=== PATIENT | female | born 1945 | race Asian ===

== ENCOUNTER 2018-07-28 06:07 | Inpatient (IN) | payer MEDICARE, MEDICAID ==
[~2018-07-28] VITALS: Ht 154.9 cm; Wt 45.8 kg
[2018-07-28 06:34] VITALS: BP 185/70
[2018-07-28 07:20] LABS: BASOPHILS % (AUTO) 0.5 % (0.0-2.0); EOSINOPHILS % (AUTO) 0.1 % (0.0-3.0); HEMATOCRIT 37.5 % (37.0-47.0); HEMOGLOBIN 11.8 G/DL (12.0-16.0); LYMPHOCYTES % (AUTO) 33.9 % (20.0-45.0); MEAN CORPUSCULAR VOLUME 84 FL (80-99); MONOCYTES % (AUTO) 5.7 % (1.0-10.0); NEUTROPHILS % (AUTO) 59.8 % (45.0-75.0); PLATELET COUNT 377 K/UL (150-450); RED BLOOD COUNT 4.44 M/UL (4.20-5.40); RED CELL DISTRIBUTION WIDTH 14.6 % (11.6-14.8); WHITE BLOOD COUNT 6.7 K/UL (4.8-10.8)
[2018-07-28] MEDS ORDERED: NKM (07:22)
--- NOTE | 2018-07-28 07:34 | Emergency Room Report ---
History of Present Illness General Chief Complaint: Chest Pain Source: Patient Present Illness HPI Patient present with complaints of chest pain and headache Patient was brought in by paramedics Initial history was provided by paramedics Upon attempt of speaking with English translation patient is a poor historian has a difficult time reporting why she was brought to the hospital Denies any chest pain at this time She did however complain of a left parietal headache Which also correlates with initial triage report Also compares of nausea denies any vomiting or diarrhea Past medical history remains significantly limited medications remains significantly limited attempts are being made to contact family Allergies: Coded Allergies: No Known Allergies (Unverified , 07/28/18) Patient History Limited by: medical condition Past Medical History: see triage record Pertinent Family History: unable to obtain Last Menstrual Period: UNK Now: No Reviewed Nursing Documentation: PMH: Agreed; PSxH: Agreed Nursing Documentation-PMH Past Medical History: No Stated History Review of Systems All Other Systems: limited - Other than the ones mentioned in the history of present illness all others are reviewed however they do stay limited due to the patient's mental status Physical Exam Vital Signs Date Time Temp Pulse Resp B/P (MAP) Pulse Ox O2 Delivery O2 Flow Rate FiO2 07/28/18 06:07 100 14 185/70 98 Room Air 07/28/18 06:34 98.0 Sp02 EP Interpretation: reviewed, normal General Appearance: no apparent distress Head: normocephalic, atraumatic Eyes: bilateral eye PERRL, bilateral eye EOMI ENT: hearing grossly normal, normal pharynx, TMs + canals normal, uvula midline Neck: full range of motion, supple, no meningismus, no bony tend, other - Some fullness in the thyroid region however I cannot an enlarged thyroid Respiratory: lungs clear, normal breath sounds, no rhonchi, no respiratory distress, no retraction, no accessory muscle use Cardiovascular #1: normal peripheral pulses, regular rate, rhythm, no edema, no gallop, no JVD, no murmur Gastrointestinal: normal bowel sounds, non tender, soft, no mass, no organomegaly, non-distended, no guarding, no hernia, no pulsatile mass, no rebound Genitourinary: no CVA tenderness Musculoskeletal: normal inspection 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, 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, motor strength/tone normal, sensory intact Psychiatric: mood/affect normal Skin: normal color, no rash, warm/dry, palpation normal Lymphatic: normal inspection, no adenopathy Medical Decision Making Diagnostic Impression: Primary Impression: ACS (acute coronary syndrome) ER Course Patient is a fairly complex patient with multiple differential to consideration including but not limited to cardiac cardiopulmonary and vascular emergencies Patient also has CT head obtained given her repeat complain of headache CT head was negative blood work is at baseline levels Given the patient's comorbidities and presentation admitted for further inpatient care Labs Test 07/28/18 07:00 07/28/18 07:15 07/28/18 07:30 07/28/18 07:41 White Blood Count 6.7 K/UL (4.8-10.8) Red Blood Count 4.44 M/UL (4.20-5.40) Hemoglobin 11.8 G/DL (12.0-16.0) Hematocrit 37.5 % (37.0-47.0) Mean Corpuscular Volume 84 FL (80-99) Mean Corpuscular Hemoglobin 26.7 PG (27.0-31.0) Mean Corpuscular Hemoglobin Concent 31.6 G/DL (32.0-36.0) Red Cell Distribution Width 14.6 % (11.6-14.8) Platelet Count 377 K/UL (150-450) Mean Platelet Volume 6.2 FL (6.5-10.1) Neutrophils (%) (Auto) 59.8 % (45.0-75.0) Lymphocytes (%) (Auto) 33.9 % (20.0-45.0) Monocytes (%) (Auto) 5.7 % (1.0-10.0) Eosinophils (%) (Auto) 0.1 % (0.0-3.0) Basophils (%) (Auto) 0.5 % (0.0-2.0) Sodium Level 136 MMOL/L (136-145) Potassium Level 3.4 MMOL/L (3.5-5.1) Chloride Level 100 MMOL/L (98-107) Carbon Dioxide Level 22 MMOL/L (21-32) Anion Gap 14 mmol/L (5-15) Blood Urea Nitrogen 14 mg/dL (7-18) Creatinine 0.8 MG/DL (0.55-1.30) Estimat Glomerular Filtration Rate mL/min (>60) Glucose Level 115 MG/DL (74-106) Calcium Level 9.0 MG/DL (8.5-10.1) Total Bilirubin 0.6 MG/DL (0.2-1.0) Aspartate Amino Transf (AST/SGOT) 17 U/L (15-37) Alanine Aminotransferase (ALT/SGPT) 15 U/L (12-78) Alkaline Phosphatase 159 U/L (46-116) Total Creatine Kinase 56 U/L (26-308) Creatine Kinase MB 1.9 NG/ML (0.0-3.6) Creatine Kinase MB Relative Index 3.3 Troponin I 0.002 ng/mL (0.000-0.056) Pro-B-Type Natriuretic Peptide 330 pg/mL (0-125) Total Protein 8.3 G/DL (6.4-8.2) Albumin 3.7 G/DL (3.4-5.0) Globulin 4.6 g/dL Albumin/Globulin Ratio 0.8 (1.0-2.7) Lipase 225 U/L (73-393) Urine Color Pale yellow Urine Appearance Cloudy Urine pH 5 (4.5-8.0) Urine Specific [place] 1.025 (1.005-1.035) Urine Protein 3+ (NEGATIVE) Urine Glucose (UA) Negative (NEGATIVE) Urine Ketones 4+ (NEGATIVE) Urine Blood 5+ (NEGATIVE) Urine Nitrite Negative (NEGATIVE) Urine Bilirubin Negative (NEGATIVE) Urine Urobilinogen Normal MG/DL (0.0-1.0) Urine Leukocyte Esterase 3+ (NEGATIVE) Urine RBC 30-40 /HPF (0 - 2) Urine WBC 10-15 /HPF (0 - 2) Urine Squamous Epithelial Cells Many /LPF (NONE/OCC) Urine Bacteria Many /HPF (NONE) Urine Yeast Moderate /HPF (NONE) Test 07/29/18 05:40 07/29/18 11:40 White Blood Count 7.2 K/UL (4.8-10.8) Red Blood Count 4.16 M/UL (4.20-5.40) Hemoglobin 11.1 G/DL (12.0-16.0) Hematocrit 35.2 % (37.0-47.0) Mean Corpuscular Volume 85 FL (80-99) Mean Corpuscular Hemoglobin 26.8 PG (27.0-31.0) Mean Corpuscular Hemoglobin Concent 31.6 G/DL (32.0-36.0) Red Cell Distribution Width 15.1 % (11.6-14.8) Platelet Count 354 K/UL (150-450) Mean Platelet Volume 6.0 FL (6.5-10.1) Neutrophils (%) (Auto) 62.2 % (45.0-75.0) Lymphocytes (%) (Auto) 30.3 % (20.0-45.0) Monocytes (%) (Auto) 6.7 % (1.0-10.0) Eosinophils (%) (Auto) 0.1 % (0.0-3.0) Basophils (%) (Auto) 0.7 % (0.0-2.0) Prothrombin Time 10.4 SEC (9.30-11.50) Prothromb Time International Ratio 1.0 (0.9-1.1) Activated Partial Thromboplast Time 27 SEC (23-33) Sodium Level 137 MMOL/L (136-145) Potassium Level 3.8 MMOL/L (3.5-5.1) Chloride Level 102 MMOL/L (98-107) Carbon Dioxide Level 22 MMOL/L (21-32) Anion Gap 13 mmol/L (5-15) Blood Urea Nitrogen 8 mg/dL (7-18) Creatinine 0.9 MG/DL (0.55-1.30) Estimat Glomerular Filtration Rate mL/min (>60) Glucose Level 120 MG/DL (74-106) Calcium Level 9.1 MG/DL (8.5-10.1) Phosphorus Level 2.3 MG/DL (2.5-4.9) Magnesium Level 1.8 MG/DL (1.8-2.4) Total Bilirubin 0.4 MG/DL (0.2-1.0) Aspartate Amino Transf (AST/SGOT) 17 U/L (15-37) Alanine Aminotransferase (ALT/SGPT) 15 U/L (12-78) Alkaline Phosphatase 157 U/L (46-116) Troponin I 0.000 ng/mL (0.000-0.056) 0.014 ng/mL (0.000-0.056) C-Reactive Protein, Quantitative < 0.4 mg/dL (0.00-0.90) Total Protein 8.4 G/DL (6.4-8.2) Albumin 3.8 G/DL (3.4-5.0) Globulin 4.6 g/dL Albumin/Globulin Ratio 0.8 (1.0-2.7) Triglycerides Level 135 MG/DL (30-150) Cholesterol Level 325 MG/DL (< 200) LDL Cholesterol 229 mg/dL (<100) HDL Cholesterol 77 MG/DL (40-60) Cholesterol/HDL Ratio 4.2 (3.3-4.4) Amylase Level 72 U/L (25-115) Thyroid Stimulating Hormone (TSH) 1.651 uiU/mL (0.358-3.740) EKG Diagnostic Results Rate: normal Rhythm: NSR ST Segments: other - Bifascicular block nonspecific ST changes Rhythm Strip Diag. Results EP Interpretation: yes Rate: 80 Rhythm: NSR, no PVC's, no ectopy Chest X-Ray Diagnostic Results Chest X-Ray Diagnostic Results : Chest X-Ray Ordered: Yes # of Views/Limited/Complete: 1 View Indication: Shortness of Breath EP Interpretation: No Interpretation: no consolidation, other Impression: Other PA Scribe Text Findings: There is a 13 mm nodule at the right lung base. This is slightly dense so possibly but not definitively calcified. Granulomatous calcifications are seen in the right pulmonary hilum and mediastinum. The lungs and pleural spaces are otherwise clear. The heart size is normal. Aorta is tortuous and calcified. Surgical hardware seen reducing healed proximal right humeral fracture Impression: 13 mm right basilar nodule, possibly not definitely calcified; most likely postinflammatory but neoplasm also possible and further evaluation with CT should be considered. This was discussed by phone with Dr. Morgan in the emergency room at the time of interpretation Evidence of old granulomatous notable disease in the right pulmonary hilum and mediastinum No acute process CT/MRI/US Diagnostic Results CT/MRI/US Diagnostic Results : Impression CT head no acute disease Last Vital Signs Date Time Temp Pulse Resp B/P (MAP) Pulse Ox O2 Delivery O2 Flow Rate FiO2 07/28/18 06:37 90 20 Room Air 07/28/18 06:34 98.0 185/70 100 Status: improved Disposition: ADMITTED INPATIENT Condition: Serious Referrals: NOT CHOSEN IPA/MD,REFERRING (PCP) Daylin Morgan DO Jul 28, 2018 07:34
[2018-07-28 07:45] LABS: ANION GAP 14 mmol/L (5-15); BLOOD UREA NITROGEN 14 mg/dL (7-18); CARBON DIOXIDE 22 MMOL/L (21-32); CHLORIDE 100 MMOL/L (98-107); CREATININE 0.8 MG/DL (0.55-1.30); POTASSIUM 3.4 MMOL/L (3.5-5.1); SODIUM 136 MMOL/L (136-145)
[2018-07-28 07:53] LABS: BILIRUBIN, URINE NEGATIVE (NEGATIVE); COLOR,URINE PALE YELLOW; GLUCOSE, URINE (UA) NEGATIVE (NEGATIVE); KETONES,URINE 4+ (NEGATIVE); LEUKOCYTE ESTERASE ,URINE 3+ (NEGATIVE); NITRITE,URINE NEGATIVE (NEGATIVE); PH,URINE 5 (4.5-8.0); PROTEIN,URINE 3+ (NEGATIVE); UROBILINOGEN,URINE NORMAL MG/DL (0.0-1.0)
[2018-07-28 07:55] LABS: APPEARANCE,URINE CLOUDY
[2018-07-28 08:09] VITALS: BP 148/66
[2018-07-28 08:11] LABS: ALANINE AMINOTRANSFERASE 15 U/L (12-78); ALBUMIN 3.7 G/DL (3.4-5.0); ALBUMIN/GLOBULIN RATIO 0.8 (1.0-2.7); ALKALINE PHOSPHATASE 159 U/L (46-116); ASPARTATE AMINO TRANSFERASE 17 U/L (15-37); BILIRUBIN,TOTAL 0.6 MG/DL (0.2-1.0); CKMB 1.9 NG/ML (0.0-3.6); CREATINE KINASE 56 U/L (26-308)
--- NOTE | 2018-07-28 08:35 | Diagnostic Imaging Report ---
Indications: Headache in the left parietal region Technique: Spiral acquisitions obtained through the brain. Angled axial and coronal 5 x 5 mm slices were reconstructed. Total dose length product 1351.28 mGycm. CTDI vol(s) 70.38 mGy. Dose reduction achieved using automated exposure control Comparison: None. Findings: There is mild age-related enlargement of the ventricles and extra axial CSF spaces, minimal periventricular deep white matter low-attenuation. No acute intracranial hemorrhage nor edema. No mass effect nor midline shift. Normal jorgensen-white differentiation. Intact calvarium. There is lack of opacification of the mastoid air cells on the right, may be developmental or acquired. The right mastoids, visualized sinuses are clear. The visualized orbits are unremarkable. There is questionably an empty sella incidentally noted. Impression: Mild age-related changes Negative for acute intracranial bleed or mass effect Incidental findings as noted The CT scanner at [facility] is accredited by the [employer] and the scans are performed using protocols designed to limit radiation exposure to as low as reasonably achievable to attain images of sufficient resolution adequate for diagnostic evaluation.
--- NOTE | 2018-07-28 08:44 | Diagnostic Imaging Report ---
Indication: Shortness of breath Technique: One view of the chest Comparison: None Findings: There is a 13 mm nodule at the right lung base. This is slightly dense so possibly but not definitively calcified. Granulomatous calcifications are seen in the right pulmonary hilum and mediastinum. The lungs and pleural spaces are otherwise clear. The heart size is normal. Aorta is tortuous and calcified. Surgical hardware seen reducing healed proximal right humeral fracture Impression: 13 mm right basilar nodule, possibly not definitely calcified; most likely postinflammatory but neoplasm also possible and further evaluation with CT should be considered. This was discussed by phone with Dr. Morgan in the emergency room at the time of interpretation Evidence of old granulomatous notable disease in the right pulmonary hilum and mediastinum No acute process
[2018-07-28 08:51] VITALS: BP 143/58
[2018-07-28] MEDS ORDERED: cefTRIAXone 1 GM in D5W 55 ML IVPB ONE (09:00)
[2018-07-28] MEDS ORDERED: Nitroglycerin Subl 0.4mg tab SL PRN (10:45)
[2018-07-28] MEDS ORDERED: Enalaprilat 2.5mg/2ml Inj IV PRN (10:45)
[2018-07-28] MEDS ORDERED: Morphine Sulfate 2mg/ml Inj IVP PRN (10:45)
[2018-07-28] MEDS ORDERED: Isovue-300 100ml vial INJ PRN (10:45)
[2018-07-28] MEDS ORDERED: dilTIAZem HCl 25mg/5ml Inj IV PRN (10:45)
[2018-07-28] MEDS ORDERED: Albuterol/Ipratropium 3ml neb HHN PRN (10:45)
[2018-07-28] MEDS ORDERED: Miralax 17gm pkt ORAL PRN (10:45)
--- NOTE | 2018-07-28 10:48 | Consultation ---
History of Present Illness General Chief Complaint: Chest Pain Present Illness HPI 72 year old female with unknown PMHx, without any prior admission to [facility] was taken by paramedics to [place] ER with CC of chest pain for one day and episodes of nausea and vomiting. She was found to have pyuria and received one dose of Abx. Her CXR showed RLL 13 mm lesion. She is admitted to telemetry for further evaluation. Allergies: Coded Allergies: No Known Allergies (Unverified , 07/28/18) Medication History Scheduled No Known Medications* (NKM - No Known Medications*), 0 ., (Reported) Patient History Healthcare decision maker Resuscitation status Advanced Directive on File Past Medical/Surgical History Past Medical/Surgical History: (1) No pertinent past medical history Physical Exam General Appearance: WD/WN Lines, tubes and drains: peripheral HEENT: normocephalic, atraumatic Neck: non-tender, normal alignment Respiratory/Chest: chest wall non-tender, lungs clear Breasts: no masses Cardiovascular/Chest: normal peripheral pulses, regular rhythm Abdomen: normal bowel sounds, non tender Genitourinary/Rectal: normal genital exam Extremities: normal range of motion Last 24 Hour Vital Signs Date Time Temp Pulse Resp B/P (MAP) Pulse Ox O2 Delivery O2 Flow Rate FiO2 07/28/18 09:55 98.8 78 18 143/58 100 Room Air 07/28/18 08:51 98.8 78 18 143/58 100 Room Air 07/28/18 08:09 98.8 88 23 148/66 100 Room Air 88 07/28/18 06:37 90 20 Room Air 07/28/18 06:34 98.0 90 20 185/70 100 Room Air 07/28/18 06:07 100 14 185/70 98 Room Air Laboratory Tests Test 07/28/18 07:00 07/28/18 07:15 07/28/18 07:41 White Blood Count 6.7 K/UL (4.8-10.8) Red Blood Count 4.44 M/UL (4.20-5.40) Hemoglobin 11.8 G/DL (12.0-16.0) L Hematocrit 37.5 % (37.0-47.0) Mean Corpuscular Volume 84 FL (80-99) Mean Corpuscular Hemoglobin 26.7 PG (27.0-31.0) L Mean Corpuscular Hemoglobin Concent 31.6 G/DL (32.0-36.0) L Red Cell Distribution Width 14.6 % (11.6-14.8) Platelet Count 377 K/UL (150-450) Mean Platelet Volume 6.2 FL (6.5-10.1) L Neutrophils (%) (Auto) 59.8 % (45.0-75.0) Lymphocytes (%) (Auto) 33.9 % (20.0-45.0) Monocytes (%) (Auto) 5.7 % (1.0-10.0) Eosinophils (%) (Auto) 0.1 % (0.0-3.0) Basophils (%) (Auto) 0.5 % (0.0-2.0) Sodium Level 136 MMOL/L (136-145) Potassium Level 3.4 MMOL/L (3.5-5.1) L Chloride Level 100 MMOL/L (98-107) Carbon Dioxide Level 22 MMOL/L (21-32) Anion Gap 14 mmol/L (5-15) Blood Urea Nitrogen 14 mg/dL (7-18) Creatinine 0.8 MG/DL (0.55-1.30) Estimat Glomerular Filtration Rate mL/min (>60) Glucose Level 115 MG/DL (74-106) H Calcium Level 9.0 MG/DL (8.5-10.1) Total Bilirubin 0.6 MG/DL (0.2-1.0) Aspartate Amino Transf (AST/SGOT) 17 U/L (15-37) Alanine Aminotransferase (ALT/SGPT) 15 U/L (12-78) Alkaline Phosphatase 159 U/L (46-116) H Total Creatine Kinase 56 U/L (26-308) Creatine Kinase MB 1.9 NG/ML (0.0-3.6) Creatine Kinase MB Relative Index 3.3 Troponin I 0.002 ng/mL (0.000-0.056) Pro-B-Type Natriuretic Peptide 330 pg/mL (0-125) H Total Protein 8.3 G/DL (6.4-8.2) H Albumin 3.7 G/DL (3.4-5.0) Globulin 4.6 g/dL Albumin/Globulin Ratio 0.8 (1.0-2.7) L Urine Color Pale yellow Urine Appearance Cloudy Urine pH 5 (4.5-8.0) Urine Specific [place] 1.025 (1.005-1.035) Urine Protein 3+ (NEGATIVE) H Urine Glucose (UA) Negative (NEGATIVE) Urine Ketones 4+ (NEGATIVE) H Urine Blood 5+ (NEGATIVE) H Urine Nitrite Negative (NEGATIVE) Urine Bilirubin Negative (NEGATIVE) Urine Urobilinogen Normal MG/DL (0.0-1.0) Urine Leukocyte Esterase 3+ (NEGATIVE) H Urine RBC 30-40 /HPF (0 - 2) H Urine WBC 10-15 /HPF (0 - 2) H Urine Squamous Epithelial Cells Many /LPF (NONE/OCC) H Urine Bacteria Many /HPF (NONE) H Urine Yeast Moderate /HPF (NONE) H Height (Feet): 5 Height (Inches): 2.00 Weight (Pounds): 130 Medications Current Medications Medications (Trade) Dose Ordered Sig/Naomi Route PRN Reason Start Time Stop Time Status Last Admin Dose Admin Acetaminophen (Tylenol) 650 mg Q4H PRN ORAL FEVER 07/28/18 10:45 08/27/18 10:44 UNV Albuterol/ Ipratropium (Albuterol/ Ipratropium) 3 ml EVERY 4 HOURS PRN HHN Shortness of Breath 07/28/18 10:45 08/02/18 10:44 UNV Aspirin (ASA) 162 mg DAILY ORAL 07/29/18 09:00 08/28/18 08:59 UNV Diltiazem HCl (Cardizem) 10 mg EVERY HOUR PRN IV heart rate more than 120, 07/28/18 10:45 08/27/18 10:44 UNV Enalaprilat (Vasotec) 2.5 mg EVERY 6 HOURS PRN IV sbp more than 160 07/28/18 10:45 08/27/18 10:44 UNV Heparin Sodium (Porcine) (Heparin 5000 units/ml) 5,000 units EVERY 12 HOURS SUBQ 07/28/18 21:00 08/27/18 20:59 UNV Ketorolac Tromethamine (Toradol 30mg) 30 mg Q6HR PRN IV moderate pain ( 4-6) 07/28/18 10:45 08/02/18 10:44 UNV Morphine Sulfate (Morphine Sulfate) 2 mg EVERY 4 HOURS PRN IVP severe Pain (Pain Scale 7-10) 07/28/18 10:45 08/04/18 10:44 UNV Nitroglycerin (Ntg) 0.4 mg Every 5 Minutes PRN SL Prn Chest Pain 07/28/18 10:45 08/27/18 10:44 UNV Ondansetron HCl (Zofran) 4 mg Q6H PRN IVP Nausea & Vomiting 07/28/18 10:45 08/27/18 10:44 UNV Polyethylene Glycol (Miralax) 17 gm DAILYPRN PRN ORAL Constipation 07/28/18 10:45 08/27/18 10:44 UNV Temazepam (Restoril) 15 mg HSPRN PRN ORAL Insomnia 07/28/18 10:45 08/04/18 10:44 UNV Assessment/Plan Problem List: (1) ACS (acute coronary syndrome) ICD Codes: I24.9 - Acute ischemic heart disease, unspecified SNOMED: 603000700 (2) Pulmonary nodule ICD Codes: R91.1 - Solitary pulmonary nodule SNOMED: 446165970 Assessment/Plan serial ekg, troponin, echo cardiology evaluation CT chest with contrast to evaluate RLL nodule dvt prophylaxis Annie Cutler MD Jul 28, 2018 10:48
[2018-07-28 12:00] VITALS: BP 138/73
--- NOTE | 2018-07-28 12:26 | Consultation ---
History of Present Illness General Chief Complaint: Chest Pain Present Illness HPI 72-year-old Nepali-speaking female, denies any past medical history and past surgical history, who presented to the hospital, complaining about chest pain, headache, weakness, nausea, and vomiting. the pt has anxiety and memory problems. the pt has hx of insomnia. c/o nausea. Allergies: Coded Allergies: No Known Allergies (Unverified , 07/28/18) Medication History Scheduled No Known Medications* (NKM - No Known Medications*), 0 ., (Reported) Patient History Limited by: medical condition History Provided By: Patient, Medical Record, PMD Healthcare decision maker Resuscitation status Full Code Advanced Directive on File Past Medical/Surgical History Past Medical/Surgical History: (1) Chest pain (2) Pulmonary nodule (3) ACS (acute coronary syndrome) (4) No pertinent past medical history Review of Systems Psychiatric: Reports: prior hx, anxiety, depressed feelings, emotional problems Physical Exam General Appearance: no apparent distress, alert Neurologic: oriented x 3, responsive, depressed affect Last 24 Hour Vital Signs Date Time Temp Pulse Resp B/P (MAP) Pulse Ox O2 Delivery O2 Flow Rate FiO2 07/28/18 12:00 98.3 90 20 138/73 (94) 98 07/28/18 12:00 86 07/28/18 11:42 Room Air 07/28/18 09:55 98.8 78 18 143/58 100 Room Air 07/28/18 08:51 98.8 78 18 143/58 100 Room Air 07/28/18 08:09 98.8 88 23 148/66 100 Room Air 88 07/28/18 06:37 90 20 Room Air 07/28/18 06:34 98.0 90 20 185/70 100 Room Air 07/28/18 06:07 100 14 185/70 98 Room Air Laboratory Tests Test 07/28/18 07:00 07/28/18 07:15 07/28/18 07:41 White Blood Count 6.7 K/UL (4.8-10.8) Red Blood Count 4.44 M/UL (4.20-5.40) Hemoglobin 11.8 G/DL (12.0-16.0) L Hematocrit 37.5 % (37.0-47.0) Mean Corpuscular Volume 84 FL (80-99) Mean Corpuscular Hemoglobin 26.7 PG (27.0-31.0) L Mean Corpuscular Hemoglobin Concent 31.6 G/DL (32.0-36.0) L Red Cell Distribution Width 14.6 % (11.6-14.8) Platelet Count 377 K/UL (150-450) Mean Platelet Volume 6.2 FL (6.5-10.1) L Neutrophils (%) (Auto) 59.8 % (45.0-75.0) Lymphocytes (%) (Auto) 33.9 % (20.0-45.0) Monocytes (%) (Auto) 5.7 % (1.0-10.0) Eosinophils (%) (Auto) 0.1 % (0.0-3.0) Basophils (%) (Auto) 0.5 % (0.0-2.0) Sodium Level 136 MMOL/L (136-145) Potassium Level 3.4 MMOL/L (3.5-5.1) L Chloride Level 100 MMOL/L (98-107) Carbon Dioxide Level 22 MMOL/L (21-32) Anion Gap 14 mmol/L (5-15) Blood Urea Nitrogen 14 mg/dL (7-18) Creatinine 0.8 MG/DL (0.55-1.30) Estimat Glomerular Filtration Rate mL/min (>60) Glucose Level 115 MG/DL (74-106) H Calcium Level 9.0 MG/DL (8.5-10.1) Total Bilirubin 0.6 MG/DL (0.2-1.0) Aspartate Amino Transf (AST/SGOT) 17 U/L (15-37) Alanine Aminotransferase (ALT/SGPT) 15 U/L (12-78) Alkaline Phosphatase 159 U/L (46-116) H Total Creatine Kinase 56 U/L (26-308) Creatine Kinase MB 1.9 NG/ML (0.0-3.6) Creatine Kinase MB Relative Index 3.3 Troponin I 0.002 ng/mL (0.000-0.056) Pro-B-Type Natriuretic Peptide 330 pg/mL (0-125) H Total Protein 8.3 G/DL (6.4-8.2) H Albumin 3.7 G/DL (3.4-5.0) Globulin 4.6 g/dL Albumin/Globulin Ratio 0.8 (1.0-2.7) L Urine Color Pale yellow Urine Appearance Cloudy Urine pH 5 (4.5-8.0) Urine Specific [place] 1.025 (1.005-1.035) Urine Protein 3+ (NEGATIVE) H Urine Glucose (UA) Negative (NEGATIVE) Urine Ketones 4+ (NEGATIVE) H Urine Blood 5+ (NEGATIVE) H Urine Nitrite Negative (NEGATIVE) Urine Bilirubin Negative (NEGATIVE) Urine Urobilinogen Normal MG/DL (0.0-1.0) Urine Leukocyte Esterase 3+ (NEGATIVE) H Urine RBC 30-40 /HPF (0 - 2) H Urine WBC 10-15 /HPF (0 - 2) H Urine Squamous Epithelial Cells Many /LPF (NONE/OCC) H Urine Bacteria Many /HPF (NONE) H Urine Yeast Moderate /HPF (NONE) H Height (Feet): 5 Height (Inches): 1.00 Weight (Pounds): 101 Medications Current Medications Medications (Trade) Dose Ordered Sig/Naomi Route PRN Reason Start Time Stop Time Status Last Admin Dose Admin Acetaminophen (Tylenol) 650 mg Q4H PRN ORAL FEVER 07/28/18 10:39 08/27/18 10:38 Albuterol/ Ipratropium (Albuterol/ Ipratropium) 3 ml Q4H PRN HHN Shortness of Breath 07/28/18 10:45 08/02/18 10:44 Aspirin (ASA) 162 mg DAILY ORAL 07/29/18 09:00 08/28/18 08:59 Diltiazem HCl (Cardizem) 10 mg Q1H PRN IV heart rate more than 120, 07/28/18 10:45 08/27/18 10:44 Enalaprilat (Vasotec) 2.5 mg Q6H PRN IV sbp more than 160 07/28/18 10:45 08/27/18 10:44 Heparin Sodium (Porcine) (Heparin 5000 units/ml) 5,000 units EVERY 12 HOURS SUBQ 07/28/18 21:00 08/27/18 20:59 Iopamidol (Isovue-300 100ml) 100 ml NOW PRN INJ Radiology Procedure 07/28/18 10:45 07/30/18 10:34 Ketorolac Tromethamine (Toradol 30mg) 30 mg Q6H PRN IV moderate pain ( 4-6) 07/28/18 10:45 08/02/18 10:44 Morphine Sulfate (Morphine Sulfate) 2 mg Q4H PRN IVP severe Pain (Pain Scale 7-10) 07/28/18 10:45 08/04/18 10:44 Nitroglycerin (Ntg) 0.4 mg Q5M PRN SL Prn Chest Pain 07/28/18 10:45 08/27/18 10:44 Ondansetron HCl (Zofran) 4 mg Q6H PRN IVP Nausea & Vomiting 07/28/18 10:45 08/27/18 10:44 Polyethylene Glycol (Miralax) 17 gm DAILYPRN PRN ORAL Constipation 07/28/18 10:45 08/27/18 10:44 Temazepam (Restoril) 15 mg HSPRN PRN ORAL Insomnia 07/28/18 10:45 08/04/18 10:44 Assessment/Plan Problem List: (1) Anxiety disorder ICD Codes: F41.9 - Anxiety disorder, unspecified SNOMED: 443020383 Status: stable Assessment/Plan ativan priya/st yelena powers/Massimo Cruz MD Jul 28, 2018 12:26
--- NOTE | 2018-07-28 15:25 | History & Physical ---
History and Physical History & Physicial Brien Renee MD Jul 28, 2018 15:25
[2018-07-28 16:00] VITALS: BP 148/74
[2018-07-28] MEDS: D5 1/2NS w/KCl 40meq 1000ml 1,000 ML IV SCH (16:17)
[2018-07-28 20:00] VITALS: BP 155/69
--- NOTE | 2018-07-28 21:00 | Cardiology Progress Note ---
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 ekg neg trop neg echo and repat enzyme mpi in am osiel lipase in am in light on nasue and vomitting [id number] Objective Last 24 Hour Vital Signs Date Time Temp Pulse Resp B/P (MAP) Pulse Ox O2 Delivery O2 Flow Rate FiO2 07/28/18 20:09 89 18 Room Air 21 07/28/18 19:37 86 07/28/18 16:00 94 07/28/18 16:00 98.6 94 20 148/74 (98) 96 07/28/18 12:00 98.3 90 20 138/73 (94) 98 07/28/18 12:00 86 07/28/18 11:42 Room Air 07/28/18 09:55 98.8 78 18 143/58 100 Room Air 07/28/18 08:51 98.8 78 18 143/58 100 Room Air 07/28/18 08:09 98.8 88 23 148/66 100 Room Air 88 07/28/18 06:37 90 20 Room Air 07/28/18 06:34 98.0 90 20 185/70 100 Room Air 07/28/18 06:07 100 14 185/70 98 Room Air Laboratory Tests Test 07/28/18 07:00 07/28/18 07:15 07/28/18 07:41 White Blood Count 6.7 K/UL (4.8-10.8) Red Blood Count 4.44 M/UL (4.20-5.40) Hemoglobin 11.8 G/DL (12.0-16.0) L Hematocrit 37.5 % (37.0-47.0) Mean Corpuscular Volume 84 FL (80-99) Mean Corpuscular Hemoglobin 26.7 PG (27.0-31.0) L Mean Corpuscular Hemoglobin Concent 31.6 G/DL (32.0-36.0) L Red Cell Distribution Width 14.6 % (11.6-14.8) Platelet Count 377 K/UL (150-450) Mean Platelet Volume 6.2 FL (6.5-10.1) L Neutrophils (%) (Auto) 59.8 % (45.0-75.0) Lymphocytes (%) (Auto) 33.9 % (20.0-45.0) Monocytes (%) (Auto) 5.7 % (1.0-10.0) Eosinophils (%) (Auto) 0.1 % (0.0-3.0) Basophils (%) (Auto) 0.5 % (0.0-2.0) Sodium Level 136 MMOL/L (136-145) Potassium Level 3.4 MMOL/L (3.5-5.1) L Chloride Level 100 MMOL/L (98-107) Carbon Dioxide Level 22 MMOL/L (21-32) Anion Gap 14 mmol/L (5-15) Blood Urea Nitrogen 14 mg/dL (7-18) Creatinine 0.8 MG/DL (0.55-1.30) Estimat Glomerular Filtration Rate mL/min (>60) Glucose Level 115 MG/DL (74-106) H Calcium Level 9.0 MG/DL (8.5-10.1) Total Bilirubin 0.6 MG/DL (0.2-1.0) Aspartate Amino Transf (AST/SGOT) 17 U/L (15-37) Alanine Aminotransferase (ALT/SGPT) 15 U/L (12-78) Alkaline Phosphatase 159 U/L (46-116) H Total Creatine Kinase 56 U/L (26-308) Creatine Kinase MB 1.9 NG/ML (0.0-3.6) Creatine Kinase MB Relative Index 3.3 Troponin I 0.002 ng/mL (0.000-0.056) Pro-B-Type Natriuretic Peptide 330 pg/mL (0-125) H Total Protein 8.3 G/DL (6.4-8.2) H Albumin 3.7 G/DL (3.4-5.0) Globulin 4.6 g/dL Albumin/Globulin Ratio 0.8 (1.0-2.7) L Urine Color Pale yellow Urine Appearance Cloudy Urine pH 5 (4.5-8.0) Urine Specific [place] 1.025 (1.005-1.035) Urine Protein 3+ (NEGATIVE) H Urine Glucose (UA) Negative (NEGATIVE) Urine Ketones 4+ (NEGATIVE) H Urine Blood 5+ (NEGATIVE) H Urine Nitrite Negative (NEGATIVE) Urine Bilirubin Negative (NEGATIVE) Urine Urobilinogen Normal MG/DL (0.0-1.0) Urine Leukocyte Esterase 3+ (NEGATIVE) H Urine RBC 30-40 /HPF (0 - 2) H Urine WBC 10-15 /HPF (0 - 2) H Urine Squamous Epithelial Cells Many /LPF (NONE/OCC) H Urine Bacteria Many /HPF (NONE) H Urine Yeast Moderate /HPF (NONE) H Frantz Wall MD Jul 28, 2018 21:00
[2018-07-28] MEDS: Heparin 5000 units/ml inj SUBQ SCH (22:20)
[2018-07-29] VITALS (7 sets, daily range): BP systolic 134–166; BP diastolic 69–92
--- NOTE | 2018-07-29 00:30 | History and Physical Report ---
DATE OF ADMISSION: 07/28/2018 CHIEF COMPLAINT: Chest pain, weakness, nausea, and vomiting. HISTORY OF PRESENT ILLNESS: This is a 72-year-old Danish-speaking female, denies any past medical history and past surgical history, who presented to the hospital, complaining about chest pain, headache, weakness, nausea, and vomiting. She denies any fever or chills. Denies any dysuria or frequency. She has been having a complaint about the left parietal headache. Denies any loss of consciousness. Denies any fall or head trauma. Shortly after initial evaluation in the emergency, the patient was admitted to the hospital with chest pain and possible acute coronary syndrome as well as headache and acute UTI. PAST MEDICAL HISTORY/PAST SURGICAL HISTORY: As above. Denies any past medical history or past surgical history. MEDICATIONS: At home, none. ALLERGIES: No known drug allergies. SOCIAL HISTORY: Denies any smoking, alcohol, or drugs. FAMILY HISTORY: Noncontributory. REVIEW OF SYSTEMS: Mostly as above. Denies any dysuria, frequency, or hematuria. Denies any fever. Complained about headache. Complained about nausea and vomiting. Denies any loss of consciousness. Denies any fall or head trauma. PHYSICAL EXAMINATION: VITAL SIGNS: On admission, temperature 98.0, pulse of 100, respirations 14, and blood pressure 185/70 and repeat blood pressure is 138/73. GENERAL: The patient is awake and responsive, not acute, but ill appearing. HEAD AND NECK: Pupils are reactive to light. Extraocular movements are intact. NECK: Supple. No JVD. LUNGS: Clear. No wheezing or rales. HEART: S1 and S2. Regular rhythm. No gallops. ABDOMEN: Soft, nondistended, and nontender. Positive bowel sounds. EXTREMITIES: No cyanosis, clubbing, or edema. NEUROLOGIC: Cranial nerves II through XII grossly intact. The patient is moving all extremities. Gait is not assessed due to the patient's status. RECTAL: Refused and deferred. GENITOURINARY: Refused and deferred. PSYCHIATRIC: Mood and affect are intact. LABORATORY DATA: Laboratory from the admission, WBC of 6.7, hemoglobin 11, hematocrit 37, and platelets 377,000. Sodium 136, potassium 3.4, chloride 100, bicarbonate 22, BUN 14, creatinine 0.8, glucose is 115, calcium is 9.0, and total bilirubin of 0.6. AST of 17, ALT of 15, and alkaline phosphatase is 159. Troponin 0.02. BNP of 330. Total albumin is 8.3. Urinalysis, +3 protein, +4 ketones, +5 blood, negative nitrite, +3 leukocytes, moderate yeast, and many bacteria. The patient's CT of the head was noted to be mild, age-related changes, and negative for the acute intracranial bleeding or mass. A significant finding noted, lack of opacity of the mastoid air cell on the right side. Chest x-ray shows that the patient has 13 mm right basal nodule, possibly not definitely calcified, most likely postinflammatory, but neoplasm is also possible; evidence of the old granulomatous notable disease; and right pulmonary hilum and mediastinum. ASSESSMENT: 1. Possible atypical chest pain; however, cannot rule out acute coronary syndrome. 2. Pulmonary nodule. 3. Hypokalemia. 4. Severe dehydration. 5. Urinary tract infection. PLAN: Admit the patient to telemetry. We will follow up serial cardiac enzymes, laboratory in the morning. Code status is Full Code. DVT prophylaxis. Heparin subcutaneous. Start the patient on Rocephin antibiotic. Dr. Cutler from [facility]. We will follow up with the laboratory culture in the morning. Brien Renee M.D. DR: FRANCHESKA JOB#: [id number] CC:
--- NOTE | 2018-07-29 04:15 | Consultation ---
DATE OF CONSULTATION: 07/28/2018 CARDIOLOGY CONSULTATION CONSULTING PHYSICIAN: Frantz Wall M.D. REFERRING PHYSICIANS: 1. Brien Renee M.D. 2. Annie Cutler M.D. REASON FOR REFERRAL: Chest pain. HISTORY OF PRESENT ILLNESS: This is an unfortunate 72-year-old female who is really not able to provide much in terms of meaningful history, although information that I obtained is from one of the staff that speaks Yoruba. Paramedics brought her to the emergency room at [facility]. The patient herself does not remember the reason why she came into the hospital per her and the is transferred from . The vp of marketing run sheet indicated the patient was found sitting on a chair complaining of some chest pain for 1 day. The patient indicated that the pain came on gradually non-provoked. Unable to describe the pain, substernal, nonradiating, 5/10. No pain on palpation. No pain on inspiration. No shortness of breath. She had some nausea and some vomiting. No obvious neuro deficits were noted by them. Apparently, paramedics obtained the information through a contour sander on the scene. Apparently, she complained of headache as well. No blurred vision was noted. No facial droops and she denied any other complaints, but she was brought to the emergency room because of those complaints. She was given some aspirin by the paramedics and nitroglycerin also by paramedics. Subsequently, she was brought to the emergency room. In the emergency room, she was seen by the ER physician who felt that using a Yoruba contour sander, the patient was a poor historian and difficult time reporting what she actually was brought to the hospital for, seeing the information I received now. PAST MEDICAL HISTORY: Very difficult to obtain. She denies having had any heart problems. No diabetes or high blood pressure, but she is really not sure. The patient thinks she has had history of breast cancer. She is status post mastectomy. She may have had either bladder or uterine cancer that was resected as well according to herself. ALLERGIES: She is not allergic to any medication except Tylenol she says. SOCIAL HISTORY: She denies any smoking or drinking alcoholic beverages. REVIEW OF SYSTEMS: She has had some vomiting and some nausea apparently, but does not remember if she has had a bowel movement. She does not remember if she has any discomfort on urination.PULMONARY: Does not remember if she has been coughing or wheezing. CONSTITUTIONAL: She does not remember if she has had fever, chills, or night sweats. NEUROLOGIC: She basically is wheelchair bound according to herself. PHYSICAL EXAMINATION: GENERAL: Shows to be elderly female, in no respiratory distress. NECK: Supple. No jugular venous distention. LUNGS: Clear to auscultation and percussion. CARDIAC: S1 is normal. S2 is normal. Regular rate and rhythm. No heaves, thrills, or gallops noted. ABDOMEN: Soft and nontender. Positive bowel sounds. EXTREMITIES: There is no clubbing, cyanosis, nor edema. NEUROLOGICAL: She is awake, alert, responsive, and in no apparent respiratory distress, although she is confused and not oriented. She had a chest x-ray performed in the emergency room that shows 13 mm nodule in the right lung base. The lungs and pleural spaces are otherwise clear. Heart is normal. Aorta is tortuous. Surgical hardware seen, proximal right humerus. LABORATORY DATA: White count 6, hemoglobin 11.8, and platelet count of 377,000. Sodium 132, potassium 3.4, chloride 100, bicarbonate 22, BUN of 14, creatinine 0.8, and glucose of 115. Alkaline phosphatase was 159. CK of 56. Troponin 0.02. ProBNP is only 330. Total protein 8.3. Her urinalysis shows many squamous epithelial cells, 10 to 15 wbc's, and 30 to 40 rbc's, and 3+ leukocyte esterase. She did have a CT scan of her head that showed mild age-related changes, negative for acute intracranial bleeding or mass effect. Her electrocardiogram was performed in the emergency room shows normal sinus rhythm, normal QRS axis, and incomplete right bundle-branch conduction defect. No ST-T wave abnormalities. Telemetry sinus noted. ASSESSMENT AND PLAN: 1. Questionable chest pain. 2. History of breast cancer and possible either uterine or bladder cancer, status post resection. 3. Recent nausea and possibly vomiting. 4. Dementia likely. 5. Pulmonary nodule. PLAN: Dr. Cutler, this patient is seen in cardiac consultation. She is really a poor historian. The information from her is a sort of lack in accuracy. Two sets of cardiac enzymes are negative and in light of the fact that she has complained of chest pain to the paramedics, I think it is reasonable to perform a myocardial perfusion imaging in hopes of seeing if she needs further evaluation or she can be discharged home and she should have an echocardiogram performed tomorrow morning and repeat cardiac enzymes will be ordered. Amylase and lipase should also be checked in the fact that she has some gastrointestinal symptoms. Frantz Wall M.D. DR: DIANE JOB#: [id number] CC:
[2018-07-29] MEDS: Ketorolac 30mg Inj IV PRN (04:21)
[2018-07-29] MEDS: D5 1/2NS w/KCl 40meq 1000ml 1,000 ML IV SCH ×2 (05:03→18:47)
[2018-07-29 07:12] LABS: PHOSPHORUS 2.3 MG/DL (2.5-4.9)
[2018-07-29 07:20] LABS: BASOPHILS % (AUTO) 0.7 % (0.0-2.0); EOSINOPHILS % (AUTO) 0.1 % (0.0-3.0); HEMATOCRIT 35.2 % (37.0-47.0); HEMOGLOBIN 11.1 G/DL (12.0-16.0); LYMPHOCYTES % (AUTO) 30.3 % (20.0-45.0); MEAN CORPUSCULAR VOLUME 85 FL (80-99); MONOCYTES % (AUTO) 6.7 % (1.0-10.0); NEUTROPHILS % (AUTO) 62.2 % (45.0-75.0); PLATELET COUNT 354 K/UL (150-450); RED BLOOD COUNT 4.16 M/UL (4.20-5.40); RED CELL DISTRIBUTION WIDTH 15.1 % (11.6-14.8); WHITE BLOOD COUNT 7.2 K/UL (4.8-10.8)
[2018-07-29 07:29] LABS: ALANINE AMINOTRANSFERASE 15 U/L (12-78); ALBUMIN 3.8 G/DL (3.4-5.0); ALBUMIN/GLOBULIN RATIO 0.8 (1.0-2.7); ALKALINE PHOSPHATASE 157 U/L (46-116); ANION GAP 13 mmol/L (5-15); ASPARTATE AMINO TRANSFERASE 17 U/L (15-37); BILIRUBIN,TOTAL 0.4 MG/DL (0.2-1.0); BLOOD UREA NITROGEN 8 mg/dL (7-18); CALCIUM 9.1 MG/DL (8.5-10.1); CARBON DIOXIDE 22 MMOL/L (21-32); CHLORIDE 102 MMOL/L (98-107); CHOLESTEROL 325 MG/DL (< 200); CREATININE 0.9 MG/DL (0.55-1.30); HDL CHOLESTEROL 77 MG/DL (40-60); POTASSIUM 3.8 MMOL/L (3.5-5.1); SODIUM 137 MMOL/L (136-145); TRIGLYCERIDES 135 MG/DL (30-150)
[2018-07-29] MEDS ORDERED: Lexiscan 0.4mg/5ml syringe IV PRN (09:00)
[2018-07-29] MEDS: Aspirin Baby 81mg ORAL SCH (09:00)
[2018-07-29] MEDS: Heparin 5000 units/ml inj SUBQ SCH ×2 (09:37→20:32)
[2018-07-29] MEDS: cefTRIAXone 1 GM in D5W 55 ML IVPB SCH (10:18)
--- NOTE | 2018-07-29 12:39 | Pulmonology Progress Note ---
Assessment/Plan Problems: (1) ACS (acute coronary syndrome) (2) Pulmonary nodule Assessment/Plan serial ekg, troponin, echo cardiology evaluation appreciated CT chest with contrast to evaluate RLL nodule, still pending dvt prophylaxis Subjective ROS Limited/Unobtainable: Yes Constitutional: Reports: no symptoms HEENT: Repors: no symptoms Allergies: Coded Allergies: No Known Allergies (Unverified , 07/28/18) Objective Last 24 Hour Vital Signs Date Time Temp Pulse Resp B/P (MAP) Pulse Ox O2 Delivery O2 Flow Rate FiO2 07/29/18 09:00 Room Air 07/29/18 08:00 80 07/29/18 08:00 98.2 88 18 154/87 (109) 100 07/29/18 07:30 100 Nasal Cannula 2.0 28 07/29/18 07:30 Nasal Cannula 2.0 28 07/29/18 07:30 83 16 Nasal Cannula 2.0 28 07/29/18 04:00 98.5 87 18 140/76 (97) 97 07/29/18 03:23 83 07/29/18 00:00 97.6 54 20 134/69 (90) 94 07/28/18 23:36 85 07/28/18 21:00 Room Air 07/28/18 20:09 89 18 Room Air 21 07/28/18 20:00 97.9 87 20 155/69 (97) 97 07/28/18 19:37 86 07/28/18 16:00 94 07/28/18 16:00 98.6 94 20 148/74 (98) 96 Intake and Output 07/28/18 07/29/18 19:00 07:00 Intake Total 225 ml 670 ml Balance 225 ml 670 ml Intake IV Total 225 ml 670 ml # Voids 1 3 General Appearance: WD/WN HEENT: normocephalic, atraumatic Respiratory/Chest: chest wall non-tender, lungs clear Breasts: no masses Cardiovascular: normal peripheral pulses Abdomen: normal bowel sounds, soft, non tender Genitourinary: normal external genitalia Extremities: no clubbing 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 Microbiology Date/Time Source Procedure Growth Status 07/28/18 07:41 Urine,Clean Catch Urine Culture - Preliminary Gram Negative Bacillus 1 Resulted Laboratory Tests 07/29/18 05:40: White Blood Count 7.2, Red Blood Count 4.16L, Hemoglobin 11.1L, Hematocrit 35.2L , Mean Corpuscular Volume 85, Mean Corpuscular Hemoglobin 26.8L, Mean Corpuscular Hemoglobin Concent 31.6L, Red Cell Distribution Width 15.1H, Platelet Count 354, Mean Platelet Volume 6.0L, Neutrophils (%) (Auto) 62.2, Lymphocytes (%) (Auto) 30.3, Monocytes (%) (Auto) 6.7, Eosinophils (%) (Auto) 0.1, Basophils (%) (Auto) 0.7, Prothrombin Time 10.4, Prothromb Time International Ratio 1.0, Activated Partial Thromboplast Time 27, Sodium Level 137, Potassium Level 3.8, Chloride Level 102, Carbon Dioxide Level 22, Anion Gap 13, Blood Urea Nitrogen 8, Creatinine 0.9, Estimat Glomerular Filtration Rate , Glucose Level 120H, Calcium Level 9.1, Phosphorus Level 2.3L, Magnesium Level 1.8, Total Bilirubin 0.4, Aspartate Amino Transf (AST/SGOT) 17, Alanine Aminotransferase (ALT/SGPT) 15, Alkaline Phosphatase 157H, Troponin I 0.000, C- Reactive Protein, Quantitative < 0.4, Total Protein 8.4H, Albumin 3.8, Globulin 4.6, Albumin/Globulin Ratio 0.8L, Triglycerides Level 135, Cholesterol Level 325H, LDL Cholesterol 229H, HDL Cholesterol 77H, Cholesterol/HDL Ratio 4.2, Amylase Level 72, Thyroid Stimulating Hormone (TSH) 1.651 07/29/18 11:40: Troponin I 0.014 Current Medications Medications (Trade) Dose Ordered Sig/Naomi Route PRN Reason Start Time Stop Time Status Last Admin Dose Admin Acetaminophen (Tylenol) 650 mg Q4H PRN ORAL FEVER 07/28/18 10:39 08/27/18 10:38 Albuterol/ Ipratropium (Albuterol/ Ipratropium) 3 ml Q4H PRN HHN Shortness of Breath 07/28/18 10:45 08/02/18 10:44 Aspirin (ASA) 162 mg DAILY ORAL 07/29/18 09:00 08/28/18 08:59 Ceftriaxone Sodium 1 gm/ Dextrose 55 ml @ 110 mls/hr Q24H IVPB 07/29/18 09:00 08/05/18 08:59 07/29/18 10:18 Dextrose/ Electrolytes 1,000 ml @ 75 mls/hr [id number] IV 07/28/18 16:00 08/27/18 15:59 07/29/18 05:03 Diltiazem HCl (Cardizem) 10 mg Q1H PRN IV heart rate more than 120, 07/28/18 10:45 08/27/18 10:44 Enalaprilat (Vasotec) 2.5 mg Q6H PRN IV sbp more than 160 07/28/18 10:45 08/27/18 10:44 Heparin Sodium (Porcine) (Heparin 5000 units/ml) 5,000 units EVERY 12 HOURS SUBQ 07/28/18 21:00 08/27/18 20:59 07/29/18 09:37 Iopamidol (Isovue-300 100ml) 100 ml NOW PRN INJ Radiology Procedure 07/28/18 10:45 07/30/18 10:34 Ketorolac Tromethamine (Toradol 30mg) 30 mg Q6H PRN IV moderate pain ( 4-6) 07/28/18 10:45 08/02/18 10:44 07/29/18 04:21 Morphine Sulfate (Morphine Sulfate) 2 mg Q4H PRN IVP severe Pain (Pain Scale 7-10) 07/28/18 10:45 08/04/18 10:44 Nitroglycerin (Ntg) 0.4 mg Q5M PRN SL Prn Chest Pain 07/28/18 10:45 08/27/18 10:44 Ondansetron HCl (Zofran) 4 mg Q6H PRN IVP Nausea & Vomiting 07/28/18 10:45 08/27/18 10:44 07/28/18 22:21 Polyethylene Glycol (Miralax) 17 gm DAILYPRN PRN ORAL Constipation 07/28/18 10:45 08/27/18 10:44 Regadenoson (Lexiscan) 0.4 mg ONCE PRN IV STRESS TEST 07/29/18 09:00 07/29/18 23:59 Temazepam (Restoril) 15 mg HSPRN PRN ORAL Insomnia 07/28/18 10:45 08/04/18 10:44 Annie Cutler MD Jul 29, 2018 12:39
[2018-07-29] MEDS ORDERED: LORazepam 1mg tab ORAL PRN (14:00)
--- NOTE | 2018-07-29 14:03 | General Progress Note ---
Assessment/Plan Problem List: (1) Anxiety disorder ICD Codes: F41.9 - Anxiety disorder, unspecified SNOMED: 530978906 Status: stable, progressing Assessment/Plan ativan ro/st provide ro/st Subjective Date patient seen: Jul 29, 2018 Allergies: Coded Allergies: No Known Allergies (Unverified , 07/28/18) Objective Last 24 Hour Vital Signs Date Time Temp Pulse Resp B/P (MAP) Pulse Ox O2 Delivery O2 Flow Rate FiO2 07/29/18 13:12 184/89 07/29/18 12:00 98.3 92 18 158/92 (114) 99 07/29/18 09:00 Room Air 07/29/18 08:00 80 07/29/18 08:00 98.2 88 18 154/87 (109) 100 07/29/18 07:30 100 Nasal Cannula 2.0 28 07/29/18 07:30 Nasal Cannula 2.0 28 07/29/18 07:30 83 16 Nasal Cannula 2.0 28 07/29/18 04:00 98.5 87 18 140/76 (97) 97 07/29/18 03:23 83 07/29/18 00:00 97.6 54 20 134/69 (90) 94 07/28/18 23:36 85 07/28/18 21:00 Room Air 07/28/18 20:09 89 18 Room Air 21 07/28/18 20:00 97.9 87 20 155/69 (97) 97 07/28/18 19:37 86 07/28/18 16:00 94 07/28/18 16:00 98.6 94 20 148/74 (98) 96 Intake and Output 07/28/18 07/29/18 19:00 07:00 Intake Total 225 ml 670 ml Balance 225 ml 670 ml Intake IV Total 225 ml 670 ml # Voids 1 3 Laboratory Tests 07/29/18 05:40: White Blood Count 7.2, Red Blood Count 4.16L, Hemoglobin 11.1L, Hematocrit 35.2L , Mean Corpuscular Volume 85, Mean Corpuscular Hemoglobin 26.8L, Mean Corpuscular Hemoglobin Concent 31.6L, Red Cell Distribution Width 15.1H, Platelet Count 354, Mean Platelet Volume 6.0L, Neutrophils (%) (Auto) 62.2, Lymphocytes (%) (Auto) 30.3, Monocytes (%) (Auto) 6.7, Eosinophils (%) (Auto) 0.1, Basophils (%) (Auto) 0.7, Prothrombin Time 10.4, Prothromb Time International Ratio 1.0, Activated Partial Thromboplast Time 27, Sodium Level 137, Potassium Level 3.8, Chloride Level 102, Carbon Dioxide Level 22, Anion Gap 13, Blood Urea Nitrogen 8, Creatinine 0.9, Estimat Glomerular Filtration Rate , Glucose Level 120H, Calcium Level 9.1, Phosphorus Level 2.3L, Magnesium Level 1.8, Total Bilirubin 0.4, Aspartate Amino Transf (AST/SGOT) 17, Alanine Aminotransferase (ALT/SGPT) 15, Alkaline Phosphatase 157H, Troponin I 0.000, C- Reactive Protein, Quantitative < 0.4, Total Protein 8.4H, Albumin 3.8, Globulin 4.6, Albumin/Globulin Ratio 0.8L, Triglycerides Level 135, Cholesterol Level 325H, LDL Cholesterol 229H, HDL Cholesterol 77H, Cholesterol/HDL Ratio 4.2, Amylase Level 72, Thyroid Stimulating Hormone (TSH) 1.651 07/29/18 11:40: Troponin I 0.014 Height (Feet): 5 Height (Inches): 1.00 Weight (Pounds): 101 General Appearance: no apparent distress, alert Neurologic: oriented x 3, responsive, depressed affect Massimo Piña MD Jul 29, 2018 14:03
--- NOTE | 2018-07-29 15:58 | Cardiology Report ---
APPROVED REPORT EKG Measurement Heart [id number] Normal sinus rhythm Incomplete right bundle branch block Borderline ECG
--- NOTE | 2018-07-29 16:22 | Diagnostic Imaging Report ---
Indication: chest pain Technique: The study was conducted under the supervision of a food and beverage lead. lexiscan (regadenoson) infusion over 10 seconds followed by intravenous administration of 32.2 mCi of technetium 99m Myoview was performed. Three plane SPECT imaging of the heart was then performed. A resting study was performed as part of the one-day protocol with 10 mCi of technetium 99m myoview injected intravenously at that time. Three plane SPECT imaging of the heart was obtained. Comparison: None Clinical data: 1. Clinical response: Non ischemic 2. Electrocardiographic response: Non ischemic Findings: The myocardial perfusion scan demonstrates no fixed or reversible perfusion defects. LVEF estimated at 85% which is likely an overestimation. IMPRESSION: Negative myocardial perfusion scan.
--- NOTE | 2018-07-29 16:30 | Internal Med Progress Note ---
Subjective Physician Name Brien Renee Attending Physician Brien Renee MD Current Medications Medications (Trade) Dose Ordered Sig/Naomi Route PRN Reason Start Time Stop Time Status Last Admin Dose Admin Acetaminophen (Tylenol) 650 mg Q4H PRN ORAL FEVER 07/28/18 10:39 08/27/18 10:38 Albuterol/ Ipratropium (Albuterol/ Ipratropium) 3 ml Q4H PRN HHN Shortness of Breath 07/28/18 10:45 08/02/18 10:44 Aspirin (ASA) 162 mg DAILY ORAL 07/29/18 09:00 08/28/18 08:59 Ceftriaxone Sodium 1 gm/ Dextrose 55 ml @ 110 mls/hr Q24H IVPB 07/29/18 09:00 08/05/18 08:59 07/29/18 10:18 Dextrose/ Electrolytes 1,000 ml @ 75 mls/hr [id number] IV 07/28/18 16:00 08/27/18 15:59 07/29/18 05:03 Diltiazem HCl (Cardizem) 10 mg Q1H PRN IV heart rate more than 120, 07/28/18 10:45 08/27/18 10:44 Enalaprilat (Vasotec) 2.5 mg Q6H PRN IV sbp more than 160 07/28/18 10:45 08/27/18 10:44 07/29/18 13:12 Heparin Sodium (Porcine) (Heparin 5000 units/ml) 5,000 units EVERY 12 HOURS SUBQ 07/28/18 21:00 08/27/18 20:59 07/29/18 09:37 Iopamidol (Isovue-300 100ml) 100 ml NOW PRN INJ Radiology Procedure 07/28/18 10:45 07/30/18 10:34 Ketorolac Tromethamine (Toradol 30mg) 30 mg Q6H PRN IV moderate pain ( 4-6) 07/28/18 10:45 08/02/18 10:44 07/29/18 04:21 Lorazepam (Ativan) 1 mg Q6H PRN ORAL For Anxiety 07/29/18 14:00 08/05/18 13:59 Morphine Sulfate (Morphine Sulfate) 2 mg Q4H PRN IVP severe Pain (Pain Scale 7-10) 07/28/18 10:45 08/04/18 10:44 Nitroglycerin (Ntg) 0.4 mg Q5M PRN SL Prn Chest Pain 07/28/18 10:45 08/27/18 10:44 Ondansetron HCl (Zofran) 4 mg Q6H PRN IVP Nausea & Vomiting 07/28/18 10:45 08/27/18 10:44 07/28/18 22:21 Polyethylene Glycol (Miralax) 17 gm DAILYPRN PRN ORAL Constipation 07/28/18 10:45 08/27/18 10:44 Regadenoson (Lexiscan) 0.4 mg ONCE PRN IV STRESS TEST 07/29/18 09:00 07/29/18 23:59 Temazepam (Restoril) 15 mg HSPRN PRN ORAL Insomnia 07/28/18 10:45 08/04/18 10:44 Allergies: Coded Allergies: No Known Allergies (Unverified , 07/28/18) Subjective awake, alert, responsive, NAD, No CP or SOB Objective Last Vital Signs Date Time Temp Pulse Resp B/P (MAP) Pulse Ox O2 Delivery O2 Flow Rate FiO2 07/29/18 13:58 92 157/76 (103) 07/29/18 12:00 98.3 18 99 07/29/18 09:00 Room Air 07/29/18 07:30 2.0 28 Laboratory Tests Test 07/29/18 05:40 07/29/18 11:40 White Blood Count 7.2 K/UL (4.8-10.8) Red Blood Count 4.16 M/UL (4.20-5.40) L Hemoglobin 11.1 G/DL (12.0-16.0) L Hematocrit 35.2 % (37.0-47.0) L Mean Corpuscular Volume 85 FL (80-99) Mean Corpuscular Hemoglobin 26.8 PG (27.0-31.0) L Mean Corpuscular Hemoglobin Concent 31.6 G/DL (32.0-36.0) L Red Cell Distribution Width 15.1 % (11.6-14.8) H Platelet Count 354 K/UL (150-450) Mean Platelet Volume 6.0 FL (6.5-10.1) L Neutrophils (%) (Auto) 62.2 % (45.0-75.0) Lymphocytes (%) (Auto) 30.3 % (20.0-45.0) Monocytes (%) (Auto) 6.7 % (1.0-10.0) Eosinophils (%) (Auto) 0.1 % (0.0-3.0) Basophils (%) (Auto) 0.7 % (0.0-2.0) Prothrombin Time 10.4 SEC (9.30-11.50) Prothromb Time International Ratio 1.0 (0.9-1.1) Activated Partial Thromboplast Time 27 SEC (23-33) Sodium Level 137 MMOL/L (136-145) Potassium Level 3.8 MMOL/L (3.5-5.1) Chloride Level 102 MMOL/L (98-107) Carbon Dioxide Level 22 MMOL/L (21-32) Anion Gap 13 mmol/L (5-15) Blood Urea Nitrogen 8 mg/dL (7-18) Creatinine 0.9 MG/DL (0.55-1.30) Estimat Glomerular Filtration Rate mL/min (>60) Glucose Level 120 MG/DL (74-106) H Calcium Level 9.1 MG/DL (8.5-10.1) Phosphorus Level 2.3 MG/DL (2.5-4.9) L Magnesium Level 1.8 MG/DL (1.8-2.4) Total Bilirubin 0.4 MG/DL (0.2-1.0) Aspartate Amino Transf (AST/SGOT) 17 U/L (15-37) Alanine Aminotransferase (ALT/SGPT) 15 U/L (12-78) Alkaline Phosphatase 157 U/L (46-116) H Troponin I 0.000 ng/mL (0.000-0.056) 0.014 ng/mL (0.000-0.056) C-Reactive Protein, Quantitative < 0.4 mg/dL (0.00-0.90) Total Protein 8.4 G/DL (6.4-8.2) H Albumin 3.8 G/DL (3.4-5.0) Globulin 4.6 g/dL Albumin/Globulin Ratio 0.8 (1.0-2.7) L Triglycerides Level 135 MG/DL (30-150) Cholesterol Level 325 MG/DL (< 200) H LDL Cholesterol 229 mg/dL (<100) H HDL Cholesterol 77 MG/DL (40-60) H Cholesterol/HDL Ratio 4.2 (3.3-4.4) Amylase Level 72 U/L (25-115) Thyroid Stimulating Hormone (TSH) 1.651 uiU/mL (0.358-3.740) Microbiology Date/Time Source Procedure Growth Status 07/28/18 07:41 Urine,Clean Catch Urine Culture - Preliminary Gram Negative Bacillus 1 Resulted Intake and Output 07/28/18 07/29/18 19:00 07:00 Intake Total 225 ml 670 ml Balance 225 ml 670 ml Intake IV Total 225 ml 670 ml # Voids 1 3 Objective General: No acute distress, awake and alert HEENT: NCAT, sclera anicteric, PERRL, EOMI. Neck: Supple, no significant jugular venous distention, Lungs: Good inspiratory effort, no Wheeze or Rales. Heart: Regular rate and rhythm, normal S1/S2, no murmurs, Abdomen: soft, nontender, nondistended. Normoactive bowel sounds. + Pulsate mass in abdomen. / Rectal: Refused and deferred. Extremities: No Cyanosis , clubbing or edema. Neuro: A&O x 3, Able to move all extremities Skin: warm, no rashes or lesions Psych: Normal mood and affect Assessment/Plan Assessment/Plan 1. Atypical chest pain rule out acute coronary syndrome. 2. Pulmonary nodule. 3. Hypokalemia. 4. Severe dehydration. 5. GNB Urinary tract infection. 6. Pulsate mass in abdomen PLAN: In telemetry. Monitor Labs and Urine cultures Code status is Full Code. DVT prophylaxis: Heparin subcutaneous. Abx: Radha Cutler from Pulmonary Critical Care. Dr. Wall from Cardiology Duplex of abdominal aorta CT chest Stress test: 1. Clinical response: Non ischemic 2. Electrocardiographic response: Non ischemic Findings: The myocardial perfusion scan demonstrates no fixed or reversible perfusion defects. LVEF estimated at 85% which is likely an overestimation. IMPRESSION: Negative myocardial perfusion scan. Brien Renee MD Jul 29, 2018 16:30
--- NOTE | 2018-07-29 19:07 | Cardiology Progress Note ---
Subjective ROS Limited/Unobtainable: Yes Objective Last 24 Hour Vital Signs Date Time Temp Pulse Resp B/P (MAP) Pulse Ox O2 Delivery O2 Flow Rate FiO2 07/29/18 16:00 101 07/29/18 16:00 98.2 97 18 166/70 (102) 100 07/29/18 13:58 92 157/76 (103) 07/29/18 13:12 184/89 07/29/18 12:00 93 07/29/18 12:00 98.3 92 18 158/92 (114) 99 07/29/18 09:00 Room Air 07/29/18 08:00 80 07/29/18 08:00 98.2 88 18 154/87 (109) 100 07/29/18 07:30 100 Nasal Cannula 2.0 28 07/29/18 07:30 Nasal Cannula 2.0 28 07/29/18 07:30 83 16 Nasal Cannula 2.0 28 07/29/18 04:00 98.5 87 18 140/76 (97) 97 07/29/18 03:23 83 07/29/18 00:00 97.6 54 20 134/69 (90) 94 07/28/18 23:36 85 07/28/18 21:00 Room Air 07/28/18 20:09 89 18 Room Air 21 07/28/18 20:00 97.9 87 20 155/69 (97) 97 07/28/18 19:37 86 General Appearance: no apparent distress, alert Neck: supple Cardiovascular: normal peripheral pulses, normal rate, regular rhythm Respiratory/Chest: chest wall non-tender, lungs clear Abdomen: normal bowel sounds, non tender, soft Extremities: no swelling Intake and Output 07/28/18 07/29/18 19:00 07:00 Intake Total 225 ml 670 ml Balance 225 ml 670 ml Intake IV Total 225 ml 670 ml # Voids 1 3 Laboratory Tests Test 07/29/18 05:40 07/29/18 11:40 White Blood Count 7.2 K/UL (4.8-10.8) Red Blood Count 4.16 M/UL (4.20-5.40) L Hemoglobin 11.1 G/DL (12.0-16.0) L Hematocrit 35.2 % (37.0-47.0) L Mean Corpuscular Volume 85 FL (80-99) Mean Corpuscular Hemoglobin 26.8 PG (27.0-31.0) L Mean Corpuscular Hemoglobin Concent 31.6 G/DL (32.0-36.0) L Red Cell Distribution Width 15.1 % (11.6-14.8) H Platelet Count 354 K/UL (150-450) Mean Platelet Volume 6.0 FL (6.5-10.1) L Neutrophils (%) (Auto) 62.2 % (45.0-75.0) Lymphocytes (%) (Auto) 30.3 % (20.0-45.0) Monocytes (%) (Auto) 6.7 % (1.0-10.0) Eosinophils (%) (Auto) 0.1 % (0.0-3.0) Basophils (%) (Auto) 0.7 % (0.0-2.0) Prothrombin Time 10.4 SEC (9.30-11.50) Prothromb Time International Ratio 1.0 (0.9-1.1) Activated Partial Thromboplast Time 27 SEC (23-33) Sodium Level 137 MMOL/L (136-145) Potassium Level 3.8 MMOL/L (3.5-5.1) Chloride Level 102 MMOL/L (98-107) Carbon Dioxide Level 22 MMOL/L (21-32) Anion Gap 13 mmol/L (5-15) Blood Urea Nitrogen 8 mg/dL (7-18) Creatinine 0.9 MG/DL (0.55-1.30) Estimat Glomerular Filtration Rate mL/min (>60) Glucose Level 120 MG/DL (74-106) H Calcium Level 9.1 MG/DL (8.5-10.1) Phosphorus Level 2.3 MG/DL (2.5-4.9) L Magnesium Level 1.8 MG/DL (1.8-2.4) Total Bilirubin 0.4 MG/DL (0.2-1.0) Aspartate Amino Transf (AST/SGOT) 17 U/L (15-37) Alanine Aminotransferase (ALT/SGPT) 15 U/L (12-78) Alkaline Phosphatase 157 U/L (46-116) H Troponin I 0.000 ng/mL (0.000-0.056) 0.014 ng/mL (0.000-0.056) C-Reactive Protein, Quantitative < 0.4 mg/dL (0.00-0.90) Total Protein 8.4 G/DL (6.4-8.2) H Albumin 3.8 G/DL (3.4-5.0) Globulin 4.6 g/dL Albumin/Globulin Ratio 0.8 (1.0-2.7) L Triglycerides Level 135 MG/DL (30-150) Cholesterol Level 325 MG/DL (< 200) H LDL Cholesterol 229 mg/dL (<100) H HDL Cholesterol 77 MG/DL (40-60) H Cholesterol/HDL Ratio 4.2 (3.3-4.4) Amylase Level 72 U/L (25-115) Thyroid Stimulating Hormone (TSH) 1.651 uiU/mL (0.358-3.740) Microbiology Date/Time Source Procedure Growth Status 07/28/18 07:41 Urine,Clean Catch Urine Culture - Preliminary Gram Negative Bacillus 1 Resulted Frantz Wall MD Jul 29, 2018 19:07
--- NOTE | 2018-07-29 19:10 | Cardiology Progress Note ---
Subjective Subjective 1. Questionable chest pain. 2. History of breast cancer and possible either uterine or bladder cancer, status post resection. 3. Recent nausea and possibly vomiting. 4. Dementia likely. 5. Pulmonary nodule. all trop neg mpi was neg for fixed or reversible defect ct planned by dr merline lopez to dc [facility] edenilson montiel finished tele neg ekg neg Objective Last 24 Hour Vital Signs Date Time Temp Pulse Resp B/P (MAP) Pulse Ox O2 Delivery O2 Flow Rate FiO2 07/29/18 16:00 101 07/29/18 16:00 98.2 97 18 166/70 (102) 100 07/29/18 13:58 92 157/76 (103) 07/29/18 13:12 184/89 07/29/18 12:00 93 07/29/18 12:00 98.3 92 18 158/92 (114) 99 07/29/18 09:00 Room Air 07/29/18 08:00 80 07/29/18 08:00 98.2 88 18 154/87 (109) 100 07/29/18 07:30 100 Nasal Cannula 2.0 28 07/29/18 07:30 Nasal Cannula 2.0 28 07/29/18 07:30 83 16 Nasal Cannula 2.0 28 07/29/18 04:00 98.5 87 18 140/76 (97) 97 07/29/18 03:23 83 07/29/18 00:00 97.6 54 20 134/69 (90) 94 07/28/18 23:36 85 07/28/18 21:00 Room Air 07/28/18 20:09 89 18 Room Air 21 07/28/18 20:00 97.9 87 20 155/69 (97) 97 07/28/18 19:37 86 Intake and Output 07/28/18 07/29/18 19:00 07:00 Intake Total 225 ml 670 ml Balance 225 ml 670 ml Intake IV Total 225 ml 670 ml # Voids 1 3 Laboratory Tests Test 07/29/18 05:40 07/29/18 11:40 White Blood Count 7.2 K/UL (4.8-10.8) Red Blood Count 4.16 M/UL (4.20-5.40) L Hemoglobin 11.1 G/DL (12.0-16.0) L Hematocrit 35.2 % (37.0-47.0) L Mean Corpuscular Volume 85 FL (80-99) Mean Corpuscular Hemoglobin 26.8 PG (27.0-31.0) L Mean Corpuscular Hemoglobin Concent 31.6 G/DL (32.0-36.0) L Red Cell Distribution Width 15.1 % (11.6-14.8) H Platelet Count 354 K/UL (150-450) Mean Platelet Volume 6.0 FL (6.5-10.1) L Neutrophils (%) (Auto) 62.2 % (45.0-75.0) Lymphocytes (%) (Auto) 30.3 % (20.0-45.0) Monocytes (%) (Auto) 6.7 % (1.0-10.0) Eosinophils (%) (Auto) 0.1 % (0.0-3.0) Basophils (%) (Auto) 0.7 % (0.0-2.0) Prothrombin Time 10.4 SEC (9.30-11.50) Prothromb Time International Ratio 1.0 (0.9-1.1) Activated Partial Thromboplast Time 27 SEC (23-33) Sodium Level 137 MMOL/L (136-145) Potassium Level 3.8 MMOL/L (3.5-5.1) Chloride Level 102 MMOL/L (98-107) Carbon Dioxide Level 22 MMOL/L (21-32) Anion Gap 13 mmol/L (5-15) Blood Urea Nitrogen 8 mg/dL (7-18) Creatinine 0.9 MG/DL (0.55-1.30) Estimat Glomerular Filtration Rate mL/min (>60) Glucose Level 120 MG/DL (74-106) H Calcium Level 9.1 MG/DL (8.5-10.1) Phosphorus Level 2.3 MG/DL (2.5-4.9) L Magnesium Level 1.8 MG/DL (1.8-2.4) Total Bilirubin 0.4 MG/DL (0.2-1.0) Aspartate Amino Transf (AST/SGOT) 17 U/L (15-37) Alanine Aminotransferase (ALT/SGPT) 15 U/L (12-78) Alkaline Phosphatase 157 U/L (46-116) H Troponin I 0.000 ng/mL (0.000-0.056) 0.014 ng/mL (0.000-0.056) C-Reactive Protein, Quantitative < 0.4 mg/dL (0.00-0.90) Total Protein 8.4 G/DL (6.4-8.2) H Albumin 3.8 G/DL (3.4-5.0) Globulin 4.6 g/dL Albumin/Globulin Ratio 0.8 (1.0-2.7) L Triglycerides Level 135 MG/DL (30-150) Cholesterol Level 325 MG/DL (< 200) H LDL Cholesterol 229 mg/dL (<100) H HDL Cholesterol 77 MG/DL (40-60) H Cholesterol/HDL Ratio 4.2 (3.3-4.4) Amylase Level 72 U/L (25-115) Thyroid Stimulating Hormone (TSH) 1.651 uiU/mL (0.358-3.740) Microbiology Date/Time Source Procedure Growth Status 07/28/18 07:41 Urine,Clean Catch Urine Culture - Preliminary Gram Negative Bacillus 1 Resulted Frantz Wall MD Jul 29, 2018 19:10
--- NOTE | 2018-07-29 23:12 | Diagnostic Imaging Report ---
EXAM: US Abdomen Complete CLINICAL HISTORY: ABD PAIN TECHNIQUE: Real-time ultrasound of the abdomen (complete) with image documentation. COMPARISON: No relevant prior studies available. FINDINGS: Liver: Unremarkable. No mass. No intrahepatic bile duct dilation. Gallbladder: The gallbladder is not visualized consistent with prior surgical removal. Common bile duct: The common bile duct measures 10 mm in diameter. No stones. No dilation. Pancreas: The pancreas is obscured by bowel gas. Kidneys: Right kidney demonstrates a punctate 1 mm non-shadowing echogenic focus which could represent a nonobstructing 1 mm calculus versus a focus of fat. Left kidney is unremarkable. No hydronephrosis. Spleen: Unremarkable. No splenomegaly. Aorta: The abdominal aorta measures 1.8 cm in diameter. No aneurysm. Inferior vena cava: Unremarkable. Other findings: The study is technically difficult due to the patient's body habitus and inability to cooperate with the study. IMPRESSION: 1. Questionable 1 mm nonobstructing calculus in the right kidney versus focus of fat. 2. Otherwise technically difficult study without other acute abnormality identified.
[2018-07-30] VITALS: BP 150/85
[2018-07-30 04:00] VITALS: BP 154/78
[2018-07-30] MEDS: Ketorolac 30mg Inj IV PRN (04:06)
--- NOTE | 2018-07-30 07:10 | Pulmonology Progress Note ---
Assessment/Plan Assessment/Plan ASSESSMENT CP, atypical, likely due to anxiety pulmonary nodule UTI severe dehydration hyperlipidemia e/lyte imbalance ( K, P) PLAN OF CARE tele serial troponin -, ECG no acute ischemic changes, thus r/out for acute PA ECHO with pEF, no WMA cardio follow a/PLT with ASA Nitro prn stress test nonischemic CP atypical, likely due to anxiety CXR with 13 mm pulm nodule: inflammatory vs neoplasm, CT chest r pending lipid panel with elevated TC 325 and LDL 229, start statin pain management PT Rx case discussed and evaluated by supervising physician Subjective Allergies: Coded Allergies: NO KNOWN ALLERGIES (Verified Allergy, Unknown, 07/31/18) Subjective deneis chest pain, SOB pulse ox stable on RA Objective Last 24 Hour Vital Signs Date Time Temp Pulse Resp B/P (MAP) Pulse Ox O2 Delivery O2 Flow Rate FiO2 07/30/18 06:00 85 07/30/18 04:00 98.0 87 18 154/78 (103) 100 07/30/18 00:00 89 07/30/18 00:00 97.9 87 20 150/85 (106) 99 07/29/18 21:00 Room Air 07/29/18 20:15 88 18 Nasal Cannula 2.0 28 07/29/18 20:15 Nasal Cannula 2.0 28 07/29/18 20:15 99 Nasal Cannula 2.0 28 07/29/18 20:00 98.2 66 20 138/72 (94) 98 07/29/18 20:00 85 07/29/18 16:00 101 07/29/18 16:00 98.2 97 18 166/70 (102) 100 07/29/18 13:58 92 157/76 (103) 07/29/18 13:12 184/89 07/29/18 12:00 93 07/29/18 12:00 98.3 92 18 158/92 (114) 99 07/29/18 09:00 Room Air 07/29/18 08:00 80 07/29/18 08:00 98.2 88 18 154/87 (109) 100 07/29/18 07:30 100 Nasal Cannula 2.0 28 07/29/18 07:30 Nasal Cannula 2.0 28 07/29/18 07:30 83 16 Nasal Cannula 2.0 28 Intake and Output 07/29/18 07/30/18 19:00 07:00 Output Total 200 ml 400 ml Balance -200 ml -400 ml Output Urine Total 200 ml 400 ml # Bowel Movements 1 General Appearance: no acute distress, other - A/A/O x 3 Green[place]ic speaking mainly female HEENT: normocephalic, atraumatic, anicteric, mucous membranes moist Respiratory/Chest: lungs clear, no respiratory distress, no accessory muscle use Cardiovascular: normal peripheral pulses, normal rate, regular rhythm - SR on tele Abdomen: soft, non tender, non distended Extremities: no edema, pedal pulses normal Neurologic/Psychiatric: alert, oriented x 3, responsive - Green[place]ic speaking Musculoskeletal: normal muscle bulk Microbiology Date/Time Source Procedure Growth Status 07/28/18 07:41 Urine,Clean Catch Urine Culture - Final Escherichia Coli Complete Laboratory Tests 07/29/18 11:40: Troponin I 0.014 Current Medications Medications (Trade) Dose Ordered Sig/Naomi Route PRN Reason Start Time Stop Time Status Last Admin Dose Admin Acetaminophen (Tylenol) 650 mg Q4H PRN ORAL FEVER 07/28/18 10:39 08/27/18 10:38 Albuterol/ Ipratropium (Albuterol/ Ipratropium) 3 ml Q4H PRN HHN Shortness of Breath 07/28/18 10:45 08/02/18 10:44 Aspirin (ASA) 162 mg DAILY ORAL 07/29/18 09:00 08/28/18 08:59 Ceftriaxone Sodium 1 gm/ Dextrose 55 ml @ 110 mls/hr Q24H IVPB 07/29/18 09:00 08/05/18 08:59 07/29/18 10:18 Dextrose/ Electrolytes 1,000 ml @ 75 mls/hr [id number] IV 07/28/18 16:00 08/27/18 15:59 07/29/18 18:47 Diltiazem HCl (Cardizem) 10 mg Q1H PRN IV heart rate more than 120, 07/28/18 10:45 08/27/18 10:44 Enalaprilat (Vasotec) 2.5 mg Q6H PRN IV sbp more than 160 07/28/18 10:45 08/27/18 10:44 07/29/18 13:12 Heparin Sodium (Porcine) (Heparin 5000 units/ml) 5,000 units EVERY 12 HOURS SUBQ 07/28/18 21:00 08/27/18 20:59 07/29/18 20:32 Iopamidol (Isovue-300 100ml) 100 ml NOW PRN INJ Radiology Procedure 07/28/18 10:45 07/30/18 10:34 Ketorolac Tromethamine (Toradol 30mg) 30 mg Q6H PRN IV moderate pain ( 4-6) 07/28/18 10:45 08/02/18 10:44 07/30/18 04:06 Lorazepam (Ativan) 1 mg Q6H PRN ORAL For Anxiety 07/29/18 14:00 08/05/18 13:59 Morphine Sulfate (Morphine Sulfate) 2 mg Q4H PRN IVP severe Pain (Pain Scale 7-10) 07/28/18 10:45 08/04/18 10:44 Nitroglycerin (Ntg) 0.4 mg Q5M PRN SL Prn Chest Pain 07/28/18 10:45 08/27/18 10:44 Ondansetron HCl (Zofran) 4 mg Q6H PRN IVP Nausea & Vomiting 07/28/18 10:45 08/27/18 10:44 07/28/18 22:21 Polyethylene Glycol (Miralax) 17 gm DAILYPRN PRN ORAL Constipation 07/28/18 10:45 08/27/18 10:44 Temazepam (Restoril) 15 mg HSPRN PRN ORAL Insomnia 07/28/18 10:45 08/04/18 10:44 Nadine Merrill NP Jul 30, 2018 07:10
--- NOTE | 2018-07-30 07:54 | Physician Query ---
--------- THIS DOCUMENT IS A PERMANENT PART OF THE MEDICAL RECORD --------- PLEASE COMPLETE THE DOCUMENT BEFORE SIGNING Dear Dr. Wall Date 07/30/2018 [employer] Developer/CDS' Name Aida Rios Adobe Developer/CDS Phone#: [phone] Exercise your independent professional judgment when responding to query. Questions asked do not imply particular answer is desired or expected. We greatly appreciate your clarification on this issue. Clinical Documentation States: Patient is admitted with chest pain. "Questionable chest pain" is documented in consult and progress notes. Clinical Findings Show: Myocardial perfusion scan: Non ischemic Troponin = Negative Please document the suspected etiology of Chest Pain: a.Type: [ ] Cardiac [ ] Non-cardiac [ ] Unspecified b.Etiology - cardiac [] Aortic dissection []Mitral valve prolapsed [] Acute myocardial infarction []Spasm of coronary arteries [] Coronary Artery Disease []Pericarditis c.Etiology - non-cardiac [] Anxiety []Pleurisy [] Cancer []Pneumonia, type [] Costochondritis []Pneumothorax [] GERD/Esophagitis []Pulmonary embolism [] Unable to determine []Other: Condition Present on Admission: [ ] Yes [ ] No [ ] Clinically Undeterminable Please also document in your Progress Notes and/or Discharge Summary and indicate if the condition was present on admission. Meera VILLEGAS
[2018-07-30 08:00] VITALS: BP 158/79
[2018-07-30] MEDS: D5 1/2NS w/KCl 40meq 1000ml 1,000 ML IV SCH (08:06)
[2018-07-30] MEDS: cefTRIAXone 1 GM in D5W 55 ML IVPB SCH (08:14)
[2018-07-30] MEDS: Aspirin Baby 81mg ORAL SCH (08:14)
[2018-07-30] MEDS: Heparin 5000 units/ml inj SUBQ SCH ×2 (08:15→21:00)
[2018-07-30 12:00] VITALS: BP 155/80
--- NOTE | 2018-07-30 13:27 | Cardiology Progress Note ---
Assessment/Plan Assessment/Plan 1. Questionable chest pain. 2. History of breast cancer and possible either uterine or bladder cancer, status post resection. 3. Recent nausea and possibly vomiting. 4. Dementia likely. 5. Pulmonary nodule. all trop neg mpi was neg for fixed or reversible defect ct planned by dr merline lopez to [place] [facility] edenilson montiel finished tele neg ekg neg Subjective ROS Limited/Unobtainable: Yes Objective Last 24 Hour Vital Signs Date Time Temp Pulse Resp B/P (MAP) Pulse Ox O2 Delivery O2 Flow Rate FiO2 07/30/18 12:00 96.8 85 18 155/80 (105) 99 07/30/18 10:11 99 Nasal Cannula 2.0 28 07/30/18 10:11 86 18 Nasal Cannula 2.0 28 07/30/18 10:11 Nasal Cannula 2.0 28 07/30/18 09:00 Room Air 07/30/18 08:00 88 07/30/18 08:00 97.5 83 19 158/79 (105) 100 07/30/18 06:00 85 07/30/18 04:00 98.0 87 18 154/78 (103) 100 07/30/18 00:00 89 07/30/18 00:00 97.9 87 20 150/85 (106) 99 07/29/18 21:00 Room Air 07/29/18 20:15 88 18 Nasal Cannula 2.0 28 07/29/18 20:15 Nasal Cannula 2.0 28 07/29/18 20:15 99 Nasal Cannula 2.0 28 07/29/18 20:00 98.2 66 20 138/72 (94) 98 07/29/18 20:00 85 07/29/18 16:00 101 07/29/18 16:00 98.2 97 18 166/70 (102) 100 07/29/18 13:58 92 157/76 (103) General Appearance: alert Neck: supple Cardiovascular: normal rate Respiratory/Chest: normal breath sounds Abdomen: normal bowel sounds, non tender, soft Extremities: no swelling Intake and Output 07/29/18 07/30/18 18:59 06:59 Intake Total 0 ml Output Total 200 ml 400 ml Balance -200 ml -400 ml Intake IV Total 0 ml Output Urine Total 200 ml 400 ml # Bowel Movements 1 Laboratory Tests Test 07/30/18 10:30 Troponin I 0.008 ng/mL (0.000-0.056) Microbiology Date/Time Source Procedure Growth Status 07/28/18 07:41 Urine,Clean Catch Urine Culture - Final Escherichia Coli Complete Frantz Wall MD Jul 30, 2018 13:27
--- NOTE | 2018-07-30 15:20 | Internal Med Progress Note ---
Subjective Physician Name Brien Renee Attending Physician Brien Renee MD Current Medications Medications (Trade) Dose Ordered Sig/Naomi Route PRN Reason Start Time Stop Time Status Last Admin Dose Admin Acetaminophen (Tylenol) 650 mg Q4H PRN ORAL FEVER 07/28/18 10:39 08/27/18 10:38 Albuterol/ Ipratropium (Albuterol/ Ipratropium) 3 ml Q4H PRN HHN Shortness of Breath 07/28/18 10:45 08/02/18 10:44 Aspirin (ASA) 162 mg DAILY ORAL 07/29/18 09:00 08/28/18 08:59 07/30/18 08:14 Atorvastatin Calcium (Lipitor) 20 mg BEDTIME ORAL 07/30/18 21:00 08/29/18 20:59 Ceftriaxone Sodium 1 gm/ Dextrose 55 ml @ 110 mls/hr Q24H IVPB 07/29/18 09:00 08/05/18 08:59 07/30/18 08:14 Dextrose/ Electrolytes 1,000 ml @ 75 mls/hr [id number] IV 07/28/18 16:00 08/27/18 15:59 07/30/18 08:06 Diltiazem HCl (Cardizem) 10 mg Q1H PRN IV heart rate more than 120, 07/28/18 10:45 08/27/18 10:44 Enalaprilat (Vasotec) 2.5 mg Q6H PRN IV sbp more than 160 07/28/18 10:45 08/27/18 10:44 07/29/18 13:12 Heparin Sodium (Porcine) (Heparin 5000 units/ml) 5,000 units EVERY 12 HOURS SUBQ 07/28/18 21:00 08/27/18 20:59 07/30/18 08:15 Ketorolac Tromethamine (Toradol 30mg) 30 mg Q6H PRN IV moderate pain ( 4-6) 07/28/18 10:45 08/02/18 10:44 07/30/18 04:06 Lorazepam (Ativan) 1 mg Q6H PRN ORAL For Anxiety 07/29/18 14:00 08/05/18 13:59 Morphine Sulfate (Morphine Sulfate) 2 mg Q4H PRN IVP severe Pain (Pain Scale 7-10) 07/28/18 10:45 08/04/18 10:44 Nitroglycerin (Ntg) 0.4 mg Q5M PRN SL Prn Chest Pain 07/28/18 10:45 08/27/18 10:44 Ondansetron HCl (Zofran) 4 mg Q6H PRN IVP Nausea & Vomiting 07/28/18 10:45 08/27/18 10:44 07/28/18 22:21 Polyethylene Glycol (Miralax) 17 gm DAILYPRN PRN ORAL Constipation 07/28/18 10:45 08/27/18 10:44 Temazepam (Restoril) 15 mg HSPRN PRN ORAL Insomnia 07/28/18 10:45 08/04/18 10:44 Allergies: Coded Allergies: No Known Allergies (Unverified , 07/28/18) Subjective awake, alert, responsive, NAD, No CP or SOB, feeling weak, + dry cough Objective Last Vital Signs Date Time Temp Pulse Resp B/P (MAP) Pulse Ox O2 Delivery O2 Flow Rate FiO2 07/30/18 12:00 96.8 85 18 155/80 (105) 99 07/30/18 10:11 Nasal Cannula 2.0 28 Laboratory Tests Test 07/30/18 10:30 Troponin I 0.008 ng/mL (0.000-0.056) Microbiology Date/Time Source Procedure Growth Status 07/28/18 07:41 Urine,Clean Catch Urine Culture - Final Escherichia Coli Complete Intake and Output 07/29/18 07/30/18 19:00 07:00 Output Total 200 ml 400 ml Balance -200 ml -400 ml Output Urine Total 200 ml 400 ml # Bowel Movements 1 Objective General: No acute distress, awake and alert HEENT: NCAT, sclera anicteric, PERRL, EOMI. Neck: Supple, no significant jugular venous distention, Lungs: Good inspiratory effort, no Wheeze or Rales. Heart: Regular rate and rhythm, normal S1/S2, no murmurs, Abdomen: soft, nontender, nondistended. Normoactive bowel sounds. + Pulsate mass in abdomen. / Rectal: Refused and deferred. Extremities: No Cyanosis , clubbing or edema. Neuro: A&O x 3, Able to move all extremities Skin: warm, no rashes or lesions Psych: Normal mood and affect Assessment/Plan Assessment/Plan 1. Atypical chest pain rule out acute coronary syndrome. 2. Pulmonary nodule. 3. Hypokalemia. 4. Severe dehydration. 5. E. Coli Urinary tract infection. 6. Pulsate mass in abdomen PLAN: DC telemetry. Monitor Labs and Urine cultures Code status is Full Code. DVT prophylaxis: Heparin subcutaneous. Abx: Radha Cutler from Pulmonary Critical Care. Dr. Wall from Cardiology DC planning to SNF PT mobility Abdominal US: 1. Questionable 1 mm nonobstructing calculus in the right kidney versus focus of fat. 2. Otherwise technically difficult study without other acute abnormality identified. Stress test: 1. Clinical response: Non ischemic 2. Electrocardiographic response: Non ischemic Findings: The myocardial perfusion scan demonstrates no fixed or reversible perfusion defects. LVEF estimated at 85% which is likely an overestimation. IMPRESSION: Negative myocardial perfusion scan. Brien Renee MD Jul 30, 2018 15:20
[2018-07-30 16:00] VITALS: BP 141/66
[2018-07-30 20:00] VITALS: BP 150/85
[2018-07-30] MEDS ORDERED: Atorvastatin 20mg tab ORAL SCH (21:00)
[2018-07-31] VITALS: BP 155/77
[2018-07-31 04:00] VITALS: BP 156/85
--- NOTE | 2018-07-31 07:37 | Pulmonology Progress Note ---
Assessment/Plan Assessment/Plan ASSESSMENT CP, atypical, likely due to anxiety disorder pulmonary nodule UTI severe dehydration hyperlipidemia e/lyte imbalance ( K, P, Mg ) PLAN OF CARE tele serial troponin -, ECG no acute ischemic changes, thus r/out for acute HI ECHO with pEF, no WMA cardio follow a/PLT with ASA Nitro prn stress test nonischemic CP atypical, likely due to anxiety CXR with 13 mm pulm nodule: inflammatory vs neoplasm, awaiting CT chest results lipid panel with TC 325 and LDL 229, on statin pain management replace Mg , correct lytes further prn PT Rx transfer to [facility] floor ( cleared by cardio) dc plan after CT scan results available and reviewed case discussed and evaluated by supervising physician Subjective Allergies: Coded Allergies: NO KNOWN ALLERGIES (Verified Allergy, Unknown, 07/31/18) Subjective deneis chest pain, SOB pulse ox stable on RA no cough, no hemoptysis Mg-1.7 Objective Last 24 Hour Vital Signs Date Time Temp Pulse Resp B/P (MAP) Pulse Ox O2 Delivery O2 Flow Rate FiO2 07/31/18 07:31 99 Nasal Cannula 2.0 28 07/31/18 07:31 Nasal Cannula 2.0 28 07/31/18 07:31 79 18 Nasal Cannula 2.0 28 07/31/18 04:00 98.1 91 18 156/85 (108) 100 07/31/18 00:00 98.3 80 18 155/77 (103) 99 07/30/18 21:00 Nasal Cannula 2.0 07/30/18 20:03 Nasal Cannula 2.0 28 07/30/18 20:03 100 Nasal Cannula 2.0 28 07/30/18 20:01 88 18 Nasal Cannula 2.0 28 07/30/18 20:00 98.3 96 19 150/85 (106) 99 07/30/18 16:00 97.5 81 19 141/66 (91) 100 07/30/18 12:00 96.8 85 18 155/80 (105) 99 07/30/18 10:11 99 Nasal Cannula 2.0 28 07/30/18 10:11 86 18 Nasal Cannula 2.0 28 07/30/18 10:11 Nasal Cannula 2.0 28 07/30/18 09:00 Room Air 07/30/18 08:00 88 07/30/18 08:00 97.5 83 19 158/79 (105) 100 Intake and Output 07/30/18 07/31/18 19:00 07:00 Intake Total 555 ml 300 ml Output Total 600 ml Balance -45 ml 300 ml Intake Oral 480 ml IV Total 75 ml 300 ml Output Urine Total 600 ml # Voids 2 Objective General Appearance: no acute distress, other - A/A/O x 3 Bel[place]ian speaking mainly female HEENT: normocephalic, atraumatic, anicteric, mucous membranes moist Respiratory/Chest: lungs clear, no respiratory distress, no accessory muscle use Cardiovascular: normal peripheral pulses, normal rate, regular rhythm - SR on tele Abdomen: soft, non tender, non distended Extremities: no edema, pedal pulses normal Neurologic/Psychiatric: alert, oriented x 3, responsive - [place]ian speaking Musculoskeletal: normal muscle bulk Microbiology Date/Time Source Procedure Growth Status 07/28/18 07:41 Urine,Clean Catch Urine Culture - Final Escherichia Coli Complete Laboratory Tests 07/30/18 10:30: Troponin I 0.008 Current Medications Medications (Trade) Dose Ordered Sig/Naomi Route PRN Reason Start Time Stop Time Status Last Admin Dose Admin Acetaminophen (Tylenol) 650 mg Q4H PRN ORAL FEVER 07/28/18 10:39 08/27/18 10:38 Albuterol/ Ipratropium (Albuterol/ Ipratropium) 3 ml Q4H PRN HHN Shortness of Breath 07/28/18 10:45 08/02/18 10:44 Aspirin (ASA) 162 mg DAILY ORAL 07/29/18 09:00 08/28/18 08:59 07/30/18 08:14 Atorvastatin Calcium (Lipitor) 20 mg BEDTIME ORAL 07/30/18 21:00 08/29/18 20:59 07/30/18 21:35 Ceftriaxone Sodium 1 gm/ Dextrose 55 ml @ 110 mls/hr Q24H IVPB 07/29/18 09:00 08/05/18 08:59 07/30/18 08:14 Diltiazem HCl (Cardizem) 10 mg Q1H PRN IV heart rate more than 120, 07/28/18 10:45 08/27/18 10:44 Enalaprilat (Vasotec) 2.5 mg Q6H PRN IV sbp more than 160 07/28/18 10:45 08/27/18 10:44 07/29/18 13:12 Heparin Sodium (Porcine) (Heparin 5000 units/ml) 5,000 units EVERY 12 HOURS SUBQ 07/28/18 21:00 08/27/18 20:59 07/30/18 21:00 Ketorolac Tromethamine (Toradol 30mg) 30 mg Q6H PRN IV moderate pain ( 4-6) 07/28/18 10:45 08/02/18 10:44 07/30/18 04:06 Ondansetron HCl (Zofran) 4 mg Q6H PRN IVP Nausea & Vomiting 07/28/18 10:45 08/27/18 10:44 07/28/18 22:21 Polyethylene Glycol (Miralax) 17 gm DAILYPRN PRN ORAL Constipation 07/28/18 10:45 08/27/18 10:44 Nadine Merrill NP Jul 31, 2018 07:37
[2018-07-31 07:53] LABS: BASOPHILS % (AUTO) 0.5 % (0.0-2.0); EOSINOPHILS % (AUTO) 0.1 % (0.0-3.0); HEMATOCRIT 37.6 % (37.0-47.0); LYMPHOCYTES % (AUTO) 14.5 % (20.0-45.0); MEAN CORPUSCULAR VOLUME 84 FL (80-99); MONOCYTES % (AUTO) 7.3 % (1.0-10.0); NEUTROPHILS % (AUTO) 77.7 % (45.0-75.0); PLATELET COUNT 311 K/UL (150-450); RED BLOOD COUNT 4.46 M/UL (4.20-5.40); WHITE BLOOD COUNT 5.9 K/UL (4.8-10.8)
[2018-07-31 08:00] VITALS: BP 127/57
[2018-07-31 08:20] LABS: ANION GAP 9 mmol/L (5-15); BLOOD UREA NITROGEN 4 mg/dL (7-18); CALCIUM 9.6 MG/DL (8.5-10.1); CARBON DIOXIDE 28 MMOL/L (21-32); CHLORIDE 106 MMOL/L (98-107); CREATININE 0.7 MG/DL (0.55-1.30); POTASSIUM 4.1 MMOL/L (3.5-5.1); SODIUM 143 MMOL/L (136-145)
[2018-07-31] MEDS: cefTRIAXone 1 GM in D5W 55 ML IVPB SCH (08:55)
[2018-07-31] MEDS: Aspirin Baby 81mg ORAL SCH (08:57)
[2018-07-31] MEDS: Heparin 5000 units/ml inj SUBQ SCH ×2 (08:59→20:49)
[2018-07-31] MEDS ORDERED: Albuterol/Ipratropium 3ml neb HHN PRN ×2 (10:43→14:45)
[2018-07-31 12:00] VITALS: BP 122/85
[2018-07-31] MEDS ORDERED: Enalaprilat 2.5mg/2ml Inj IV PRN (14:15)
[2018-07-31] MEDS ORDERED: Miralax 17gm pkt ORAL PRN (14:15)
[2018-07-31] MEDS ORDERED: Ketorolac 30mg Inj IV PRN (14:15)
[2018-07-31] MEDS ORDERED: dilTIAZem HCl 25mg/5ml Inj IV PRN (14:45)
--- NOTE | 2018-07-31 15:30 | Cardiology Progress Note ---
Assessment/Plan Assessment/Plan 1. Questionable chest pain. 2. History of breast cancer and possible either uterine or bladder cancer, status post resection. 3. Recent nausea and possibly vomiting. 4. Dementia likely. 5. Pulmonary nodule. all trop neg mpi was neg for fixed or reversible defect ct planned by dr merline lopez to dc form [facility] d/c plans per dr falcon Subjective Respiratory: Denies: shortness of breath Genitourinary: Denies: burning Objective Last 24 Hour Vital Signs Date Time Temp Pulse Resp B/P (MAP) Pulse Ox O2 Delivery O2 Flow Rate FiO2 07/31/18 12:00 98.8 67 19 122/85 (97) 99 07/31/18 09:00 Nasal Cannula 2.0 07/31/18 08:00 99.0 93 20 127/57 (80) 99 07/31/18 07:31 99 Nasal Cannula 2.0 28 07/31/18 07:31 Nasal Cannula 2.0 28 07/31/18 07:31 79 18 Nasal Cannula 2.0 28 07/31/18 04:00 98.1 91 18 156/85 (108) 100 07/31/18 00:00 98.3 80 18 155/77 (103) 99 07/30/18 21:00 Nasal Cannula 2.0 07/30/18 20:03 Nasal Cannula 2.0 28 07/30/18 20:03 100 Nasal Cannula 2.0 28 07/30/18 20:01 88 18 Nasal Cannula 2.0 28 07/30/18 20:00 98.3 96 19 150/85 (106) 99 07/30/18 16:00 97.5 81 19 141/66 (91) 100 General Appearance: alert Cardiovascular: normal rate Respiratory/Chest: lungs clear Abdomen: normal bowel sounds, non tender, soft Extremities: no swelling Intake and Output 07/30/18 07/31/18 18:59 06:59 Intake Total 480 ml 375 ml Output Total 600 ml Balance -120 ml 375 ml Intake Oral 480 ml IV Total 375 ml Output Urine Total 600 ml # Voids 2 Laboratory Tests Test 07/31/18 06:05 White Blood Count 5.9 K/UL (4.8-10.8) Red Blood Count 4.46 M/UL (4.20-5.40) Hemoglobin 12.0 G/DL (12.0-16.0) Hematocrit 37.6 % (37.0-47.0) Mean Corpuscular Volume 84 FL (80-99) Mean Corpuscular Hemoglobin 26.9 PG (27.0-31.0) L Mean Corpuscular Hemoglobin Concent 31.8 G/DL (32.0-36.0) L Red Cell Distribution Width 15.0 % (11.6-14.8) H Platelet Count 311 K/UL (150-450) Mean Platelet Volume 6.1 FL (6.5-10.1) L Neutrophils (%) (Auto) 77.7 % (45.0-75.0) H Lymphocytes (%) (Auto) 14.5 % (20.0-45.0) L Monocytes (%) (Auto) 7.3 % (1.0-10.0) Eosinophils (%) (Auto) 0.1 % (0.0-3.0) Basophils (%) (Auto) 0.5 % (0.0-2.0) Sodium Level 143 MMOL/L (136-145) Potassium Level 4.1 MMOL/L (3.5-5.1) Chloride Level 106 MMOL/L (98-107) Carbon Dioxide Level 28 MMOL/L (21-32) Anion Gap 9 mmol/L (5-15) Blood Urea Nitrogen 4 mg/dL (7-18) L Creatinine 0.7 MG/DL (0.55-1.30) Estimat Glomerular Filtration Rate mL/min (>60) Glucose Level 136 MG/DL (74-106) H Calcium Level 9.6 MG/DL (8.5-10.1) Magnesium Level 1.7 MG/DL (1.8-2.4) L Frantz Wall MD Jul 31, 2018 15:30
[2018-07-31] MEDS ORDERED: Tubing IV Secondary IV ONE (15:45)
[2018-07-31] MEDS ORDERED: NS 275ml ONE (15:45)
[2018-07-31 16:00] VITALS: BP 125/71
[2018-07-31 20:00] VITALS: BP 150/72
[2018-07-31] MEDS ORDERED: Atorvastatin 20mg tab ORAL SCH (21:00)
--- NOTE | 2018-07-31 22:44 | Internal Med Progress Note ---
Subjective Physician Name Brien Renee Attending Physician Brien Rneee MD Current Medications Medications (Trade) Dose Ordered Sig/Naomi Route PRN Reason Start Time Stop Time Status Last Admin Dose Admin Acetaminophen (Tylenol) 650 mg Q4H PRN ORAL FEVER 07/31/18 14:45 08/27/18 10:38 Albuterol/ Ipratropium (Albuterol/ Ipratropium) 3 ml Q4H PRN HHN Shortness of Breath 07/31/18 14:45 08/05/18 10:42 Aspirin (ASA) 162 mg DAILY ORAL 08/01/18 09:00 08/28/18 08:59 Atorvastatin Calcium (Lipitor) 20 mg BEDTIME ORAL 07/31/18 21:00 08/29/18 20:59 07/31/18 20:49 Ceftriaxone Sodium 1 gm/ Dextrose 55 ml @ 110 mls/hr DAILY IVPB 08/01/18 09:00 08/08/18 08:59 Enalaprilat (Vasotec) 2.5 mg Q6H PRN IV sbp more than 160 07/31/18 14:15 08/27/18 14:14 Heparin Sodium (Porcine) (Heparin 5000 units/ml) 5,000 units EVERY 12 HOURS SUBQ 07/31/18 21:00 08/27/18 20:59 07/31/18 20:49 Ketorolac Tromethamine (Toradol 30mg) 30 mg Q6H PRN IV moderate pain ( 4-6) 07/31/18 14:15 08/05/18 14:14 Ondansetron HCl (Zofran) 4 mg Q6H PRN IVP Nausea & Vomiting 07/31/18 14:15 08/27/18 14:14 Polyethylene Glycol (Miralax) 17 gm DAILYPRN PRN ORAL Constipation 07/31/18 14:15 08/30/18 14:14 Temazepam (Restoril) 15 mg HSPRN PRN ORAL Insomnia 07/31/18 19:30 08/07/18 19:29 07/31/18 20:49 Allergies: Coded Allergies: No Known Allergies (Unverified , 07/28/18) Subjective awake, alert, responsive, NAD, No CP or SOB, feeling weak. Objective Last Vital Signs Date Time Temp Pulse Resp B/P (MAP) Pulse Ox O2 Delivery O2 Flow Rate FiO2 07/31/18 21:00 Nasal Cannula 2.0 07/31/18 20:00 98.6 83 18 150/72 (98) 100 07/31/18 07:31 28 Laboratory Tests Test 07/31/18 06:05 White Blood Count 5.9 K/UL (4.8-10.8) Red Blood Count 4.46 M/UL (4.20-5.40) Hemoglobin 12.0 G/DL (12.0-16.0) Hematocrit 37.6 % (37.0-47.0) Mean Corpuscular Volume 84 FL (80-99) Mean Corpuscular Hemoglobin 26.9 PG (27.0-31.0) L Mean Corpuscular Hemoglobin Concent 31.8 G/DL (32.0-36.0) L Red Cell Distribution Width 15.0 % (11.6-14.8) H Platelet Count 311 K/UL (150-450) Mean Platelet Volume 6.1 FL (6.5-10.1) L Neutrophils (%) (Auto) 77.7 % (45.0-75.0) H Lymphocytes (%) (Auto) 14.5 % (20.0-45.0) L Monocytes (%) (Auto) 7.3 % (1.0-10.0) Eosinophils (%) (Auto) 0.1 % (0.0-3.0) Basophils (%) (Auto) 0.5 % (0.0-2.0) Sodium Level 143 MMOL/L (136-145) Potassium Level 4.1 MMOL/L (3.5-5.1) Chloride Level 106 MMOL/L (98-107) Carbon Dioxide Level 28 MMOL/L (21-32) Anion Gap 9 mmol/L (5-15) Blood Urea Nitrogen 4 mg/dL (7-18) L Creatinine 0.7 MG/DL (0.55-1.30) Estimat Glomerular Filtration Rate mL/min (>60) Glucose Level 136 MG/DL (74-106) H Calcium Level 9.6 MG/DL (8.5-10.1) Magnesium Level 1.7 MG/DL (1.8-2.4) L Intake and Output 07/30/18 07/31/18 19:00 07:00 Intake Total 555 ml 300 ml Output Total 600 ml Balance -45 ml 300 ml Intake Oral 480 ml IV Total 75 ml 300 ml Output Urine Total 600 ml # Voids 2 Objective General: No acute distress, awake and alert HEENT: NCAT, sclera anicteric, PERRL, EOMI. Neck: Supple, no significant jugular venous distention, Lungs: Good inspiratory effort, no Wheeze or Rales. Heart: Regular rate and rhythm, normal S1/S2, no murmurs, Abdomen: soft, nontender, nondistended. Normoactive bowel sounds. + Pulsate abdomen. / Rectal: Refused and deferred. Extremities: No Cyanosis , clubbing or edema. Neuro: A&O x 3, Able to move all extremities Skin: warm, no rashes or lesions Psych: Normal mood and affect Assessment/Plan Assessment/Plan 1. Atypical chest pain rule out acute coronary syndrome. 2. Pulmonary nodule. 3. Hypokalemia. 4. Severe dehydration. 5. E. Coli Urinary tract infection. 6. Pulsate abdomen PLAN: DC telemetry. Monitor Labs and Urine cultures Code status is Full Code. DVT prophylaxis: Heparin subcutaneous. Abx: Radha Cutler from Pulmonary Critical Care. Dr. Wall from Cardiology DC planning to SNF PT mobility Abdominal US: 1. Questionable 1 mm nonobstructing calculus in the right kidney versus focus of fat. 2. Otherwise technically difficult study without other acute abnormality identified. Stress test: 1. Clinical response: Non ischemic 2. Electrocardiographic response: Non ischemic Findings: The myocardial perfusion scan demonstrates no fixed or reversible perfusion defects. LVEF estimated at 85% which is likely an overestimation. IMPRESSION: Negative myocardial perfusion scan. Brien Renee MD Jul 31, 2018 22:44
[2018-08-01] VITALS: BP 131/72
[2018-08-01 04:00] VITALS: BP 124/76
[2018-08-01 08:00] VITALS: BP 137/76
[2018-08-01] MEDS ORDERED: cefTRIAXone 1 GM in D5W 55 ML IVPB SCH (09:00)
[2018-08-01] MEDS ORDERED: Aspirin Baby 81mg ORAL SCH (09:00)
[2018-08-01] MEDS: Heparin 5000 units/ml inj SUBQ SCH (09:26)
[2018-08-01 12:00] VITALS: BP 153/76
[2018-08-01] MEDS ORDERED: CIPROFLOXACIN750 MG ORAL (14:33)
[2018-08-01] MEDS ORDERED: CIPRO500 MG/51 PO (14:34)
[2018-08-01] MEDS ORDERED: ACETAMINOPHEN325 M1 ORAL (15:01)
[2018-08-01] MEDS ORDERED: ASPIRIN81 MG ORAL (15:02)
[2018-08-01] MEDS ORDERED: LIPITOR20 MG ORAL (15:03)
[2018-08-01] MEDS ORDERED: NS 500ML ONE (15:29)
--- NOTE | 2018-08-01 15:55 | Diagnostic Imaging Report ---
Clinical Indication: Chest pain, abnormal chest radiograph Technique: IV administration nonionic contrast. Spiral acquisition obtained through the chest. Multiplanar reconstructions generated. Total dose length product 589.34 mGycm. CTDIvol(s) 17.67 mGy. Dose reduction achieved using automated exposure control Comparison: Chest radiograph dated 07/28/2018 Findings: Abutting the pleural surface of the superior left upper lobe and extending to the apex, there is a masslike opacity which measures 9 mm transverse by 11 mm AP by 24 mm craniocaudad. This demonstrates some peripheral calcification This is adjacent to an area of scarring and volume loss along the major fissure. There is some linear scarring in the inferior lower lobe extending into the lingula, with some calcification. Unusual tubular shaped opacity is seen in the right lower lobe, measuring 9 mm transverse by 7 mm craniocaudad 22 mm in length. This probably corresponds to the abnormality described on recent chest radiograph. No associated calcification. No other evidence of mass or nodule. No infiltrates. No effusions. Granulomatous calcifications are seen in the right pulmonary hilum. No mediastinal or hilar mass or adenopathy. Normal heart size. No pericardial effusion. Included portions of the thyroid are unremarkable. No axillary or chest wall mass or adenopathy. There is a small sliding-type hiatal hernia. The esophagus is otherwise unremarkable. There is evidence of prior right mastectomy. The bones demonstrate postsurgical changes of the right shoulder. There is a wedge compression fracture deformities of the T9 and T12 vertebral bodies. The included upper abdominal anatomy demonstrates evidence of prior gastrectomy. The gallbladder is surgically absent. There is extra hepatic biliary ductal dilatation. Impression: Evidence of chronic scarring this calcification in the left upper lobe. Evidence of granulomatous calcifications within right hilar nodes. 9 x 11 x 24 mm masslike opacity in the left upper lobe, associated with some calcification. Probably secondary to scarring, but mass/neoplasm also possible. Note that this is occult on recent chest radiograph 9 x 7 x 22 mm masslike opacity in the right lower lobe, corresponding to radiographic abnormality. Likewise or scarring as etiology, but could represent neoplasm. Postsurgical changes of the right shoulder Evidence of prior gastric surgery and cholecystectomy. There is extra hepatic biliary ductal dilatation likely related to such Age-indeterminate T9 and T12 vertebral body compression fractures. Consider MRI if these are clinically relevant This agrees with the preliminary interpretation provided overnight by [facility] teleradiology service. The CT scanner at [facility] is accredited by the [employer] and the scans are performed using protocols designed to limit radiation exposure to as low as reasonably achievable to attain images of sufficient resolution adequate for diagnostic evaluation.
--- NOTE | 2018-08-01 22:21 | Internal Med Progress Note ---
Subjective Physician Name Brien Renee Attending Physician Brien Renee MD Allergies: Coded Allergies: NO KNOWN ALLERGIES (Verified Allergy, Unknown, 07/31/18) Subjective awake, alert, responsive, NAD, No CP or SOB. Objective Last Vital Signs Date Time Temp Pulse Resp B/P (MAP) Pulse Ox O2 Delivery O2 Flow Rate FiO2 08/01/18 12:00 98.6 86 18 153/76 (101) 98 08/01/18 09:00 Nasal Cannula 2.0 07/31/18 07:31 28 Intake and Output 07/31/18 08/01/18 19:00 07:00 Intake Total 360 ml 240 ml Balance 360 ml 240 ml Intake Oral 360 ml 240 ml # Voids 2 2 # Bowel Movements 1 Objective General: No acute distress, awake and alert HEENT: NCAT, sclera anicteric, PERRL, EOMI. Neck: Supple, no significant jugular venous distention, Lungs: Good inspiratory effort, no Wheeze or Rales. Heart: Regular rate and rhythm, normal S1/S2, no murmurs, Abdomen: soft, nontender, nondistended. Normoactive bowel sounds. + Pulsate abdomen. / Rectal: Refused and deferred. Extremities: No Cyanosis , clubbing or edema. Neuro: A&O x 3, Able to move all extremities Skin: warm, no rashes or lesions Psych: Normal mood and affect Assessment/Plan Assessment/Plan 1. Atypical chest pain rule out acute coronary syndrome. 2. Pulmonary nodule. 3. Hypokalemia. 4. Severe dehydration. 5. E. Coli Urinary tract infection. 6. Pulsate abdomen PLAN: Code status is Full Code. DVT prophylaxis: Heparin subcutaneous. Abx: JACQUIE Cutler from Pulmonary Critical Care. Dr. Wall from Cardiology DC to SNF today PT mobility Abdominal US: 1. Questionable 1 mm nonobstructing calculus in the right kidney versus focus of fat. 2. Otherwise technically difficult study without other acute abnormality identified. Stress test: 1. Clinical response: Non ischemic 2. Electrocardiographic response: Non ischemic Findings: The myocardial perfusion scan demonstrates no fixed or reversible perfusion defects. LVEF estimated at 85% which is likely an overestimation. IMPRESSION: Negative myocardial perfusion scan. Brien Renee MD Aug 01, 2018 22:21
--- NOTE | 2018-08-03 11:38 | Discharge Summary ---
Discharge Summary Discharge Summary _ DATE OF ADMISSION: 05/28/2018 DATE OF DISCHARGE: 08/01/2018 DISCHARGED BY: Dr. Renee REASON FOR ADMISSION: 72 years old female with unknown past medical history , brought by paramedics with chief complaint of chest pain for 1 day and episode of nausea and vomiting along with left parietal headache. Vital signs revealed elevated blood pressure 185/70. Pulse oximetry was stable on room air. No leukocytosis , stable hemoglobin hematocrit. Troponin negative. EKG revealed sinus rhythm, no acute ischemic changes. Urinalysis +3 protein and evidence of UTI with pyuria , positive leukocyte esterase and many bacteria. Chest x-ray revealed 13 mm right basilar nodule, possibly but not definitely calcified. CT head revealed no acute intracranial pathology. Patient admitted to telemetry floor for further management. CONSULTANTS: test engine operator Dr. Wall pulmonary Dr. Cutler psychiatrist [facility]: Patient was admitted to telemetry floor. Serial troponin were negative. EKG revealed no acute ischemic changes. Patient was ruled out for acute ND. Echocardiogram revealed preserved ejection fraction , no wall motion abnormality. Medical Fee Clerk closely followed. Antiplatelet therapy with aspirin was continued. Nitroglycerin was on board as needed. Nuclear Cardiolite stress test was nonischemic. According to test engine operator, chest pain was atypical, possibly due to anxiety. Lipid panel revealed total cholesterol 325 and LDL 229, statin was continued. Patient was educated on low-fat low-cholesterol cardiac diet. DVT prophylaxis provided. Blood pressure stabilized with current regimen. Chest x-ray revealed 13 mm pulmonary nodule inflammatory versus neoplasm. Subsequently CT of the chest was ordered. Respiratory status remained stable. Pulse oximetry was stable on room air. Pulmonary toilet provided as needed. CT of the chest revealed evidence of chronic scarring and calcification in the left upper lobe. Evidence of granulomatous calcifications within right hilar nodes. 9 x 11 x 24 mm masslike opacity in the left upper lobe, associated with some calcification. Probably secondary to scarring, but mass/neoplasm also possible. 9 x 7 x 22 mm masslike opacity in the right lower lobe, corresponding to radiographic abnormality. Likewise scarring as etiology, but could represent neoplasm. Pot Pusher followed. Follow up CT scan recommended in 3 months. Urine culture revealed E. coli. Patient was on antibiotics , complete at the facility. Abdominal ultrasound revealed questionable 1 mm nonobstructing calculus in the right kidney versus focus of fat. Electrolytes were closely monitored and corrected as needed. Nephrotoxins were avoided. Pain management was addressed as needed Patient was working with physical therapy. Supportive care provided. Bowel regimen instituted. 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 Psychiatrist followed. and diagnosed patient with anxiety disorder. Reality orientation and supportive therapy provided. Anxiolytic were on board as needed. Patient stabilized and was ready for discharge back to care home facility for continuation of care. repeat CT chest in 3 months. FINAL DIAGNOSES: Urinary tract infection with E. coli Atypical chest pain likely due to anxiety Pulmonary nodules with masslike opacities left lower and right upper lobes Severe dehydration Hyperlipidemia Electrolyte imbalances (potassium, magnesium, phosphate) Anxiety disorder DISCHARGE MEDICATIONS: See Medication Reconciliation list. DISCHARGE INSTRUCTIONS: Patient was discharged to the care home facility. Follow up with medical doctor at the facility. Nadine Merrill NP Aug 03, 2018 11:38
== END 2018-08-01 15:30 | DRG 313 ==
LOC: EDBD 06:07 → EDBEDREQ 06:18 → EMR 06:29 → 2E 06:35 → EDBEDREQ 06:59 → 4E 07-31 14:00
DX: R07.89 Other chest pain (principal); N39.0 Urinary tract infection, site not specified; E86.0 Dehydration; E87.6 Hypokalemia; R91.1 Solitary pulmonary nodule; B96.20 Unspecified Escherichia coli [E. coli] as the cause of diseases classified elsewhere; E87.8 Other disorders of electrolyte and fluid balance, not elsewhere classified; F41.9 Anxiety disorder, unspecified; Z85.3 Personal history of malignant neoplasm of breast; E78.5 Hyperlipidemia, unspecified; R19.09 Other intra-abdominal and pelvic swelling, mass and lump
CPT/HCPCS: 36415; 70450; 71045; 71260; 76700; 78452; 80048; 80053; 80061; 81003; 82150; 82550; 82553; 83690; 83735; 83880; 84100; 84443; 84484; 85025; 85610; 85730; 86140; 87086; 87181; 93005; 93017; 93306; 94664; 94760; 96365; 96375; 99285; J2405

== ENCOUNTER 2018-08-12 14:37 | Inpatient (IN) | payer MEDICARE, MEDICAID ==
[~2018-08-12] VITALS: Ht 162.6 cm; Wt 43.2 kg
[~2018-08-12 14:37] MED LIST: ACETAMINOPHEN325 M1 ORAL; ASPIRIN81 MG ORAL; CIPRO500 MG/51 PO; CIPROFLOXACIN750 MG ORAL; LIPITOR20 MG ORAL; NKM
--- NOTE | 2018-08-12 14:50 | NUR ---
ED Nurse Note: pt came BIBA from [facility]. per ems, failure to thrive. pt is refusing care. pt was refusing to answer question and hiding head under blanket. vss at the moment. will continue to monitor and await further orders.
[2018-08-12] MEDS ORDERED: RISPERDAL2 MG ORAL (14:56)
[2018-08-12] MEDS ORDERED: TRAMADOL HCL50 MG ORAL ×2 (14:56→18:27)
[2018-08-12] MEDS ORDERED: VITAMIN C500 M1 ORAL (14:56)
[2018-08-12] MEDS ORDERED: LEXAPRO10 MG ORAL (14:56)
--- NOTE | 2018-08-12 15:15 | NUR ---
ED Nurse Note: pt was refusing to get gowned and swinging her R arm at 1500. pt was given time to relax. after reassessment pt was cooperative. was able to place in gown and [employer] science [employer]. pt began to answer questions. vss at the moment. awaiting further orders from .
--- NOTE | 2018-08-12 15:42 | Emergency Room Report ---
History of Present Illness General Chief Complaint: Altered Level of Consciousness Source: Medical Record, EMS Present Illness HPI sent by a shelter facility for generalized weakness and failure to thrive. Patient offers no meaningful history. Allergies: Coded Allergies: NO KNOWN ALLERGIES (Verified Allergy, Unknown, 07/31/18) Patient History Limited by: other - nonverbal Past Medical History: unable to obtain Past Surgical History: unable to obtain Family History: unable to obtain Nursing Documentation-PMH Hx Cardiac Problems: Yes Hx Cancer: Yes Hx Gastrointestinal Problems: No - HYPOKALEMIA History Of Psychiatric Problem: Yes Hx Neurological Problems: No Review of Systems All Other Systems: limited Physical Exam Vital Signs Date Time Temp Pulse Resp B/P (MAP) Pulse Ox O2 Delivery O2 Flow Rate FiO2 08/12/18 14:45 99.0 122 16 100/ 98 Room Air Sp02 EP Interpretation: reviewed General Appearance: normal inspection Eyes: normal eye exam ENT: normal ENT inspection, oropharynx normal Respiratory: normal inspection, no rhonchi, no wheezing Cardiovascular: regular rate, rhythm, no edema Gastrointestinal: normal inspection, no mass, non-distended Neurologic: other - Unable to Assessment Lymphatic: normal cervical nodes Medical Decision Making Diagnostic Impression: Primary Impression: Dehydration Laboratory Tests Test 08/12/18 15:05 08/12/18 15:42 White Blood Count 8.3 K/UL (4.8-10.8) Red Blood Count 4.04 M/UL (4.20-5.40) L Hemoglobin 11.3 G/DL (12.0-16.0) L Hematocrit 34.9 % (37.0-47.0) L Mean Corpuscular Volume 86 FL (80-99) Mean Corpuscular Hemoglobin 27.9 PG (27.0-31.0) Mean Corpuscular Hemoglobin Concent 32.3 G/DL (32.0-36.0) Red Cell Distribution Width 15.1 % (11.6-14.8) H Platelet Count 312 K/UL (150-450) Mean Platelet Volume 6.6 FL (6.5-10.1) Neutrophils (%) (Auto) 46.8 % (45.0-75.0) Lymphocytes (%) (Auto) 44.6 % (20.0-45.0) Monocytes (%) (Auto) 6.9 % (1.0-10.0) Eosinophils (%) (Auto) 0.6 % (0.0-3.0) Basophils (%) (Auto) 1.1 % (0.0-2.0) Sodium Level 142 MMOL/L (136-145) Potassium Level 3.5 MMOL/L (3.5-5.1) Chloride Level 103 MMOL/L (98-107) Carbon Dioxide Level 24 MMOL/L (21-32) Anion Gap 16 mmol/L (5-15) H Blood Urea Nitrogen 24 mg/dL (7-18) H Creatinine 0.9 MG/DL (0.55-1.30) Estimate Glomerular Filtration Rate mL/min (>60) Glucose Level 128 MG/DL (74-106) H Calcium Level 9.2 MG/DL (8.5-10.1) Total Bilirubin 0.5 MG/DL (0.2-1.0) Aspartate Amino Transferase (AST) 20 U/L (15-37) Alanine Aminotransferase (ALT) 21 U/L (12-78) Alkaline Phosphatase 116 U/L (46-116) Ammonia < 10 umol/L (11-32) L Total Protein 7.1 G/DL (6.4-8.2) Albumin 3.6 G/DL (3.4-5.0) Globulin 3.5 g/dL Albumin/Globulin Ratio 1.0 (1.0-2.7) Urine Color Yellow Urine Appearance Clear Urine pH 6 (4.5-8.0) Urine Specific Wiseman 1.015 (1.005-1.035) Urine Protein 2+ (NEGATIVE) H Urine Glucose (UA) Negative (NEGATIVE) Urine Ketones 3+ (NEGATIVE) H Urine Blood 1+ (NEGATIVE) H Urine Nitrite Negative (NEGATIVE) Urine Bilirubin Negative (NEGATIVE) Urine Urobilinogen Normal MG/DL (0.0-1.0) Urine Leukocyte Esterase 1+ (NEGATIVE) H Urine RBC 0-2 /HPF (0 - 2) Urine WBC 2-4 /HPF (0 - 2) Urine Squamous Epithelial Cells Few /LPF (NONE/OCC) Urine Bacteria Few /HPF (NONE) Urine Yeast Moderate /HPF (NONE) H EKG Diagnostic Results Rate: tachycardiac, other ST Segments: no acute changes Other Impression right bundle branch block Chest X-Ray Diagnostic Results Chest X-Ray Diagnostic Results : PA Scribe Text cardiomegaly. Mild pulmonary congestion. Last Vital Signs Date Time Temp Pulse Resp B/P (MAP) Pulse Ox O2 Delivery O2 Flow Rate FiO2 08/12/18 14:45 99.0 122 16 100/ 98 Room Air Disposition: ADMITTED INPATIENT Condition: Serious Signed Out To: Admitted to KIMBERLYN Brice Aug 12, 2018 15:42
--- NOTE | 2018-08-12 15:58 | NUR ---
pt was provided NS bolus, tolerated well.
[2018-08-12 16:14] LABS: APPEARANCE,URINE CLEAR; BILIRUBIN, URINE NEGATIVE (NEGATIVE); GLUCOSE, URINE (UA) NEGATIVE (NEGATIVE); KETONES,URINE 3+ (NEGATIVE); LEUKOCYTE ESTERASE ,URINE 1+ (NEGATIVE); NITRITE,URINE NEGATIVE (NEGATIVE); PH,URINE 6 (4.5-8.0); PROTEIN,URINE 2+ (NEGATIVE); UROBILINOGEN,URINE NORMAL MG/DL (0.0-1.0)
[2018-08-12 16:19] LABS: BASOPHILS % (AUTO) 1.1 % (0.0-2.0); EOSINOPHILS % (AUTO) 0.6 % (0.0-3.0); HEMATOCRIT 34.9 % (37.0-47.0); HEMOGLOBIN 11.3 G/DL (12.0-16.0); LYMPHOCYTES % (AUTO) 44.6 % (20.0-45.0); MEAN CORPUSCULAR VOLUME 86 FL (80-99); MONOCYTES % (AUTO) 6.9 % (1.0-10.0); NEUTROPHILS % (AUTO) 46.8 % (45.0-75.0); PLATELET COUNT 312 K/UL (150-450); RED BLOOD COUNT 4.04 M/UL (4.20-5.40); RED CELL DISTRIBUTION WIDTH 15.1 % (11.6-14.8); WHITE BLOOD COUNT 8.3 K/UL (4.8-10.8)
[2018-08-12 16:24] LABS: ANION GAP 16 mmol/L (5-15); BLOOD UREA NITROGEN 24 mg/dL (7-18); CALCIUM 9.2 MG/DL (8.5-10.1); CARBON DIOXIDE 24 MMOL/L (21-32); CHLORIDE 103 MMOL/L (98-107); CREATININE 0.9 MG/DL (0.55-1.30); POTASSIUM 3.5 MMOL/L (3.5-5.1); SODIUM 142 MMOL/L (136-145)
[2018-08-12 16:27] LABS: AMMONIA < 10 umol/L (11-32)
[2018-08-12 16:29] LABS: ALANINE AMINOTRANSFERASE 21 U/L (12-78); ALBUMIN 3.6 G/DL (3.4-5.0); ALKALINE PHOSPHATASE 116 U/L (46-116); ASPARTATE AMINO TRANSFERASE 20 U/L (15-37); BILIRUBIN,TOTAL 0.5 MG/DL (0.2-1.0)
[2018-08-12 16:29] LABS: COLOR,URINE YELLOW
[2018-08-12 16:34] VITALS: BP 119/56
[2018-08-12 18:19] VITALS: BP 141/55
[2018-08-12] MEDS ORDERED: BOOST VHC PO (18:27)
[2018-08-12] MEDS ORDERED: MULTIVITAMINS1 EAC8 ORAL (18:27)
[2018-08-12] MEDS ORDERED: FLEET ENEMA133 ML RECTAL (18:27)
[2018-08-12] MEDS ORDERED: ZINC SULFATE220 M1 ORAL (18:27)
[2018-08-12] MEDS ORDERED: MELATONIN 5 MG1 EAC1 ORAL (18:27)
[2018-08-12] MEDS ORDERED: DULCOLAX10 MG RC (18:27)
[2018-08-12] MEDS ORDERED: MILK OF MA400 MG/51 ORAL (18:27)
--- NOTE | 2018-08-12 18:48 | NUR ---
ED Nurse Note: informed pt that MRSA, CRE, VRE swabs must be completed per protocol. pt shook her head left and right and covered her nose refusing to do swabs.
--- NOTE | 2018-08-12 19:13 | NUR ---
ED Nurse Note: called tiff copeland at [facility] for report. Was told to call back in 5 minutes since she is concurrently receiving report from her unit
--- NOTE | 2018-08-12 19:25 | NUR ---
ED Nurse Note: telephone report given to MILIND Mcintyre. Belonging list endorsed to MILIND Dill. No s/s of distress.
[2018-08-12 20:00] VITALS: BP 132/61
--- NOTE | 2018-08-12 20:00 | NUR ---
NURSE NOTES: Received report from Lisa Cano RN over the phone in ER. Patient arrived to unit on [facility] with transporter. All belongings checked and accounted. Patient A&Ox3. On room air. No signs of distress or labored breathing. IV intact, patent, and saline locked. No complaints of pain. Patient in stable condition. Bed in lowest position with call light in reach.
--- NOTE | 2018-08-12 20:25 | NUR ---
NURSE NOTES: Called MD for admission orders, waiting for response.
--- NOTE | 2018-08-12 21:30 | NUR ---
NURSE NOTES: Received orders from .
[2018-08-12] MEDS ORDERED: Milk of Magnesia 30ml Ud ORAL PRN (22:30)
[2018-08-12] MEDS ORDERED: Fleet's Enema 133ml RECTAL PRN (22:30)
[2018-08-12] MEDS ORDERED: traMADol 50mg tab ORAL PRN (22:30)
[2018-08-12] MEDS ORDERED: Haloperidol 5mg/ml Inj IM PRN (23:00)
[2018-08-12] MEDS ORDERED: LORazepam Inj 2mg/ml 1ml IM PRN (23:00)
--- NOTE | 2018-08-12 23:03 | Consultation ---
History of Present Illness General Chief Complaint: Altered Level of Consciousness Present Illness HPI 72 yo female with hx of mmp who has hx of schizophrenia and depression was brought in from [facility] for an eval. The pt has not been eating nor sleeping . the pt has been agitated and uncooperative. the pt is dehydrated and confused. the pt was not answering questions. I evaluated the pt in er. i am familiar with the pt from [facility]. the pt was on lexapro and risperdal at the facility. the pt is suicidal nor homicidal Allergies: Coded Allergies: NO KNOWN ALLERGIES (Verified Allergy, Unknown, 07/31/18) Medication History Scheduled Ascorbic Acid* (Vitamin C*), 500 MG ORAL DAILY, (Reported) Aspirin* (Aspirin*), 81 MG ORAL DAILY, (Reported) Atorvastatin Calcium* (Lipitor*), 20 MG ORAL BEDTIME, (Reported) Escitalopram Oxalate* (Lexapro*), 10 MG ORAL DAILY, (Reported) Multivitamin With Minerals (Multivitamins With Minerals*), 1 TAB ORAL DAILY, ( Reported) Nut Tx, Lact-Reduced, Iron (Boost Vhc), 120 ML PO TID, (Reported) Risperidone* (Risperdal*), 2 MG ORAL QHS, (Reported) Zinc Sulfate (Zinc Sulfate*), 220 MG ORAL DAILY, (Reported) Scheduled PRN Acetaminophen* (Acetaminophen 325MG Tablet*), 650 MG ORAL Q4H PRN for Fever/ Headache/Mild Pain, (Reported) Bisacodyl (Dulcolax), 10 MG RC DAILY PRN for IF MOM INEFFECTIVE, (Reported) Magnesium Hydroxide* (Milk Of Magnesia*), 30 ML ORAL DAILY PRN for Constipation, (Reported) Melatonin (Melatonin 5 Mg Tablet), 1 TAB ORAL BEDTIME PRN for Insomnia, ( Reported) Na Phos,M-B/Na Phos,Di-Ba* (Fleet Enema*), 133 ML RECTAL EVERY 96 HOURS PRN for IF DULCOLAX INEFFECTIVE, (Reported) Tramadol Hcl* (Ultram*), 50 MG ORAL Q8H PRN for MILD TO MODERATE PAIN, (Reported ) Tramadol Hcl* (Ultram*), 50 MG ORAL Q8HR PRN for Severe Pain (Pain Scale 7-10), (Reported) Discontinued Medications Ciprofloxacin (Cipro), 500 MG PO BID, (Reported) Discontinued Reason: Therapy completed Ciprofloxacin Hcl (Ciprofloxacin Hcl*), 500 MG ORAL BID, (Reported) Discontinued Reason: Therapy completed Patient History Limited by: medical condition History Provided By: Patient, Medical Record, PMD Healthcare decision maker Resuscitation status Advanced Directive on File Past Medical/Surgical History Past Medical/Surgical History: (1) Pulmonary nodule (2) No pertinent past medical history (3) Chest pain (4) Anxiety disorder (5) ACS (acute coronary syndrome) (6) Dehydration (7) Failure to thrive Review of Systems Psychiatric: Reports: prior hx, anxiety, depressed feelings Physical Exam General Appearance: alert, confused, agitated Last 24 Hour Vital Signs Date Time Temp Pulse Resp B/P (MAP) Pulse Ox O2 Delivery O2 Flow Rate FiO2 08/12/18 19:24 98.9 94 20 141/55 99 Room Air 08/12/18 18:19 94 20 141/55 99 Room Air 08/12/18 16:34 99.0 98 24 119/56 98 Room Air 08/12/18 16:34 98 24 Room Air 08/12/18 14:45 99.0 122 16 100/ 98 Room Air Laboratory Tests Test 08/12/18 15:05 08/12/18 15:42 White Blood Count 8.3 K/UL (4.8-10.8) Red Blood Count 4.04 M/UL (4.20-5.40) L Hemoglobin 11.3 G/DL (12.0-16.0) L Hematocrit 34.9 % (37.0-47.0) L Mean Corpuscular Volume 86 FL (80-99) Mean Corpuscular Hemoglobin 27.9 PG (27.0-31.0) Mean Corpuscular Hemoglobin Concent 32.3 G/DL (32.0-36.0) Red Cell Distribution Width 15.1 % (11.6-14.8) H Platelet Count 312 K/UL (150-450) Mean Platelet Volume 6.6 FL (6.5-10.1) Neutrophils (%) (Auto) 46.8 % (45.0-75.0) Lymphocytes (%) (Auto) 44.6 % (20.0-45.0) Monocytes (%) (Auto) 6.9 % (1.0-10.0) Eosinophils (%) (Auto) 0.6 % (0.0-3.0) Basophils (%) (Auto) 1.1 % (0.0-2.0) Sodium Level 142 MMOL/L (136-145) Potassium Level 3.5 MMOL/L (3.5-5.1) Chloride Level 103 MMOL/L (98-107) Carbon Dioxide Level 24 MMOL/L (21-32) Anion Gap 16 mmol/L (5-15) H Blood Urea Nitrogen 24 mg/dL (7-18) H Creatinine 0.9 MG/DL (0.55-1.30) Estimat Glomerular Filtration Rate mL/min (>60) Glucose Level 128 MG/DL (74-106) H Calcium Level 9.2 MG/DL (8.5-10.1) Total Bilirubin 0.5 MG/DL (0.2-1.0) Aspartate Amino Transf (AST/SGOT) 20 U/L (15-37) Alanine Aminotransferase (ALT/SGPT) 21 U/L (12-78) Alkaline Phosphatase 116 U/L (46-116) Ammonia < 10 umol/L (11-32) L Total Protein 7.1 G/DL (6.4-8.2) Albumin 3.6 G/DL (3.4-5.0) Globulin 3.5 g/dL Albumin/Globulin Ratio 1.0 (1.0-2.7) Urine Color Yellow Urine Appearance Clear Urine pH 6 (4.5-8.0) Urine Specific Bertrand 1.015 (1.005-1.035) Urine Protein 2+ (NEGATIVE) H Urine Glucose (UA) Negative (NEGATIVE) Urine Ketones 3+ (NEGATIVE) H Urine Blood 1+ (NEGATIVE) H Urine Nitrite Negative (NEGATIVE) Urine Bilirubin Negative (NEGATIVE) Urine Urobilinogen Normal MG/DL (0.0-1.0) Urine Leukocyte Esterase 1+ (NEGATIVE) H Urine RBC 0-2 /HPF (0 - 2) Urine WBC 2-4 /HPF (0 - 2) Urine Squamous Epithelial Cells Few /LPF (NONE/OCC) Urine Bacteria Few /HPF (NONE) Urine Yeast Moderate /HPF (NONE) H Height (Feet): 5 Height (Inches): 4.00 Weight (Pounds): 100 Medications Current Medications Medications (Trade) Dose Ordered Sig/Naomi Route PRN Reason Start Time Stop Time Status Last Admin Dose Admin Acetaminophen (Tylenol) 650 mg Q4H PRN ORAL Fever/Headache/Mild Pain 08/12/18 22:30 09/11/18 22:29 Ascorbic Acid (Vitamin C) 500 mg DAILY ORAL 08/13/18 09:00 09/12/18 08:59 Aspirin (ASA) 81 mg DAILY ORAL 08/13/18 09:00 09/12/18 08:59 Atorvastatin Calcium (Lipitor) 20 mg BEDTIME ORAL 08/13/18 21:00 09/12/18 20:59 Bisacodyl (Dulcolax) 10 mg DAILY PRN RECTAL IF MOM INEFFECTIVE 08/12/18 23:00 09/11/18 22:59 UNV Escitalopram Oxalate (Lexapro) 10 mg DAILY ORAL 08/13/18 09:00 09/12/18 08:59 Magnesium Hydroxide (Mom) 30 ml DAILY PRN ORAL Constipation 08/12/18 22:30 09/11/18 22:29 Multivitamins Therapeutic (Therapeutic Multivitamin) 1 ea DAILY ORAL 08/13/18 09:00 09/12/18 08:59 Risperidone (RisperDAL) 2 mg QHS ORAL 08/13/18 21:00 09/12/18 20:59 Sodium Phosphate (Fleet's Sodium Phosl Enema) 133 ml EVERY 96 HOURS PRN RECTAL IF DULCOLAX INEFFECTIVE 08/12/18 22:30 09/11/18 22:29 Tramadol HCl (Ultram) 50 mg Q8H PRN ORAL MILD TO MODERATE PAIN 08/12/18 22:30 08/19/18 22:29 Tramadol HCl (Ultram) 50 mg Q8HR PRN ORAL Severe Pain (Pain Scale 7-10) 08/12/18 23:00 08/19/18 22:59 UNV Zinc Sulfate (Zinc Sulfate) 220 mg DAILY ORAL 08/13/18 09:00 09/12/18 08:59 Assessment/Plan Problem List: (1) Metabolic encephalopathy ICD Codes: G93.41 - Metabolic encephalopathy SNOMED: 00873972 (2) Anxiety disorder ICD Codes: F41.9 - Anxiety disorder, unspecified SNOMED: 427112318 (3) Failure to thrive SNOMED: 77290381 Assessment/Plan dc lexapro start zyprexa 2.5mg bid haldol im ativan im Farhadi,Pantea MD Aug 12, 2018 23:03
[2018-08-13] VITALS: BP 127/73
[2018-08-13 04:00] VITALS: BP 148/95
[2018-08-13 06:59] LABS: EOSINOPHILS % (AUTO) 1.2 % (0.0-3.0); HEMATOCRIT 37.5 % (37.0-47.0); HEMOGLOBIN 11.9 G/DL (12.0-16.0); LYMPHOCYTES % (AUTO) 49.9 % (20.0-45.0); MEAN CORPUSCULAR VOLUME 87 FL (80-99); NEUTROPHILS % (AUTO) 40.8 % (45.0-75.0); PLATELET COUNT 280 K/UL (150-450); RED BLOOD COUNT 4.33 M/UL (4.20-5.40); RED CELL DISTRIBUTION WIDTH 15.1 % (11.6-14.8); WHITE BLOOD COUNT 5.8 K/UL (4.8-10.8)
--- NOTE | 2018-08-13 07:45 | NUR ---
NURSE NOTES: Patient is A/A/Ox2/3 with bizzare stare and with a flat affect behavior upon receiving patient. Able to feed self and reoriented. keep bed in the lowest position. siderails are up x3. call light is within reach. No acute resp distress noted. awaits for the CXR to be done. will cont to monitor.
--- NOTE | 2018-08-13 07:46 | NUR ---
HAND-OFF: Report given to SANJUANITA Alberto.
[2018-08-13 07:57] LABS: ALANINE AMINOTRANSFERASE 19 U/L (12-78); ALBUMIN 3.6 G/DL (3.4-5.0); ALBUMIN/GLOBULIN RATIO 1.1 (1.0-2.7); ALKALINE PHOSPHATASE 112 U/L (46-116); ANION GAP 12 mmol/L (5-15); ASPARTATE AMINO TRANSFERASE 14 U/L (15-37); BILIRUBIN,TOTAL 0.5 MG/DL (0.2-1.0); BLOOD UREA NITROGEN 15 mg/dL (7-18); CALCIUM 9.3 MG/DL (8.5-10.1); CARBON DIOXIDE 25 MMOL/L (21-32); CHLORIDE 106 MMOL/L (98-107); CREATININE 0.7 MG/DL (0.55-1.30); PHOSPHORUS 3.6 MG/DL (2.5-4.9); POTASSIUM 3.2 MMOL/L (3.5-5.1); SODIUM 143 MMOL/L (136-145)
[2018-08-13 08:00] VITALS: BP 121/56
[2018-08-13] MEDS: Zinc Sulfate 220mg cap ORAL SCH ×2 (08:13→08:20)
[2018-08-13] MEDS: Aspirin Baby 81mg ORAL SCH ×2 (08:14→08:20)
[2018-08-13] MEDS: Ascorbic Acid 500mg tab ORAL SCH ×2 (08:15→08:20)
[2018-08-13] MEDS: Multivitamin w/Minerals tab ORAL SCH ×2 (08:15→08:20)
[2018-08-13] MEDS: OLANZapine 2.5mg tab ORAL SCH ×2 (08:15→17:04)
--- NOTE | 2018-08-13 09:27 | Diagnostic Imaging Report ---
EXAM: XR Chest, 1 View CLINICAL HISTORY: COUGH TECHNIQUE: Frontal view of the chest. COMPARISON: 07/28/18 FINDINGS: Lungs: No confluent consolidation. Mild left basilar atelectasis. Pleural space: Unremarkable. No pneumothorax. Heart: Unremarkable. No cardiomegaly. Mediastinum: Unremarkable. Bones/joints: Plate and screw fixation of the right humerus. Soft tissues: Surgical clips overlying the right lower hemithorax. Other findings: Bilateral nodular opacities again noted. IMPRESSION: No confluent consolidation. Mild left basilar atelectasis.
--- NOTE | 2018-08-13 10:20 | NUR ---
RD ASSESSMENT & RECOMMENDATIONS SEE CARE ACTIVITY FOR COMPLETE ASSESSMENT DAILY ESTIMATED NEEDS: Needs based on Underweight/ 42kg 30-35 kcals/kg 1128-6883 total kcals 1-1.5 g protein/kg 42-63 g total protein 25-30 mL/kg 9846-1009 total fluid mLs NUTRITION DIAGNOSIS: Increased kcal/prot needs R/T underweight status as evidenced by low BMI per guidelines, admitted w/ FTT dx. CURRENT DIET:REGULAR PO DIET RECOMMENDATIONS: Liberalized REGULAR/ texture as tolerated ADDITIONAL RECOMMENDATIONS: * Weekly calibrated bedscale wt- underweight * Monitor lytes, replete as needed (low K) * Ensure Enlive TID w/ meals * Consider appetite stimulant- FTT dx, underweight Addendum: 08/13/18 at [address] Additional rec: * Monitor PO intake closely, encourage PO intake -> consider calorie count x 48 hrs
--- NOTE | 2018-08-13 10:54 | NUR ---
NURSE NOTES: Notified Dr Renee for today's K+3.2, DVT prophylaxis and IV access being on the right hand for s/p right mastectomy in 2004. awaiting for a call back. Patient refused to resite IV access on the left arm. Had explained the indications and refused. Informed Tosin THORNE. Addendum: 08/13/18 at 1209 by MARIA E GONZALEZ LVN new order obtained.
[2018-08-13 12:01] VITALS: BP 123/65
--- NOTE | 2018-08-13 12:30 | NUR ---
NURSE NOTES: Informed Dr Renee for CXR result today. awaiting for a response. will cont to monitor. Addendum: 08/13/18 at 1648 by MARIA E GONZALEZ LVN new order obtained.
--- NOTE | 2018-08-13 14:57 | Infectious Diseases Prog Note ---
Assessment/Plan Problems: (1) Yeast UTI Assessment & Plan: will start fluconazole pending urine culture (2) Dehydration Assessment & Plan: due to poor oral intake, continue hydration and replace electrolytes (3) Failure to thrive Assessment & Plan: recommend dietary consult and nutritional support (4) Metabolic encephalopathy Assessment & Plan: will screen for syphilis and HIV Subjective Allergies: Coded Allergies: NO KNOWN ALLERGIES (Verified Allergy, Unknown, 07/31/18) Objective Vital Signs Last 24 Hour Vital Signs Date Time Temp Pulse Resp B/P (MAP) Pulse Ox O2 Delivery O2 Flow Rate FiO2 08/13/18 12:01 98.3 93 18 123/65 (84) 99 08/13/18 09:00 Room Air 08/13/18 08:00 97.9 113 19 121/56 (77) 98 08/13/18 04:00 97.8 98 17 148/95 (112) 98 08/13/18 00:00 97.0 85 18 127/73 (91) 99 08/12/18 22:10 Room Air 08/12/18 20:00 98.0 87 17 132/61 (84) 99 08/12/18 19:24 98.9 94 20 141/55 99 Room Air 08/12/18 18:19 94 20 141/55 99 Room Air 08/12/18 16:34 99.0 98 24 119/56 98 Room Air 08/12/18 16:34 98 24 Room Air Height (Feet): 5 Height (Inches): 4.00 Weight (Pounds): 100 Microbiology Date/Time Source Procedure Growth Status 08/12/18 15:42 Urine,Clean Catch Urine Culture - Preliminary NO GROWTH Resulted Laboratory Tests Test 08/12/18 15:05 08/12/18 15:42 08/13/18 05:26 White Blood Count 8.3 K/UL (4.8-10.8) 5.8 K/UL (4.8-10.8) Red Blood Count 4.04 M/UL (4.20-5.40) L 4.33 M/UL (4.20-5.40) Hemoglobin 11.3 G/DL (12.0-16.0) L 11.9 G/DL (12.0-16.0) L Hematocrit 34.9 % (37.0-47.0) L 37.5 % (37.0-47.0) Mean Corpuscular Volume 86 FL (80-99) 87 FL (80-99) Mean Corpuscular Hemoglobin 27.9 PG (27.0-31.0) 27.5 PG (27.0-31.0) Mean Corpuscular Hemoglobin Concent 32.3 G/DL (32.0-36.0) 31.8 G/DL (32.0-36.0) L Red Cell Distribution Width 15.1 % (11.6-14.8) H 15.1 % (11.6-14.8) H Platelet Count 312 K/UL (150-450) 280 K/UL (150-450) Mean Platelet Volume 6.6 FL (6.5-10.1) 5.7 FL (6.5-10.1) L Neutrophils (%) (Auto) 46.8 % (45.0-75.0) 40.8 % (45.0-75.0) L Lymphocytes (%) (Auto) 44.6 % (20.0-45.0) 49.9 % (20.0-45.0) H Monocytes (%) (Auto) 6.9 % (1.0-10.0) 7.0 % (1.0-10.0) Eosinophils (%) (Auto) 0.6 % (0.0-3.0) 1.2 % (0.0-3.0) Basophils (%) (Auto) 1.1 % (0.0-2.0) 1.0 % (0.0-2.0) Sodium Level 142 MMOL/L (136-145) 143 MMOL/L (136-145) Potassium Level 3.5 MMOL/L (3.5-5.1) 3.2 MMOL/L (3.5-5.1) L Chloride Level 103 MMOL/L (98-107) 106 MMOL/L (98-107) Carbon Dioxide Level 24 MMOL/L (21-32) 25 MMOL/L (21-32) Anion Gap 16 mmol/L (5-15) H 12 mmol/L (5-15) Blood Urea Nitrogen 24 mg/dL (7-18) H 15 mg/dL (7-18) Creatinine 0.9 MG/DL (0.55-1.30) 0.7 MG/DL (0.55-1.30) Estimat Glomerular Filtration Rate mL/min (>60) mL/min (>60) Glucose Level 128 MG/DL (74-106) H 102 MG/DL (74-106) Calcium Level 9.2 MG/DL (8.5-10.1) 9.3 MG/DL (8.5-10.1) Total Bilirubin 0.5 MG/DL (0.2-1.0) 0.5 MG/DL (0.2-1.0) Aspartate Amino Transf (AST/SGOT) 20 U/L (15-37) 14 U/L (15-37) L Alanine Aminotransferase (ALT/SGPT) 21 U/L (12-78) 19 U/L (12-78) Alkaline Phosphatase 116 U/L (46-116) 112 U/L (46-116) Ammonia < 10 umol/L (11-32) L Total Protein 7.1 G/DL (6.4-8.2) 7.0 G/DL (6.4-8.2) Albumin 3.6 G/DL (3.4-5.0) 3.6 G/DL (3.4-5.0) Globulin 3.5 g/dL 3.4 g/dL Albumin/Globulin Ratio 1.0 (1.0-2.7) 1.1 (1.0-2.7) Urine Color Yellow Urine Appearance Clear Urine pH 6 (4.5-8.0) Urine Specific Gibbon 1.015 (1.005-1.035) Urine Protein 2+ (NEGATIVE) H Urine Glucose (UA) Negative (NEGATIVE) Urine Ketones 3+ (NEGATIVE) H Urine Blood 1+ (NEGATIVE) H Urine Nitrite Negative (NEGATIVE) Urine Bilirubin Negative (NEGATIVE) Urine Urobilinogen Normal MG/DL (0.0-1.0) Urine Leukocyte Esterase 1+ (NEGATIVE) H Urine RBC 0-2 /HPF (0 - 2) Urine WBC 2-4 /HPF (0 - 2) Urine Squamous Epithelial Cells Few /LPF (NONE/OCC) Urine Bacteria Few /HPF (NONE) Urine Yeast Moderate /HPF (NONE) H Phosphorus Level 3.6 MG/DL (2.5-4.9) Magnesium Level 1.9 MG/DL (1.8-2.4) Current Medications Medications (Trade) Dose Ordered Sig/Naomi Route PRN Reason Start Time Stop Time Status Last Admin Dose Admin Acetaminophen (Tylenol) 650 mg Q4H PRN ORAL Fever/Headache/Mild Pain 08/12/18 22:30 09/11/18 22:29 Ascorbic Acid (Vitamin C) 500 mg DAILY ORAL 08/13/18 09:00 09/12/18 08:59 Aspirin (ASA) 81 mg DAILY ORAL 08/13/18 09:00 09/12/18 08:59 Atorvastatin Calcium (Lipitor) 20 mg BEDTIME ORAL 08/13/18 21:00 09/12/18 20:59 Bisacodyl (Dulcolax) 10 mg DAILY PRN RECTAL IF MOM INEFFECTIVE 08/12/18 23:00 09/11/18 22:59 Haloperidol Lactate (Haldol) 5 mg Q6H PRN IM Agitation 08/12/18 23:00 09/11/18 22:59 Lorazepam (Ativan 2mg/ml 1ml) 1 mg Q4H PRN IM For Anxiety 08/12/18 23:00 08/19/18 22:59 Magnesium Hydroxide (Mom) 30 ml DAILY PRN ORAL Constipation 08/12/18 22:30 09/11/18 22:29 Multivitamins Therapeutic (Therapeutic Multivitamin) 1 ea DAILY ORAL 08/13/18 09:00 09/12/18 08:59 Olanzapine (ZyPREXA) 2.5 mg BID ORAL 08/13/18 09:00 09/12/18 08:59 08/13/18 08:15 Risperidone (RisperDAL) 2 mg QHS ORAL 08/13/18 21:00 09/12/18 20:59 Sodium Chloride 1,000 ml @ 75 mls/hr [id number] IV 08/13/18 13:30 09/12/18 13:29 08/13/18 13:33 Sodium Phosphate (Fleet's Sodium Phosl Enema) 133 ml EVERY 96 HOURS PRN RECTAL IF DULCOLAX INEFFECTIVE 08/12/18 22:30 09/11/18 22:29 Temazepam (Restoril) 15 mg HSPRN PRN ORAL Insomnia 08/12/18 23:45 08/19/18 23:44 08/12/18 23:54 Tramadol HCl (Ultram) 50 mg Q8HR PRN ORAL Severe Pain (Pain Scale 7-10) 08/12/18 23:00 08/19/18 22:59 Zinc Sulfate (Zinc Sulfate) 220 mg DAILY ORAL 08/13/18 09:00 09/12/18 08:59 Letty Graham M.D. Aug 13, 2018 14:57
--- NOTE | 2018-08-13 15:37 | Consultation ---
History of Present Illness General Date patient seen: Aug 13, 2018 Chief Complaint: Altered Level of Consciousness Referring physician: Dr Víctor Tesfaye Reason for Consultation: yeast UTI , recommendations for antifungal treatme Present Illness HPI This patient is a 72 yo female with PMH of cardiac disease and psych disorder , was sent by a [facility] facility for generalized weakness and failure to thrive. patient is confused and can't provide any meaningful history. work up in ED revealed dehydration and failure to thrive , she also had UTI with yeast in the urine , so infectious disease consult was requested for antifungal treatment, Allergies: Coded Allergies: NO KNOWN ALLERGIES (Verified Allergy, Unknown, 07/31/18) Medication History Scheduled Ascorbic Acid* (Vitamin C*), 500 MG ORAL DAILY, (Reported) Aspirin* (Aspirin*), 81 MG ORAL DAILY, (Reported) Atorvastatin Calcium* (Lipitor*), 20 MG ORAL BEDTIME, (Reported) Escitalopram Oxalate* (Lexapro*), 10 MG ORAL DAILY, (Reported) Multivitamin With Minerals (Multivitamins With Minerals*), 1 TAB ORAL DAILY, ( Reported) Nut Tx, Lact-Reduced, Iron (Boost Vhc), 120 ML PO TID, (Reported) Risperidone* (Risperdal*), 2 MG ORAL QHS, (Reported) Zinc Sulfate (Zinc Sulfate*), 220 MG ORAL DAILY, (Reported) Scheduled PRN Acetaminophen* (Acetaminophen 325MG Tablet*), 650 MG ORAL Q4H PRN for Fever/ Headache/Mild Pain, (Reported) Bisacodyl (Dulcolax), 10 MG RC DAILY PRN for IF MOM INEFFECTIVE, (Reported) Magnesium Hydroxide* (Milk Of Magnesia*), 30 ML ORAL DAILY PRN for Constipation, (Reported) Melatonin (Melatonin 5 Mg Tablet), 1 TAB ORAL BEDTIME PRN for Insomnia, ( Reported) Na Phos,M-B/Na Phos,Di-Ba* (Fleet Enema*), 133 ML RECTAL EVERY 96 HOURS PRN for IF DULCOLAX INEFFECTIVE, (Reported) Tramadol Hcl* (Ultram*), 50 MG ORAL Q8H PRN for MILD TO MODERATE PAIN, (Reported ) Tramadol Hcl* (Ultram*), 50 MG ORAL Q8HR PRN for Severe Pain (Pain Scale 7-10), (Reported) Discontinued Medications Ciprofloxacin (Cipro), 500 MG PO BID, (Reported) Discontinued Reason: Therapy completed Ciprofloxacin Hcl (Ciprofloxacin Hcl*), 500 MG ORAL BID, (Reported) Discontinued Reason: Therapy completed Patient History Limited by: medical condition History Provided By: Medical Record, EMS Healthcare decision maker Resuscitation status Full Code Advanced Directive on File No Review of Systems ROS Narrative unable to obtain she is confused and can't provide any history Physical Exam General Appearance: WD/WN, no apparent distress, alert, lethargic, confused Lines, tubes and drains: peripheral HEENT: normocephalic, atraumatic, anicteric, mucous membranes moist, PERRL Neck: non-tender, normal alignment, supple, normal inspection Respiratory/Chest: chest wall non-tender, lungs clear, normal breath sounds, no respiratory distress, no accessory muscle use Cardiovascular/Chest: normal peripheral pulses, normal rate, regular rhythm, no gallop/murmur, no JVD Abdomen: normal bowel sounds, non tender, soft, no organomegaly, no mass Genitourinary/Rectal: normal genital exam Extremities: normal range of motion, non-tender, normal inspection, no calf tenderness, normal capillary refill Skin Exam: normal pigmentation, warm/dry Neurologic: alterations tailor II-XII grossly normal, alert Musculoskeletal: normal muscle bulk, no effusion Last 24 Hour Vital Signs Date Time Temp Pulse Resp B/P (MAP) Pulse Ox O2 Delivery O2 Flow Rate FiO2 08/13/18 12:01 98.3 93 18 123/65 (84) 99 08/13/18 09:00 Room Air 08/13/18 08:00 97.9 113 19 121/56 (77) 98 08/13/18 04:00 97.8 98 17 148/95 (112) 98 08/13/18 00:00 97.0 85 18 127/73 (91) 99 08/12/18 22:10 Room Air 08/12/18 20:00 98.0 87 17 132/61 (84) 99 08/12/18 19:24 98.9 94 20 141/55 99 Room Air 08/12/18 18:19 94 20 141/55 99 Room Air 08/12/18 16:34 99.0 98 24 119/56 98 Room Air 08/12/18 16:34 98 24 Room Air Laboratory Tests Test 08/12/18 15:42 12/29/18 05:26 Urine Color Yellow Urine Appearance Clear Urine pH 6 (4.5-8.0) Urine Specific Campbell 1.015 (1.005-1.035) Urine Protein 2+ (NEGATIVE) H Urine Glucose (UA) Negative (NEGATIVE) Urine Ketones 3+ (NEGATIVE) H Urine Blood 1+ (NEGATIVE) H Urine Nitrite Negative (NEGATIVE) Urine Bilirubin Negative (NEGATIVE) Urine Urobilinogen Normal MG/DL (0.0-1.0) Urine Leukocyte Esterase 1+ (NEGATIVE) H Urine RBC 0-2 /HPF (0 - 2) Urine WBC 2-4 /HPF (0 - 2) Urine Squamous Epithelial Cells Few /LPF (NONE/OCC) Urine Bacteria Few /HPF (NONE) Urine Yeast Moderate /HPF (NONE) H White Blood Count 5.8 K/UL (4.8-10.8) Red Blood Count 4.33 M/UL (4.20-5.40) Hemoglobin 11.9 G/DL (12.0-16.0) L Hematocrit 37.5 % (37.0-47.0) Mean Corpuscular Volume 87 FL (80-99) Mean Corpuscular Hemoglobin 27.5 PG (27.0-31.0) Mean Corpuscular Hemoglobin Concent 31.8 G/DL (32.0-36.0) L Red Cell Distribution Width 15.1 % (11.6-14.8) H Platelet Count 280 K/UL (150-450) Mean Platelet Volume 5.7 FL (6.5-10.1) L Neutrophils (%) (Auto) 40.8 % (45.0-75.0) L Lymphocytes (%) (Auto) 49.9 % (20.0-45.0) H Monocytes (%) (Auto) 7.0 % (1.0-10.0) Eosinophils (%) (Auto) 1.2 % (0.0-3.0) Basophils (%) (Auto) 1.0 % (0.0-2.0) Sodium Level 143 MMOL/L (136-145) Potassium Level 3.2 MMOL/L (3.5-5.1) L Chloride Level 106 MMOL/L (98-107) Carbon Dioxide Level 25 MMOL/L (21-32) Anion Gap 12 mmol/L (5-15) Blood Urea Nitrogen 15 mg/dL (7-18) Creatinine 0.7 MG/DL (0.55-1.30) Estimat Glomerular Filtration Rate mL/min (>60) Glucose Level 102 MG/DL (74-106) Calcium Level 9.3 MG/DL (8.5-10.1) Phosphorus Level 3.6 MG/DL (2.5-4.9) Magnesium Level 1.9 MG/DL (1.8-2.4) Total Bilirubin 0.5 MG/DL (0.2-1.0) Aspartate Amino Transf (AST/SGOT) 14 U/L (15-37) L Alanine Aminotransferase (ALT/SGPT) 19 U/L (12-78) Alkaline Phosphatase 112 U/L (46-116) Total Protein 7.0 G/DL (6.4-8.2) Albumin 3.6 G/DL (3.4-5.0) Globulin 3.4 g/dL Albumin/Globulin Ratio 1.1 (1.0-2.7) Microbiology Date/Time Source Procedure Growth Status 08/12/18 15:42 Urine,Clean Catch Urine Culture - Preliminary NO GROWTH Resulted Height (Feet): 5 Height (Inches): 4.00 Weight (Pounds): 100 Medications Current Medications Medications (Trade) Dose Ordered Sig/Naomi Route PRN Reason Start Time Stop Time Status Last Admin Dose Admin Acetaminophen (Tylenol) 650 mg Q4H PRN ORAL Fever/Headache/Mild Pain 08/12/18 22:30 09/11/18 22:29 Ascorbic Acid (Vitamin C) 500 mg DAILY ORAL 08/13/18 09:00 09/12/18 08:59 Aspirin (ASA) 81 mg DAILY ORAL 08/13/18 09:00 09/12/18 08:59 Atorvastatin Calcium (Lipitor) 20 mg BEDTIME ORAL 08/13/18 21:00 09/12/18 20:59 Bisacodyl (Dulcolax) 10 mg DAILY PRN RECTAL IF MOM INEFFECTIVE 08/12/18 23:00 09/11/18 22:59 Fluconazole/ Sodium Chloride 100 ml @ 100 mls/hr Q24H IV 08/13/18 16:00 08/20/18 15:59 Haloperidol Lactate (Haldol) 5 mg Q6H PRN IM Agitation 08/12/18 23:00 09/11/18 22:59 Lorazepam (Ativan 2mg/ml 1ml) 1 mg Q4H PRN IM For Anxiety 08/12/18 23:00 08/19/18 22:59 Magnesium Hydroxide (Mom) 30 ml DAILY PRN ORAL Constipation 08/12/18 22:30 09/11/18 22:29 Multivitamins Therapeutic (Therapeutic Multivitamin) 1 ea DAILY ORAL 08/13/18 09:00 09/12/18 08:59 Olanzapine (ZyPREXA) 2.5 mg BID ORAL 08/13/18 09:00 09/12/18 08:59 08/13/18 08:15 Risperidone (RisperDAL) 2 mg QHS ORAL 08/13/18 21:00 09/12/18 20:59 Sodium Chloride 1,000 ml @ 75 mls/hr [id number] IV 08/13/18 13:30 09/12/18 13:29 08/13/18 13:33 Sodium Phosphate (Fleet's Sodium Phosl Enema) 133 ml EVERY 96 HOURS PRN RECTAL IF DULCOLAX INEFFECTIVE 08/12/18 22:30 09/11/18 22:29 Temazepam (Restoril) 15 mg HSPRN PRN ORAL Insomnia 08/12/18 23:45 08/19/18 23:44 08/12/18 23:54 Tramadol HCl (Ultram) 50 mg Q8HR PRN ORAL Severe Pain (Pain Scale 7-10) 08/12/18 23:00 08/19/18 22:59 Zinc Sulfate (Zinc Sulfate) 220 mg DAILY ORAL 08/13/18 09:00 09/12/18 08:59 Assessment/Plan Problem List: (1) Yeast UTI Assessment & Plan: will start fluconazole pending urine culture ICD Codes: B37.49 - Other urogenital candidiasis SNOMED: 254632455 (2) Dehydration Assessment & Plan: due to poor oral intake, continue hydration and replace electrolytes ICD Codes: E86.0 - Dehydration SNOMED: 37196325 (3) Failure to thrive Assessment & Plan: recommend dietary consult and nutritional support SNOMED: 61045519 (4) Metabolic encephalopathy Assessment & Plan: will screen for syphilis and HIV ICD Codes: G93.41 - Metabolic encephalopathy SNOMED: 80923996 Status: Letty De León M.D. Aug 13, 2018 15:37
[2018-08-13 16:00] VITALS: BP 114/64
--- NOTE | 2018-08-13 16:42 | History & Physical ---
History and Physical History & Physicial Dictated for Int Med-Dr Renee no. [id number]. Johnny Acosta MD Aug 13, 2018 16:42
--- NOTE | 2018-08-13 19:00 | History and Physical Report ---
DATE OF ADMISSION: 08/12/2018 CHIEF COMPLAINT: The patient is a 72-year-old Persian speaking female, who presents with chief complaint of altered mental status. HISTORY OF PRESENT ILLNESS: The patient herself is unable to contribute much of the history and physical. The patient appears to speak Belarusian, however, she appears to be somewhat confused. The patient is a resident of [facility]. According to staff at [facility], the patient became increasingly altered yesterday, 08/12/2018. The patient was transported to [facility]. The patient was found to have urinary tract infection. The patient is admitted with altered mental status to rule out pyelonephritis. REVIEW OF SYSTEMS: Unable to assess secondary to the patient's mental status. PAST MEDICAL HISTORY: Significant for solitary right pulmonary nodule. PAST SURGICAL HISTORY: Significant for right humerus open reduction and internal fixation. CURRENT MEDICATIONS: From [facility] [place]: 1. Tylenol 650 mg p.o. q.4 h. p.r.n. 2. Aspirin 81 mg p.o. daily. 3. Atorvastatin 20 mg p.o. daily. 4. Lexapro 10 mg p.o. daily. 5. Melatonin 5 mg p.o. nightly p.r.n. 6. Risperdal 2 mg p.o. nightly. 7. Tramadol 50 mg p.o. q.8 h. p.r.n. 8. Vitamin C 500 mg p.o. daily. 9. Zinc sulfate 220 mg p.o. daily. ALLERGIES: No known drug allergies. SOCIAL HISTORY: The patient is and is a resident of [facility]. The patient denies tobacco or alcohol use. PHYSICAL EXAMINATION: VITAL SIGNS: Temperature 97.0, respirations 18, pulse 85, and blood pressure 127/73. GENERAL: The patient is a well-developed and well-nourished female, in no apparent distress. HEENT: Eyes, pupils are equal and responsive to light and accommodation. Extraocular movements are intact. NECK: Supple without lymphadenopathy. CHEST: Lungs are clear to auscultation bilaterally without wheezes or rales. CARDIOVASCULAR: Regular rate. S1, S2 normal without murmurs, rubs, or gallops. ABDOMEN: Soft, nontender, and nondistended. Positive bowel sounds. No evidence of hepatosplenomegaly. Currently, no rebound or guarding noted. EXTREMITIES: Negative for clubbing, cyanosis, or edema. RECTAL/GENITAL: Refused. NEUROLOGIC: Cranial nerves II through XII grossly intact without focal deficits. Motor strength is 5/5 bilaterally. Deep tendon reflexes are 2+ plantar. LABORATORY STUDIES: WBC 8.3, hemoglobin 11.3, hematocrit 34.9, and platelets 312,000. Sodium 142, potassium 3.5, chloride 103, CO2 24, BUN 24, and creatinine 0.9. Glucose 128. Urinalysis showed 2+ protein, 3+ ketones, 1+ blood, 1+ leukocyte esterase, and moderate yeast. ASSESSMENT: This is a 72-year-old female with: 1. Altered mental status. 2. Urinary tract infection. 3. Right solitary pulmonary nodule. 4. History of coronary artery disease. 5. Hypercholesterolemia. 6. Dysphagia. TREATMENT: 1. Altered mental status. This may be secondary to urinary tract infection. 2. Urinary tract infection. An Infectious Disease consultation has been obtained with Dr. Graham. The patient has been started empirically on fluconazole for yeast in the urine. Urine culture is pending. 3. Coronary artery disease. Continue aspirin as above. 4. Hypercholesterolemia. Continue Lipitor as above. 5. Dysphagia. Johnny Acosta M.D. DR: JOSÉ MIGUEL JOB#: [id number] CC:
--- NOTE | 2018-08-13 19:20 | NUR ---
HAND-OFF: Report given to
--- NOTE | 2018-08-13 19:30 | NUR ---
NURSE NOTES: Received patient in no apparent distress. Awake with confusion, A&OX3. IV site patent and intact. Bed in lowest position, bed alarm is on. Call light within reach. Will continue to monitor.
[2018-08-13 20:00] VITALS: BP 113/65
--- NOTE | 2018-08-13 21:58 | NUR ---
NURSE NOTES: MRSA, VRE, CRE culture collected.
[2018-08-14] VITALS: BP 122/62
[2018-08-14 04:00] VITALS: BP 124/65
--- NOTE | 2018-08-14 06:36 | NUR ---
NURSE NOTES: Patient refused blood lab draw. Explained importance of monitoring but still refused. Patient says "today is God's day, i don't wanna do it".
--- NOTE | 2018-08-14 07:13 | NUR ---
HAND-OFF: Report given to Zoila GANN.
[2018-08-14 08:00] VITALS: BP 92/53
[2018-08-14] MEDS: Aspirin Baby 81mg ORAL SCH (08:55)
[2018-08-14] MEDS: Multivitamin w/Minerals tab ORAL SCH (08:55)
[2018-08-14] MEDS: Ascorbic Acid 500mg tab ORAL SCH (08:55)
[2018-08-14] MEDS: OLANZapine 2.5mg tab ORAL SCH (08:56)
[2018-08-14] MEDS: Zinc Sulfate 220mg cap ORAL SCH (08:56)
--- NOTE | 2018-08-14 09:00 | NUR ---
NURSE NOTES: patient interacts more today compare than yesterday. patient feeds self independently and able to go to the commode with minimal assist. No c/o pain/discomfort. No acute resp distress noted. kept bed in the lowest position. siderails are up x3 and instructed to use call light for assistance. will cont to monitor.
--- NOTE | 2018-08-14 13:19 | Internal Med Progress Note ---
Subjective Date of Service: Aug 14, 2018 Physician Name Johnny Acosta Attending Physician Brien Renee MD Current Medications Medications (Trade) Dose Ordered Sig/Naomi Route PRN Reason Start Time Stop Time Status Last Admin Dose Admin Acetaminophen (Tylenol) 650 mg Q4H PRN ORAL Fever/Headache/Mild Pain 08/12/18 22:30 09/11/18 22:29 Ascorbic Acid (Vitamin C) 500 mg DAILY ORAL 08/13/18 09:00 09/12/18 08:59 Aspirin (ASA) 81 mg DAILY ORAL 08/13/18 09:00 09/12/18 08:59 Atorvastatin Calcium (Lipitor) 20 mg BEDTIME ORAL 08/13/18 21:00 09/12/18 20:59 08/13/18 20:57 Bisacodyl (Dulcolax) 10 mg DAILY PRN RECTAL IF MOM INEFFECTIVE 08/12/18 23:00 09/11/18 22:59 Fluconazole/ Sodium Chloride 100 ml @ 100 mls/hr Q24H IV 08/13/18 16:00 08/20/18 15:59 08/13/18 16:12 Haloperidol Lactate (Haldol) 5 mg Q6H PRN IM Agitation 08/12/18 23:00 09/11/18 22:59 Lorazepam (Ativan 2mg/ml 1ml) 1 mg Q4H PRN IM For Anxiety 08/12/18 23:00 08/19/18 22:59 Magnesium Hydroxide (Mom) 30 ml DAILY PRN ORAL Constipation 08/12/18 22:30 09/11/18 22:29 Multivitamins Therapeutic (Therapeutic Multivitamin) 1 ea DAILY ORAL 08/13/18 09:00 09/12/18 08:59 Olanzapine (ZyPREXA) 2.5 mg BID ORAL 08/13/18 09:00 09/12/18 08:59 08/13/18 17:04 Risperidone (RisperDAL) 2 mg QHS ORAL 08/13/18 21:00 09/12/18 20:59 08/13/18 20:57 Sodium Chloride 1,000 ml @ 75 mls/hr [id number] IV 08/13/18 13:30 09/12/18 13:29 08/14/18 03:22 Sodium Phosphate (Fleet's Sodium Phosl Enema) 133 ml EVERY 96 HOURS PRN RECTAL IF DULCOLAX INEFFECTIVE 08/12/18 22:30 09/11/18 22:29 Temazepam (Restoril) 15 mg HSPRN PRN ORAL Insomnia 08/12/18 23:45 08/19/18 23:44 08/12/18 23:54 Tramadol HCl (Ultram) 50 mg Q8HR PRN ORAL Severe Pain (Pain Scale 7-10) 08/12/18 23:00 08/19/18 22:59 Zinc Sulfate (Zinc Sulfate) 220 mg DAILY ORAL 08/13/18 09:00 09/12/18 08:59 Allergies: Coded Allergies: NO KNOWN ALLERGIES (Verified Allergy, Unknown, 07/31/18) ROS Limited/Unobtainable: No Constitutional: Reports: no symptoms HEENT: Reports: no symptoms Cardiovascular: Reports: no symptoms Respiratory: Reports: no symptoms Gastrointestinal/Abdominal: Reports: no symptoms Genitourinary: Reports: no symptoms Neurologic/Psychiatric: Reports: no symptoms Subjective 72 YO F admitted with altered mental status. Now UTI. Cover for [facility] Med-Dr Renee Objective Last Vital Signs Date Time Temp Pulse Resp B/P (MAP) Pulse Ox O2 Delivery O2 Flow Rate FiO2 08/14/18 09:00 Room Air 08/14/18 08:00 97.9 101 21 92/53 (66) 97 Microbiology Date/Time Source Procedure Growth Status 08/12/18 15:42 Urine,Clean Catch Urine Culture - Preliminary NO GROWTH AFTER 24 HOURS Resulted Intake and Output 08/13/18 08/14/18 19:00 07:00 Intake Total 880 ml 900 ml Balance 880 ml 900 ml Intake Oral 480 ml IV Total 400 ml 900 ml # Voids 6 1 Objective PHYSICAL EXAMINATION: GENERAL: The patient is a well-developed and well-nourished female, in no apparent distress. HEENT: Eyes, pupils are equal and responsive to light and accommodation. Extraocular movements are intact. NECK: Supple without lymphadenopathy. CHEST: Lungs are clear to auscultation bilaterally without wheezes or rales. CARDIOVASCULAR: Regular rate. S1, S2 normal without murmurs, rubs, or gallops. ABDOMEN: Soft, nontender, and nondistended. Positive bowel sounds. No evidence of hepatosplenomegaly. Currently, no rebound or guarding noted. EXTREMITIES: Negative for clubbing, cyanosis, or edema. RECTAL/GENITAL: Refused. NEUROLOGIC: Cranial nerves II through XII grossly intact without focal deficits. Motor strength is 5/5 bilaterally. Deep tendon reflexes are 2+ plantar. Assessment/Plan Assessment/Plan ASSESSMENT: This is a 72-year-old female with: 1. Altered mental status. 2. Urinary tract infection. 3. Right solitary pulmonary nodule. 4. History of coronary artery disease. 5. Hypercholesterolemia. 6. Dysphagia. TREATMENT: 1. Altered mental status. This may be secondary to urinary tract infection. 2. Urinary tract infection. An Infectious Disease consultation has been obtained with Dr. Graham. The patient has been started empirically on fluconazole for yeast in the urine. Urine culture is pending. 3. Coronary artery disease. Continue aspirin as above. 4. Hypercholesterolemia. Continue Lipitor as above. 5. Dysphagia. Johnny Acosta MD Aug 14, 2018 13:19
--- NOTE | 2018-08-14 13:58 | NUR ---
HAND-OFF: Report given to Amanda.
--- NOTE | 2018-08-14 14:00 | NUR ---
NURSE NOTES: received patient, report given by SANJUANITA Jackson. Patient is in bed, awake, receives visit from friends. Patient receive IVF through Right wrist access, no sign of leakage or infiltration. Bed is locked at the lowest position possible, call light within easy reach, siderails up x2. Will continue to monitor patient and follow up with the plan of care.
--- NOTE | 2018-08-14 16:02 | Infectious Diseases Prog Note ---
Assessment/Plan Problems: (1) Yeast UTI Assessment & Plan: continue fluconazole pending urine culture (2) Dehydration Assessment & Plan: due to poor oral intake, continue hydration and replace electrolytes (3) Failure to thrive Assessment & Plan: recommend dietary consult and nutritional support (4) Metabolic encephalopathy Assessment & Plan: will screen for syphilis and HIV Subjective Constitutional: Reports: no symptoms HEENT: Reports: no symptoms Respiratory: Reports: no symptoms Breasts: Reports: no symptoms Cardiovascular: Reports: no symptoms Gastrointestinal/Abdominal: Reports: no symptoms Genitourinary: Reports: no symptoms Neurologic: Reports: weakness, confusion Psychiatric: Reports: no symptoms Skin: Reports: no symptoms Endocrine: Reports: no symptoms Hematologic: Reports: no symptoms Musculoskeletal: Reports: no symptoms Allergies: Coded Allergies: NO KNOWN ALLERGIES (Verified Allergy, Unknown, 07/31/18) Objective Vital Signs Last 24 Hour Vital Signs Date Time Temp Pulse Resp B/P (MAP) Pulse Ox O2 Delivery O2 Flow Rate FiO2 08/14/18 09:00 Room Air 08/14/18 08:00 97.9 101 21 92/53 (66) 97 08/14/18 04:00 97.6 87 19 124/65 (84) 97 08/14/18 00:00 97.2 97 18 122/62 (82) 96 08/13/18 21:00 Room Air 08/13/18 20:00 97.8 93 18 113/65 (81) 97 Height (Feet): 5 Height (Inches): 4.00 Weight (Pounds): 100 General Appearance: WD/WN, no acute distress HEENT: normocephalic, atraumatic, anicteric, mucous membranes moist, PERRL Respiratory/Chest: chest wall non-tender, lungs clear, normal breath sounds, no respiratory distress, no accessory muscle use Cardiovascular: normal peripheral pulses, normal rate, regular rhythm, no gallop/murmur, no JVD Abdomen: normal bowel sounds, soft, non tender, no organomegaly, non distended , no mass, no scars Genitourinary: normal external genitalia Extremities: no cyanosis, no clubbing Skin: no rash, no lesions, no ulcers Neurologic/Psychiatric: alert, responsive Lymphatic: no neck adenopathy, no groin adenopathy Musculoskeletal: normal muscle bulk, no effusion Microbiology Date/Time Source Procedure Growth Status 08/12/18 15:42 Urine,Clean Catch Urine Culture - Preliminary NO GROWTH AFTER 24 HOURS Resulted Current Medications Medications (Trade) Dose Ordered Sig/Naomi Route PRN Reason Start Time Stop Time Status Last Admin Dose Admin Acetaminophen (Tylenol) 650 mg Q4H PRN ORAL Fever/Headache/Mild Pain 08/12/18 22:30 09/11/18 22:29 Ascorbic Acid (Vitamin C) 500 mg DAILY ORAL 08/13/18 09:00 09/12/18 08:59 Aspirin (ASA) 81 mg DAILY ORAL 08/13/18 09:00 09/12/18 08:59 Atorvastatin Calcium (Lipitor) 20 mg BEDTIME ORAL 08/13/18 21:00 09/12/18 20:59 08/13/18 20:57 Bisacodyl (Dulcolax) 10 mg DAILY PRN RECTAL IF MOM INEFFECTIVE 08/12/18 23:00 09/11/18 22:59 Fluconazole/ Sodium Chloride 100 ml @ 100 mls/hr Q24H IV 08/13/18 16:00 08/20/18 15:59 08/14/18 15:33 Haloperidol Lactate (Haldol) 5 mg Q6H PRN IM Agitation 08/12/18 23:00 09/11/18 22:59 Lorazepam (Ativan 2mg/ml 1ml) 1 mg Q4H PRN IM For Anxiety 08/12/18 23:00 08/19/18 22:59 Magnesium Hydroxide (Mom) 30 ml DAILY PRN ORAL Constipation 08/12/18 22:30 09/11/18 22:29 Multivitamins Therapeutic (Therapeutic Multivitamin) 1 ea DAILY ORAL 08/13/18 09:00 09/12/18 08:59 Olanzapine (ZyPREXA) 2.5 mg BID ORAL 08/13/18 09:00 09/12/18 08:59 08/13/18 17:04 Risperidone (RisperDAL) 2 mg QHS ORAL 08/13/18 21:00 09/12/18 20:59 08/13/18 20:57 Sodium Chloride 1,000 ml @ 75 mls/hr [id number] IV 08/13/18 13:30 09/12/18 13:29 08/14/18 15:34 Sodium Phosphate (Fleet's Sodium Phosl Enema) 133 ml EVERY 96 HOURS PRN RECTAL IF DULCOLAX INEFFECTIVE 08/12/18 22:30 09/11/18 22:29 Temazepam (Restoril) 15 mg HSPRN PRN ORAL Insomnia 08/12/18 23:45 08/19/18 23:44 08/12/18 23:54 Tramadol HCl (Ultram) 50 mg Q8HR PRN ORAL Severe Pain (Pain Scale 7-10) 08/12/18 23:00 08/19/18 22:59 Zinc Sulfate (Zinc Sulfate) 220 mg DAILY ORAL 08/13/18 09:00 09/12/18 08:59 Letty Graham M.D. Aug 14, 2018 16:02
--- NOTE | 2018-08-14 17:44 | General Progress Note ---
Assessment/Plan Problem List: (1) Metabolic encephalopathy ICD Codes: G93.41 - Metabolic encephalopathy SNOMED: 73441043 (2) Anxiety disorder ICD Codes: F41.9 - Anxiety disorder, unspecified SNOMED: 699647976 (3) Failure to thrive SNOMED: 81341101 Status: unchanged Assessment/Plan dc lexapro start zyprexa 2.5mg bid haldol im ativan im Subjective Neurologic/Psychiatric: Reports: anxiety Allergies: Coded Allergies: NO KNOWN ALLERGIES (Verified Allergy, Unknown, 07/31/18) Subjective the pt was agitated and refusing care Objective Last 24 Hour Vital Signs Date Time Temp Pulse Resp B/P (MAP) Pulse Ox O2 Delivery O2 Flow Rate FiO2 08/14/18 09:00 Room Air 08/14/18 08:00 97.9 101 21 92/53 (66) 97 08/14/18 04:00 97.6 87 19 124/65 (84) 97 08/14/18 00:00 97.2 97 18 122/62 (82) 96 08/13/18 21:00 Room Air 08/13/18 20:00 97.8 93 18 113/65 (81) 97 Intake and Output 08/13/18 08/14/18 19:00 07:00 Intake Total 880 ml 900 ml Balance 880 ml 900 ml Intake Oral 480 ml IV Total 400 ml 900 ml # Voids 6 1 Height (Feet): 5 Height (Inches): 4.00 Weight (Pounds): 100 General Appearance: alert, confused, agitated Massimo Piña MD Aug 14, 2018 17:44
--- NOTE | 2018-08-14 19:30 | NUR ---
NURSE NOTES: Recieved patient in bed, awake, alert, oriented x 2/3 with episodes of intermitten confusion, bed is in locked/ low position, alarm is on, call light is within reach. Will continue to monitor for comfort and pain.
--- NOTE | 2018-08-14 19:39 | NUR ---
HAND-OFF: Report given to MILIND Bird.
--- NOTE | 2018-08-14 20:57 | NUR ---
CASE MANAGEMENT: INITIAL REVIEW 72 YO F ALEJANDRA FROM [facility] CC: ALOC PMHx: Patient offers no meaningful history. SI:DEHYDRATION. FTT. T 99 HR 122 RR 16 B/P 119/56 SATS 98% ON RA BUN 24 GLU 128 SI: NS BOLUS X1 PATIENT ADMITTED TO MED/SURG 08/12/2018 @ 1820 DCP: PATIENT TO BE DISCHARGED TO SNF ONCE MEDICALLY CLEARED. PLAN OF CARE: ID CONSULT
[2018-08-14] MEDS ORDERED: OLANZapine 10mg tab ORAL SCH (21:00)
[2018-08-15 04:31] VITALS: BP 112/73
--- NOTE | 2018-08-15 07:13 | NUR ---
HAND-OFF: Report given to Nica VAZ.
--- NOTE | 2018-08-15 07:44 | NUR ---
NURSE NOTES: pt in bed with no sob nor in any form of distress noted. pt remains in bed in calm manner. bed in lowest position. bed alarm on. call light within reach at all time. will continue to monitor
[2018-08-15 08:00] VITALS: BP 132/73
[2018-08-15] MEDS: Multivitamin w/Minerals tab ORAL SCH ×2 (08:05→08:12)
[2018-08-15] MEDS: Ascorbic Acid 500mg tab ORAL SCH (08:05)
[2018-08-15] MEDS: Zinc Sulfate 220mg cap ORAL SCH (08:05)
[2018-08-15] MEDS: Aspirin Baby 81mg ORAL SCH ×2 (08:05→08:11)
[2018-08-15 12:00] VITALS: BP 122/66
--- NOTE | 2018-08-15 14:34 | Infectious Diseases Prog Note ---
Assessment/Plan Problems: (1) Yeast UTI Assessment & Plan: continue fluconazole pending urine culture (2) Dehydration Assessment & Plan: due to poor oral intake, continue hydration and replace electrolytes (3) Failure to thrive Assessment & Plan: recommend dietary consult and nutritional support (4) Metabolic encephalopathy Assessment & Plan: screening for syphilis and HIV is pending Subjective ROS Limited/Unobtainable: Yes Allergies: Coded Allergies: NO KNOWN ALLERGIES (Verified Allergy, Unknown, 07/31/18) Subjective she was lying in bed, non verbal, didn't answer any questions , looks comfortable , afebrile Objective Vital Signs Last 24 Hour Vital Signs Date Time Temp Pulse Resp B/P (MAP) Pulse Ox O2 Delivery O2 Flow Rate FiO2 08/15/18 12:00 97.6 96 18 122/66 (84) 99 08/15/18 09:00 Room Air 08/15/18 08:00 97.8 100 19 132/73 (92) 98 08/15/18 04:31 97.1 92 20 112/73 (86) 98 08/14/18 21:00 Room Air Height (Feet): 5 Height (Inches): 4.00 Weight (Pounds): 100 General Appearance: WD/WN, no acute distress HEENT: normocephalic, atraumatic, anicteric, mucous membranes moist, PERRL, EOMI, pharynx normal, supple, no JVD Respiratory/Chest: chest wall non-tender, lungs clear, normal breath sounds, no respiratory distress, no accessory muscle use Cardiovascular: normal peripheral pulses, normal rate, regular rhythm, no gallop/murmur, no JVD Abdomen: normal bowel sounds, soft, non tender, no organomegaly, non distended , no mass, no scars Genitourinary: normal external genitalia Extremities: no cyanosis, no clubbing Skin: no rash, no lesions, no ulcers Neurologic/Psychiatric: alert, unresponsiveness - non verbal Lymphatic: no neck adenopathy, no groin adenopathy Musculoskeletal: normal muscle bulk, no effusion Microbiology Date/Time Source Procedure Growth Status 08/12/18 15:42 Urine,Clean Catch Urine Culture - Preliminary Resulted 08/13/18 21:59 Rectum VRE Culture Pending Resulted 08/13/18 21:59 Rectum - Preliminary Resulted Current Medications Medications (Trade) Dose Ordered Sig/Naomi Route PRN Reason Start Time Stop Time Status Last Admin Dose Admin Acetaminophen (Tylenol) 650 mg Q4H PRN ORAL Fever/Headache/Mild Pain 08/12/18 22:30 09/11/18 22:29 08/15/18 01:15 Ascorbic Acid (Vitamin C) 500 mg DAILY ORAL 08/13/18 09:00 09/12/18 08:59 08/15/18 08:05 Aspirin (ASA) 81 mg DAILY ORAL 08/13/18 09:00 09/12/18 08:59 Atorvastatin Calcium (Lipitor) 20 mg BEDTIME ORAL 08/13/18 21:00 09/12/18 20:59 08/14/18 21:23 Bisacodyl (Dulcolax) 10 mg DAILY PRN RECTAL IF MOM INEFFECTIVE 08/12/18 23:00 09/11/18 22:59 Escitalopram Oxalate (Lexapro) 10 mg DAILY ORAL 08/16/18 09:00 09/15/18 08:59 Fluconazole/ Sodium Chloride 100 ml @ 100 mls/hr Q24H IV 08/13/18 16:00 08/20/18 15:59 08/14/18 15:33 Haloperidol Lactate (Haldol) 5 mg Q6H PRN IM Agitation 08/12/18 23:00 09/11/18 22:59 Lorazepam (Ativan 2mg/ml 1ml) 1 mg Q4H PRN IM For Anxiety 08/12/18 23:00 08/19/18 22:59 Magnesium Hydroxide (Mom) 30 ml DAILY PRN ORAL Constipation 08/12/18 22:30 09/11/18 22:29 Multivitamins Therapeutic (Therapeutic Multivitamin) 1 ea DAILY ORAL 08/13/18 09:00 09/12/18 08:59 Olanzapine (ZyPREXA) 15 mg BEDTIME ORAL 08/15/18 21:00 09/14/18 20:59 Sodium Chloride 1,000 ml @ 75 mls/hr [id number] IV 08/13/18 13:30 09/12/18 13:29 08/15/18 04:42 Sodium Phosphate (Fleet's Sodium Phosl Enema) 133 ml EVERY 96 HOURS PRN RECTAL IF DULCOLAX INEFFECTIVE 08/12/18 22:30 09/11/18 22:29 Temazepam (Restoril) 15 mg HSPRN PRN ORAL Insomnia 08/12/18 23:45 08/19/18 23:44 08/12/18 23:54 Tramadol HCl (Ultram) 50 mg Q8HR PRN ORAL Severe Pain (Pain Scale 7-10) 08/12/18 23:00 08/19/18 22:59 Zinc Sulfate (Zinc Sulfate) 220 mg DAILY ORAL 08/13/18 09:00 09/12/18 08:59 08/15/18 08:05 Letty Graham M.D. Aug 15, 2018 14:34
[2018-08-15 16:00] VITALS: BP 139/80
--- NOTE | 2018-08-15 16:16 | Internal Med Progress Note ---
Subjective Date of Service: Aug 15, 2018 Physician Name Johnny Acosta Attending Physician Brien Renee MD Current Medications Medications (Trade) Dose Ordered Sig/Naomi Route PRN Reason Start Time Stop Time Status Last Admin Dose Admin Acetaminophen (Tylenol) 650 mg Q4H PRN ORAL Fever/Headache/Mild Pain 08/12/18 22:30 09/11/18 22:29 08/15/18 01:15 Ascorbic Acid (Vitamin C) 500 mg DAILY ORAL 08/13/18 09:00 09/12/18 08:59 08/15/18 08:05 Aspirin (ASA) 81 mg DAILY ORAL 08/13/18 09:00 09/12/18 08:59 Atorvastatin Calcium (Lipitor) 20 mg BEDTIME ORAL 08/13/18 21:00 09/12/18 20:59 08/14/18 21:23 Bisacodyl (Dulcolax) 10 mg DAILY PRN RECTAL IF MOM INEFFECTIVE 08/12/18 23:00 09/11/18 22:59 Escitalopram Oxalate (Lexapro) 10 mg DAILY ORAL 08/16/18 09:00 09/15/18 08:59 Fluconazole/ Sodium Chloride 100 ml @ 100 mls/hr Q24H IV 08/13/18 16:00 08/20/18 15:59 08/14/18 15:33 Haloperidol Lactate (Haldol) 5 mg Q6H PRN IM Agitation 08/12/18 23:00 09/11/18 22:59 Lorazepam (Ativan 2mg/ml 1ml) 1 mg Q4H PRN IM For Anxiety 08/12/18 23:00 08/19/18 22:59 Magnesium Hydroxide (Mom) 30 ml DAILY PRN ORAL Constipation 08/12/18 22:30 09/11/18 22:29 Multivitamins Therapeutic (Therapeutic Multivitamin) 1 ea DAILY ORAL 08/13/18 09:00 09/12/18 08:59 Olanzapine (ZyPREXA) 15 mg BEDTIME ORAL 08/15/18 21:00 09/14/18 20:59 Sodium Chloride 1,000 ml @ 75 mls/hr [id number] IV 08/13/18 13:30 09/12/18 13:29 08/15/18 04:42 Sodium Phosphate (Fleet's Sodium Phosl Enema) 133 ml EVERY 96 HOURS PRN RECTAL IF DULCOLAX INEFFECTIVE 08/12/18 22:30 09/11/18 22:29 Temazepam (Restoril) 15 mg HSPRN PRN ORAL Insomnia 08/12/18 23:45 08/19/18 23:44 08/12/18 23:54 Tramadol HCl (Ultram) 50 mg Q8HR PRN ORAL Severe Pain (Pain Scale 7-10) 08/12/18 23:00 08/19/18 22:59 Zinc Sulfate (Zinc Sulfate) 220 mg DAILY ORAL 08/13/18 09:00 09/12/18 08:59 08/15/18 08:05 Allergies: Coded Allergies: NO KNOWN ALLERGIES (Verified Allergy, Unknown, 07/31/18) ROS Limited/Unobtainable: Yes Subjective 72 YO F admitted with altered mental status. Now UTI. Cover for Int Med-Dr Renee Objective Last Vital Signs Date Time Temp Pulse Resp B/P (MAP) Pulse Ox O2 Delivery O2 Flow Rate FiO2 08/15/18 12:00 97.6 96 18 122/66 (84) 99 08/15/18 09:00 Room Air Microbiology Date/Time Source Procedure Growth Status 08/13/18 21:59 Rectum VRE Culture Pending Resulted 08/13/18 21:59 Rectum - Preliminary Resulted Intake and Output 08/14/18 08/15/18 19:00 07:00 Intake Total 1275 ml 915 ml Balance 1275 ml 915 ml Intake Oral 120 ml IV Total 475 ml 675 ml Other 680 ml 240 ml # Voids 2 2 # Bowel Movements 1 Objective PHYSICAL EXAMINATION: GENERAL: The patient is a well-developed and well-nourished female, in no apparent distress. HEENT: Eyes, pupils are equal and responsive to light and accommodation. Extraocular movements are intact. NECK: Supple without lymphadenopathy. CHEST: Lungs are clear to auscultation bilaterally without wheezes or rales. CARDIOVASCULAR: Regular rate. S1, S2 normal without murmurs, rubs, or gallops. ABDOMEN: Soft, nontender, and nondistended. Positive bowel sounds. No evidence of hepatosplenomegaly. Currently, no rebound or guarding noted. EXTREMITIES: Negative for clubbing, cyanosis, or edema. RECTAL/GENITAL: Refused. NEUROLOGIC: Cranial nerves II through XII grossly intact without focal deficits. Motor strength is 5/5 bilaterally. Deep tendon reflexes are 2+ plantar. Assessment/Plan Assessment/Plan ASSESSMENT: This is a 72-year-old female with: 1. Altered mental status. 2. Urinary tract infection. 3. Right solitary pulmonary nodule. 4. History of coronary artery disease. 5. Hypercholesterolemia. 6. Dysphagia. TREATMENT: 1. Altered mental status. This may be secondary to urinary tract infection. 2. Urinary tract infection. An Infectious Disease consultation has been obtained with Dr. Graham. The patient has been started empirically on fluconazole for yeast in the urine. Urine culture is pending. 3. Coronary artery disease. Continue aspirin as above. 4. Hypercholesterolemia. Continue Lipitor as above. 5. Dysphagia. Johnny Acosta MD Aug 15, 2018 16:16
--- NOTE | 2018-08-15 19:17 | NUR ---
HAND-OFF: Report given to SANJUANITA Alvarez.
--- NOTE | 2018-08-15 19:30 | NUR ---
NURSE NOTES: RECEIVED PATIENT LYING IN BED, AWAKE, ALERT/ORIENTED X3, ABLE TO VERBALIZE NEEDS IN [place], DENIES PAIN. NO SIGNS AND SYMPTOMS OF ACUTE CARDIO RESPIRATORY DISTRESS/SHORTNESS OF BREATH, DENIES CHEST PAIN, NO EDEMA NOTED. IV INTACT TO RIGHT WRIST/GAUGE 20, IV FLUIDS INFUSING, NO REDNESS/SWELLING NOTED TO SITE. NO COMPLAINTS OF GI DISCOMFORT, NO N/V/D, UTILIZE BEDSIDE COMMODE. SIDE RAILS UP X2 FOR MOBILITY, BED IN LOWEST POSITION FOR SAFETY, CALL LIGHT WITHIN REACH. BED ALARM ON. ROUTINE ROUNDS FOR SAFETY/NEEDS. ENCOURAGED PATIENT TO USE CALL LIGHT FOR ASSISTANCE, PATIENT VERBALIZED UNDERSTANDING.NAD.
[2018-08-15 20:00] VITALS: BP 132/74
[2018-08-15] MEDS: traMADol 50mg tab ORAL PRN (22:22)
[2018-08-16] VITALS: BP 131/73
--- NOTE | 2018-08-16 01:29 | General Progress Note ---
Assessment/Plan Problem List: (1) Metabolic encephalopathy ICD Codes: G93.41 - Metabolic encephalopathy SNOMED: 69954258 (2) Anxiety disorder ICD Codes: F41.9 - Anxiety disorder, unspecified SNOMED: 732209296 (3) Failure to thrive SNOMED: 49659889 Status: unchanged Assessment/Plan start lexapro zyprexa 15mg qhs haldol im ativan im Subjective Date patient seen: Aug 15, 2018 Neurologic/Psychiatric: Reports: anxiety, depressed, emotional problems Allergies: Coded Allergies: NO KNOWN ALLERGIES (Verified Allergy, Unknown, 07/31/18) Subjective the pt was agitated and refusing care severely irritable and paranoid Objective Last 24 Hour Vital Signs Date Time Temp Pulse Resp B/P (MAP) Pulse Ox O2 Delivery O2 Flow Rate FiO2 08/16/18 00:00 97.6 97 18 131/73 (92) 97 08/15/18 22:52 98.2 08/15/18 21:38 Room Air 08/15/18 20:00 98.2 88 18 132/74 (93) 96 08/15/18 16:00 98.2 88 19 139/80 (99) 99 08/15/18 12:00 97.6 96 18 122/66 (84) 99 08/15/18 09:00 Room Air 08/15/18 08:00 97.8 100 19 132/73 (92) 98 08/15/18 04:31 97.1 92 20 112/73 (86) 98 Intake and Output 08/15/18 08/16/18 19:00 07:00 Intake Total 555 ml 555 ml Balance 555 ml 555 ml Intake Oral 480 ml 180 ml IV Total 75 ml 375 ml # Voids 4 2 Height (Feet): 5 Height (Inches): 4.00 Weight (Pounds): 100 General Appearance: alert, moderate distress, agitated, thin Massimo Piña MD Aug 16, 2018 01:29
[2018-08-16 04:00] VITALS: BP 135/75
--- NOTE | 2018-08-16 06:31 | NUR ---
NURSE NOTES: RESTED WELL THROUGHOUT THE NIGHT, NO SIGNIFICANT CHANGE OF CONDITION NOTED. SAFETY MAINTAINED. NAD.
--- NOTE | 2018-08-16 07:32 | NUR ---
HAND-OFF: Report given to MILIND LOCKHART.
--- NOTE | 2018-08-16 07:53 | NUR ---
NURSE NOTES: Patient received eating breakfast in bed. Alert and oriented, breathing unlabored on room air. Denies pain or discomfort at this time. Commode by the bedside. IV site on right wrist patent and intact, flowing NS. Bed locked and set in low position. Call light within reach, will continue to monitor.
[2018-08-16 08:00] VITALS: BP 119/74
[2018-08-16] MEDS: Aspirin Baby 81mg ORAL SCH (08:14)
[2018-08-16] MEDS: Multivitamin w/Minerals tab ORAL SCH (08:15)
[2018-08-16] MEDS: Ascorbic Acid 500mg tab ORAL SCH (08:15)
[2018-08-16] MEDS: Zinc Sulfate 220mg cap ORAL SCH (08:15)
--- NOTE | 2018-08-16 14:14 | Internal Med Progress Note ---
Subjective Date of Service: Aug 16, 2018 Physician Name Johnny Acosta Attending Physician Brien Renee MD Current Medications Medications (Trade) Dose Ordered Sig/Naomi Route PRN Reason Start Time Stop Time Status Last Admin Dose Admin Acetaminophen (Tylenol) 650 mg Q4H PRN ORAL Fever/Headache/Mild Pain 08/12/18 22:30 09/11/18 22:29 08/15/18 01:15 Ascorbic Acid (Vitamin C) 500 mg DAILY ORAL 08/13/18 09:00 09/12/18 08:59 08/16/18 08:15 Aspirin (ASA) 81 mg DAILY ORAL 08/13/18 09:00 09/12/18 08:59 08/16/18 08:14 Atorvastatin Calcium (Lipitor) 20 mg BEDTIME ORAL 08/13/18 21:00 09/12/18 20:59 08/15/18 21:05 Bisacodyl (Dulcolax) 10 mg DAILY PRN RECTAL IF MOM INEFFECTIVE 08/12/18 23:00 09/11/18 22:59 Escitalopram Oxalate (Lexapro) 10 mg DAILY ORAL 08/16/18 09:00 09/15/18 08:59 08/16/18 08:15 Fluconazole/ Sodium Chloride 100 ml @ 100 mls/hr Q24H IV 08/13/18 16:00 08/20/18 15:59 08/15/18 16:28 Haloperidol Lactate (Haldol) 5 mg Q6H PRN IM Agitation 08/12/18 23:00 09/11/18 22:59 08/16/18 09:53 Lorazepam (Ativan 2mg/ml 1ml) 1 mg Q4H PRN IM For Anxiety 08/12/18 23:00 08/19/18 22:59 Magnesium Hydroxide (Mom) 30 ml DAILY PRN ORAL Constipation 08/12/18 22:30 09/11/18 22:29 Multivitamins Therapeutic (Therapeutic Multivitamin) 1 ea DAILY ORAL 08/13/18 09:00 09/12/18 08:59 08/16/18 08:15 Olanzapine (ZyPREXA) 15 mg BEDTIME ORAL 08/15/18 21:00 09/14/18 20:59 08/15/18 21:05 Sodium Chloride 1,000 ml @ 75 mls/hr [id number] IV 08/13/18 13:30 09/12/18 13:29 08/16/18 07:31 Sodium Phosphate (Fleet's Sodium Phosl Enema) 133 ml EVERY 96 HOURS PRN RECTAL IF DULCOLAX INEFFECTIVE 08/12/18 22:30 09/11/18 22:29 Temazepam (Restoril) 15 mg HSPRN PRN ORAL Insomnia 08/12/18 23:45 08/19/18 23:44 08/12/18 23:54 Tramadol HCl (Ultram) 50 mg Q8HR PRN ORAL Severe Pain (Pain Scale 7-10) 08/12/18 23:00 08/19/18 22:59 08/15/18 22:22 Zinc Sulfate (Zinc Sulfate) 220 mg DAILY ORAL 08/13/18 09:00 09/12/18 08:59 08/16/18 08:15 Allergies: Coded Allergies: NO KNOWN ALLERGIES (Verified Allergy, Unknown, 07/31/18) ROS Limited/Unobtainable: No Constitutional: Reports: no symptoms HEENT: Reports: no symptoms Cardiovascular: Reports: no symptoms Respiratory: Reports: no symptoms Gastrointestinal/Abdominal: Reports: no symptoms Genitourinary: Reports: no symptoms Neurologic/Psychiatric: Reports: no symptoms Subjective 72 YO F admitted with altered mental status. Now UTI. Cover for Int Med-Dr Renee Objective Last Vital Signs Date Time Temp Pulse Resp B/P (MAP) Pulse Ox O2 Delivery O2 Flow Rate FiO2 08/16/18 09:00 Room Air 08/16/18 08:00 98.7 96 17 119/74 (89) 99 Microbiology Date/Time Source Procedure Growth Status 08/13/18 21:59 Nasal Nares MRSA Culture - Final NO METHICILLIN RESISTANT STAPH AUREUS... Complete 08/13/18 21:59 Rectum VRE Culture - Final Enterococcus Faecium - Vre Complete 08/13/18 21:59 Rectum - Final NO CARBAPENEM-RESISTANT ENTEROBACTERI... Complete Intake and Output 08/15/18 08/16/18 18:59 06:59 Intake Total 480 ml 1330 ml Balance 480 ml 1330 ml Intake Oral 480 ml 430 ml IV Total 900 ml # Voids 4 7 Objective PHYSICAL EXAMINATION: GENERAL: The patient is a well-developed and well-nourished female, in no apparent distress. HEENT: Eyes, pupils are equal and responsive to light and accommodation. Extraocular movements are intact. NECK: Supple without lymphadenopathy. CHEST: Lungs are clear to auscultation bilaterally without wheezes or rales. CARDIOVASCULAR: Regular rate. S1, S2 normal without murmurs, rubs, or gallops. ABDOMEN: Soft, nontender, and nondistended. Positive bowel sounds. No evidence of hepatosplenomegaly. Currently, no rebound or guarding noted. EXTREMITIES: Negative for clubbing, cyanosis, or edema. RECTAL/GENITAL: Refused. NEUROLOGIC: Cranial nerves II through XII grossly intact without focal deficits. Motor strength is 5/5 bilaterally. Deep tendon reflexes are 2+ plantar. Assessment/Plan Assessment/Plan ASSESSMENT: This is a 72-year-old female with: 1. Altered mental status. 2. Urinary tract infection-donna 3. Right solitary pulmonary nodule. 4. History of coronary artery disease. 5. Hypercholesterolemia. 6. Dysphagia. TREATMENT: 1. Altered mental status. This may be secondary to urinary tract infection. 2. Urinary tract infection. An Infectious Disease consultation has been obtained with Dr. Graham. The patient has been started empirically on fluconazole for donna urinary tract infection 3. Coronary artery disease. Continue aspirin as above. 4. Hypercholesterolemia. Continue Lipitor as above. 5. Dysphagia. Johnny Acosta MD Aug 16, 2018 14:14
--- NOTE | 2018-08-16 16:58 | Infectious Diseases Prog Note ---
Assessment/Plan Problems: (1) Yeast UTI Assessment & Plan: continue fluconazole for 10-14 days (2) Dehydration Assessment & Plan: due to poor oral intake, continue hydration and replace electrolytes (3) Failure to thrive Assessment & Plan: recommend dietary consult and nutritional support (4) Metabolic encephalopathy Assessment & Plan: screening for syphilis and HIV is pending Subjective ROS Limited/Unobtainable: Yes Allergies: Coded Allergies: NO KNOWN ALLERGIES (Verified Allergy, Unknown, 07/31/18) Subjective she was lying in bed, non verbal, didn't answer any questions , looks comfortable , afebrile Objective Vital Signs Last 24 Hour Vital Signs Date Time Temp Pulse Resp B/P (MAP) Pulse Ox O2 Delivery O2 Flow Rate FiO2 08/16/18 09:00 Room Air 08/16/18 08:00 98.7 96 17 119/74 (89) 99 08/16/18 04:00 97.9 82 18 135/75 (95) 97 08/16/18 00:00 97.6 97 18 131/73 (92) 97 08/15/18 22:52 98.2 08/15/18 21:38 Room Air 08/15/18 20:00 98.2 88 18 132/74 (93) 96 Height (Feet): 5 Height (Inches): 4.00 Weight (Pounds): 100 General Appearance: WD/WN, no acute distress HEENT: normocephalic, atraumatic, anicteric, mucous membranes moist, PERRL, EOMI, pharynx normal, supple, no JVD Respiratory/Chest: chest wall non-tender, lungs clear, normal breath sounds, no respiratory distress, no accessory muscle use Cardiovascular: normal peripheral pulses, normal rate, regular rhythm, no gallop/murmur, no JVD Abdomen: normal bowel sounds, soft, non tender, no organomegaly, non distended , no mass, no scars Neurologic/Psychiatric: alert Lymphatic: no neck adenopathy, no groin adenopathy Musculoskeletal: normal muscle bulk, no effusion Microbiology Date/Time Source Procedure Growth Status 08/13/18 21:59 Nasal Nares MRSA Culture - Final NO METHICILLIN RESISTANT STAPH AUREUS... Complete 08/13/18 21:59 Rectum VRE Culture - Final Enterococcus Faecium - Vre Complete 08/13/18 21:59 Rectum - Final NO CARBAPENEM-RESISTANT ENTEROBACTERI... Complete Current Medications Medications (Trade) Dose Ordered Sig/Naomi Route PRN Reason Start Time Stop Time Status Last Admin Dose Admin Acetaminophen (Tylenol) 650 mg Q4H PRN ORAL Fever/Headache/Mild Pain 08/12/18 22:30 09/11/18 22:29 08/15/18 01:15 Ascorbic Acid (Vitamin C) 500 mg DAILY ORAL 08/13/18 09:00 09/12/18 08:59 08/16/18 08:15 Aspirin (ASA) 81 mg DAILY ORAL 08/13/18 09:00 09/12/18 08:59 08/16/18 08:14 Atorvastatin Calcium (Lipitor) 20 mg BEDTIME ORAL 08/13/18 21:00 09/12/18 20:59 08/15/18 21:05 Bisacodyl (Dulcolax) 10 mg DAILY PRN RECTAL IF MOM INEFFECTIVE 08/12/18 23:00 09/11/18 22:59 Escitalopram Oxalate (Lexapro) 10 mg DAILY ORAL 08/16/18 09:00 09/15/18 08:59 08/16/18 08:15 Fluconazole/ Sodium Chloride 100 ml @ 100 mls/hr Q24H IV 08/13/18 16:00 08/20/18 15:59 08/16/18 15:39 Haloperidol Lactate (Haldol) 5 mg Q6H PRN IM Agitation 08/12/18 23:00 09/11/18 22:59 08/16/18 09:53 Lorazepam (Ativan 2mg/ml 1ml) 1 mg Q4H PRN IM For Anxiety 08/12/18 23:00 08/19/18 22:59 Magnesium Hydroxide (Mom) 30 ml DAILY PRN ORAL Constipation 08/12/18 22:30 09/11/18 22:29 Multivitamins Therapeutic (Therapeutic Multivitamin) 1 ea DAILY ORAL 08/13/18 09:00 09/12/18 08:59 08/16/18 08:15 Olanzapine (ZyPREXA) 15 mg BEDTIME ORAL 08/15/18 21:00 09/14/18 20:59 08/15/18 21:05 Sodium Chloride 1,000 ml @ 75 mls/hr [id number] IV 08/13/18 13:30 1/28/19 13:29 08/16/18 07:31 Sodium Phosphate (Fleet's Sodium Phosl Enema) 133 ml EVERY 96 HOURS PRN RECTAL IF DULCOLAX INEFFECTIVE 08/12/18 22:30 09/11/18 22:29 Temazepam (Restoril) 15 mg HSPRN PRN ORAL Insomnia 08/12/18 23:45 08/19/18 23:44 08/12/18 23:54 Tramadol HCl (Ultram) 50 mg Q8HR PRN ORAL Severe Pain (Pain Scale 7-10) 08/12/18 23:00 08/19/18 22:59 08/15/18 22:22 Zinc Sulfate (Zinc Sulfate) 220 mg DAILY ORAL 08/13/18 09:00 09/12/18 08:59 08/16/18 08:15 Letty Graham M.D. Aug 16, 2018 16:58
--- NOTE | 2018-08-16 19:35 | NUR ---
NURSE NOTES: Pt received lying in bed at lowest position, talkative, call light within reach, no c/o pain or no signs of distress at the moment.
--- NOTE | 2018-08-16 19:35 | NUR ---
HAND-OFF: Report given to John VAZ.
[2018-08-16 20:00] VITALS: BP 137/64
[2018-08-17] VITALS: BP 131/72
[2018-08-17 04:00] VITALS: BP 140/69
--- NOTE | 2018-08-17 07:17 | NUR ---
HAND-OFF: Report given to MILIND Rasmussen.
--- NOTE | 2018-08-17 07:49 | NUR ---
NURSE NOTES: Patient awake. Nodded head yes when customs entry writer informed her that I would be her nurse for today. Pt eating breakfast head of bed elevated. Call light in reach
[2018-08-17 08:00] VITALS: BP 98/58
[2018-08-17] MEDS: Multivitamin w/Minerals tab ORAL SCH (09:42)
[2018-08-17] MEDS: Ascorbic Acid 500mg tab ORAL SCH (09:42)
[2018-08-17] MEDS: Zinc Sulfate 220mg cap ORAL SCH (09:42)
[2018-08-17] MEDS: Aspirin Baby 81mg ORAL SCH (09:42)
--- NOTE | 2018-08-17 11:00 | NUR ---
RD ASSESSMENT & RECOMMENDATIONS SEE CARE ACTIVITY FOR COMPLETE ASSESSMENT DAILY ESTIMATED NEEDS: Needs based on Underweight/ 42kg 30-35 kcals/kg 1809-6214 total kcals 1-1.5 g protein/kg 42-63 g total protein 25-30 mL/kg 2189-4511 total fluid mLs NUTRITION DIAGNOSIS: Increased kcal/prot needs R/T underweight status as evidenced by low BMI per guidelines, admitted w/ FTT dx. CURRENT DIET: REGULAR PO DIET RECOMMENDATIONS: Liberalized REGULAR/ texture per TEST DESIGNER ADDITIONAL RECOMMENDATIONS: * Weekly calibrated bedscale wt- underweight * Updated labs as able * Ensure Enlive TID w/ meals * Consider appetite stimulant- FTT dx, underweight * Monitor PO intake closely, encourage PO intake * TEST DESIGNER EVAL-> PT ADM W/ DX OF DYSPHAGIA- currently on Regular texture diet *
--- NOTE | 2018-08-17 11:56 | General Progress Note ---
Assessment/Plan Problem List: (1) Metabolic encephalopathy ICD Codes: G93.41 - Metabolic encephalopathy SNOMED: 08820565 (2) Anxiety disorder ICD Codes: F41.9 - Anxiety disorder, unspecified SNOMED: 121622256 (3) Failure to thrive SNOMED: 26368584 Status: stable, progressing Assessment/Plan lexapro 10mg qam zyprexa 15mg qhs haldol im ativan im Subjective Neurologic/Psychiatric: Reports: anxiety, depressed Allergies: Coded Allergies: NO KNOWN ALLERGIES (Verified Allergy, Unknown, 07/31/18) Subjective the pt was not agitated today cont to be irritable and paranoid. didn't answer the questions. Objective Last 24 Hour Vital Signs Date Time Temp Pulse Resp B/P (MAP) Pulse Ox O2 Delivery O2 Flow Rate FiO2 08/17/18 09:00 Room Air 08/17/18 08:00 98.1 95 16 98/58 (71) 96 08/17/18 04:00 97.7 84 18 140/69 (92) 99 08/17/18 00:00 97.5 79 18 131/72 (91) 99 08/16/18 21:00 Room Air 08/16/18 20:00 97.8 82 18 137/64 (88) 97 Intake and Output 08/16/18 08/17/18 18:59 06:59 Intake Total 1250 ml 1065 ml Balance 1250 ml 1065 ml Intake Oral 240 ml IV Total 750 ml 825 ml Other 500 ml # Voids 4 4 Height (Feet): 5 Height (Inches): 4.00 Weight (Pounds): 95 General Appearance: alert, moderate distress, thin 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, depressed affect Massimo Piña MD Aug 17, 2018 11:56
[2018-08-17 12:00] VITALS: BP 152/81
--- NOTE | 2018-08-17 14:04 | NUR ---
NURSE NOTES: Pt went to take a shower, and bag bag did finish on time
[2018-08-17 16:00] VITALS: BP 149/76
[2018-08-17] MEDS: Fluconazole 100mg tab ORAL SCH (16:55)
--- NOTE | 2018-08-17 17:17 | Infectious Diseases Prog Note ---
Assessment/Plan Problems: (1) Yeast UTI Assessment & Plan: continue fluconazole for 10-14 days (2) Dehydration Assessment & Plan: due to poor oral intake, continue hydration and replace electrolytes (3) Failure to thrive Assessment & Plan: recommend dietary consult and nutritional support (4) Metabolic encephalopathy Assessment & Plan: screening for syphilis and HIV is pending Subjective Constitutional: Reports: no symptoms HEENT: Reports: no symptoms Respiratory: Reports: no symptoms Breasts: Reports: no symptoms Cardiovascular: Reports: no symptoms Gastrointestinal/Abdominal: Reports: no symptoms Genitourinary: Reports: no symptoms Neurologic: Reports: no symptoms Psychiatric: Reports: no symptoms Skin: Reports: no symptoms Endocrine: Reports: no symptoms Hematologic: Reports: no symptoms Musculoskeletal: Reports: no symptoms Allergies: Coded Allergies: NO KNOWN ALLERGIES (Verified Allergy, Unknown, 07/31/18) Subjective she was lying in bed, awake, and alert, nore verbal, looks comfortable , afebrile Objective Vital Signs Last 24 Hour Vital Signs Date Time Temp Pulse Resp B/P (MAP) Pulse Ox O2 Delivery O2 Flow Rate FiO2 08/17/18 12:00 97.8 92 16 152/81 (104) 98 08/17/18 09:00 Room Air 08/17/18 08:00 98.1 95 16 98/58 (71) 96 08/17/18 04:00 97.7 84 18 140/69 (92) 99 08/17/18 00:00 97.5 79 18 131/72 (91) 99 08/16/18 21:00 Room Air 08/16/18 20:00 97.8 82 18 137/64 (88) 97 Height (Feet): 5 Height (Inches): 4.00 Weight (Pounds): 95 General Appearance: WD/WN, no acute distress HEENT: normocephalic, atraumatic, anicteric, mucous membranes moist, PERRL Respiratory/Chest: chest wall non-tender, lungs clear, normal breath sounds, no respiratory distress, no accessory muscle use Cardiovascular: normal peripheral pulses, normal rate, regular rhythm, no gallop/murmur, no JVD Abdomen: normal bowel sounds, soft, non tender, no organomegaly, non distended , no mass, no scars Genitourinary: normal external genitalia Extremities: no cyanosis, no clubbing Skin: no rash, no lesions Neurologic/Psychiatric: alert, responsive Lymphatic: no neck adenopathy, no groin adenopathy Musculoskeletal: normal muscle bulk, no effusion Current Medications Medications (Trade) Dose Ordered Sig/Naomi Route PRN Reason Start Time Stop Time Status Last Admin Dose Admin Acetaminophen (Tylenol) 650 mg Q4H PRN ORAL Fever/Headache/Mild Pain 08/12/18 22:30 09/11/18 22:29 08/15/18 01:15 Ascorbic Acid (Vitamin C) 500 mg DAILY ORAL 08/13/18 09:00 09/12/18 08:59 08/17/18 09:42 Aspirin (ASA) 81 mg DAILY ORAL 08/13/18 09:00 09/12/18 08:59 08/17/18 09:42 Atorvastatin Calcium (Lipitor) 20 mg BEDTIME ORAL 08/13/18 21:00 09/12/18 20:59 08/16/18 20:43 Bisacodyl (Dulcolax) 10 mg DAILY PRN RECTAL IF MOM INEFFECTIVE 08/12/18 23:00 09/11/18 22:59 Escitalopram Oxalate (Lexapro) 10 mg DAILY ORAL 08/16/18 09:00 09/15/18 08:59 08/17/18 09:42 Fluconazole (Diflucan) 200 mg Q24H ORAL 08/17/18 16:00 08/24/18 15:59 08/17/18 16:55 Haloperidol Lactate (Haldol) 5 mg Q6H PRN IM Agitation 08/12/18 23:00 09/11/18 22:59 08/16/18 09:53 Lorazepam (Ativan 2mg/ml 1ml) 1 mg Q4H PRN IM For Anxiety 08/12/18 23:00 08/19/18 22:59 Magnesium Hydroxide (Mom) 30 ml DAILY PRN ORAL Constipation 08/12/18 22:30 09/11/18 22:29 Multivitamins Therapeutic (Therapeutic Multivitamin) 1 ea DAILY ORAL 08/13/18 09:00 09/12/18 08:59 08/17/18 09:42 Olanzapine (ZyPREXA) 15 mg BEDTIME ORAL 08/15/18 21:00 09/14/18 20:59 08/16/18 20:44 Sodium Chloride 1,000 ml @ 75 mls/hr [id number] IV 08/13/18 13:30 09/12/18 13:29 08/17/18 14:04 Sodium Phosphate (Fleet's Sodium Phosl Enema) 133 ml EVERY 96 HOURS PRN RECTAL IF DULCOLAX INEFFECTIVE 08/12/18 22:30 09/11/18 22:29 Temazepam (Restoril) 15 mg HSPRN PRN ORAL Insomnia 08/12/18 23:45 08/19/18 23:44 08/12/18 23:54 Tramadol HCl (Ultram) 50 mg Q8HR PRN ORAL Severe Pain (Pain Scale 7-10) 08/12/18 23:00 08/19/18 22:59 08/15/18 22:22 Zinc Sulfate (Zinc Sulfate) 220 mg DAILY ORAL 08/13/18 09:00 09/12/18 08:59 08/17/18 09:42 Letty Graham M.D. Aug 17, 2018 17:17
--- NOTE | 2018-08-17 17:47 | NUR ---
NURSE NOTES: Patient talking able to express self no longer has display of being withdrawn . Director Of Food And Nutrition Services did require to stop IV for infiltration. Pt refused re-insertion pointing to multiple discolorations to forearms and wrist. Po abt given ,pharmacy called in regards to pt tolerance of pills. accepted full medication regime earlier in shift without difficulty. 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 Upon this writing has not had a BM thus far
--- NOTE | 2018-08-17 17:57 | Internal Med Progress Note ---
Subjective Date of Service: Aug 17, 2018 Physician Name Johnny Acosta Attending Physician Brien Renee MD Current Medications Medications (Trade) Dose Ordered Sig/Naomi Route PRN Reason Start Time Stop Time Status Last Admin Dose Admin Acetaminophen (Tylenol) 650 mg Q4H PRN ORAL Fever/Headache/Mild Pain 08/12/18 22:30 09/11/18 22:29 08/15/18 01:15 Ascorbic Acid (Vitamin C) 500 mg DAILY ORAL 08/13/18 09:00 09/12/18 08:59 08/17/18 09:42 Aspirin (ASA) 81 mg DAILY ORAL 08/13/18 09:00 09/12/18 08:59 08/17/18 09:42 Atorvastatin Calcium (Lipitor) 20 mg BEDTIME ORAL 08/13/18 21:00 09/12/18 20:59 08/16/18 20:43 Bisacodyl (Dulcolax) 10 mg DAILY PRN RECTAL IF MOM INEFFECTIVE 08/12/18 23:00 09/11/18 22:59 Escitalopram Oxalate (Lexapro) 10 mg DAILY ORAL 08/16/18 09:00 09/15/18 08:59 08/17/18 09:42 Fluconazole (Diflucan) 200 mg Q24H ORAL 08/17/18 16:00 08/24/18 15:59 08/17/18 16:55 Haloperidol Lactate (Haldol) 5 mg Q6H PRN IM Agitation 08/12/18 23:00 09/11/18 22:59 08/16/18 09:53 Lorazepam (Ativan 2mg/ml 1ml) 1 mg Q4H PRN IM For Anxiety 08/12/18 23:00 08/19/18 22:59 Magnesium Hydroxide (Mom) 30 ml DAILY PRN ORAL Constipation 08/12/18 22:30 09/11/18 22:29 Multivitamins Therapeutic (Therapeutic Multivitamin) 1 ea DAILY ORAL 08/13/18 09:00 09/12/18 08:59 08/17/18 09:42 Olanzapine (ZyPREXA) 15 mg BEDTIME ORAL 08/15/18 21:00 09/14/18 20:59 08/16/18 20:44 Sodium Chloride 1,000 ml @ 75 mls/hr [id number] IV 08/13/18 13:30 09/12/18 13:29 08/17/18 14:04 Sodium Phosphate (Fleet's Sodium Phosl Enema) 133 ml EVERY 96 HOURS PRN RECTAL IF DULCOLAX INEFFECTIVE 08/12/18 22:30 09/11/18 22:29 Temazepam (Restoril) 15 mg HSPRN PRN ORAL Insomnia 08/12/18 23:45 08/19/18 23:44 08/12/18 23:54 Tramadol HCl (Ultram) 50 mg Q8HR PRN ORAL Severe Pain (Pain Scale 7-10) 08/12/18 23:00 08/19/18 22:59 08/15/18 22:22 Zinc Sulfate (Zinc Sulfate) 220 mg DAILY ORAL 08/13/18 09:00 09/12/18 08:59 08/17/18 09:42 Allergies: Coded Allergies: NO KNOWN ALLERGIES (Verified Allergy, Unknown, 07/31/18) ROS Limited/Unobtainable: No Constitutional: Reports: no symptoms HEENT: Reports: no symptoms Cardiovascular: Reports: no symptoms Respiratory: Reports: no symptoms Gastrointestinal/Abdominal: Reports: no symptoms Genitourinary: Reports: no symptoms Neurologic/Psychiatric: Reports: no symptoms Subjective 72 YO F admitted with altered mental status. Now UTI. Cover for Int [facility]-Dr Renee Objective Last Vital Signs Date Time Temp Pulse Resp B/P (MAP) Pulse Ox O2 Delivery O2 Flow Rate FiO2 08/17/18 16:00 97.7 89 16 149/76 (100) 99 08/17/18 09:00 Room Air Intake and Output 08/16/18 08/17/18 18:59 06:59 Intake Total 1250 ml 1065 ml Balance 1250 ml 1065 ml Intake Oral 240 ml IV Total 750 ml 825 ml Other 500 ml # Voids 4 4 Objective PHYSICAL EXAMINATION: GENERAL: The patient is a well-developed and well-nourished female, in no apparent distress. HEENT: Eyes, pupils are equal and responsive to light and accommodation. Extraocular movements are intact. NECK: Supple without lymphadenopathy. CHEST: Lungs are clear to auscultation bilaterally without wheezes or rales. CARDIOVASCULAR: Regular rate. S1, S2 normal without murmurs, rubs, or gallops. ABDOMEN: Soft, nontender, and nondistended. Positive bowel sounds. No evidence of hepatosplenomegaly. Currently, no rebound or guarding noted. EXTREMITIES: Negative for clubbing, cyanosis, or edema. RECTAL/GENITAL: Refused. NEUROLOGIC: Cranial nerves II through XII grossly intact without focal deficits. Motor strength is 5/5 bilaterally. Deep tendon reflexes are 2+ plantar. Assessment/Plan Assessment/Plan ASSESSMENT: This is a 72-year-old female with: 1. Altered mental status. 2. Urinary tract infection-donna 3. Right solitary pulmonary nodule. 4. History of coronary artery disease. 5. Hypercholesterolemia. 6. Dysphagia. TREATMENT: 1. Altered mental status. This may be secondary to urinary tract infection. 2. Urinary tract infection. An Infectious Disease consultation has been obtained with Dr. Graham. The patient has been started empirically on fluconazole for donna urinary tract infection 3. Coronary artery disease. Continue aspirin as above. 4. Hypercholesterolemia. Continue Lipitor as above. 5. Dysphagia. 6. Discharge to [facility] possible 08/18/18 Johnny Acosta MD Aug 17, 2018 17:57
--- NOTE | 2018-08-17 18:27 | NUR ---
NURSE NOTES: Pt refused reinsertion of iv site Dr Acosta covering Dr for Dr Víctor michael
--- NOTE | 2018-08-17 19:35 | NUR ---
NURSE NOTES: Received a report from MILIND Mustafa. Pt is in stable condition. Able to make needs known. No respiratory distress noted. On room air. No c/o pain/discomfort. No IV access, Dr. Acosta is aware. Bed in lowest position. Bed alarm is on. Call light within reach. Will continue to monitor.
--- NOTE | 2018-08-17 19:52 | NUR ---
HAND-OFF: Report given to Aniyah VAZ.
--- NOTE | 2018-08-17 19:53 | NUR ---
NURSE NOTES: Pt complaining of too many attempts of iv insertion refused reinsertion Dr Acosta call ed back to facility gave okay to D/C fluids. Per Dr Acosta pt has pending discharge tomorrow
[2018-08-17 20:00] VITALS: BP 132/72
--- NOTE | 2018-08-17 20:23 | Pulmonology Progress Note ---
Assessment/Plan Problems: (1) Pulmonary nodule (2) Yeast UTI (3) Anxiety disorder (4) Metabolic encephalopathy Assessment/Plan repeat CT chest in a few month respiratory treatment check electrolytes abx by ID dvt prophylaxis. Subjective ROS Limited/Unobtainable: No Constitutional: Reports: no symptoms HEENT: Repors: no symptoms Respiratory: Reports: no symptoms Allergies: Coded Allergies: NO KNOWN ALLERGIES (Verified Allergy, Unknown, 07/31/18) Objective Last 24 Hour Vital Signs Date Time Temp Pulse Resp B/P (MAP) Pulse Ox O2 Delivery O2 Flow Rate FiO2 08/17/18 16:00 97.7 89 16 149/76 (100) 99 08/17/18 12:00 97.8 92 16 152/81 (104) 98 08/17/18 09:00 Room Air 08/17/18 08:00 98.1 95 16 98/58 (71) 96 08/17/18 04:00 97.7 84 18 140/69 (92) 99 08/17/18 00:00 97.5 79 18 131/72 (91) 99 08/16/18 21:00 Room Air Intake and Output 08/16/18 08/17/18 19:00 07:00 Intake Total 1175 ml 1065 ml Balance 1175 ml 1065 ml Intake Oral 240 ml IV Total 675 ml 825 ml Other 500 ml # Voids 4 4 General Appearance: cachetic HEENT: normocephalic, atraumatic Respiratory/Chest: chest wall non-tender, lungs clear, normal breath sounds Cardiovascular: normal rate, regular rhythm Abdomen: normal bowel sounds, non distended Genitourinary: normal external genitalia Extremities: no clubbing Skin: no lesions Current Medications Medications (Trade) Dose Ordered Sig/Naomi Route PRN Reason Start Time Stop Time Status Last Admin Dose Admin Acetaminophen (Tylenol) 650 mg Q4H PRN ORAL Fever/Headache/Mild Pain 08/12/18 22:30 09/11/18 22:29 08/15/18 01:15 Ascorbic Acid (Vitamin C) 500 mg DAILY ORAL 08/13/18 09:00 09/12/18 08:59 08/17/18 09:42 Aspirin (ASA) 81 mg DAILY ORAL 08/13/18 09:00 09/12/18 08:59 08/17/18 09:42 Atorvastatin Calcium (Lipitor) 20 mg BEDTIME ORAL 08/13/18 21:00 09/12/18 20:59 08/17/18 20:19 Bisacodyl (Dulcolax) 10 mg DAILY PRN RECTAL IF MOM INEFFECTIVE 08/12/18 23:00 09/11/18 22:59 Escitalopram Oxalate (Lexapro) 10 mg DAILY ORAL 08/16/18 09:00 09/15/18 08:59 08/17/18 09:42 Fluconazole (Diflucan) 200 mg Q24H ORAL 08/17/18 16:00 08/24/18 15:59 08/17/18 16:55 Haloperidol Lactate (Haldol) 5 mg Q6H PRN IM Agitation 08/12/18 23:00 09/11/18 22:59 08/16/18 09:53 Lorazepam (Ativan 2mg/ml 1ml) 1 mg Q4H PRN IM For Anxiety 08/12/18 23:00 08/19/18 22:59 Magnesium Hydroxide (Mom) 30 ml DAILY PRN ORAL Constipation 08/12/18 22:30 09/11/18 22:29 Multivitamins Therapeutic (Therapeutic Multivitamin) 1 ea DAILY ORAL 08/13/18 09:00 09/12/18 08:59 08/17/18 09:42 Olanzapine (ZyPREXA) 15 mg BEDTIME ORAL 08/15/18 21:00 09/14/18 20:59 08/17/18 20:20 Sodium Phosphate (Fleet's Sodium Phosl Enema) 133 ml EVERY 96 HOURS PRN RECTAL IF DULCOLAX INEFFECTIVE 08/12/18 22:30 09/11/18 22:29 Temazepam (Restoril) 15 mg HSPRN PRN ORAL Insomnia 08/12/18 23:45 08/19/18 23:44 08/12/18 23:54 Tramadol HCl (Ultram) 50 mg Q8HR PRN ORAL Severe Pain (Pain Scale 7-10) 08/12/18 23:00 08/19/18 22:59 08/15/18 22:22 Zinc Sulfate (Zinc Sulfate) 220 mg DAILY ORAL 08/13/18 09:00 09/12/18 08:59 08/17/18 09:42 Annie Cutler MD Aug 17, 2018 20:23
[2018-08-17] MEDS: traMADol 50mg tab ORAL PRN (23:19)
[2018-08-18] VITALS: BP 96/58
[2018-08-18 04:00] VITALS: BP 114/73
--- NOTE | 2018-08-18 04:00 | NUR ---
NURSE NOTES: Pt refused 0400 V/S.
--- NOTE | 2018-08-18 05:40 | NUR ---
NURSE NOTES: Pt refused the blood draw. Will endorse it to the morning nurse later. Will continue to monitor.
--- NOTE | 2018-08-18 07:15 | NUR ---
HAND-OFF: Report given to MILIND Mustafa.
--- NOTE | 2018-08-18 07:34 | NUR ---
NURSE NOTES: Patient awake ,per report of pt has completed her morning ADLs . Current plan of care will be , with inclusion of safety. Pt is ambulatory and is able to transfer self to bedside commode
[2018-08-18 08:00] VITALS: BP 110/52
[2018-08-18] MEDS: Zinc Sulfate 220mg cap ORAL SCH (09:25)
[2018-08-18] MEDS: Aspirin Baby 81mg ORAL SCH (09:25)
[2018-08-18] MEDS: Ascorbic Acid 500mg tab ORAL SCH (09:25)
[2018-08-18] MEDS: Multivitamin w/Minerals tab ORAL SCH (09:26)
[2018-08-18] MEDS: traMADol 50mg tab ORAL PRN (09:26)
--- NOTE | 2018-08-18 13:39 | NUR ---
DISCHARGE PLANNING ADMISSION CLINICALS HAVE BEEN FAXED TO: [facility] P:[phone] F:[phone]
--- NOTE | 2018-08-18 14:02 | NUR ---
DISCHARGE PLANNED PATIENT WILL BE DISCHARGE TO: [facility] T:[phone] FOR NURSE TO NURSE REPORT [facility] HAS BEEN ARRANGED FOR [facility] AT [address]UCK [id number]
[2018-08-18] MEDS ORDERED: FLUCONAZOLE100 MG ORAL (14:39)
--- NOTE | 2018-08-18 15:33 | Pulmonology Progress Note ---
Assessment/Plan Problems: (1) Pulmonary nodule (2) Yeast UTI (3) Anxiety disorder (4) Metabolic encephalopathy Assessment/Plan no new complains doing betterrepeat CT chest in a few month respiratory treatment check electrolytes abx by ID dvt prophylaxis. dc planning Subjective ROS Limited/Unobtainable: No Constitutional: Reports: no symptoms HEENT: Repors: no symptoms Respiratory: Reports: no symptoms Allergies: Coded Allergies: NO KNOWN ALLERGIES (Verified Allergy, Unknown, 07/31/18) Objective Last 24 Hour Vital Signs Date Time Temp Pulse Resp B/P (MAP) Pulse Ox O2 Delivery O2 Flow Rate FiO2 08/18/18 09:00 Room Air 08/18/18 08:00 97.8 70 110/52 (71) 08/18/18 04:00 97.9 93 18 114/73 (87) 96 08/18/18 00:00 97.9 98 18 96/58 (71) 100 08/17/18 21:00 Room Air 08/17/18 20:00 98.6 83 18 132/72 (92) 96 08/17/18 16:00 97.7 89 16 149/76 (100) 99 Intake and Output 08/17/18 08/18/18 18:59 06:59 Intake Total 1055 ml Output Total 750 ml Balance 1055 ml -750 ml Intake Oral 680 ml IV Total 375 ml Output Urine Total 750 ml # Voids 2 General Appearance: WD/WN HEENT: normocephalic, atraumatic Respiratory/Chest: chest wall non-tender, lungs clear Breasts: no masses Cardiovascular: normal peripheral pulses, normal rate Abdomen: normal bowel sounds, soft, non tender Genitourinary: normal external genitalia Extremities: no cyanosis Skin: no rash 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 Current Medications Medications (Trade) Dose Ordered Sig/Naomi Route PRN Reason Start Time Stop Time Status Last Admin Dose Admin Acetaminophen (Tylenol) 650 mg Q4H PRN ORAL Fever/Headache/Mild Pain 08/12/18 22:30 09/11/18 22:29 08/15/18 01:15 Ascorbic Acid (Vitamin C) 500 mg DAILY ORAL 08/13/18 09:00 09/12/18 08:59 08/18/18 09:25 Aspirin (ASA) 81 mg DAILY ORAL 08/13/18 09:00 09/12/18 08:59 08/18/18 09:25 Atorvastatin Calcium (Lipitor) 20 mg BEDTIME ORAL 08/13/18 21:00 09/12/18 20:59 08/17/18 20:19 Bisacodyl (Dulcolax) 10 mg DAILY PRN RECTAL IF MOM INEFFECTIVE 08/12/18 23:00 09/11/18 22:59 Escitalopram Oxalate (Lexapro) 10 mg DAILY ORAL 08/16/18 09:00 09/15/18 08:59 08/18/18 09:25 Fluconazole (Diflucan) 200 mg Q24H ORAL 08/17/18 16:00 08/24/18 15:59 08/17/18 16:55 Haloperidol Lactate (Haldol) 5 mg Q6H PRN IM Agitation 08/12/18 23:00 09/11/18 22:59 08/16/18 09:53 Lorazepam (Ativan 2mg/ml 1ml) 1 mg Q4H PRN IM For Anxiety 08/12/18 23:00 08/19/18 22:59 Magnesium Hydroxide (Mom) 30 ml DAILY PRN ORAL Constipation 08/12/18 22:30 09/11/18 22:29 Multivitamins Therapeutic (Therapeutic Multivitamin) 1 ea DAILY ORAL 08/13/18 09:00 09/12/18 08:59 08/18/18 09:26 Olanzapine (ZyPREXA) 15 mg BEDTIME ORAL 08/15/18 21:00 09/14/18 20:59 08/17/18 20:20 Sodium Phosphate (Fleet's Sodium Phosl Enema) 133 ml EVERY 96 HOURS PRN RECTAL IF DULCOLAX INEFFECTIVE 08/12/18 22:30 09/11/18 22:29 Temazepam (Restoril) 15 mg HSPRN PRN ORAL Insomnia 08/12/18 23:45 08/19/18 23:44 08/12/18 23:54 Tramadol HCl (Ultram) 50 mg Q8HR PRN ORAL Severe Pain (Pain Scale 7-10) 08/12/18 23:00 08/19/18 22:59 08/18/18 09:26 Zinc Sulfate (Zinc Sulfate) 220 mg DAILY ORAL 08/13/18 09:00 09/12/18 08:59 08/18/18 09:25 Annie Cutler MD Aug 18, 2018 15:33
[2018-08-18] MEDS: Fluconazole 100mg tab ORAL SCH (16:21)
--- NOTE | 2018-08-18 16:30 | NUR ---
NURSE NOTES: Pt discharge to [facility]. Report given to Daylin. Informed of plan of care while here at facility. Pt belongings given to her, tshirt was provided for misplaced shirt from donation closet. Dose of diflucan given po 1600 dose prior to leaving facility. No signs of distress nor complaints of pain upon discharge. Plan of care for UTI, depression, failure to thrive , smoking cessation, provided in discharge packet.
--- NOTE | 2018-08-18 16:30 | Internal Med Progress Note ---
Subjective Date of Service: Aug 18, 2018 Physician Name Johnny Acosta Attending Physician Brien Renee MD Current Medications Medications (Trade) Dose Ordered Sig/Naomi Route PRN Reason Start Time Stop Time Status Last Admin Dose Admin Acetaminophen (Tylenol) 650 mg Q4H PRN ORAL Fever/Headache/Mild Pain 08/12/18 22:30 09/11/18 22:29 08/15/18 01:15 Ascorbic Acid (Vitamin C) 500 mg DAILY ORAL 08/13/18 09:00 09/12/18 08:59 08/18/18 09:25 Aspirin (ASA) 81 mg DAILY ORAL 08/13/18 09:00 09/12/18 08:59 08/18/18 09:25 Atorvastatin Calcium (Lipitor) 20 mg BEDTIME ORAL 08/13/18 21:00 09/12/18 20:59 08/17/18 20:19 Bisacodyl (Dulcolax) 10 mg DAILY PRN RECTAL IF MOM INEFFECTIVE 08/12/18 23:00 09/11/18 22:59 Escitalopram Oxalate (Lexapro) 10 mg DAILY ORAL 08/16/18 09:00 09/15/18 08:59 08/18/18 09:25 Fluconazole (Diflucan) 200 mg Q24H ORAL 08/17/18 16:00 08/24/18 15:59 08/18/18 16:21 Haloperidol Lactate (Haldol) 5 mg Q6H PRN IM Agitation 08/12/18 23:00 09/11/18 22:59 08/16/18 09:53 Lorazepam (Ativan 2mg/ml 1ml) 1 mg Q4H PRN IM For Anxiety 08/12/18 23:00 08/19/18 22:59 Magnesium Hydroxide (Mom) 30 ml DAILY PRN ORAL Constipation 08/12/18 22:30 09/11/18 22:29 Multivitamins Therapeutic (Therapeutic Multivitamin) 1 ea DAILY ORAL 08/13/18 09:00 09/12/18 08:59 08/18/18 09:26 Olanzapine (ZyPREXA) 15 mg BEDTIME ORAL 08/15/18 21:00 09/14/18 20:59 08/17/18 20:20 Sodium Phosphate (Fleet's Sodium Phosl Enema) 133 ml EVERY 96 HOURS PRN RECTAL IF DULCOLAX INEFFECTIVE 08/12/18 22:30 09/11/18 22:29 Temazepam (Restoril) 15 mg HSPRN PRN ORAL Insomnia 08/12/18 23:45 08/19/18 23:44 08/12/18 23:54 Tramadol HCl (Ultram) 50 mg Q8HR PRN ORAL Severe Pain (Pain Scale 7-10) 08/12/18 23:00 08/19/18 22:59 08/18/18 09:26 Zinc Sulfate (Zinc Sulfate) 220 mg DAILY ORAL 08/13/18 09:00 09/12/18 08:59 08/18/18 09:25 Allergies: Coded Allergies: NO KNOWN ALLERGIES (Verified Allergy, Unknown, 07/31/18) ROS Limited/Unobtainable: No Constitutional: Reports: no symptoms HEENT: Reports: no symptoms Cardiovascular: Reports: no symptoms Respiratory: Reports: no symptoms Gastrointestinal/Abdominal: Reports: no symptoms Genitourinary: Reports: no symptoms Neurologic/Psychiatric: Reports: no symptoms Subjective 72 YO F admitted with altered mental status. Now UTI. Cover for [facility] Med-Dr Renee. Refused IV. Await transfer to SNF Objective Last Vital Signs Date Time Temp Pulse Resp B/P (MAP) Pulse Ox O2 Delivery O2 Flow Rate FiO2 08/18/18 09:00 Room Air 08/18/18 08:00 97.8 70 110/52 (71) 08/18/18 04:00 18 96 Intake and Output 08/17/18 08/18/18 18:59 06:59 Intake Total 1055 ml Output Total 750 ml Balance 1055 ml -750 ml Intake Oral 680 ml IV Total 375 ml Output Urine Total 750 ml # Voids 2 Objective PHYSICAL EXAMINATION: GENERAL: The patient is a well-developed and well-nourished female, in no apparent distress. HEENT: Eyes, pupils are equal and responsive to light and accommodation. Extraocular movements are intact. NECK: Supple without lymphadenopathy. CHEST: Lungs are clear to auscultation bilaterally without wheezes or rales. CARDIOVASCULAR: Regular rate. S1, S2 normal without murmurs, rubs, or gallops. ABDOMEN: Soft, nontender, and nondistended. Positive bowel sounds. No evidence of hepatosplenomegaly. Currently, no rebound or guarding noted. EXTREMITIES: Negative for clubbing, cyanosis, or edema. RECTAL/GENITAL: Refused. NEUROLOGIC: Cranial nerves II through XII grossly intact without focal deficits. Motor strength is 5/5 bilaterally. Deep tendon reflexes are 2+ plantar. Assessment/Plan Assessment/Plan ASSESSMENT: This is a 72-year-old female with: 1. Altered mental status. 2. Urinary tract infection-donna 3. Right solitary pulmonary nodule. 4. History of coronary artery disease. 5. Hypercholesterolemia. 6. Dysphagia. TREATMENT: 1. Altered mental status. This may be secondary to urinary tract infection. 2. Urinary tract infection. An Infectious Disease consultation has been obtained with Dr. Graham. The patient has been started empirically on fluconazole for donna urinary tract infection 3. Coronary artery disease. Continue aspirin as above. 4. Hypercholesterolemia. Continue Lipitor as above. 5. Dysphagia. 6. Discharge to [facility] today 08/18/18 Johnny Acosta MD Aug 18, 2018 16:30
--- NOTE | 2018-08-18 16:42 | Infectious Diseases Prog Note ---
Assessment/Plan Problems: (1) Yeast UTI Assessment & Plan: continue fluconazole for 10-14 days (2) Dehydration Assessment & Plan: due to poor oral intake, continue hydration and replace electrolytes (3) Failure to thrive Assessment & Plan: recommend dietary consult and nutritional support (4) Metabolic encephalopathy Assessment & Plan: resolved , screening for syphilis and HIV was canceled , reorder as an outpatient Subjective Constitutional: Reports: no symptoms HEENT: Reports: no symptoms Respiratory: Reports: no symptoms Breasts: Reports: no symptoms Cardiovascular: Reports: no symptoms Gastrointestinal/Abdominal: Reports: no symptoms Genitourinary: Reports: no symptoms Neurologic: Reports: no symptoms Psychiatric: Reports: no symptoms Skin: Reports: no symptoms Endocrine: Reports: no symptoms Hematologic: Reports: no symptoms Musculoskeletal: Reports: no symptoms Allergies: Coded Allergies: NO KNOWN ALLERGIES (Verified Allergy, Unknown, 07/31/18) Subjective she was lying in bed, awake, and alert, nore verbal, looks comfortable , afebrile Objective Vital Signs Last 24 Hour Vital Signs Date Time Temp Pulse Resp B/P (MAP) Pulse Ox O2 Delivery O2 Flow Rate FiO2 08/18/18 09:00 Room Air 08/18/18 08:00 97.8 70 110/52 (71) 08/18/18 04:00 97.9 93 18 114/73 (87) 96 08/18/18 00:00 97.9 98 18 96/58 (71) 100 08/17/18 21:00 Room Air 08/17/18 20:00 98.6 83 18 132/72 (92) 96 Height (Feet): 5 Height (Inches): 4.00 Weight (Pounds): 95 General Appearance: WD/WN, no acute distress HEENT: normocephalic, atraumatic, anicteric, mucous membranes moist, PERRL, EOMI, pharynx normal, supple, no JVD Respiratory/Chest: chest wall non-tender, lungs clear, normal breath sounds, no respiratory distress, no accessory muscle use Cardiovascular: normal peripheral pulses, normal rate, regular rhythm, no gallop/murmur, no JVD Abdomen: normal bowel sounds, soft, non tender, no organomegaly, non distended , no mass, no scars Extremities: no cyanosis, no clubbing Skin: no rash, no lesions Neurologic/Psychiatric: alert, responsive Lymphatic: no neck adenopathy, no groin adenopathy Musculoskeletal: normal muscle bulk, no effusion Current Medications Medications (Trade) Dose Ordered Sig/Naomi Route PRN Reason Start Time Stop Time Status Last Admin Dose Admin Acetaminophen (Tylenol) 650 mg Q4H PRN ORAL Fever/Headache/Mild Pain 08/12/18 22:30 09/11/18 22:29 08/15/18 01:15 Ascorbic Acid (Vitamin C) 500 mg DAILY ORAL 08/13/18 09:00 09/12/18 08:59 08/18/18 09:25 Aspirin (ASA) 81 mg DAILY ORAL 08/13/18 09:00 09/12/18 08:59 08/18/18 09:25 Atorvastatin Calcium (Lipitor) 20 mg BEDTIME ORAL 08/13/18 21:00 09/12/18 20:59 08/17/18 20:19 Bisacodyl (Dulcolax) 10 mg DAILY PRN RECTAL IF MOM INEFFECTIVE 08/12/18 23:00 09/11/18 22:59 Escitalopram Oxalate (Lexapro) 10 mg DAILY ORAL 08/16/18 09:00 09/15/18 08:59 08/18/18 09:25 Fluconazole (Diflucan) 200 mg Q24H ORAL 08/17/18 16:00 08/24/18 15:59 08/18/18 16:21 Haloperidol Lactate (Haldol) 5 mg Q6H PRN IM Agitation 08/12/18 23:00 09/11/18 22:59 08/16/18 09:53 Lorazepam (Ativan 2mg/ml 1ml) 1 mg Q4H PRN IM For Anxiety 08/12/18 23:00 08/19/18 22:59 Magnesium Hydroxide (Mom) 30 ml DAILY PRN ORAL Constipation 08/12/18 22:30 09/11/18 22:29 Multivitamins Therapeutic (Therapeutic Multivitamin) 1 ea DAILY ORAL 08/13/18 09:00 09/12/18 08:59 08/18/18 09:26 Olanzapine (ZyPREXA) 15 mg BEDTIME ORAL 08/15/18 21:00 09/14/18 20:59 08/17/18 20:20 Sodium Phosphate (Fleet's Sodium Phosl Enema) 133 ml EVERY 96 HOURS PRN RECTAL IF DULCOLAX INEFFECTIVE 08/12/18 22:30 09/11/18 22:29 Temazepam (Restoril) 15 mg HSPRN PRN ORAL Insomnia 08/12/18 23:45 08/19/18 23:44 08/12/18 23:54 Tramadol HCl (Ultram) 50 mg Q8HR PRN ORAL Severe Pain (Pain Scale 7-10) 08/12/18 23:00 08/19/18 22:59 08/18/18 09:26 Zinc Sulfate (Zinc Sulfate) 220 mg DAILY ORAL 08/13/18 09:00 09/12/18 08:59 08/18/18 09:25 Letty Graham M.D. Aug 18, 2018 16:42
--- NOTE | 2018-08-18 23:40 | General Progress Note ---
Assessment/Plan Problem List: (1) Metabolic encephalopathy ICD Codes: G93.41 - Metabolic encephalopathy SNOMED: 28314744 (2) Anxiety disorder ICD Codes: F41.9 - Anxiety disorder, unspecified SNOMED: 606446733 (3) Failure to thrive SNOMED: 20099023 Assessment/Plan lexapro 10mg qam zyprexa 15mg qhs haldol im ativan im Subjective Neurologic/Psychiatric: Reports: anxiety, depressed Allergies: Coded Allergies: NO KNOWN ALLERGIES (Verified Allergy, Unknown, 07/31/18) Subjective the pt cont to be irritable and paranoid. didn't answer the questions. Objective Last 24 Hour Vital Signs Date Time Temp Pulse Resp B/P (MAP) Pulse Ox O2 Delivery O2 Flow Rate FiO2 08/18/18 09:00 Room Air 08/18/18 08:00 97.8 70 110/52 (71) 08/18/18 04:00 97.9 93 18 114/73 (87) 96 08/18/18 00:00 97.9 98 18 96/58 (71) 100 Intake and Output 08/17/18 08/18/18 19:00 07:00 Intake Total 1055 ml Output Total 750 ml Balance 1055 ml -750 ml Intake Oral 680 ml IV Total 375 ml Output Urine Total 750 ml # Voids 2 Height (Feet): 5 Height (Inches): 4.00 Weight (Pounds): 95 General Appearance: alert, thin Neurologic: oriented x 3, responsive, depressed affect Massimo Piña MD Aug 18, 2018 23:40
--- NOTE | 2018-08-19 11:37 | Discharge Summary ---
Discharge Summary Discharge Summary _ DATE OF ADMISSION: 08/12/2018 DATE OF DISCHARGE: 08/18/2018 DISCHARGED BY: Dr. Annie Cutler ADMITTING MD: Dr. Brien Renee CONSULTANTS: Dr. Annie Graham [facility]SE: Patient is a 72-year-old Croatian speaking female, presented with chief complaint of altered mental status. Patient herself is unable to contribute to history and physical. Patient was able to speak Russian, however, appeared to be somewhat confused. Patient is a resident of [facility]. According to staff at [facility], patient had become increasingly altered on 08/12/2018. She was then transported to [facility]. She has medical history significant for a right pulmonary nodule found on CT chest done July 30, 2018. On evaluation at the ED, she was found to have dehydration. Blood work did not show any leukocytosis. Urinalysis with +1 leukocyte esterase, negative nitrite. Chest x-ray showed no confluent consolidation with mild left basilar atelectasis. She was admitted for evaluation of encephalopathy and UTI. Patient was started on fluconazole for yeast in urine. Urine culture showed growth of Olena. Patient was ordered screening for HIV and syphilis, however tests were canceled. Recommend outpatient testing. Psychiatric evaluation was done. Patient has history of anxiety disorder. Lexapro was initially discontinued. She was given low-dose Zyprexa. Continued to be irritable and paranoid. Zyprexa was increased to 50 mg nightly and was restarted on Lexapro 10 mg every morning. Respiratory status was monitored. She was saturating well on room air. She was recommended repeat CT scan in a few months. She was eventually discharged back to [facility]. FINAL DIAGNOSES: Metabolic encephalopathy Yeast UTI Anxiety disorder Right pulmonary nodule Coronary artery disease Hypercholesterolemia Dysphagia Failure to thrive DISPOSITION: Patient was discharged to a SNF. DISCHARGE MEDICATIONS: Refer to Discharge Medication List. I have been assigned to dictate discharge summary on this account, and I was not involved in the patient's management. Jovita Gold NP Aug 19, 2018 11:37
--- NOTE | 2018-08-20 15:51 | Cardiology Report ---
APPROVED REPORT EKG Measurement Heart [id number] AR [id number] Sinus tachycardia Incomplete right bundle branch block Borderline ECG
== END 2018-08-18 16:51 | DRG 757 ==
LOC: EDBD 14:37 → EDUNIT# 14:37 → EMR 15:53 → 4E 18:20 → EDBEDREQ 18:59 → 4E 20:02
DX: B37.49 Other urogenital candidiasis (principal); G93.41 Metabolic encephalopathy; F41.9 Anxiety disorder, unspecified; R62.7 Adult failure to thrive; R13.10 Dysphagia, unspecified; E78.00 Pure hypercholesterolemia, unspecified; I25.10 Atherosclerotic heart disease of native coronary artery without angina pectoris; R91.1 Solitary pulmonary nodule; E86.0 Dehydration
CPT/HCPCS: 36415; 71045; 80053; 81001; 82140; 83735; 84100; 85025; 87081; 87086; 93005; 96360; 99285; J8499

== ENCOUNTER 2018-09-16 16:59 | Inpatient (IN) | payer MEDICARE, MEDICAID ==
[~2018-09-16] VITALS: Ht 152.4 cm; Wt 54.4 kg
[~2018-09-16 16:59] MED LIST changes: +BOOST VHC PO; +DULCOLAX10 MG RC; +FLEET ENEMA133 ML RECTAL; +FLUCONAZOLE100 MG ORAL; +LEXAPRO10 MG ORAL; +MELATONIN 5 MG1 EAC1 ORAL; +MILK OF MA400 MG/51 ORAL; +MULTIVITAMINS1 EAC8 ORAL; +RISPERDAL2 MG ORAL; +TRAMADOL HCL50 MG ORAL; +VITAMIN C500 M1 ORAL; +ZINC SULFATE220 M1 ORAL
[2018-09-16] MEDS ORDERED: UNOBMED (17:04)
[2018-09-16 17:10] VITALS: BP 95/48
--- NOTE | 2018-09-16 17:10 | NUR ---
ED Nurse Note: PT WALKED IN TO ER TODAY FROM HOME. AOX4. PT C/O POSTERIOR HEAD PAIN AFTER FALL X THIS MORNING AROUND 1000. PT DENIES LOC OR BLOOD THINNER USE. PT ALSO PRESENTS WITH ECCHYMOSIS TO LATERAL LEFT THIGH. PT STATES THIS IS DUE TO FALL X 3 DAYS AGO. FULL ROM OF EXTREMITY, CIRCULATION AND SENSATION INTACT, CAP REFILL <3 SECONDS, MUSCLE STRENGTH 5/5. SKIN CLEAN, DRY, AND INTACT.
[2018-09-16 17:44] LABS: ANION GAP 11 mmol/L (5-15); BLOOD UREA NITROGEN 10 mg/dL (7-18); CALCIUM 7.6 MG/DL (8.5-10.1); CARBON DIOXIDE 23 MMOL/L (21-32); CHLORIDE 104 MMOL/L (98-107); HEMATOCRIT 28.3 % (37.0-47.0); MEAN CORPUSCULAR VOLUME 90 FL (80-99); PLATELET COUNT 258 K/UL (150-450); POTASSIUM 4.3 MMOL/L (3.5-5.1); RED BLOOD COUNT 3.14 M/UL (4.20-5.40); RED CELL DISTRIBUTION WIDTH 18.6 % (11.6-14.8); SODIUM 138 MMOL/L (136-145); WHITE BLOOD COUNT 17.7 K/UL (4.8-10.8)
[2018-09-16] MEDS ORDERED: Acetaminophen 650 MG SUPP RECTAL ONE (17:45)
--- NOTE | 2018-09-16 17:54 | Emergency Room Report ---
History of Present Illness General Chief Complaint: Multiple Trauma/Fall Source: Patient, Medical Record Present Illness HPI 73-year-old female presents ED for evaluation. Patient brought in by family for syncopal episode. Patient got dizzy and fell at home. With bruising to left hip. Patient tachycardic. Patient afebrile. Patient states she feels weak. Denies chest pain or shortness of breath. Denies sick contacts or recent travel. No other aggravating relieving factors. Denies any other associated symptoms Allergies: Coded Allergies: NO KNOWN ALLERGIES (Verified Allergy, Unknown, 07/31/18) Patient History Past Medical History: other - stomach cancer, breast cancer Social History: Denies: smoking, alcohol use, drug use Now: No Immunizations: UTD Reviewed Nursing Documentation: PMH: Agreed; PSxH: Agreed Nursing Documentation-PMH Past Medical History: No History, Except For Hx Cardiac Problems: Yes - hyperlipeidemia Hx Cancer: Yes - stomach cancer, left breast ca and mastectomy done Hx Gastrointestinal Problems: No Hx Neurological Problems: Yes - DYSPHAGIA Review of Systems All Other Systems: negative except mentioned in HPI Physical Exam Vital Signs Date Time Temp Pulse Resp B/P (MAP) Pulse Ox O2 Delivery O2 Flow Rate FiO2 09/16/18 17:02 101.1 134 23 101/89 100 Room Air Sp02 EP Interpretation: reviewed, normal General Appearance: no apparent distress, alert, GCS 15, non-toxic Head: normocephalic, atraumatic Eyes: bilateral eye normal inspection, bilateral eye PERRL ENT: hearing grossly normal, normal pharynx, no angioedema, normal voice Neck: full range of motion, supple/symm/no masses Respiratory: chest non-tender, lungs clear, normal breath sounds, speaking full sentences Cardiovascular #1: regular rate, rhythm, no edema Cardiovascular #2: 2+ carotid (R), 2+ carotid (L), 2+ radial (R), 2+ radial (L) , 2+ dorsalis pedis (R), 2+ dorsalis pedis (L) Gastrointestinal: normal bowel sounds, non tender, soft, non-distended, no guarding, no rebound Rectal: deferred Genitourinary: normal inspection, no CVA tenderness Musculoskeletal: back normal, gait/station normal, normal range of motion, tender - L hip Neurologic: alert, oriented x3, responsive, motor strength/tone normal, sensory intact, speech normal Psychiatric: judgement/insight normal, memory normal, mood/affect normal, no suicidal/homicidal ideation Reflexes: 3+ bicep (R), 3+ bicep (L), 3+ tricep (R), 3+ tricep (L), 3+ knee (R) , 3+ knee (L) Skin: normal color, no rash, warm/dry, well hydrated Lymphatic: no adenopathy Medical Decision Making Diagnostic Impression: Primary Impression: Syncope Qualified Codes: R55 - Syncope and collapse Additional Impressions: Sepsis Qualified Codes: A41.9 - Sepsis, unspecified organism UTI (urinary tract infection) Qualified Codes: N39.0 - Urinary tract infection, site not specified Head injury Qualified Codes: S09.90XA - Unspecified injury of head, initial encounter ER Course Hospital Course 73-year-old female presenting to ED with generalized weakness, fall, fever Differential diagnoses include: Pneumonia, UTI, sepsis, dehydration, FL/ unstable angina Clinical course Patient placed on stretcher. On site monitor with tachycardia. After initial history and physical, I ordered labs, IV fluids, EKG, chest x-ray, blood cultures, UA. Labs - electrolytes ok, noted leukocytosis, troponins 0.120, lactate > 3, UA grossly positive for UTI EKG - sinus tachycardia, no acute ischemic chagnges interpreted by me CXR - ? L lung base atelectasis CT head and CT Pelvis - no acute fx Abx given. given tyelnol. Troponin 0.120. No reported chest pain. No acute ischemic changes on EKG Case discussed with Dr Renee and they agreed to admit patient to their service for further care and support I feel this is a highly complex case requiring extensive working including EKG/ Rhythm strip, Xray/CT/US, Blood/urine lab work, repeat exams while in ED, and administration of strong opiates/narcotics for pain control, admission to hospital or close patient follow up. Diagnosis - syncope, sepsis, UTI, head injury Patient admitted to telemetry in serious condition Labs Test 09/16/18 17:05 09/16/18 18:00 09/16/18 18:10 09/16/18 19:30 White Blood Count 17.7 K/UL (4.8-10.8) Red Blood Count 3.14 M/UL (4.20-5.40) Hemoglobin 9.0 G/DL (12.0-16.0) Hematocrit 28.3 % (37.0-47.0) Mean Corpuscular Volume 90 FL (80-99) Mean Corpuscular Hemoglobin 28.5 PG (27.0-31.0) Mean Corpuscular Hemoglobin Concent 31.8 G/DL (32.0-36.0) Red Cell Distribution Width 18.6 % (11.6-14.8) Platelet Count 258 K/UL (150-450) Mean Platelet Volume 5.1 FL (6.5-10.1) Neutrophils (%) (Auto) % (45.0-75.0) Lymphocytes (%) (Auto) % (20.0-45.0) Monocytes (%) (Auto) % (1.0-10.0) Eosinophils (%) (Auto) % (0.0-3.0) Basophils (%) (Auto) % (0.0-2.0) Differential Total Cells Counted 100 Neutrophils % (Manual) 76 % (45-75) Lymphocytes % (Manual) 11 % (20-45) Monocytes % (Manual) 5 % (1-10) Eosinophils % (Manual) 0 % (0-3) Basophils % (Manual) 0 % (0-2) Band Neutrophils 8 % (0-8) Platelet Estimate Adequate Platelet Morphology Normal Hypochromasia 1+ Anisocytosis 1+ Sodium Level 138 MMOL/L (136-145) Potassium Level 4.3 MMOL/L (3.5-5.1) Chloride Level 104 MMOL/L (98-107) Carbon Dioxide Level 23 MMOL/L (21-32) Anion Gap 11 mmol/L (5-15) Blood Urea Nitrogen 10 mg/dL (7-18) Creatinine 1.0 MG/DL (0.55-1.30) Estimat Glomerular Filtration Rate mL/min (>60) Glucose Level 118 MG/DL (74-106) Calcium Level 7.6 MG/DL (8.5-10.1) Total Bilirubin 0.7 MG/DL (0.2-1.0) Aspartate Amino Transf (AST/SGOT) 31 U/L (15-37) Alanine Aminotransferase (ALT/SGPT) 32 U/L (12-78) Alkaline Phosphatase 120 U/L (46-116) Total Creatine Kinase 335 U/L (26-308) Creatine Kinase MB 1.6 NG/ML (0.0-3.6) Creatine Kinase MB Relative Index 0.4 Troponin I 0.120 ng/mL (0.000-0.056) Pro-B-Type Natriuretic Peptide 888 pg/mL (0-125) Total Protein 5.5 G/DL (6.4-8.2) Albumin 2.6 G/DL (3.4-5.0) Globulin 2.9 g/dL Albumin/Globulin Ratio 0.9 (1.0-2.7) Urine Color Yellow Urine Appearance Clear Urine pH 5 (4.5-8.0) Urine Specific [place] 1.015 (1.005-1.035) Urine Protein 1+ (NEGATIVE) Urine Glucose (UA) 4+ (NEGATIVE) Urine Ketones 1+ (NEGATIVE) Urine Blood 1+ (NEGATIVE) Urine Nitrite Positive (NEGATIVE) Urine Bilirubin Negative (NEGATIVE) Urine Urobilinogen Normal MG/DL (0.0-1.0) Urine Leukocyte Esterase 1+ (NEGATIVE) Urine RBC 2-4 /HPF (0 - 2) Urine WBC 5-10 /HPF (0 - 2) Urine Squamous Epithelial Cells Few /LPF (NONE/OCC) Urine Bacteria Many /HPF (NONE) Lactic Acid Level 3.40 mmol/L (0.4-2.0) 2.90 mmol/L (0.66-2.22) EKG Diagnostic Results Rate: tachycardiac Rhythm: NSR ST Segments: no acute changes ASA given to the pt in ED: No Rhythm Strip Diag. Results EP Interpretation: yes Rhythm: NSR, no PVC's, no ectopy Chest X-Ray Diagnostic Results Chest X-Ray Diagnostic Results : Chest X-Ray Ordered: Yes # of Views/Limited/Complete: 1 View Indication: Other EP Interpretation: Yes Interpretation: no pneumothorax, other - L basilar atelctasis, consolidation Impression: Other - PNA Electronically Signed by: Electronically signed by Kris Barry MD CT/MRI/US Diagnostic Results CT/MRI/US Diagnostic Results #1: Imaging Test Ordered: CT head Impression no acute process CT/MRI/US Diagnostic Results #2: Imaging Test Ordered: CT Pelvis Impression s/p L RAPHAEL, no acute fx Last Vital Signs Date Time Temp Pulse Resp B/P (MAP) Pulse Ox O2 Delivery O2 Flow Rate FiO2 09/16/18 17:10 120 22 Room Air 09/16/18 17:10 101.2 95/48 100 Status: improved Disposition: ADMITTED INPATIENT Condition: Serious Kris Barry MD Sep 16, 2018 17:54
[2018-09-16 17:57] LABS: ALANINE AMINOTRANSFERASE 32 U/L (12-78); ALBUMIN 2.6 G/DL (3.4-5.0); ALBUMIN/GLOBULIN RATIO 0.9 (1.0-2.7); ALKALINE PHOSPHATASE 120 U/L (46-116); ASPARTATE AMINO TRANSFERASE 31 U/L (15-37); BILIRUBIN,TOTAL 0.7 MG/DL (0.2-1.0); CKMB 1.6 NG/ML (0.0-3.6); CREATINE KINASE 335 U/L (26-308)
--- NOTE | 2018-09-16 18:21 | NUR ---
ED Nurse Note: PT TO CT VIA KEENAN
--- NOTE | 2018-09-16 18:26 | Diagnostic Imaging Report ---
EXAM: XR Chest, 1 View CLINICAL HISTORY: SYNCOPE TECHNIQUE: Frontal view of the chest. COMPARISON: 07/24/18 FINDINGS: Lungs: Left basilar atelectasis-consolidation. Bilateral nodular opacities again noted. Pleural space: Unremarkable. No pneumothorax. Heart: Unremarkable. No cardiomegaly. Mediastinum: Unremarkable. Bones/joints: Plate and screw fixation related to the right humerus. Soft tissues: Right mastectomy. IMPRESSION: 1. Left basilar atelectasis-consolidation.
[2018-09-16 18:42] LABS: APPEARANCE,URINE CLEAR; BILIRUBIN, URINE NEGATIVE (NEGATIVE); GLUCOSE, URINE (UA) 4+ (NEGATIVE); KETONES,URINE 1+ (NEGATIVE); LEUKOCYTE ESTERASE ,URINE 1+ (NEGATIVE); NITRITE,URINE POSITIVE (NEGATIVE); PH,URINE 5 (4.5-8.0); PROTEIN,URINE 1+ (NEGATIVE); UROBILINOGEN,URINE NORMAL MG/DL (0.0-1.0)
[2018-09-16 18:50] LABS: COLOR,URINE YELLOW
[2018-09-16] MEDS ORDERED: cefTRIAXone 1 GM in NS 55 ML IVPB ONE (19:00)
--- NOTE | 2018-09-16 19:02 | Diagnostic Imaging Report ---
EXAM: CT Head Without Intravenous Contrast CLINICAL HISTORY: AMS TECHNIQUE: Axial computed tomography images of the head/brain without intravenous contrast. CTDI is 70.38 mGy and DLP is 1386 mGy-cm. One or more of the following dose reduction techniques were used: automated exposure control, adjustment of the mA and/or kV according to patient size, use of iterative reconstruction technique. COMPARISON: No relevant prior studies available. FINDINGS: Brain: No hemorrhage. No edema. Ventricles: No ventriculomegaly. Bones/joints: No acute fracture. Soft tissues: Unremarkable. Sinuses: No acute sinusitis. Mastoid air cells: No mastoid effusion. IMPRESSION: No acute intracranial process.
--- NOTE | 2018-09-16 19:06 | NUR ---
ED Nurse Note: Received patient from MILIND Nguyen. Patient sleeping in bed with NAD. AO2 with episodes of confusion.
--- NOTE | 2018-09-16 19:06 | NUR ---
ED Nurse Note: REPORT GIVEN TO PHILL ZAMORANO RN
--- NOTE | 2018-09-16 19:08 | Diagnostic Imaging Report ---
EXAM: CT Pelvis Without Intravenous Contrast CLINICAL HISTORY: AMS TECHNIQUE: Axial computed tomography images of the pelvis without intravenous contrast. CTDI is 9.55 mGy and DLP is 268 mGy-cm. One or more of the following dose reduction techniques were used: automated exposure control, adjustment of the mA and/or kV according to patient size, use of iterative reconstruction technique. COMPARISON: No relevant prior studies available. FINDINGS: Intraperitoneal space: Unremarkable. Bladder: Unremarkable. Bones/joints: No acute fracture or dislocation. Left hip prosthesis. Soft tissues: Unremarkable. Vasculature: Unremarkable. No lower abdominal aortic aneurysm. Lymph nodes: No enlarged lymph nodes. IMPRESSION: No acute fracture or dislocation.
--- NOTE | 2018-09-16 19:30 | NUR ---
ED Nurse Note: Lactic reflex collected; sent down to lab.
[2018-09-16 20:00] VITALS: BP 102/47
[2018-09-16] MEDS ORDERED: Miralax 17gm pkt ORAL PRN (20:15)
[2018-09-16] MEDS ORDERED: Albuterol/Ipratropium 3ml neb HHN PRN (20:15)
--- NOTE | 2018-09-16 20:30 | NUR ---
TRANSFER TO FLOOR: Patient transferred to Telemetry 214-2 as ordered, per MD Víctor . Report given to MILIND Ferro. Belongings and medications given to receiveing MILIND.
[2018-09-16 20:40] VITALS: BP 121/72
--- NOTE | 2018-09-16 20:40 | NUR ---
NURSE NOTES: Pt transferred safely to floor from ED. court monitor applied and patient is sinus tachy in 120s. Belongings list verified. Report received from MILIND Fragoso. Pt is lying comfortably in semi-fowlers with no signs of distress. Pt is A+Ox3 and denies pain/SOB. Respirations are even and unlabored on room air. IV site is patent, intact, and saline locked. Admission orders in. Bed is at lowest position, brakes engaged. siderails x2, bed alarm on, and call light within reach. Pt is in stable condition at this time; will continue to monitor.
[2018-09-16] MEDS ORDERED: Vancomycin 1250mg/D5W 275ml IVPB ONE (22:00)
[2018-09-16] MEDS: Heparin 5000 units/ml inj SUBQ SCH (22:18)
[2018-09-17] VITALS: BP 112/62
[2018-09-17] MEDS ORDERED: Vancomycin 1 GM in D5W 275 ML IV SCH (00:30)
[2018-09-17] MEDS: Cefepime HCl 2 GM in D5W 110 ML IV SCH (00:44)
[2018-09-17 04:00] VITALS: BP 115/80
--- NOTE | 2018-09-17 07:17 | NUR ---
HAND-OFF: Report given to MILIND Abbasi. Pt is in stable condition; plan of care endorsed.
--- NOTE | 2018-09-17 07:18 | NUR ---
HAND-OFF: Report given to MILIND Abbasi. Patient is awake lying semi-henson's; resting comfortably. In stable condition. Addendum: 09/18/18 at 0743 by JAMARCUS LERNER RN RN Wrong time.
--- NOTE | 2018-09-17 07:25 | NUR ---
NURSE NOTES: pt awake alert, no distress. no sob. call light within reach. no c/o pain. will monitor. bed in lowest position, locked.
[2018-09-17 07:47] LABS: HEMATOCRIT 25.3 % (37.0-47.0); HEMOGLOBIN 8.2 G/DL (12.0-16.0); MEAN CORPUSCULAR VOLUME 90 FL (80-99); PLATELET COUNT 263 K/UL (150-450); RED BLOOD COUNT 2.82 M/UL (4.20-5.40); WHITE BLOOD COUNT 14.3 K/UL (4.8-10.8)
--- NOTE | 2018-09-17 08:04 | Consultation ---
History of Present Illness General Date patient seen: Sep 17, 2018 Time patient seen: 07:30 Chief Complaint: Multiple Trauma/Fall Referring physician: dr Renee Reason for Consultation: syncopal episode, sepsis, Present Illness HPI 73 years old female with PMH of hyperlipidemia, dysphagia, history of stomach cancer, breast cancer ,status post mastectomy ,presented to emergency department for syncopal episode. Apparently patient got dizzy and fell at home. Upon presentation patient was febrile with temperature 101.1, tachycardic with heart rate 134 and tachypneic with respiratory rate 23. Blood pressure was 101 /89. Laboratory workup revealed leukocytosis WBC 21.7, hemoglobin 9, hematocrit 28.3 ,lactic acid 3.4. Stable renal parameters and electrolytes. Troponin with mild elevation 0.120. , Pro BNP 888. EKG revealed sinus tachycardia no acute ischemic changes. Albumin 2.6 Urinalysis with evidence of UTI CT of the head revealed no acute intracranial pathology. CT of the pelvis revealed no acute fracture. Chest x-ray revealed left lung base atelectasis versus consolidation. On prior admission in July 2018, chest CR revealed masslike opacity KAREN and RLR At that time was recommended to repeat CT chest in few months Patient was admitted for further management Allergies: Coded Allergies: NO KNOWN ALLERGIES (Verified Allergy, Unknown, 07/31/18) Medication History Scheduled Ascorbic Acid* (Vitamin C*), 500 MG ORAL DAILY, (Reported) Aspirin* (Aspirin*), 81 MG ORAL DAILY, (Reported) Atorvastatin Calcium* (Lipitor*), 20 MG ORAL BEDTIME, (Reported) Escitalopram Oxalate* (Lexapro*), 10 MG ORAL DAILY, (Reported) Fluconazole (Fluconazole), 200 MG ORAL DAILY, (Reported) Multivitamin With Minerals (Multivitamins With Minerals*), 1 TAB ORAL DAILY, ( Reported) Nut Tx, Lact-Reduced, Iron (Boost Vhc), 120 ML PO TID, (Reported) Risperidone* (Risperdal*), 2 MG ORAL QHS, (Reported) Zinc Sulfate (Zinc Sulfate*), 220 MG ORAL DAILY, (Reported) Scheduled PRN Acetaminophen* (Acetaminophen 325MG Tablet*), 650 MG ORAL Q4H PRN for Fever/ Headache/Mild Pain, (Reported) Bisacodyl (Dulcolax), 10 MG RC DAILY PRN for IF MOM INEFFECTIVE, (Reported) Magnesium Hydroxide* (Milk Of Magnesia*), 30 ML ORAL DAILY PRN for Constipation, (Reported) Melatonin (Melatonin 5 Mg Tablet), 1 TAB ORAL BEDTIME PRN for Insomnia, ( Reported) Na Phos,M-B/Na Phos,Di-Ba* (Fleet Enema*), 133 ML RECTAL EVERY 96 HOURS PRN for IF DULCOLAX INEFFECTIVE, (Reported) Tramadol Hcl* (Ultram*), 50 MG ORAL Q8H PRN for MILD TO MODERATE PAIN, (Reported ) Tramadol Hcl* (Ultram*), 50 MG ORAL Q8HR PRN for Severe Pain (Pain Scale 7-10), (Reported) Miscellaneous Medications Unable to Obtain Medications (Unable To Obtain Meds), (Reported) Patient History History Provided By: Patient, Medical Record Healthcare decision maker Resuscitation status Full Code Advanced Directive on File No Past Medical/Surgical History Past Medical/Surgical History: (1) Anxiety disorder (2) Pulmonary nodule (3) Metabolic encephalopathy Review of Systems Constitutional: Reports: weakness ENT: Reports: no symptoms Respiratory: Reports: shortness of breath, other - hx of breast Ca, s/p mastectomy Cardiovascular: Reports: no symptoms Gastrointestinal: Reports: other - dysphagia, hx of stomach Ca Genitourinary: Reports: see HPI Musculoskeletal: Reports: muscle stiffness Skin: Reports: no symptoms Psychiatric: Reports: no symptoms Neurological: Reports: see HPI Endocrine: Reports: no symptoms Hematologic/Lymphatic: Reports: anemia Physical Exam General Appearance: no apparent distress, alert Lines, tubes and drains: peripheral HEENT: normocephalic, atraumatic, anicteric, mucous membranes moist Neck: non-tender, supple Respiratory/Chest: lungs clear - with moderate air exchange , no respiratory distress, no accessory muscle use Cardiovascular/Chest: regular rhythm, tachycardia - ST on tele Abdomen: normal bowel sounds, non tender, soft Extremities: no calf tenderness, normal capillary refill Neurologic: alert, responsive Musculoskeletal: normal muscle bulk Last 24 Hour Vital Signs Date Time Temp Pulse Resp B/P (MAP) Pulse Ox O2 Delivery O2 Flow Rate FiO2 09/17/18 07:06 Room Air 09/17/18 04:00 110 09/17/18 04:00 98.5 100 18 115/80 (92) 94 09/17/18 00:00 97.5 109 18 112/62 (79) 96 09/17/18 00:00 109 09/16/18 22:41 Room Air 09/16/18 21:10 117 09/16/18 20:40 97.4 120 18 121/72 (88) 98 09/16/18 20:30 97.5 106 20 102/47 100 Room Air 09/16/18 20:00 97.5 106 20 102/47 100 Room Air 09/16/18 18:24 99.5 09/16/18 17:10 120 22 Room Air 09/16/18 17:10 101.2 120 22 95/48 100 Room Air 09/16/18 17:02 101.1 134 23 101/89 100 Room Air Intake and Output 09/16/18 09/17/18 18:59 06:59 Intake Total 260 ml Balance 260 ml Intake Oral 260 ml # Voids 4 # Bowel Movements 2 Laboratory Tests Test 09/16/18 17:05 09/16/18 18:00 09/16/18 18:10 09/16/18 19:30 White Blood Count 17.7 K/UL (4.8-10.8) H Red Blood Count 3.14 M/UL (4.20-5.40) L Hemoglobin 9.0 G/DL (12.0-16.0) L Hematocrit 28.3 % (37.0-47.0) L Mean Corpuscular Volume 90 FL (80-99) Mean Corpuscular Hemoglobin 28.5 PG (27.0-31.0) Mean Corpuscular Hemoglobin Concent 31.8 G/DL (32.0-36.0) L Red Cell Distribution Width 18.6 % (11.6-14.8) H Platelet Count 258 K/UL (150-450) Mean Platelet Volume 5.1 FL (6.5-10.1) L Neutrophils (%) (Auto) % (45.0-75.0) Lymphocytes (%) (Auto) % (20.0-45.0) Monocytes (%) (Auto) % (1.0-10.0) Eosinophils (%) (Auto) % (0.0-3.0) Basophils (%) (Auto) % (0.0-2.0) Differential Total Cells Counted 100 Neutrophils % (Manual) 76 % (45-75) H Lymphocytes % (Manual) 11 % (20-45) L Monocytes % (Manual) 5 % (1-10) Eosinophils % (Manual) 0 % (0-3) Basophils % (Manual) 0 % (0-2) Band Neutrophils 8 % (0-8) Platelet Estimate Adequate Platelet Morphology Normal Hypochromasia 1+ Anisocytosis 1+ Sodium Level 138 MMOL/L (136-145) Potassium Level 4.3 MMOL/L (3.5-5.1) Chloride Level 104 MMOL/L (98-107) Carbon Dioxide Level 23 MMOL/L (21-32) Anion Gap 11 mmol/L (5-15) Blood Urea Nitrogen 10 mg/dL (7-18) Creatinine 1.0 MG/DL (0.55-1.30) Estimat Glomerular Filtration Rate mL/min (>60) Glucose Level 118 MG/DL (74-106) H Calcium Level 7.6 MG/DL (8.5-10.1) L Total Bilirubin 0.7 MG/DL (0.2-1.0) Aspartate Amino Transf (AST/SGOT) 31 U/L (15-37) Alanine Aminotransferase (ALT/SGPT) 32 U/L (12-78) Alkaline Phosphatase 120 U/L (46-116) H Total Creatine Kinase 335 U/L (26-308) H Creatine Kinase MB 1.6 NG/ML (0.0-3.6) Creatine Kinase MB Relative Index 0.4 Troponin I 0.120 ng/mL (0.000-0.056) Pro-B-Type Natriuretic Peptide 888 pg/mL (0-125) H Total Protein 5.5 G/DL (6.4-8.2) L Albumin 2.6 G/DL (3.4-5.0) L Globulin 2.9 g/dL Albumin/Globulin Ratio 0.9 (1.0-2.7) L Urine Color Yellow Urine Appearance Clear Urine pH 5 (4.5-8.0) Urine Specific [place] 1.015 (1.005-1.035) Urine Protein 1+ (NEGATIVE) H Urine Glucose (UA) 4+ (NEGATIVE) H Urine Ketones 1+ (NEGATIVE) H Urine Blood 1+ (NEGATIVE) H Urine Nitrite Positive (NEGATIVE) H Urine Bilirubin Negative (NEGATIVE) Urine Urobilinogen Normal MG/DL (0.0-1.0) Urine Leukocyte Esterase 1+ (NEGATIVE) H Urine RBC 2-4 /HPF (0 - 2) H Urine WBC 5-10 /HPF (0 - 2) H Urine Squamous Epithelial Cells Few /LPF (NONE/OCC) Urine Bacteria Many /HPF (NONE) H Lactic Acid Level 3.40 mmol/L (0.4-2.0) H 2.90 mmol/L (0.66-2.22) H Test 09/17/18 05:49 White Blood Count 14.3 K/UL (4.8-10.8) H Red Blood Count 2.82 M/UL (4.20-5.40) L Hemoglobin 8.2 G/DL (12.0-16.0) L Hematocrit 25.3 % (37.0-47.0) L Mean Corpuscular Volume 90 FL (80-99) Mean Corpuscular Hemoglobin 29.0 PG (27.0-31.0) Mean Corpuscular Hemoglobin Concent 32.3 G/DL (32.0-36.0) Red Cell Distribution Width 19.0 % (11.6-14.8) H Platelet Count 263 K/UL (150-450) Mean Platelet Volume 5.9 FL (6.5-10.1) L Neutrophils (%) (Auto) % (45.0-75.0) Lymphocytes (%) (Auto) % (20.0-45.0) Monocytes (%) (Auto) % (1.0-10.0) Eosinophils (%) (Auto) % (0.0-3.0) Basophils (%) (Auto) % (0.0-2.0) Neutrophils % (Manual) Pending Lymphocytes % (Manual) Pending Platelet Estimate Pending Platelet Morphology Pending Sodium Level Pending Potassium Level Pending Chloride Level Pending Carbon Dioxide Level Pending Blood Urea Nitrogen Pending Creatinine Pending Estimat Glomerular Filtration Rate Pending Glucose Level Pending Calcium Level Pending Total Bilirubin Pending Aspartate Amino Transf (AST/SGOT) Pending Alanine Aminotransferase (ALT/SGPT) Pending Alkaline Phosphatase Pending Troponin I Pending Total Protein Pending Albumin Pending Globulin Pending Microbiology Date/Time Source Procedure Growth Status 09/16/18 18:00 Nasal Nares Influenza Types A,B Antigen (MONCHO) - Final Complete Height (Feet): 5 Height (Inches): 0.00 Weight (Pounds): 120 Medications Current Medications Medications (Trade) Dose Ordered Sig/Naomi Route PRN Reason Start Time Stop Time Status Last Admin Dose Admin Acetaminophen (Tylenol) 650 mg Q4H PRN ORAL fever (temp>100.5F) 09/16/18 20:15 10/16/18 20:14 Albuterol/ Ipratropium (Albuterol/ Ipratropium) 3 ml Q4H PRN HHN Shortness of Breath 09/16/18 20:15 09/21/18 20:14 Cefepime HCl 2 gm/ Dextrose 110 ml @ 220 mls/hr Q24H IV 09/17/18 00:00 09/24/18 00:00 09/17/18 00:44 Escitalopram Oxalate (Lexapro) 10 mg DAILY ORAL 09/17/18 09:00 10/17/18 08:59 Heparin Sodium (Porcine) (Heparin 5000 units/ml) 5,000 units EVERY 12 HOURS SUBQ 09/16/18 21:00 10/16/18 20:59 09/16/18 22:18 Morphine Sulfate (Morphine Sulfate) 2 mg Q4H PRN IVP Moderate Pain (Pain Scale 4-6) 09/16/18 20:15 09/23/18 20:14 Ondansetron HCl (Zofran) 4 mg Q6H PRN IVP Nausea & Vomiting 09/16/18 20:15 10/16/18 20:14 Phenazopyridine HCl (Pyridium) 100 mg DAILYPRN PRN ORAL dysuria 09/16/18 20:15 10/16/18 20:14 Polyethylene Glycol (Miralax) 17 gm DAILYPRN PRN ORAL Constipation 09/16/18 20:15 10/16/18 20:14 Risperidone (RisperDAL) 2 mg QHS ORAL 09/16/18 21:00 10/16/18 20:59 09/16/18 22:09 Temazepam (Restoril) 15 mg HSPRN PRN ORAL Insomnia 09/16/18 20:15 09/23/18 20:14 Vancomycin HCl (Vanco rx to dose) 1 ea DAILY PRN MISC PER RX PROTOCOL 09/16/18 20:45 10/16/18 20:44 Vancomycin HCl 750 mg/Sodium Chloride 275 ml @ 183.333 mls/hr Q24H IVPB 09/17/18 22:00 09/22/18 21:59 Assessment/Plan Assessment/Plan ASSESSMENT Sepsis UTI Possible pneumonia Lung mass KAREN and RLL ( on previous CT chest) Syncopal episode, possibly due to sepsis Elevated troponin, rule out acute coronary syndrome Anemia History of cancer (stomach, left breast, status post mastectomy) Severe protein calorie malnutrition Sinus Tachycardia, Possible dehydration PLAN OF CARE Tele Serial troponin , ECG this am Echo Cardio eval orthostatic VS q 12 x 2 days O2 HHN as needed Follow-up with chest x-ray repeat CT chest Venous duplex bilateral lower extremity swallow eval due to hx of dysphagia DVT prophylaxis Antibiotic, fup with cx ID consult gentle IVF due to possible dehydration monitor renal parameters, lytes, correct lytes as needed Monitor H&H with goal to keep hemoglobin above 7, Anemia workup stool OB and CEA dietary eval re protein supplements case discussed and evaluated by supervising physician Nadine Merrill NP Sep 17, 2018 08:04
[2018-09-17] MEDS: Heparin 5000 units/ml inj SUBQ SCH ×2 (08:19→22:17)
[2018-09-17 08:22] LABS: ALANINE AMINOTRANSFERASE 24 U/L (12-78); ALBUMIN 1.9 G/DL (3.4-5.0); ALBUMIN/GLOBULIN RATIO 0.7 (1.0-2.7); ALKALINE PHOSPHATASE 109 U/L (46-116); ANION GAP 8 mmol/L (5-15); ASPARTATE AMINO TRANSFERASE 22 U/L (15-37); BILIRUBIN,TOTAL 0.8 MG/DL (0.2-1.0); BLOOD UREA NITROGEN 10 mg/dL (7-18); CARBON DIOXIDE 24 MMOL/L (21-32); CHLORIDE 109 MMOL/L (98-107); CREATININE 0.6 MG/DL (0.55-1.30); POTASSIUM 3.4 MMOL/L (3.5-5.1); SODIUM 141 MMOL/L (136-145)
[2018-09-17 08:43] LABS: FERRITIN 81 NG/ML (8-388)
[2018-09-17 08:44] VITALS: BP 124/65
--- NOTE | 2018-09-17 08:50 | NUR ---
NURSE NOTES: relayed to Nadine WELDER FITTER HELPER re k level and still sinus tachy 116-120, rn asked for cardio consult also relayed ua and wbc trend to WELDER FITTER HELPER, awaiting response.
[2018-09-17 08:57] LABS: % IRON SATURATION 7 % (15-50); IRON 10 ug/dL (50-175); TOTAL IRON BINDING CAPACITY 141 ug/dL (250-450)
[2018-09-17] MEDS: Potassium Chloride 10 MEQ in 1/2 NS 1000ml 1,000 ML IV SCH (10:33)
[2018-09-17] MEDS: guaiFENesin 100mg/5ml Liq ud ORAL PRN ×2 (10:38→18:09)
[2018-09-17 12:00] VITALS: BP 129/70
--- NOTE | 2018-09-17 12:20 | NUR ---
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 101.2 HR 134 RR 23 B/P 101/89 WBC 17.3 CA 7.6 LACTID ACID 3.40 ALK PHOS 120 TCK 335 TROP 0.120 BNP 800 UA+ PROTEIN,NITRATES,GLUCOSE,LEUKOCYTE ESTERASE,RBC,BACTERIA HEAD CT-NEGATIVE CXR= LEFT BASILAR ATELECTASIS IS: IV BOLUS NS X 3 LITERS VANCO IV CEFTRIAXONE IV TYLENOL PO ADMITTED TO TELE @ 2029 TELE STATUS
[2018-09-17] MEDS ORDERED: Isovue-300 100ml vial INJ PRN (13:15)
--- NOTE | 2018-09-17 13:46 | Diagnostic Imaging Report ---
EXAM: US Duplex Bilateral Lower Extremity Veins CLINICAL HISTORY: SOB TECHNIQUE: Real-time duplex ultrasound scan of the bilateral lower extremity veins integrating B-mode two-dimensional vascular structure, Doppler spectral analysis, color flow Doppler imaging and compression. COMPARISON: No relevant prior studies available. FINDINGS: Right deep veins: Unremarkable. No DVT in the right common femoral, femoral, proximal deep femoral or popliteal veins. The veins demonstrate normal color flow, are normally compressible, with normal phasic flow and/or augmentation response. Right superficial veins: Unremarkable. No thrombus in the visualized right great saphenous vein. Left deep veins: Unremarkable. No DVT in the left common femoral, femoral, proximal deep femoral or popliteal veins. The veins demonstrate normal color flow, are normally compressible, with normal phasic flow and/or augmentation response. Left superficial veins: Unremarkable. No thrombus in the visualized left great saphenous vein. Soft tissues: No acute findings. No popliteal cyst. IMPRESSION: Normal bilateral lower extremity duplex venous ultrasound.
--- NOTE | 2018-09-17 14:06 | History & Physical ---
History and Physical History & Physicial Dictated for Int Med-Dr Renee no. [id number]. Johnny Acosta MD Sep 17, 2018 14:06
--- NOTE | 2018-09-17 16:17 | Cardiology Progress Note ---
Assessment/Plan Assessment/Plan [id number] not clar if she actually passed out check orthostatic vitals recent cv montiel neg 1-2 mon ago herer check orthosttic iv hydration treate underlying uti feel back rodriguez may need neuro eval Objective Last 24 Hour Vital Signs Date Time Temp Pulse Resp B/P (MAP) Pulse Ox O2 Delivery O2 Flow Rate FiO2 09/17/18 12:00 98.5 108 18 129/70 (89) 94 09/17/18 11:53 101 09/17/18 08:44 98.5 115 18 124/65 (84) 94 09/17/18 07:55 117 09/17/18 07:06 Room Air 09/17/18 04:00 110 09/17/18 04:00 98.5 100 18 115/80 (92) 94 09/17/18 00:00 97.5 109 18 112/62 (79) 96 09/17/18 00:00 109 09/16/18 22:41 Room Air 09/16/18 21:10 117 09/16/18 20:40 97.4 120 18 121/72 (88) 98 09/16/18 20:30 97.5 106 20 102/47 100 Room Air 09/16/18 20:00 97.5 106 20 102/47 100 Room Air 09/16/18 18:24 99.5 09/16/18 17:10 120 22 Room Air 09/16/18 17:10 101.2 120 22 95/48 100 Room Air 09/16/18 17:02 101.1 134 23 101/89 100 Room Air Intake and Output 09/16/18 09/17/18 19:00 07:00 Intake Total 260 ml Balance 260 ml Intake Oral 260 ml # Voids 4 # Bowel Movements 2 Laboratory Tests Test 09/16/18 17:05 09/16/18 18:00 09/16/18 18:10 09/16/18 19:30 White Blood Count 17.7 K/UL (4.8-10.8) H Red Blood Count 3.14 M/UL (4.20-5.40) L Hemoglobin 9.0 G/DL (12.0-16.0) L Hematocrit 28.3 % (37.0-47.0) L Mean Corpuscular Volume 90 FL (80-99) Mean Corpuscular Hemoglobin 28.5 PG (27.0-31.0) Mean Corpuscular Hemoglobin Concent 31.8 G/DL (32.0-36.0) L Red Cell Distribution Width 18.6 % (11.6-14.8) H Platelet Count 258 K/UL (150-450) Mean Platelet Volume 5.1 FL (6.5-10.1) L Neutrophils (%) (Auto) % (45.0-75.0) Lymphocytes (%) (Auto) % (20.0-45.0) Monocytes (%) (Auto) % (1.0-10.0) Eosinophils (%) (Auto) % (0.0-3.0) Basophils (%) (Auto) % (0.0-2.0) Differential Total Cells Counted 100 Neutrophils % (Manual) 76 % (45-75) H Lymphocytes % (Manual) 11 % (20-45) L Monocytes % (Manual) 5 % (1-10) Eosinophils % (Manual) 0 % (0-3) Basophils % (Manual) 0 % (0-2) Band Neutrophils 8 % (0-8) Platelet Estimate Adequate Platelet Morphology Normal Hypochromasia 1+ Anisocytosis 1+ Sodium Level 138 MMOL/L (136-145) Potassium Level 4.3 MMOL/L (3.5-5.1) Chloride Level 104 MMOL/L (98-107) Carbon Dioxide Level 23 MMOL/L (21-32) Anion Gap 11 mmol/L (5-15) Blood Urea Nitrogen 10 mg/dL (7-18) Creatinine 1.0 MG/DL (0.55-1.30) Estimat Glomerular Filtration Rate mL/min (>60) Glucose Level 118 MG/DL (74-106) H Calcium Level 7.6 MG/DL (8.5-10.1) L Total Bilirubin 0.7 MG/DL (0.2-1.0) Aspartate Amino Transf (AST/SGOT) 31 U/L (15-37) Alanine Aminotransferase (ALT/SGPT) 32 U/L (12-78) Alkaline Phosphatase 120 U/L (46-116) H Total Creatine Kinase 335 U/L (26-308) H Creatine Kinase MB 1.6 NG/ML (0.0-3.6) Creatine Kinase MB Relative Index 0.4 Troponin I 0.120 ng/mL (0.000-0.056) Pro-B-Type Natriuretic Peptide 888 pg/mL (0-125) H Total Protein 5.5 G/DL (6.4-8.2) L Albumin 2.6 G/DL (3.4-5.0) L Globulin 2.9 g/dL Albumin/Globulin Ratio 0.9 (1.0-2.7) L Urine Color Yellow Urine Appearance Clear Urine pH 5 (4.5-8.0) Urine Specific [place] 1.015 (1.005-1.035) Urine Protein 1+ (NEGATIVE) H Urine Glucose (UA) 4+ (NEGATIVE) H Urine Ketones 1+ (NEGATIVE) H Urine Blood 1+ (NEGATIVE) H Urine Nitrite Positive (NEGATIVE) H Urine Bilirubin Negative (NEGATIVE) Urine Urobilinogen Normal MG/DL (0.0-1.0) Urine Leukocyte Esterase 1+ (NEGATIVE) H Urine RBC 2-4 /HPF (0 - 2) H Urine WBC 5-10 /HPF (0 - 2) H Urine Squamous Epithelial Cells Few /LPF (NONE/OCC) Urine Bacteria Many /HPF (NONE) H Lactic Acid Level 3.40 mmol/L (0.4-2.0) H 2.90 mmol/L (0.66-2.22) H Test 09/17/18 05:49 09/17/18 09:02 White Blood Count 14.3 K/UL (4.8-10.8) H Red Blood Count 2.82 M/UL (4.20-5.40) L Hemoglobin 8.2 G/DL (12.0-16.0) L Hematocrit 25.3 % (37.0-47.0) L Mean Corpuscular Volume 90 FL (80-99) Mean Corpuscular Hemoglobin 29.0 PG (27.0-31.0) Mean Corpuscular Hemoglobin Concent 32.3 G/DL (32.0-36.0) Red Cell Distribution Width 19.0 % (11.6-14.8) H Platelet Count 263 K/UL (150-450) Mean Platelet Volume 5.9 FL (6.5-10.1) L Neutrophils (%) (Auto) % (45.0-75.0) Lymphocytes (%) (Auto) % (20.0-45.0) Monocytes (%) (Auto) % (1.0-10.0) Eosinophils (%) (Auto) % (0.0-3.0) Basophils (%) (Auto) % (0.0-2.0) Differential Total Cells Counted 100 Neutrophils % (Manual) 87 % (45-75) H Lymphocytes % (Manual) 9 % (20-45) L Monocytes % (Manual) 4 % (1-10) Eosinophils % (Manual) 0 % (0-3) Basophils % (Manual) 0 % (0-2) Band Neutrophils 0 % (0-8) Platelet Estimate Adequate Platelet Morphology Normal Hypochromasia 2+ Anisocytosis 2+ Sodium Level 141 MMOL/L (136-145) Potassium Level 3.4 MMOL/L (3.5-5.1) L Chloride Level 109 MMOL/L (98-107) H Carbon Dioxide Level 24 MMOL/L (21-32) Anion Gap 8 mmol/L (5-15) Blood Urea Nitrogen 10 mg/dL (7-18) Creatinine 0.6 MG/DL (0.55-1.30) Estimat Glomerular Filtration Rate mL/min (>60) Glucose Level 100 MG/DL (74-106) Calcium Level 8.0 MG/DL (8.5-10.1) L Iron Level 10 ug/dL (50-175) L Total Iron Binding Capacity 141 ug/dL (250-450) L Percent Iron Saturation 7 % (15-50) L Unsaturated Iron Binding 131 ug/dL (112-346) Ferritin 81 NG/ML (8-388) Total Bilirubin 0.8 MG/DL (0.2-1.0) Aspartate Amino Transf (AST/SGOT) 22 U/L (15-37) Alanine Aminotransferase (ALT/SGPT) 24 U/L (12-78) Alkaline Phosphatase 109 U/L (46-116) Troponin I 0.034 ng/mL (0.000-0.056) Total Protein 4.6 G/DL (6.4-8.2) L Albumin 1.9 G/DL (3.4-5.0) L Globulin 2.7 g/dL Albumin/Globulin Ratio 0.7 (1.0-2.7) L Vitamin B12 Level 480 PG/ML (193-986) Carcinoembryonic Antigen Pending RBC Folate Hemolysate Pending Red Blood Cell Folate Pending Microbiology Date/Time Source Procedure Growth Status 09/16/18 18:00 Nasal Nares Influenza Types A,B Antigen (MONCHO) - Final Complete 09/16/18 18:00 Urine,Clean Catch Urine Culture - Preliminary Gram Negative Capo Resulted Frantz Wall MD Sep 17, 2018 16:17
--- NOTE | 2018-09-17 17:02 | NUR ---
NURSE NOTES: sputum specimen sent to lab
[2018-09-17 17:37] VITALS: BP 101/63
[2018-09-17] MEDS: Morphine Sulfate 2mg/ml Inj IVP PRN ×2 (18:09→22:24)
--- NOTE | 2018-09-17 19:21 | NUR ---
HAND-OFF: Report given to EDUARDA VAZ.
--- NOTE | 2018-09-17 19:28 | NUR ---
NURSE NOTES: Received report from MILIND Abbasi. Patient is awake lying semi-henson's watching TV; resting comfortably. No signs of acute distress noted; complains of pain. AOx3; able to make needs known. Checked IV site, lines, and IV rate; patent and running. No erythema, bleeding, or infiltration noted. Bed at lowest position, brakes on, siderails up x3. Bed alarm on following fall precautions. Call light within reach. Will continue to monitor.
[2018-09-17 20:00] VITALS: BP 90/51
--- NOTE | 2018-09-17 20:15 | History and Physical Report ---
DATE OF ADMISSION: 09/16/2018 CHIEF COMPLAINT: The patient is a 73-year-old Telugu female, who presents with chief complaint of "I fell again." HISTORY OF PRESENT ILLNESS: The patient was admitted to [facility] from 08/12/2018 to 08/18/2018. The patient was admitted at that time for encephalopathy and urinary tract infection. At that time, the patient was a resident of [facility]. The patient currently lives at home. The patient states she fell yesterday. The patient denies loss of consciousness. The patient complains of hip pain. The patient was found to have left lower lobe infiltrate by chest x-ray. The patient is admitted with syncopal episode and left lower lobe pneumonia. REVIEW OF SYSTEMS: CONSTITUTIONAL: The patient denies weight loss or gain. The patient denies fevers or chills. HEENT: The patient denies ear or throat pain. The patient denies headache. CARDIOVASCULAR: The patient denies palpitation or chest pain. CHEST: The patient denies wheeze or shortness of breath. ABDOMINAL: The patient denies nausea, vomiting, diarrhea, or constipation. GENITOURINARY: The patient denies dysuria or frequency of urination. NEUROMUSCULAR: The patient complains of bilateral hip pain. The patient denies seizures or generalized weakness. PAST MEDICAL HISTORY: Significant for: 1. Solitary right pulmonary nodule. 2. Hypercholesterolemia. PAST SURGICAL HISTORY: Significant for open reduction and internal fixation of the right humerus in 2018. CURRENT MEDICATIONS: 1. Tylenol 650 mg p.o. q.4 h. p.r.n. 2. Aspirin 81 mg p.o. daily. 3. Atorvastatin 20 mg p.o. at bedtime. 4. Lexapro 10 mg p.o. daily. 5. Fluconazole. 6. Multivitamin 1 tablet p.o. daily. 7. Risperdal 2 mg p.o. at bedtime. 8. Ultram 50 mg 1 to 2 tablets p.o. q.6 h. p.r.n. 9. Zinc sulfate 220 mg p.o. daily. ALLERGIES: No known drug allergies. SOCIAL HISTORY: The patient is and lives alone. The patient's ex- is at the bedside. The patient denies tobacco or alcohol use. PHYSICAL EXAMINATION: VITAL SIGNS: Temperature 98.5, respirations 18, pulse 100, blood pressure 115/80. GENERAL: The patient is well-developed, well-nourished female, in no apparent distress. HEENT: Eyes, pupils are equal and responsive to light and accommodation. Extraocular movements are intact. NECK: Supple without lymphadenopathy. CHEST: Few scattered wheezes bilaterally otherwise without rales. CARDIOVASCULAR: Regular rhythm and rate. S1 and S2 are normal without murmurs, rubs, or gallops. ABDOMEN: Soft, nontender, and nondistended. Positive bowel sounds. No evidence of hepatosplenomegaly. Currently, no rebound or guarding noted. EXTREMITIES: Negative for clubbing, cyanosis, edema. RECTAL/GENITAL: Refused. NEUROLOGIC: Cranial nerves II through XII are grossly intact without focal deficits. Motor strength is 5/5 bilaterally. Deep tendon reflexes are 2+ plantar. LABORATORY STUDIES: WBC 17.7, hemoglobin 9.3, hematocrit 20.3, platelets 258,000. Sodium 141, potassium 3.4, chloride 109, CO2 24, BUN 10, creatinine 0.6, glucose 100. Urinalysis showed 1+ ketones, 1+ blood, 4+ glucose, 1+ leukocyte esterase with 5 to [address] scan of the pelvis failed to demonstrate fracture. A CT scan of the brain failed to demonstrate acute disease. Chest x-ray showed left base atelectasis versus infiltrate. ASSESSMENT: This is a 73-year-old female: 1. Syncopal episode. This probably was not true syncope. This is probably near syncope. The patient denies loss of consciousness. This probably was a slip and fall. 2. Left lower lobe pneumonia. 3. Hypercholesterolemia. 4. Right pulmonary nodule. 5. Left lower lobe pneumonia. The patient has been started empirically on vancomycin and cefepime. A Pulmonary consultation has been obtained with Dr. Annie Cutler. 6. Hypercholesterolemia. Continue Lipitor as above. 7. Right pulmonary nodule. 8. Hip pain. CT was negative for fracture. A physical therapy consultation is pending. Johnny Acosta M.D. DR: RICHY JOB#: [id number] CC:
[2018-09-17] MEDS: Vancomycin 750mg/NS 275ml IVPB SCH ×2 (22:18)
[2018-09-18] VITALS: BP 108/58
[2018-09-18] MEDS: Cefepime HCl 2 GM in D5W 110 ML IV SCH (00:30)
[2018-09-18] MEDS: Potassium Chloride 10 MEQ in 1/2 NS 1000ml 1,000 ML IV SCH ×2 (00:30→12:52)
[2018-09-18 04:00] VITALS: BP 134/68
[2018-09-18 06:59] LABS: BASOPHILS % (AUTO) 0.4 % (0.0-2.0); EOSINOPHILS % (AUTO) 0.5 % (0.0-3.0); HEMATOCRIT 28.3 % (37.0-47.0); HEMOGLOBIN 8.9 G/DL (12.0-16.0); LYMPHOCYTES % (AUTO) 24.3 % (20.0-45.0); MEAN CORPUSCULAR VOLUME 90 FL (80-99); MONOCYTES % (AUTO) 4.5 % (1.0-10.0); NEUTROPHILS % (AUTO) 70.2 % (45.0-75.0); PLATELET COUNT 290 K/UL (150-450); RED BLOOD COUNT 3.15 M/UL (4.20-5.40); RED CELL DISTRIBUTION WIDTH 18.7 % (11.6-14.8); WHITE BLOOD COUNT 9.9 K/UL (4.8-10.8)
--- NOTE | 2018-09-18 07:11 | NUR ---
HAND-OFF: Report given to MILIND Abbais. Patient is awake lying semi-henson's; resting comfortably. In stable condition.
[2018-09-18 07:15] LABS: ANION GAP 7 mmol/L (5-15); BLOOD UREA NITROGEN 11 mg/dL (7-18); CALCIUM 7.9 MG/DL (8.5-10.1); CARBON DIOXIDE 26 MMOL/L (21-32); CHLORIDE 110 MMOL/L (98-107); CREATININE 0.7 MG/DL (0.55-1.30); POTASSIUM 3.8 MMOL/L (3.5-5.1); SODIUM 142 MMOL/L (136-145)
[2018-09-18 07:53] VITALS: BP 130/70
--- NOTE | 2018-09-18 08:01 | Pulmonology Progress Note ---
Assessment/Plan Assessment/Plan ASSESSMENT Sepsis UTI Possible pneumonia Lung mass KAREN and RLL ( on previous CT chest) Syncopal episode, possibly due to sepsis Elevated troponin Anemia of iron deficiency History of cancer (stomach, left breast, status post mastectomy) Severe protein calorie malnutrition Sinus Tachycardia, Possible dehydration PLAN OF CARE Tele next two troponin negative , ECG no acute ischemic changes , apparently cardiac workup done recently and was negative as per patient Echo ( prel report) with pEF 55-60% and evidence fof mild pulmonary HTN Cardio eval appreciated orthostatic VS q 12 x 2 days , no orthostatic changes, BP in fact higher when standing up no dizziness O2 HHN as needed Follow-up with chest x-ray repeat CT chest in am Venous duplex bilateral lower extremity negative swallow eval due to hx of dysphagia DVT prophylaxis Antibiotic, sputum cx pending, urine cx + GNR, blood cx prel negative, influenza screen test negative ID consult gentle IVF, tachycardia nearly resolved monitor renal parameters, lytes, correct lytes as needed Monitor H&H with goal to keep hemoglobin above 7, Anemia workup c/w anemia of chronic disease give Venofer x1 stool OB and CEA pending dietary eval re protein supplements case discussed and evaluated by supervising physician Subjective Allergies: Coded Allergies: NO KNOWN ALLERGIES (Verified Allergy, Unknown, 07/31/18) Subjective Leukocytosis resolved , afebrile Next 2 troponin negative Sinus tachycardia resolved with IV hydration Denies chest pain, still SOB, pulse ox stable on TA Objective Last 24 Hour Vital Signs Date Time Temp Pulse Resp B/P (MAP) Pulse Ox O2 Delivery O2 Flow Rate FiO2 09/18/18 07:17 Room Air 09/18/18 04:00 91 09/18/18 04:00 98.1 84 17 134/68 (90) 95 09/18/18 00:00 96 09/18/18 00:00 98.0 95 17 108/58 (75) 95 09/17/18 21:00 Room Air 09/17/18 20:10 97 09/17/18 20:05 89 09/17/18 20:00 98.7 99 17 90/51 (64) 95 09/17/18 20:00 99 09/17/18 20:00 97 09/17/18 18:39 98.5 09/17/18 17:37 98.5 98 18 101/63 (76) 94 09/17/18 15:18 99 09/17/18 12:00 98.5 108 18 129/70 (89) 94 09/17/18 11:53 101 09/17/18 08:44 98.5 115 18 124/65 (84) 94 09/17/18 07:55 117 Intake and Output 09/17/18 09/18/18 19:00 07:00 Intake Total 915 ml 1133 ml Balance 915 ml 1133 ml Intake Oral 840 ml 50 ml IV Total 75 ml 1083 ml # Voids 3 9 # Bowel Movements 1 Objective General Appearance: no apparent distress, alert Lines, tubes and drains: peripheral HEENT: normocephalic, atraumatic, anicteric, mucous membranes moist Neck: non-tender, supple, no JVD Respiratory/Chest: lungs clear with moderate air exchange , no respiratory distress, no accessory muscle use Cardiovascular/Chest: regular rhythm, SR to mild ST ( 100-105) on tele Abdomen: normal bowel sounds, non tender, soft Extremities: no calf tenderness, normal capillary refill Neurologic: alert, responsive Musculoskeletal: normal muscle bulk Microbiology Date/Time Source Procedure Growth Status 09/16/18 18:10 Blood Blood Culture - Preliminary NO GROWTH AFTER 24 HOURS Resulted 09/16/18 17:50 Blood Blood Culture - Preliminary NO GROWTH AFTER 24 HOURS Resulted 09/17/18 10:30 Sputum Gram Stain - Final Resulted 09/17/18 10:30 Sputum Sputum Culture Pending Resulted 09/16/18 18:00 Nasal Nares Influenza Types A,B Antigen (MONCHO) - Final Complete 09/16/18 18:00 Urine,Clean Catch Urine Culture - Preliminary Gram Negative Capo Resulted Laboratory Tests 09/17/18 09:02: Carcinoembryonic Antigen [Pending], RBC Folate Hemolysate [Pending], Red Blood Cell Folate [Pending] 09/18/18 06:50: White Blood Count 9.9, Red Blood Count 3.15L, Hemoglobin 8.9L, Hematocrit 28.3L , Mean Corpuscular Volume 90, Mean Corpuscular Hemoglobin 28.2, Mean Corpuscular Hemoglobin Concent 31.3L, Red Cell Distribution Width 18.7H, Platelet Count 290, Mean Platelet Volume 5.7L, Neutrophils (%) (Auto) 70.2, Lymphocytes (%) (Auto) 24.3, Monocytes (%) (Auto) 4.5, Eosinophils (%) (Auto) 0.5, Basophils (%) (Auto) 0.4, Sodium Level 142, Potassium Level 3.8, Chloride Level 110H, Carbon Dioxide Level 26, Anion Gap 7, Blood Urea Nitrogen 11, Creatinine 0.7, Estimat Glomerular Filtration Rate , Glucose Level 85, Calcium Level 7.9L, Troponin I 0.021, Pro-B-Type Natriuretic Peptide 1827H, Cortisol AM Sample [Pending] Current Medications Medications (Trade) Dose Ordered Sig/Naomi Route PRN Reason Start Time Stop Time Status Last Admin Dose Admin Acetaminophen (Tylenol) 650 mg Q4H PRN ORAL fever (temp>100.5F) 09/16/18 20:15 10/16/18 20:14 Albuterol/ Ipratropium (Albuterol/ Ipratropium) 3 ml Q4H PRN HHN Shortness of Breath 09/16/18 20:15 09/21/18 20:14 Cefepime HCl 2 gm/ Dextrose 110 ml @ 220 mls/hr Q24H IV 09/17/18 00:00 09/24/18 00:00 09/18/18 00:30 Escitalopram Oxalate (Lexapro) 10 mg DAILY ORAL 09/17/18 09:00 10/17/18 08:59 09/17/18 08:17 Guaifenesin (Robitussin) 100 mg Q4H PRN ORAL For Cough 09/17/18 10:32 10/17/18 10:31 09/17/18 18:09 Heparin Sodium (Porcine) (Heparin 5000 units/ml) 5,000 units EVERY 12 HOURS SUBQ 09/16/18 21:00 10/16/18 20:59 09/17/18 22:17 Iopamidol (Isovue-300 100ml) 100 ml NOW PRN INJ Radiology Procedure 09/17/18 13:15 09/19/18 13:10 Morphine Sulfate (Morphine Sulfate) 2 mg Q4H PRN IVP Moderate Pain (Pain Scale 4-6) 09/16/18 20:15 09/23/18 20:14 09/17/18 22:24 Ondansetron HCl (Zofran) 4 mg Q6H PRN IVP Nausea & Vomiting 09/16/18 20:15 10/16/18 20:14 Phenazopyridine HCl (Pyridium) 100 mg DAILYPRN PRN ORAL dysuria 09/16/18 20:15 10/16/18 20:14 Polyethylene Glycol (Miralax) 17 gm DAILYPRN PRN ORAL Constipation 09/16/18 20:15 10/16/18 20:14 Potassium Chloride 10 meq/ Sodium Chloride 1,005 ml @ 75 mls/hr [id number] IV 09/17/18 10:00 10/17/18 09:59 09/18/18 00:30 Risperidone (RisperDAL) 2 mg QHS ORAL 09/16/18 21:00 10/16/18 20:59 09/17/18 22:17 Temazepam (Restoril) 15 mg HSPRN PRN ORAL Insomnia 09/16/18 20:15 09/23/18 20:14 Vancomycin HCl (Vanco rx to dose) 1 ea DAILY PRN MISC PER RX PROTOCOL 09/16/18 20:45 10/16/18 20:44 Vancomycin HCl 750 mg/Sodium Chloride 275 ml @ 183.333 mls/hr Q24H IVPB 09/17/18 22:00 09/22/18 21:59 09/17/18 22:18 Nadine Merrill NP Sep 18, 2018 08:01
[2018-09-18] MEDS: Heparin 5000 units/ml inj SUBQ SCH ×2 (08:30→20:10)
--- NOTE | 2018-09-18 09:27 | NUR ---
NURSE NOTES: pt awake alert, no distress. no sob. no c/o pain at this time. left hand 24g iv access patent and intact, ivf infusing. call light within reach. bed in lowest position, locked.
[2018-09-18] MEDS ORDERED: Iron Sucrose 100 MG in NS 55 ML IV ONE (10:00)
--- NOTE | 2018-09-18 10:13 | Diagnostic Imaging Report ---
EXAM: XR Chest, 1 View CLINICAL HISTORY: SOB TECHNIQUE: Frontal view of the chest. COMPARISON: Chest x-ray 09/16/18 1742 FINDINGS: Lungs: Left midlung streaky opacities. Left lower lobe atelectasis. Stable nodular opacities. Pleural space: Tiny left pleural effusion is new. No pneumothorax. Heart: Unremarkable. No cardiomegaly. Mediastinum: Unremarkable. Bones/joints: Right humeral hardware. Degenerative changes of the spine. Soft tissues: Right axillary surgical clips. IMPRESSION: 1. Left midlung streaky opacities. Left lower lobe atelectasis. 2. Tiny left pleural effusion is new.
[2018-09-18] MEDS: guaiFENesin 100mg/5ml Liq ud ORAL PRN (10:19)
[2018-09-18] MEDS: Morphine Sulfate 2mg/ml Inj IVP PRN ×2 (10:19→20:12)
--- NOTE | 2018-09-18 11:22 | Cardiology Progress Note ---
Assessment/Plan Assessment/Plan syncoep vs fall uti hypotension had some abigail bp reaadign last ntie tele neg bp this am is better iv abx for uti blood cx neg trop i neg b12 if fien await orthosttic vitals when abl to stand keep on ivf not on oany antihypertensives now will follwo Subjective Cardiovascular: Denies: chest pain, lightheadedness Respiratory: Denies: shortness of breath Gastrointestinal/Abdominal: Denies: abdomen distended Genitourinary: Reports: burning Subjective hurts all over Objective Last 24 Hour Vital Signs Date Time Temp Pulse Resp B/P (MAP) Pulse Ox O2 Delivery O2 Flow Rate FiO2 09/18/18 09:42 103 09/18/18 09:37 100 09/18/18 09:32 98 09/18/18 07:53 98.1 90 17 130/70 (90) 95 09/18/18 07:50 108 20 Room Air 21 09/18/18 07:50 104 09/18/18 07:17 Room Air 09/18/18 04:00 91 09/18/18 04:00 98.1 84 17 134/68 (90) 95 09/18/18 00:00 96 09/18/18 00:00 98.0 95 17 108/58 (75) 95 09/17/18 21:00 Room Air 09/17/18 20:10 97 09/17/18 20:05 89 09/17/18 20:00 98.7 99 17 90/51 (64) 95 09/17/18 20:00 99 09/17/18 20:00 97 09/17/18 18:39 98.5 09/17/18 17:37 98.5 98 18 101/63 (76) 94 09/17/18 15:18 99 09/17/18 12:00 98.5 108 18 129/70 (89) 94 09/17/18 11:53 101 General Appearance: no apparent distress, alert Neck: supple Cardiovascular: normal rate, regular rhythm Respiratory/Chest: lungs clear Abdomen: normal bowel sounds, non tender, soft Extremities: no swelling Intake and Output 09/17/18 09/18/18 18:59 06:59 Intake Total 840 ml 1133 ml Balance 840 ml 1133 ml Intake Oral 840 ml 50 ml IV Total 1083 ml # Voids 3 9 # Bowel Movements 1 Laboratory Tests Test 09/18/18 06:50 White Blood Count 9.9 K/UL (4.8-10.8) Red Blood Count 3.15 M/UL (4.20-5.40) L Hemoglobin 8.9 G/DL (12.0-16.0) L Hematocrit 28.3 % (37.0-47.0) L Mean Corpuscular Volume 90 FL (80-99) Mean Corpuscular Hemoglobin 28.2 PG (27.0-31.0) Mean Corpuscular Hemoglobin Concent 31.3 G/DL (32.0-36.0) L Red Cell Distribution Width 18.7 % (11.6-14.8) H Platelet Count 290 K/UL (150-450) Mean Platelet Volume 5.7 FL (6.5-10.1) L Neutrophils (%) (Auto) 70.2 % (45.0-75.0) Lymphocytes (%) (Auto) 24.3 % (20.0-45.0) Monocytes (%) (Auto) 4.5 % (1.0-10.0) Eosinophils (%) (Auto) 0.5 % (0.0-3.0) Basophils (%) (Auto) 0.4 % (0.0-2.0) Sodium Level 142 MMOL/L (136-145) Potassium Level 3.8 MMOL/L (3.5-5.1) Chloride Level 110 MMOL/L (98-107) H Carbon Dioxide Level 26 MMOL/L (21-32) Anion Gap 7 mmol/L (5-15) Blood Urea Nitrogen 11 mg/dL (7-18) Creatinine 0.7 MG/DL (0.55-1.30) Estimat Glomerular Filtration Rate mL/min (>60) Glucose Level 85 MG/DL (74-106) Calcium Level 7.9 MG/DL (8.5-10.1) L Troponin I 0.021 ng/mL (0.000-0.056) Pro-B-Type Natriuretic Peptide 1827 pg/mL (0-125) H Cortisol AM Sample Pending Microbiology Date/Time Source Procedure Growth Status 09/16/18 18:10 Blood Blood Culture - Preliminary NO GROWTH AFTER 24 HOURS Resulted 09/16/18 17:50 Blood Blood Culture - Preliminary NO GROWTH AFTER 24 HOURS Resulted 09/17/18 10:30 Sputum Gram Stain - Final Resulted 09/17/18 10:30 Sputum Sputum Culture Pending Resulted 09/16/18 18:00 Nasal Nares Influenza Types A,B Antigen (MONCHO) - Final Complete 09/16/18 18:00 Urine,Clean Catch Urine Culture - Final Escherichia Coli Complete Frantz Wall MD Sep 18, 2018 11:22
--- NOTE | 2018-09-18 11:54 | Consultation ---
History of Present Illness General Date patient seen: Sep 18, 2018 Chief Complaint: Multiple Trauma/Fall Referring physician: dr Renee Reason for Consultation: syncopal episode, sepsis, Present Illness HPI 73 y/o Indonesian F with hx of HLD, dysphagia, stomach CA, Breast CA s/p mastectomy , solitary R pulmonary nodule, s/p ORIF R humerus 2018 presents to ED on 09/16 with a fall and refers hip pain. Denies LOC. Upon admission patient found to have LLL infiltrates. CT neg for hip fracture. Upon admission, patient febrile to 101.1, tachycardic to 130s and tachyenics to mid 20s. WBC 21.7 and lactic acidosis OF note, patient was admitted here from 08/12-08/18 for acute encephalopathy and UTI. Dnies f/c, wt loss, CP, palpitaions, SOB, n/v/d Allergies: Coded Allergies: NO KNOWN ALLERGIES (Verified Allergy, Unknown, 07/31/18) Medication History Scheduled Ascorbic Acid* (Vitamin C*), 500 MG ORAL DAILY, (Reported) Aspirin* (Aspirin*), 81 MG ORAL DAILY, (Reported) Atorvastatin Calcium* (Lipitor*), 20 MG ORAL BEDTIME, (Reported) Escitalopram Oxalate* (Lexapro*), 10 MG ORAL DAILY, (Reported) Fluconazole (Fluconazole), 200 MG ORAL DAILY, (Reported) Multivitamin With Minerals (Multivitamins With Minerals*), 1 TAB ORAL DAILY, ( Reported) Nut Tx, Lact-Reduced, Iron (Boost Vhc), 120 ML PO TID, (Reported) Risperidone* (Risperdal*), 2 MG ORAL QHS, (Reported) Zinc Sulfate (Zinc Sulfate*), 220 MG ORAL DAILY, (Reported) Scheduled PRN Acetaminophen* (Acetaminophen 325MG Tablet*), 650 MG ORAL Q4H PRN for Fever/ Headache/Mild Pain, (Reported) Bisacodyl (Dulcolax), 10 MG RC DAILY PRN for IF MOM INEFFECTIVE, (Reported) Magnesium Hydroxide* (Milk Of Magnesia*), 30 ML ORAL DAILY PRN for Constipation, (Reported) Melatonin (Melatonin 5 Mg Tablet), 1 TAB ORAL BEDTIME PRN for Insomnia, ( Reported) Na Phos,M-B/Na Phos,Di-Ba* (Fleet Enema*), 133 ML RECTAL EVERY 96 HOURS PRN for IF DULCOLAX INEFFECTIVE, (Reported) Tramadol Hcl* (Ultram*), 50 MG ORAL Q8H PRN for MILD TO MODERATE PAIN, (Reported ) Tramadol Hcl* (Ultram*), 50 MG ORAL Q8HR PRN for Severe Pain (Pain Scale 7-10), (Reported) Miscellaneous Medications Unable to Obtain Medications (Unable To Obtain Meds), (Reported) Patient History Healthcare decision maker Resuscitation status Full Code Advanced Directive on File No Patient History Narrative Pmhx: as above Shx: The patient is and lives alone. The patient's ex- is at the bedside. The patient denies tobacco or alcohol use. Fhx: non contributory Review of Systems All Other Systems: negative except mentioned in HPI Physical Exam Physical Exam Narrative HEENT: normocephalic, atraumatic, anicteric, mucous membranes moist Neck: non-tender, supple Respiratory/Chest: lungs clear - with moderate air exchange , no respiratory distress, no accessory muscle use Cardiovascular/Chest: regular rhythm, tachycardia - ST on tele Abdomen: normal bowel sounds, non tender, soft Extremities: no calf tenderness, normal capillary refill Neurologic: alert, responsive Musculoskeletal: normal muscle bulk Last 24 Hour Vital Signs Date Time Temp Pulse Resp B/P (MAP) Pulse Ox O2 Delivery O2 Flow Rate FiO2 09/18/18 09:42 103 09/18/18 09:37 100 09/18/18 09:32 98 09/18/18 07:53 98.1 90 17 130/70 (90) 95 09/18/18 07:50 108 20 Room Air 21 09/18/18 07:50 104 09/18/18 07:17 Room Air 09/18/18 04:00 91 09/18/18 04:00 98.1 84 17 134/68 (90) 95 09/18/18 00:00 96 09/18/18 00:00 98.0 95 17 108/58 (75) 95 09/17/18 21:00 Room Air 09/17/18 20:10 97 09/17/18 20:05 89 09/17/18 20:00 98.7 99 17 90/51 (64) 95 09/17/18 20:00 99 09/17/18 20:00 97 09/17/18 18:39 98.5 09/17/18 17:37 98.5 98 18 101/63 (76) 94 09/17/18 15:18 99 09/17/18 12:00 98.5 108 18 129/70 (89) 94 09/17/18 11:53 101 Intake and Output 09/17/18 09/18/18 18:59 06:59 Intake Total 840 ml 1133 ml Balance 840 ml 1133 ml Intake Oral 840 ml 50 ml IV Total 1083 ml # Voids 3 9 # Bowel Movements 1 Laboratory Tests Test 09/18/18 06:50 White Blood Count 9.9 K/UL (4.8-10.8) Red Blood Count 3.15 M/UL (4.20-5.40) L Hemoglobin 8.9 G/DL (12.0-16.0) L Hematocrit 28.3 % (37.0-47.0) L Mean Corpuscular Volume 90 FL (80-99) Mean Corpuscular Hemoglobin 28.2 PG (27.0-31.0) Mean Corpuscular Hemoglobin Concent 31.3 G/DL (32.0-36.0) L Red Cell Distribution Width 18.7 % (11.6-14.8) H Platelet Count 290 K/UL (150-450) Mean Platelet Volume 5.7 FL (6.5-10.1) L Neutrophils (%) (Auto) 70.2 % (45.0-75.0) Lymphocytes (%) (Auto) 24.3 % (20.0-45.0) Monocytes (%) (Auto) 4.5 % (1.0-10.0) Eosinophils (%) (Auto) 0.5 % (0.0-3.0) Basophils (%) (Auto) 0.4 % (0.0-2.0) Sodium Level 142 MMOL/L (136-145) Potassium Level 3.8 MMOL/L (3.5-5.1) Chloride Level 110 MMOL/L (98-107) H Carbon Dioxide Level 26 MMOL/L (21-32) Anion Gap 7 mmol/L (5-15) Blood Urea Nitrogen 11 mg/dL (7-18) Creatinine 0.7 MG/DL (0.55-1.30) Estimat Glomerular Filtration Rate mL/min (>60) Glucose Level 85 MG/DL (74-106) Calcium Level 7.9 MG/DL (8.5-10.1) L Troponin I 0.021 ng/mL (0.000-0.056) Pro-B-Type Natriuretic Peptide 1827 pg/mL (0-125) H Cortisol AM Sample Pending Height (Feet): 5 Height (Inches): 0.00 Weight (Pounds): 120 Medications Current Medications Medications (Trade) Dose Ordered Sig/Naomi Route PRN Reason Start Time Stop Time Status Last Admin Dose Admin Acetaminophen (Tylenol) 650 mg Q4H PRN ORAL fever (temp>100.5F) 09/16/18 20:15 10/16/18 20:14 Albuterol/ Ipratropium (Albuterol/ Ipratropium) 3 ml Q4H PRN HHN Shortness of Breath 09/16/18 20:15 09/21/18 20:14 Cefepime HCl 2 gm/ Dextrose 110 ml @ 220 mls/hr Q24H IV 09/17/18 00:00 09/24/18 00:00 09/18/18 00:30 Escitalopram Oxalate (Lexapro) 10 mg DAILY ORAL 09/17/18 09:00 10/17/18 08:59 09/18/18 08:27 Guaifenesin (Robitussin) 100 mg Q4H PRN ORAL For Cough 09/17/18 10:32 10/17/18 10:31 09/18/18 10:19 Heparin Sodium (Porcine) (Heparin 5000 units/ml) 5,000 units EVERY 12 HOURS SUBQ 09/16/18 21:00 10/16/18 20:59 09/18/18 08:30 Iopamidol (Isovue-300 100ml) 100 ml NOW PRN INJ Radiology Procedure 09/17/18 13:15 09/19/18 13:10 Morphine Sulfate (Morphine Sulfate) 2 mg Q4H PRN IVP Moderate Pain (Pain Scale 4-6) 09/16/18 20:15 09/23/18 20:14 09/18/18 10:19 Ondansetron HCl (Zofran) 4 mg Q6H PRN IVP Nausea & Vomiting 09/16/18 20:15 10/16/18 20:14 Phenazopyridine HCl (Pyridium) 100 mg DAILYPRN PRN ORAL dysuria 09/16/18 20:15 10/16/18 20:14 Polyethylene Glycol (Miralax) 17 gm DAILYPRN PRN ORAL Constipation 09/16/18 20:15 10/16/18 20:14 Potassium Chloride 10 meq/ Sodium Chloride 1,005 ml @ 75 mls/hr [id number] IV 09/17/18 10:00 10/17/18 09:59 09/18/18 00:30 Risperidone (RisperDAL) 2 mg QHS ORAL 09/16/18 21:00 10/16/18 20:59 09/17/18 22:17 Temazepam (Restoril) 15 mg HSPRN PRN ORAL Insomnia 09/16/18 20:15 09/23/18 20:14 Vancomycin HCl (Vanco rx to dose) 1 ea DAILY PRN MISC PER RX PROTOCOL 09/16/18 20:45 10/16/18 20:44 Vancomycin HCl 750 mg/Sodium Chloride 275 ml @ 183.333 mls/hr Q24H IVPB 09/17/18 22:00 09/22/18 21:59 09/17/18 22:18 Assessment/Plan Assessment/Plan Abx: IV Vancomcin 09/16- Cefepime 09/17- Ceftriaxone x1 09/16 Assessment: Sepsis 2ry to PNA and UTI -CXR: Left midlung streaky opacities. Left lower lobe atelectasis.Tiny left pleural effusion is new. -sp cx p -u/a wbc 5-10, nit +, leuk +1; ucx E.coli ( R amp, otherwise negative) -influenza sc neg Fever, improving Leukocytosis, improving HLD dysphagia stomach CA Breast CA s/p mastectomy solitary R pulmonary nodule s/p ORIF R humerus 2018 Plan: -Continue empiric IV Vancomycin and Cefepime for PNA and UTI pending cultures -add Azithromycin for empiric atypical coverage -Legionella ag urine -f/u cx -Monitor CBC/CMP, temperatures -aspiration precautions Thank you for this consultation. Will continue to follow along with you. Discussed with Alisa Jonas M.D. Sep 18, 2018 11:54
[2018-09-18 12:37] VITALS: BP 121/65
[2018-09-18] MEDS: Azithromycin 250mg tab ORAL SCH (12:52)
--- NOTE | 2018-09-18 13:58 | NUR ---
RD ASSESSMENT & RECOMMENDATIONS SEE CARE ACTIVITY FOR COMPLETE ASSESSMENT DAILY ESTIMATED NEEDS: Needs based on Sepsis, h/o CA, 43.6kg 30-35 kcals/kg 0765-0505 total kcals 1-2 g protein/kg 44-87 g total protein 25-30 mL/kg 2105-1332 total fluid mLs NUTRITION DIAGNOSIS: Altered nutrition related lab values r/t clinical status as evidenced by low Hgb (8.9), elev BNP (1827), uglu 4+ on adm. CURRENT DIET: REGULAR PO DIET RECOMMENDATIONS: Liberalized REGULAR/ texture per [employer]ENER ADDITIONAL RECOMMENDATIONS: * Weekly calibrated bedscale wt. * Monitor BG POC (uglu 4 + on adm) * Glucerna 1 tetra alexx BID in b/w meals * Monitor PO intake closely, encourage PO intake * MUSSEL OPENER eval for appropriate texture . .
--- NOTE | 2018-09-18 15:27 | Internal Med Progress Note ---
Subjective Date of Service: Sep 18, 2018 Physician Name AcostaJohnny Attending Physician Brien Renee MD Current Medications Medications (Trade) Dose Ordered Sig/Naomi Route PRN Reason Start Time Stop Time Status Last Admin Dose Admin Acetaminophen (Tylenol) 650 mg Q4H PRN ORAL fever (temp>100.5F) 09/16/18 20:15 10/16/18 20:14 Albuterol/ Ipratropium (Albuterol/ Ipratropium) 3 ml Q4H PRN HHN Shortness of Breath 09/16/18 20:15 09/21/18 20:14 Azithromycin (Zithromax) 500 mg DAILY ORAL 09/18/18 12:00 09/25/18 11:59 09/18/18 12:52 Cefepime HCl 2 gm/ Dextrose 110 ml @ 220 mls/hr Q24H IV 09/17/18 00:00 09/24/18 00:00 09/18/18 00:30 Escitalopram Oxalate (Lexapro) 10 mg DAILY ORAL 09/17/18 09:00 10/17/18 08:59 09/18/18 08:27 Guaifenesin (Robitussin) 100 mg Q4H PRN ORAL For Cough 09/17/18 10:32 10/17/18 10:31 09/18/18 10:19 Heparin Sodium (Porcine) (Heparin 5000 units/ml) 5,000 units EVERY 12 HOURS SUBQ 09/16/18 21:00 10/16/18 20:59 09/18/18 08:30 Iopamidol (Isovue-300 100ml) 100 ml NOW PRN INJ Radiology Procedure 09/17/18 13:15 09/19/18 13:10 Morphine Sulfate (Morphine Sulfate) 2 mg Q4H PRN IVP Moderate Pain (Pain Scale 4-6) 09/16/18 20:15 09/23/18 20:14 09/18/18 10:19 Ondansetron HCl (Zofran) 4 mg Q6H PRN IVP Nausea & Vomiting 09/16/18 20:15 10/16/18 20:14 Phenazopyridine HCl (Pyridium) 100 mg DAILYPRN PRN ORAL dysuria 09/16/18 20:15 10/16/18 20:14 Polyethylene Glycol (Miralax) 17 gm DAILYPRN PRN ORAL Constipation 09/16/18 20:15 10/16/18 20:14 Potassium Chloride 10 meq/ Sodium Chloride 1,005 ml @ 75 mls/hr [id number] IV 09/17/18 10:00 10/17/18 09:59 09/18/18 12:52 Risperidone (RisperDAL) 2 mg QHS ORAL 09/16/18 21:00 10/16/18 20:59 09/17/18 22:17 Temazepam (Restoril) 15 mg HSPRN PRN ORAL Insomnia 09/16/18 20:15 09/23/18 20:14 Vancomycin HCl (Vanco rx to dose) 1 ea DAILY PRN MISC PER RX PROTOCOL 09/16/18 20:45 10/16/18 20:44 Vancomycin HCl 750 mg/Sodium Chloride 275 ml @ 183.333 mls/hr Q24H IVPB 09/17/18 22:00 09/22/18 21:59 09/17/18 22:18 Allergies: Coded Allergies: NO KNOWN ALLERGIES (Verified Allergy, Unknown, 07/31/18) ROS Limited/Unobtainable: No Constitutional: Reports: no symptoms HEENT: Reports: no symptoms Cardiovascular: Reports: no symptoms Respiratory: Reports: cough Gastrointestinal/Abdominal: Reports: no symptoms Genitourinary: Reports: no symptoms Neurologic/Psychiatric: Reports: no symptoms Subjective 73 YO F admitted with syncope. Now pneumonia and UTI. Cover for Int Cory-Dr Renee Objective Last Vital Signs Date Time Temp Pulse Resp B/P (MAP) Pulse Ox O2 Delivery O2 Flow Rate FiO2 09/18/18 12:37 97.9 88 17 121/65 (83) 95 09/18/18 07:50 Room Air 21 General Appearance: WD/WN, no apparent distress, alert EENT: PERRL/EOMI, normal ENT inspection Neck: non-tender, normal alignment, supple, normal inspection Cardiovascular: normal peripheral pulses, normal rate, regular rhythm, no gallop/murmur, no JVD Respiratory/Chest: chest wall non-tender, lungs clear, normal breath sounds, no respiratory distress, no accessory muscle use Abdomen: normal bowel sounds, non tender, soft, no organomegaly, no mass Extremities: normal range of motion, non-tender 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, no motor/sensory deficits Skin: normal pigmentation, warm/dry Laboratory Tests Test 09/18/18 06:50 White Blood Count 9.9 K/UL (4.8-10.8) Red Blood Count 3.15 M/UL (4.20-5.40) L Hemoglobin 8.9 G/DL (12.0-16.0) L Hematocrit 28.3 % (37.0-47.0) L Mean Corpuscular Volume 90 FL (80-99) Mean Corpuscular Hemoglobin 28.2 PG (27.0-31.0) Mean Corpuscular Hemoglobin Concent 31.3 G/DL (32.0-36.0) L Red Cell Distribution Width 18.7 % (11.6-14.8) H Platelet Count 290 K/UL (150-450) Mean Platelet Volume 5.7 FL (6.5-10.1) L Neutrophils (%) (Auto) 70.2 % (45.0-75.0) Lymphocytes (%) (Auto) 24.3 % (20.0-45.0) Monocytes (%) (Auto) 4.5 % (1.0-10.0) Eosinophils (%) (Auto) 0.5 % (0.0-3.0) Basophils (%) (Auto) 0.4 % (0.0-2.0) Sodium Level 142 MMOL/L (136-145) Potassium Level 3.8 MMOL/L (3.5-5.1) Chloride Level 110 MMOL/L (98-107) H Carbon Dioxide Level 26 MMOL/L (21-32) Anion Gap 7 mmol/L (5-15) Blood Urea Nitrogen 11 mg/dL (7-18) Creatinine 0.7 MG/DL (0.55-1.30) Estimat Glomerular Filtration Rate mL/min (>60) Glucose Level 85 MG/DL (74-106) Calcium Level 7.9 MG/DL (8.5-10.1) L Troponin I 0.021 ng/mL (0.000-0.056) Pro-B-Type Natriuretic Peptide 1827 pg/mL (0-125) H Cortisol AM Sample Pending Microbiology Date/Time Source Procedure Growth Status 09/16/18 18:10 Blood Blood Culture - Preliminary NO GROWTH AFTER 24 HOURS Resulted 09/16/18 17:50 Blood Blood Culture - Preliminary NO GROWTH AFTER 24 HOURS Resulted 09/17/18 10:30 Sputum Gram Stain - Final Resulted 09/17/18 10:30 Sputum Sputum Culture Pending Resulted 09/16/18 18:00 Nasal Nares Influenza Types A,B Antigen (MONCHO) - Final Complete 09/16/18 18:00 Urine,Clean Catch Urine Culture - Final Escherichia Coli Complete Intake and Output 09/17/18 09/18/18 18:59 06:59 Intake Total 840 ml 1133 ml Balance 840 ml 1133 ml Intake Oral 840 ml 50 ml IV Total 1083 ml # Voids 3 9 # Bowel Movements 1 Assessment/Plan Problem List: (1) Pneumonia Assessment & Plan: See pulmonary note. Continue vanco, cefepime and azithro per ID (2) Hypercholesteremia (3) UTI (urinary tract infection) Assessment & Plan: E. Coli. Continue cefepime per ID (4) Syncope (5) Pulmonary nodule Status: not improved Johnny Acosta MD Sep 18, 2018 15:27
[2018-09-18 16:00] VITALS: BP 115/70
--- NOTE | 2018-09-18 16:44 | NUR ---
NURSE NOTES: stool specimen sent to lab.
--- NOTE | 2018-09-18 19:00 | NUR ---
NURSE NOTES: urine specimen sent to lab
--- NOTE | 2018-09-18 19:15 | NUR ---
HAND-OFF: Report given to OLIVER VAZ. Addendum: 09/18/18 at 1915 by RAÚL SIMON RN HAND-OFF: Report given to EDUARDA SCHWAB
--- NOTE | 2018-09-18 19:21 | NUR ---
NURSE NOTES: Received report from MILIND Abbasi. Patient is awake lying semi-henson's; resting comfortably. No signs of acute distress noted; complains of pain. Family at bedside. AOx4; able to make needs known. Checked IV site; patent and flushed. No erythema, bleeding, or infiltration noted. Bed at lowest position, brakes on, siderails up x3. Call light within easy reach. Will continue to monitor.
[2018-09-18 20:00] VITALS: BP 141/78
--- NOTE | 2018-09-18 21:54 | General Progress Note ---
Assessment/Plan Assessment/Plan 1) Anxiety disorder ICD Codes: F41.9 - Anxiety disorder, unspecified SNOMED: 718728373 (2) Failure to thrive SNOMED: 01979872 Assessment/Plan zyprexa 10mg po qhs provided ro/st Subjective Neurologic/Psychiatric: Reports: anxiety, depressed, emotional problems Allergies: Coded Allergies: NO KNOWN ALLERGIES (Verified Allergy, Unknown, 07/31/18) Objective Last 24 Hour Vital Signs Date Time Temp Pulse Resp B/P (MAP) Pulse Ox O2 Delivery O2 Flow Rate FiO2 09/18/18 20:00 98.8 98 20 141/78 (99) 95 09/18/18 16:00 97.9 93 17 115/70 (85) 95 09/18/18 15:44 90 09/18/18 12:37 97.9 88 17 121/65 (83) 95 09/18/18 11:52 90 09/18/18 10:49 97.9 09/18/18 09:42 103 09/18/18 09:37 100 09/18/18 09:32 98 09/18/18 07:53 98.1 90 17 130/70 (90) 95 09/18/18 07:50 108 20 Room Air 21 09/18/18 07:50 104 09/18/18 07:17 Room Air 09/18/18 04:00 91 09/18/18 04:00 98.1 84 17 134/68 (90) 95 09/18/18 00:00 96 09/18/18 00:00 98.0 95 17 108/58 (75) 95 Intake and Output 09/17/18 09/18/18 19:00 07:00 Intake Total 915 ml 1133 ml Balance 915 ml 1133 ml Intake Oral 840 ml 50 ml IV Total 75 ml 1083 ml # Voids 3 9 # Bowel Movements 1 Laboratory Tests 09/18/18 06:50: White Blood Count 9.9, Red Blood Count 3.15L, Hemoglobin 8.9L, Hematocrit 28.3L , Mean Corpuscular Volume 90, Mean Corpuscular Hemoglobin 28.2, Mean Corpuscular Hemoglobin Concent 31.3L, Red Cell Distribution Width 18.7H, Platelet Count 290, Mean Platelet Volume 5.7L, Neutrophils (%) (Auto) 70.2, Lymphocytes (%) (Auto) 24.3, Monocytes (%) (Auto) 4.5, Eosinophils (%) (Auto) 0.5, Basophils (%) (Auto) 0.4, Sodium Level 142, Potassium Level 3.8, Chloride Level 110H, Carbon Dioxide Level 26, Anion Gap 7, Blood Urea Nitrogen 11, Creatinine 0.7, Estimat Glomerular Filtration Rate , Glucose Level 85, Calcium Level 7.9L, Troponin I 0.021, Pro-B-Type Natriuretic Peptide 1827H, Cortisol AM Sample 9.0 09/18/18 16:30: Stool Occult Blood [Pending], Urine Legionella Antigen [Pending] Height (Feet): 5 Height (Inches): 0.00 Weight (Pounds): 120 General Appearance: no apparent distress, alert Neurologic: oriented x 3, responsive, depressed affect Massimo Piña MD Sep 18, 2018 21:54
--- NOTE | 2018-09-18 21:54 | Consultation ---
History of Present Illness General Chief Complaint: Multiple Trauma/Fall Referring physician: dr Renee Reason for Consultation: syncopal episode, sepsis, Present Illness HPI 73-year-old Y[place] female, who [place] [facility] [place]. Im well familiar with the pt from [place]. The pt was admitted for uti before she was taking risperdal for paranoid thought and agitation. the pt is aaox4 the pt has poor appetite. Allergies: Coded Allergies: NO KNOWN ALLERGIES (Verified Allergy, Unknown, 07/31/18) Medication History Scheduled Ascorbic Acid* (Vitamin C*), 500 MG ORAL DAILY, (Reported) Aspirin* (Aspirin*), 81 MG ORAL DAILY, (Reported) Atorvastatin Calcium* (Lipitor*), 20 MG ORAL BEDTIME, (Reported) Escitalopram Oxalate* (Lexapro*), 10 MG ORAL DAILY, (Reported) Fluconazole (Fluconazole), 200 MG ORAL DAILY, (Reported) Multivitamin With Minerals (Multivitamins With Minerals*), 1 TAB ORAL DAILY, ( Reported) Nut Tx, Lact-Reduced, Iron (Boost [facility]), 120 ML PO TID, (Reported) Risperidone* (Risperdal*), 2 MG ORAL QHS, (Reported) Zinc Sulfate (Zinc Sulfate*), 220 MG ORAL DAILY, (Reported) Scheduled PRN Acetaminophen* (Acetaminophen 325MG Tablet*), 650 MG ORAL Q4H PRN for Fever/ Headache/Mild Pain, (Reported) Bisacodyl (Dulcolax), 10 MG RC DAILY PRN for IF MOM INEFFECTIVE, (Reported) Magnesium Hydroxide* (Milk Of Magnesia*), 30 ML ORAL DAILY PRN for Constipation, (Reported) Melatonin (Melatonin 5 Mg Tablet), 1 TAB ORAL BEDTIME PRN for Insomnia, ( Reported) Na Phos,M-B/Na Phos,Di-Ba* (Fleet Enema*), 133 ML RECTAL EVERY 96 HOURS PRN for IF DULCOLAX INEFFECTIVE, (Reported) Tramadol Hcl* (Ultram*), 50 MG ORAL Q8H PRN for MILD TO MODERATE PAIN, (Reported ) Tramadol Hcl* (Ultram*), 50 MG ORAL Q8HR PRN for Severe Pain (Pain Scale 7-10), (Reported) Miscellaneous Medications Unable to Obtain Medications (Unable To Obtain Meds), (Reported) Patient History Limited by: medical condition History Provided By: Patient, PMD Healthcare decision maker Resuscitation status Full Code Advanced Directive on File No Past Medical/Surgical History Past Medical/Surgical History: (1) Failure to thrive (2) Chest pain (3) ACS (acute coronary syndrome) (4) No pertinent past medical history (5) Yeast UTI (6) Multiple injuries due to trauma (7) Anxiety disorder (8) Metabolic encephalopathy (9) Pulmonary nodule (10) Hypercholesteremia (11) Pneumonia Review of Systems Psychiatric: Reports: prior hx, anxiety, depressed feelings, emotional problems Physical Exam General Appearance: no apparent distress, alert, agitated Neurologic: depressed affect Last 24 Hour Vital Signs Date Time Temp Pulse Resp B/P (MAP) Pulse Ox O2 Delivery O2 Flow Rate FiO2 09/18/18 20:00 98.8 98 20 141/78 (99) 95 09/18/18 16:00 97.9 93 17 115/70 (85) 95 09/18/18 15:44 90 09/18/18 12:37 97.9 88 17 121/65 (83) 95 09/18/18 11:52 90 09/18/18 10:49 97.9 09/18/18 09:42 103 09/18/18 09:37 100 09/18/18 09:32 98 09/18/18 07:53 98.1 90 17 130/70 (90) 95 09/18/18 07:50 108 20 Room Air 21 09/18/18 07:50 104 09/18/18 07:17 Room Air 09/18/18 04:00 91 09/18/18 04:00 98.1 84 17 134/68 (90) 95 09/18/18 00:00 96 09/18/18 00:00 98.0 95 17 108/58 (75) 95 Intake and Output 09/17/18 09/18/18 19:00 07:00 Intake Total 915 ml 1133 ml Balance 915 ml 1133 ml Intake Oral 840 ml 50 ml IV Total 75 ml 1083 ml # Voids 3 9 # Bowel Movements 1 Laboratory Tests Test 09/18/18 06:50 09/18/18 16:30 White Blood Count 9.9 K/UL (4.8-10.8) Red Blood Count 3.15 M/UL (4.20-5.40) L Hemoglobin 8.9 G/DL (12.0-16.0) L Hematocrit 28.3 % (37.0-47.0) L Mean Corpuscular Volume 90 FL (80-99) Mean Corpuscular Hemoglobin 28.2 PG (27.0-31.0) Mean Corpuscular Hemoglobin Concent 31.3 G/DL (32.0-36.0) L Red Cell Distribution Width 18.7 % (11.6-14.8) H Platelet Count 290 K/UL (150-450) Mean Platelet Volume 5.7 FL (6.5-10.1) L Neutrophils (%) (Auto) 70.2 % (45.0-75.0) Lymphocytes (%) (Auto) 24.3 % (20.0-45.0) Monocytes (%) (Auto) 4.5 % (1.0-10.0) Eosinophils (%) (Auto) 0.5 % (0.0-3.0) Basophils (%) (Auto) 0.4 % (0.0-2.0) Sodium Level 142 MMOL/L (136-145) Potassium Level 3.8 MMOL/L (3.5-5.1) Chloride Level 110 MMOL/L (98-107) H Carbon Dioxide Level 26 MMOL/L (21-32) Anion Gap 7 mmol/L (5-15) Blood Urea Nitrogen 11 mg/dL (7-18) Creatinine 0.7 MG/DL (0.55-1.30) Estimat Glomerular Filtration Rate mL/min (>60) Glucose Level 85 MG/DL (74-106) Calcium Level 7.9 MG/DL (8.5-10.1) L Troponin I 0.021 ng/mL (0.000-0.056) Pro-B-Type Natriuretic Peptide 1827 pg/mL (0-125) H Cortisol AM Sample 9.0 UG/DL Stool Occult Blood Pending Urine Legionella Antigen Pending Height (Feet): 5 Height (Inches): 0.00 Weight (Pounds): 120 Medications Current Medications Medications (Trade) Dose Ordered Sig/Naomi Route PRN Reason Start Time Stop Time Status Last Admin Dose Admin Acetaminophen (Tylenol) 650 mg Q4H PRN ORAL fever (temp>100.5F) 09/16/18 20:15 10/16/18 20:14 Albuterol/ Ipratropium (Albuterol/ Ipratropium) 3 ml Q4H PRN HHN Shortness of Breath 09/16/18 20:15 09/21/18 20:14 Azithromycin (Zithromax) 500 mg DAILY ORAL 09/18/18 12:00 09/25/18 11:59 09/18/18 12:52 Cefepime HCl 2 gm/ Dextrose 110 ml @ 220 mls/hr Q24H IV 09/17/18 00:00 09/24/18 00:00 09/18/18 00:30 Escitalopram Oxalate (Lexapro) 10 mg DAILY ORAL 09/17/18 09:00 10/17/18 08:59 09/18/18 08:27 Guaifenesin (Robitussin) 100 mg Q4H PRN ORAL For Cough 09/17/18 10:32 10/17/18 10:31 09/18/18 10:19 Heparin Sodium (Porcine) (Heparin 5000 units/ml) 5,000 units EVERY 12 HOURS SUBQ 09/16/18 21:00 10/16/18 20:59 09/18/18 20:10 Iopamidol (Isovue-300 100ml) 100 ml NOW PRN INJ Radiology Procedure 09/17/18 13:15 09/19/18 13:10 Morphine Sulfate (Morphine Sulfate) 2 mg Q4H PRN IVP Moderate Pain (Pain Scale 4-6) 09/16/18 20:15 09/23/18 20:14 09/18/18 20:12 Ondansetron HCl (Zofran) 4 mg Q6H PRN IVP Nausea & Vomiting 09/16/18 20:15 10/16/18 20:14 Phenazopyridine HCl (Pyridium) 100 mg DAILYPRN PRN ORAL dysuria 09/16/18 20:15 10/16/18 20:14 Polyethylene Glycol (Miralax) 17 gm DAILYPRN PRN ORAL Constipation 09/16/18 20:15 10/16/18 20:14 Risperidone (RisperDAL) 2 mg QHS ORAL 09/16/18 21:00 10/16/18 20:59 09/18/18 20:09 Temazepam (Restoril) 15 mg HSPRN PRN ORAL Insomnia 09/16/18 20:15 09/23/18 20:14 Vancomycin HCl (Vanco rx to dose) 1 ea DAILY PRN MISC PER RX PROTOCOL 09/16/18 20:45 10/16/18 20:44 Vancomycin HCl 750 mg/Sodium Chloride 275 ml @ 183.333 mls/hr Q24H IVPB 09/17/18 22:00 09/22/18 21:59 09/17/18 22:18 Assessment/Plan Problem List: (1) Anxiety disorder ICD Codes: F41.9 - Anxiety disorder, unspecified SNOMED: 919121653 (2) Failure to thrive SNOMED: [id number] Assessment/Plan cont risperdal 2mg po qhs provided ro/Massimo Cruz MD Sep 18, 2018 21:54
[2018-09-18] MEDS: Vancomycin 750mg/NS 275ml IVPB SCH ×2 (21:59)
[2018-09-19] VITALS: BP 121/68
[2018-09-19] MEDS: Cefepime HCl 2 GM in D5W 110 ML IV SCH (00:35)
--- NOTE | 2018-09-19 03:33 | NUR ---
NURSE NOTES: Patient is asleep lying semi-henson's; resting comfortably. No signs of acute distress or pain noted at this time.
[2018-09-19 04:00] VITALS: BP 157/90
[2018-09-19 06:50] LABS: BASOPHILS % (AUTO) 0.9 % (0.0-2.0); EOSINOPHILS % (AUTO) 1.3 % (0.0-3.0); HEMATOCRIT 28.3 % (37.0-47.0); MEAN CORPUSCULAR VOLUME 90 FL (80-99); MONOCYTES % (AUTO) 8.7 % (1.0-10.0); NEUTROPHILS % (AUTO) 54.1 % (45.0-75.0); PLATELET COUNT 306 K/UL (150-450); RED BLOOD COUNT 3.15 M/UL (4.20-5.40); RED CELL DISTRIBUTION WIDTH 18.9 % (11.6-14.8); WHITE BLOOD COUNT 5.7 K/UL (4.8-10.8)
[2018-09-19 07:01] LABS: ANION GAP 5 mmol/L (5-15); BLOOD UREA NITROGEN 6 mg/dL (7-18); CALCIUM 8.4 MG/DL (8.5-10.1); CARBON DIOXIDE 29 MMOL/L (21-32); CHLORIDE 109 MMOL/L (98-107); CREATININE 0.7 MG/DL (0.55-1.30); POTASSIUM 3.7 MMOL/L (3.5-5.1); SODIUM 143 MMOL/L (136-145)
--- NOTE | 2018-09-19 07:40 | NUR ---
NURSE NOTES: Received report at bedside from Nica VAZ. Pt is awake, alert, oriented x3, bilingual Spanish/Luxembourgish speaking. Denies pain with no signs/symptoms of discomfort present, on room air with no respiratory distress. IV access on left hand #24G, saline lock, patent/intact. Skin is intact, left hip bruise status post fall at home prior to admission. Pt will have PT eval done today, currently placed on fall precautions. Call light is placed within easy reach, bed in lowest position, three side rails up, brakes engaged, alarm on. Will continue to monitor pt and follow plan of care per MD orders and protocol.
--- NOTE | 2018-09-19 07:48 | NUR ---
HAND-OFF: Report given to MILIND Espana. Patient is awake sitting on the bed eating breakfast. In stable condition.
[2018-09-19 08:00] VITALS: BP 129/66
--- NOTE | 2018-09-19 09:33 | Infectious Diseases Prog Note ---
Assessment/Plan Assessment/Plan Abx: IV Vancomcin 09/16- Cefepime 09/17- Ceftriaxone x1 09/16 Assessment: Sepsis 2ry to PNA and UTI -CXR: Left midlung streaky opacities. Left lower lobe atelectasis.Tiny left pleural effusion is new. 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 Subjective Allergies: Coded Allergies: NO KNOWN ALLERGIES (Verified Allergy, Unknown, 07/31/18) Subjective Patient doing well on RA Afebrile Leukocytosis resolved Objective Vital Signs Last 24 Hour Vital Signs Date Time Temp Pulse Resp B/P (MAP) Pulse Ox O2 Delivery O2 Flow Rate FiO2 09/19/18 04:00 98.6 107 20 157/90 (112) 97 09/19/18 04:00 101 09/19/18 00:00 96 09/19/18 00:00 97.2 97 20 121/68 (85) 96 09/18/18 21:00 Room Air 09/18/18 20:10 116 09/18/18 20:05 106 09/18/18 20:00 95 09/18/18 20:00 108 09/18/18 20:00 98.8 98 20 141/78 (99) 95 09/18/18 19:40 Room Air 21 09/18/18 19:40 94 18 Room Air 21 09/18/18 19:40 94 Room Air 21 09/18/18 16:00 97.9 93 17 115/70 (85) 95 09/18/18 15:44 90 09/18/18 12:37 97.9 88 17 121/65 (83) 95 09/18/18 11:52 90 2/3/19 10:49 97.9 09/18/18 09:42 103 09/18/18 09:37 100 09/18/18 09:32 98 Height (Feet): 5 Height (Inches): 0.00 Weight (Pounds): 120 Objective HEENT: NCAT, MMM Respiratory/Chest: CTAB, no w Cardiovascular/Chest: RRR, s1, s2 Abdomen: normal bowel sounds, non tender, soft Neurologic: alert, responsive Microbiology Date/Time Source Procedure Growth Status 09/16/18 18:10 Blood Blood Culture - Preliminary NO GROWTH AFTER 48 HOURS Resulted 09/16/18 17:50 Blood Blood Culture - Preliminary NO GROWTH AFTER 48 HOURS Resulted 09/17/18 10:30 Sputum Gram Stain - Final Complete 09/17/18 10:30 Sputum Sputum Culture - Final NORMAL UPPER RESPIRATORY JOE PRESENT Complete 09/16/18 18:34 Nasal Nares MRSA Culture - Final NO METHICILLIN RESISTANT STAPH AUREUS... Complete 09/16/18 18:00 Nasal Nares Influenza Types A,B Antigen (MONCHO) - Final Complete 09/16/18 18:00 Urine,Clean Catch Urine Culture - Final Escherichia Coli Complete 09/16/18 18:34 Rectum VRE Culture - Final Enterococcus Faecium - Vre Resulted 09/16/18 18:34 Rectum Pending Resulted Laboratory Tests Test 09/18/18 16:30 09/19/18 05:10 Stool Occult Blood Pending Urine Legionella Antigen Pending White Blood Count 5.7 K/UL (4.8-10.8) Red Blood Count 3.15 M/UL (4.20-5.40) L Hemoglobin 9.0 G/DL (12.0-16.0) L Hematocrit 28.3 % (37.0-47.0) L Mean Corpuscular Volume 90 FL (80-99) Mean Corpuscular Hemoglobin 28.6 PG (27.0-31.0) Mean Corpuscular Hemoglobin Concent 31.9 G/DL (32.0-36.0) L Red Cell Distribution Width 18.9 % (11.6-14.8) H Platelet Count 306 K/UL (150-450) Mean Platelet Volume 5.7 FL (6.5-10.1) L Neutrophils (%) (Auto) 54.1 % (45.0-75.0) Lymphocytes (%) (Auto) 35.0 % (20.0-45.0) Monocytes (%) (Auto) 8.7 % (1.0-10.0) Eosinophils (%) (Auto) 1.3 % (0.0-3.0) Basophils (%) (Auto) 0.9 % (0.0-2.0) Sodium Level 143 MMOL/L (136-145) Potassium Level 3.7 MMOL/L (3.5-5.1) Chloride Level 109 MMOL/L (98-107) H Carbon Dioxide Level 29 MMOL/L (21-32) Anion Gap 5 mmol/L (5-15) Blood Urea Nitrogen 6 mg/dL (7-18) L Creatinine 0.7 MG/DL (0.55-1.30) Estimat Glomerular Filtration Rate mL/min (>60) Glucose Level 90 MG/DL (74-106) Calcium Level 8.4 MG/DL (8.5-10.1) L Current Medications Medications (Trade) Dose Ordered Sig/Naomi Route PRN Reason Start Time Stop Time Status Last Admin Dose Admin Acetaminophen (Tylenol) 650 mg Q4H PRN ORAL fever (temp>100.5F) 09/16/18 20:15 10/16/18 20:14 Albuterol/ Ipratropium (Albuterol/ Ipratropium) 3 ml Q4H PRN HHN Shortness of Breath 09/16/18 20:15 09/21/18 20:14 Azithromycin (Zithromax) 500 mg DAILY ORAL 09/18/18 12:00 09/25/18 11:59 09/18/18 12:52 Cefepime HCl 2 gm/ Dextrose 110 ml @ 220 mls/hr Q24H IV 09/17/18 00:00 09/24/18 00:00 09/19/18 00:35 Escitalopram Oxalate (Lexapro) 10 mg DAILY ORAL 09/17/18 09:00 10/17/18 08:59 09/18/18 08:27 Guaifenesin (Robitussin) 100 mg Q4H PRN ORAL For Cough 09/17/18 10:32 10/17/18 10:31 09/18/18 10:19 Heparin Sodium (Porcine) (Heparin 5000 units/ml) 5,000 units EVERY 12 HOURS SUBQ 09/16/18 21:00 10/16/18 20:59 09/18/18 20:10 Iopamidol (Isovue-300 100ml) 100 ml NOW PRN INJ Radiology Procedure 09/17/18 13:15 09/19/18 13:10 Morphine Sulfate (Morphine Sulfate) 2 mg Q4H PRN IVP Moderate Pain (Pain Scale 4-6) 09/16/18 20:15 09/23/18 20:14 09/18/18 20:12 Ondansetron HCl (Zofran) 4 mg Q6H PRN IVP Nausea & Vomiting 09/16/18 20:15 10/16/18 20:14 Phenazopyridine HCl (Pyridium) 100 mg DAILYPRN PRN ORAL dysuria 09/16/18 20:15 10/16/18 20:14 Polyethylene Glycol (Miralax) 17 gm DAILYPRN PRN ORAL Constipation 09/16/18 20:15 10/16/18 20:14 Risperidone (RisperDAL) 2 mg QHS ORAL 09/16/18 21:00 10/16/18 20:59 09/18/18 20:09 Temazepam (Restoril) 15 mg HSPRN PRN ORAL Insomnia 09/16/18 20:15 09/23/18 20:14 Vancomycin HCl (Vanco rx to dose) 1 ea DAILY PRN MISC PER RX PROTOCOL 09/16/18 20:45 10/16/18 20:44 Vancomycin HCl 750 mg/Sodium Chloride 275 ml @ 183.333 mls/hr Q24H IVPB 09/17/18 22:00 09/22/18 21:59 09/18/18 21:59 Narciso Quintero MD Sep 19, 2018 09:33
[2018-09-19] MEDS: Azithromycin 250mg tab ORAL SCH (09:53)
[2018-09-19] MEDS: Heparin 5000 units/ml inj SUBQ SCH (09:54)
--- NOTE | 2018-09-19 10:00 | Consultation ---
DATE OF CONSULTATION: 09/17/2018 CARDIOLOGY CONSULTATION CONSULTING PHYSICIAN: Frantz Wall M.D. REFERRING PHYSICIANS: Brien Renee M.D., and Johnny Acosta M.D. REASON FOR REFERRAL: Syncope. HISTORY OF PRESENT ILLNESS: This is an elderly female who is known to me from multiple hospitalizations here. Previously, the patient was brought to the emergency room by family members because of an episode of syncope. She had a fall a week ago, and again yesterday apparently she got dizzy and she fell at home, fell backwards. The prior fall she landed up having bruises on her left hip from one week ago, and she is not clear why she exactly fell. She is walking with a walker and she tried to sit she says, and she then fell backward. She does not have any chest pain. She does not have any shortness of breath. She only uses one pillow. There are no palpitations. There is no dizziness or lightheadedness on standing. There is no diarrhea and she has been eating okay. PAST MEDICAL HISTORY: Positive for recent hospitalization here for which I was also involved in her care at that time. She had had questionable episode of chest pains. She had history of breast cancer with possible either uterine or bladder cancer, status post resection. She had recurrent nausea and possibly vomiting at that time, dementia, and pulmonary nodule. She obviously has never had any heart problems. ALLERGIES: She is not allergic to any medications except Tylenol. SOCIAL HISTORY: She does not smoke or drink alcoholic beverages. REVIEW OF SYSTEMS: GASTROINTESTINAL: She denies any nausea, vomiting, diarrhea, or constipation. GENITOURINARY: She denies any burning on urination. PULMONARY: She denies any coughing or wheezing. CONSTITUTIONAL: She denies any fevers or chills although when she presented to the emergency room here, she apparently had a temperature of a 101.2 at the time of her admission. PHYSICAL EXAMINATION: GENERAL: Shows to be elderly female, in no respiratory distress. HEENT: Unremarkable. NECK: Supple. No jugular venous distention. LUNGS: Appear to be clear to auscultation or percussion. CARDIAC: Regular rate and rhythm. No heaves or thrills noted. ABDOMEN: Soft and nontender. Positive bowel sounds. EXTREMITIES: There is no edema. She has a large ecchymotic reason throughout the left leg posteriorly of the thigh area that appears to be soft, however. NEUROLOGIC: She is awake and responsive. She is actually much more responsive and communicated with me that she was on her prior evaluation here. LABORATORY DATA: White count was 17.7 at the time of admission yesterday, hemoglobin of 9, and platelet count of 258 today, dropped down to 14.2 with hemoglobin dropping down to 8.2, and platelet count of 263. Chemistry, sodium 141, potassium 3.4, chloride 109, bicarbonate 24, BUN of 11, creatinine 0.6, and glucose of 100. Lactic acid of 2.9. Iron of 10 with 7% saturation. Troponin 0.34, yesterday 0.120. Her vitamin B12 was 480. CEA is pending at this time. Her urinalysis shows 5 to 10 WBCs, 2 to 4 RBCs, 1+ leukocyte esterase, positive nitrites. Her x-rays, she had a CT scan of her pelvis that preliminary report showed no acute fractures or dislocation, and CT scan of her head shows no acute intracranial processes. Venous duplex of her lower extremities showed normal bilateral extremity duplex. A chest x-ray was performed that showed left basal atelectasis. Telemetry data shows sinus rhythm so far. An EKG performed yesterday shows sinus with incomplete left bundle-branch conduction defect. No ST or T-wave abnormalities. She has on her prior hospitalization in July of this past year about month and a half ago undergone a myocardial perfusion imaging that was normal. Negative for perfusion defects. Echocardiogram at that time had shown basically ejection fraction 65 to 70%. No significant valvular regurgitation. ASSESSMENT: 1. Fall. 2. Fevers. 3. Urinary tract infection. 4. Anemia. 5. Iron deficiency. PLAN: This patient was seen in cardiac consultation. Not clear to me if she actually specifically passed out or she just fell. Orthostatic vitals will be ordered. The patient has already had an ischemia evaluation and echocardiogram recently that were negative. I suspect if any may be related to the urinary tract infection that she may have at this time, treat her underlying urinary tract infection positive, hydration will be ordered. Monitoring on telemetry evaluation as nothing else shows up from cardiac point of view. She does tell me that she was actually walking at the time that she fell backwards a neurological event could be able to explain this. Frantz Wall M.D. DR: JUANA JOB#: [id number] CC:
[2018-09-19] MEDS ORDERED: Tubing IV Secondary IV ONE (10:24)
[2018-09-19] MEDS ORDERED: NS 275ml ONE (10:24)
--- NOTE | 2018-09-19 11:06 | NUR ---
ST NOTE: BEDSIDE SWALLOW EVAL RECEIVED BEDSIDE SWALLOW EVAL ORDER CHART REVIEWED PRIOR THE EVALUATION PT IS A 73-YEAR-OLD TAMAZIGHT-SPEAKING FEMALE WHO WAS ADMITTED DUE TO SYNCOPE. (PER PT, SHE FELL) AND L-SIDED PNA. DYSPHAGIA RISK FACTORS: L- MIDLUNG STREAKY OPACITIES, STABLE NODULAR OPACITIES, STOMACH CA, H/O BREAST CA(R MASTECTOMY-2005), UTERINE CA(HYSTERECTOMY), ENCEPHALOPATHY, UTI PLOF:PT LIVES AT [facility] WITH CAREGIVER CURRENT STATUS: PT SEEN AT BEDSIDE IN AM. ALERT, COOPERATIVE, FOLLOWS DIRECTIONS, SPEAK LATVIAN WELL. GIVEN PO TRIALS: THIN(CUP-SELF), CRACKER X 1 INITIAL IMPRESSION: GOOD DENTITION. SLOW BUT FUNCTIONAL MASTICATION TIME, GOOD ORAL TRANSIT TIME AND OROPHARYNGEAL TRANSIT TIME, FAIR TO GOOD LARYNGEAL ELEVATION, NO OVERT S/S OF ASPIRATION. OVERALL, PT'S SWALLOWING SEEMS FUNCTIONAL. HOWEVER, QUESTIONABLE DEGREE OF ESOPHAGEAL DYSPHAGIA DUE TO PT HAS H/O STOMACH CA. HAS ASPIRATION RISK. RECOMMENDATIONS: 1. FOR QUALITY OF LIFE, CONTINUE REGULAR WITH THIN LIQUIDS DIET 2. ASPIRATION/REFLUX PRECAUTIONS 3. VIDEOSWALLOW STUDY IP OR OP D/W PT AND RNMEKA. POSTED ASPIRATION/REFLUX PRECAUTIONS SIGN.
[2018-09-19 12:00] VITALS: BP 148/64
--- NOTE | 2018-09-19 13:25 | General Progress Note ---
Assessment/Plan Assessment/Plan 1) Anxiety disorder ICD Codes: F41.9 - Anxiety disorder, unspecified SNOMED: 270021702 (2) Failure to thrive SNOMED: 40216083 Assessment/Plan zyprexa 10mg po qhs provided ro/st Subjective Neurologic/Psychiatric: Reports: anxiety, depressed, emotional problems Allergies: Coded Allergies: NO KNOWN ALLERGIES (Verified Allergy, Unknown, 07/31/18) Objective Last 24 Hour Vital Signs Date Time Temp Pulse Resp B/P (MAP) Pulse Ox O2 Delivery O2 Flow Rate FiO2 09/19/18 13:07 99 104 108 09/19/18 09:00 Room Air 09/19/18 08:00 98.1 118 22 129/66 (87) 92 09/19/18 08:00 115 09/19/18 06:55 96 18 Room Air 09/19/18 06:55 96 Room Air 09/19/18 06:55 Room Air 21 09/19/18 04:00 98.6 107 20 157/90 (112) 97 09/19/18 04:00 101 09/19/18 00:00 96 09/19/18 00:00 97.2 97 20 121/68 (85) 96 09/18/18 21:00 Room Air 09/18/18 20:10 116 09/18/18 20:05 106 09/18/18 20:00 95 09/18/18 20:00 108 09/18/18 20:00 98.8 98 20 141/78 (99) 95 09/18/18 19:40 Room Air 21 09/18/18 19:40 94 18 Room Air 21 09/18/18 19:40 94 Room Air 09/18/18 16:00 97.9 93 17 115/70 (85) 95 09/18/18 15:44 90 Intake and Output 09/18/18 09/19/18 18:59 06:59 Intake Total 1335 ml 625 ml Balance 1335 ml 625 ml Intake Oral 720 ml 240 ml IV Total 615 ml 385 ml # Voids 5 4 # Bowel Movements 1 Laboratory Tests 09/18/18 16:30: Stool Occult Blood Negative, Urine Legionella Antigen [Pending] 09/19/18 05:10: White Blood Count 5.7, Red Blood Count 3.15L, Hemoglobin 9.0L, Hematocrit 28.3L , Mean Corpuscular Volume 90, Mean Corpuscular Hemoglobin 28.6, Mean Corpuscular Hemoglobin Concent 31.9L, Red Cell Distribution Width 18.9H, Platelet Count 306, Mean Platelet Volume 5.7L, Neutrophils (%) (Auto) 54.1, Lymphocytes (%) (Auto) 35.0, Monocytes (%) (Auto) 8.7, Eosinophils (%) (Auto) 1.3, Basophils (%) (Auto) 0.9, Sodium Level 143, Potassium Level 3.7, Chloride Level 109H, Carbon Dioxide Level 29, Anion Gap 5, Blood Urea Nitrogen 6L, Creatinine 0.7, Estimat Glomerular Filtration Rate , Glucose Level 90, Calcium Level 8.4L Height (Feet): 5 Height (Inches): 0.00 Weight (Pounds): 120 General Appearance: no apparent distress, alert Neurologic: oriented x 3, responsive, depressed affect Massimo Piña MD Sep 19, 2018 13:25
--- NOTE | 2018-09-19 14:15 | NUR ---
NURSE NOTES: Pt ambulated out of the unit with one family member, after signing AMA form, despite multiple attempts in conveying the risks involved with leaving prior to clearance by MD. Dr Renee was contacted 30min prior to AMA via telephone and message left regarding pt's request to be discharged. While waiting to receive a response from MD, pt stated "I want to go home now! I don't want to wait anymore." Pt insisted on leaving, and refused to wait. Tele monitor was removed by pt, which was returned to fitness technician. IV access was removed. Pt refused to have her belongings list checked. Charge nurse Shavon VAZ, nursing slot supervisor and Dr Renee were all informed of the AMA.
--- NOTE | 2018-09-19 14:34 | NUR ---
P.T Note: P.T evaluation completed and treatment initiated . Please refer to P.T evaluation for current functional status. Skilled P.T service is warranted to improve strength, balance and endurance to increase functional mobility independence and safety. Recommend SNF for short term rehab or home with CG assist and home P.T at [place]. Thank you for this referral. Addendum: 09/19/18 at 1434 by LEVAR PAZ PT Amended: Links added.
--- NOTE | 2018-09-19 14:35 | Pulmonology Progress Note ---
Assessment/Plan Problems: (1) Sepsis (2) Anxiety disorder (3) Pulmonary nodule (4) Pneumonia Assessment/Plan iv abx check sputum chest pt respiratory treatment f/u on old films to see if the lung mass is growing. Subjective ROS Limited/Unobtainable: No Interval Events: sitting up in bed wants to leave Constitutional: Reports: no symptoms HEENT: Repors: no symptoms Respiratory: Reports: no symptoms Allergies: Coded Allergies: NO KNOWN ALLERGIES (Verified Allergy, Unknown, 07/31/18) Objective Last 24 Hour Vital Signs Date Time Temp Pulse Resp B/P (MAP) Pulse Ox O2 Delivery O2 Flow Rate FiO2 09/19/18 13:07 99 104 108 09/19/18 09:00 Room Air 09/19/18 08:00 98.1 118 22 129/66 (87) 92 09/19/18 08:00 115 09/19/18 06:55 96 18 Room Air 09/19/18 06:55 96 Room Air 21 09/19/18 06:55 Room Air 21 09/19/18 04:00 98.6 107 20 157/90 (112) 97 09/19/18 04:00 101 09/19/18 00:00 96 09/19/18 00:00 97.2 97 20 121/68 (85) 96 09/18/18 21:00 Room Air 09/18/18 20:10 116 09/18/18 20:05 106 09/18/18 20:00 95 09/18/18 20:00 108 09/18/18 20:00 98.8 98 20 141/78 (99) 95 09/18/18 19:40 Room Air 21 09/18/18 19:40 94 18 Room Air 21 09/18/18 19:40 94 Room Air 09/18/18 16:00 97.9 93 17 115/70 (85) 95 09/18/18 15:44 90 Intake and Output 09/18/18 09/19/18 18:59 06:59 Intake Total 1335 ml 625 ml Balance 1335 ml 625 ml Intake Oral 720 ml 240 ml IV Total 615 ml 385 ml # Voids 5 4 # Bowel Movements 1 General Appearance: WD/WN HEENT: normocephalic, anicteric Respiratory/Chest: chest wall non-tender, lungs clear Breasts: no masses Cardiovascular: normal rate, regularly irregular, no JVD Abdomen: soft, non tender Microbiology Date/Time Source Procedure Growth Status 09/16/18 18:10 Blood Blood Culture - Preliminary NO GROWTH AFTER 48 HOURS Resulted 09/16/18 17:50 Blood Blood Culture - Preliminary NO GROWTH AFTER 48 HOURS Resulted 09/17/18 10:30 Sputum Gram Stain - Final Complete 09/17/18 10:30 Sputum Sputum Culture - Final NORMAL UPPER RESPIRATORY JOE PRESENT Complete 09/16/18 18:34 Nasal Nares MRSA Culture - Final NO METHICILLIN RESISTANT STAPH AUREUS... Complete 09/16/18 18:00 Nasal Nares Influenza Types A,B Antigen (MONCHO) - Final Complete 09/16/18 18:00 Urine,Clean Catch Urine Culture - Final Escherichia Coli Complete 09/16/18 18:34 Rectum VRE Culture - Final Enterococcus Faecium - Vre Resulted 09/16/18 18:34 Rectum Pending Resulted Laboratory Tests 09/18/18 16:30: Stool Occult Blood Negative, Urine Legionella Antigen [Pending] 09/19/18 05:10: White Blood Count 5.7, Red Blood Count 3.15L, Hemoglobin 9.0L, Hematocrit 28.3L , Mean Corpuscular Volume 90, Mean Corpuscular Hemoglobin 28.6, Mean Corpuscular Hemoglobin Concent 31.9L, Red Cell Distribution Width 18.9H, Platelet Count 306, Mean Platelet Volume 5.7L, Neutrophils (%) (Auto) 54.1, Lymphocytes (%) (Auto) 35.0, Monocytes (%) (Auto) 8.7, Eosinophils (%) (Auto) 1.3, Basophils (%) (Auto) 0.9, Sodium Level 143, Potassium Level 3.7, Chloride Level 109H, Carbon Dioxide Level 29, Anion Gap 5, Blood Urea Nitrogen 6L, Creatinine 0.7, Estimat Glomerular Filtration Rate , Glucose Level 90, Calcium Level 8.4L Current Medications Medications (Trade) Dose Ordered Sig/Naomi Route PRN Reason Start Time Stop Time Status Last Admin Dose Admin Acetaminophen (Tylenol) 650 mg Q4H PRN ORAL fever (temp>100.5F) 09/16/18 20:15 10/16/18 20:14 Albuterol/ Ipratropium (Albuterol/ Ipratropium) 3 ml Q4H PRN HHN Shortness of Breath 09/16/18 20:15 09/21/18 20:14 Azithromycin (Zithromax) 500 mg DAILY ORAL 09/18/18 12:00 09/25/18 11:59 09/19/18 09:53 Cefepime HCl 2 gm/ Dextrose 110 ml @ 220 mls/hr Q24H IV 09/17/18 00:00 09/24/18 00:00 09/19/18 00:35 Escitalopram Oxalate (Lexapro) 10 mg DAILY ORAL 09/17/18 09:00 10/17/18 08:59 09/19/18 09:53 Guaifenesin (Robitussin) 100 mg Q4H PRN ORAL For Cough 09/17/18 10:32 10/17/18 10:31 09/18/18 10:19 Heparin Sodium (Porcine) (Heparin 5000 units/ml) 5,000 units EVERY 12 HOURS SUBQ 09/16/18 21:00 10/16/18 20:59 09/19/18 09:54 Morphine Sulfate (Morphine Sulfate) 2 mg Q4H PRN IVP Moderate Pain (Pain Scale 4-6) 09/16/18 20:15 09/23/18 20:14 09/18/18 20:12 Olanzapine (ZyPREXA) 10 mg QPM ORAL 09/19/18 16:30 10/19/18 16:29 Ondansetron HCl (Zofran) 4 mg Q6H PRN IVP Nausea & Vomiting 09/16/18 20:15 10/16/18 20:14 Phenazopyridine HCl (Pyridium) 100 mg DAILYPRN PRN ORAL dysuria 09/16/18 20:15 10/16/18 20:14 Polyethylene Glycol (Miralax) 17 gm DAILYPRN PRN ORAL Constipation 09/16/18 20:15 10/16/18 20:14 Temazepam (Restoril) 15 mg HSPRN PRN ORAL Insomnia 09/16/18 20:15 09/23/18 20:14 Vancomycin HCl (Vanco rx to dose) 1 ea DAILY PRN MISC PER RX PROTOCOL 09/16/18 20:45 10/16/18 20:44 Vancomycin HCl 750 mg/Sodium Chloride 275 ml @ 183.333 mls/hr Q24H IVPB 2/2/19 22:00 09/22/18 21:59 09/18/18 21:59 Annie Cutler MD Sep 19, 2018 14:35
--- NOTE | 2018-09-19 15:30 | Diagnostic Imaging Report ---
Indication: Chest pain Technique: Continuous helical transaxial imaging of the chest was obtained from the thoracic inlet to the upper abdomen after intravenous nonionic contrast administration. Coronal 2-D reformats were also obtained. Automatic Exposure Control was utilized. Total Dose length Product (DLP): 911.[address] Dose Index Volume (CTDIvol): 15.27,15.27 mGy Comparison: none Findings: Small nodular focus again demonstrated within the left upper lobe at the margin of the major fissure. This is associated with a dense focus of calcium. This nodule is most likely a granuloma. There are other calcified granulomata present within the lung and mediastinum as well as the right hilum. In addition there is some atelectasis now present within a portion of the left upper lobe extending into the paramediastinal aspect of the left lung apex. Pneumonia certainly possible. There is a second focus of mild consolidation, perifissural along the upper margin of the major fissure within the right upper lobe. This was not seen previously. There is an unusual nonenhancing well-circumscribed ovoid density in the right lower lobe again noted measuring approximately 2.3 x 1.0 cm. Nature of this finding is unknown but that has not changed and has a benign appearance. There are bilateral pleural effusions slightly larger on the left compared to the right. There is basilar atelectasis present. Aorta is mildly calcified. Hiatal hernia noted. IMPRESSION: Small nodular density associated with dense calcification in the left upper lobe unchanged from the last examination. This is most likely a calcified granuloma. Follow-up may be obtained. 2.3 x 1 cm well-circumscribed ovoid density in the right lower lobe unchanged from the prior examination. The nature of this lesion is unknown. Suggest continued follow-up 6-12 months. Development of mild perifissural atelectasis and/or infiltrate involving portions of both upper lobes. Correlate for pneumonia. Development of small bilateral pleural effusions larger on the left with associated mild basal atelectasis. Atherosclerotic vascular disease. The CT scanner at [facility] is accredited by the [employer] and the scans are performed using dose optimization techniques as appropriate to a performed exam including Automatic Exposure control.
[2018-09-19] MEDS ORDERED: OLANZapine 10mg tab ORAL SCH (16:30)
--- NOTE | 2018-09-19 20:15 | General Progress Note ---
Assessment/Plan Problem List: (1) Anxiety disorder ICD Codes: F41.9 - Anxiety disorder, unspecified SNOMED: 465662127 (2) Failure to thrive SNOMED: 54788446 Assessment/Plan zyprexa 10mg po qhs provided ro/st Subjective Neurologic/Psychiatric: Reports: anxiety, depressed, emotional problems Allergies: Coded Allergies: NO KNOWN ALLERGIES (Verified Allergy, Unknown, 07/31/18) Objective Last 24 Hour Vital Signs Date Time Temp Pulse Resp B/P (MAP) Pulse Ox O2 Delivery O2 Flow Rate FiO2 09/19/18 13:07 99 104 108 09/19/18 12:00 98.0 99 22 148/64 (92) 92 09/19/18 09:00 Room Air 09/19/18 08:00 98.1 118 22 129/66 (87) 92 09/19/18 08:00 115 09/19/18 06:55 96 18 Room Air 21 09/19/18 06:55 96 Room Air 21 09/19/18 06:55 Room Air 21 09/19/18 04:00 98.6 107 20 157/90 (112) 97 09/19/18 04:00 101 09/19/18 00:00 96 09/19/18 00:00 97.2 97 20 121/68 (85) 96 09/18/18 21:00 Room Air Intake and Output 09/18/18 09/19/18 19:00 07:00 Intake Total 1260 ml 625 ml Balance 1260 ml 625 ml Intake Oral 720 ml 240 ml IV Total 540 ml 385 ml # Voids 5 4 # Bowel Movements 1 Laboratory Tests 09/19/18 05:10: White Blood Count 5.7, Red Blood Count 3.15L, Hemoglobin 9.0L, Hematocrit 28.3L , Mean Corpuscular Volume 90, Mean Corpuscular Hemoglobin 28.6, Mean Corpuscular Hemoglobin Concent 31.9L, Red Cell Distribution Width 18.9H, Platelet Count 306, Mean Platelet Volume 5.7L, Neutrophils (%) (Auto) 54.1, Lymphocytes (%) (Auto) 35.0, Monocytes (%) (Auto) 8.7, Eosinophils (%) (Auto) 1.3, Basophils (%) (Auto) 0.9, Sodium Level 143, Potassium Level 3.7, Chloride Level 109H, Carbon Dioxide Level 29, Anion Gap 5, Blood Urea Nitrogen 6L, Creatinine 0.7, Estimat Glomerular Filtration Rate , Glucose Level 90, Calcium Level 8.4L Height (Feet): 5 Height (Inches): 0.00 Weight (Pounds): 120 General Appearance: WD/WN, no apparent distress, alert Neurologic: oriented x 3, responsive, depressed affect Massimo Piña MD Sep 19, 2018 20:15
--- NOTE | 2018-09-20 13:46 | Cardiology Report ---
APPROVED REPORT EKG Measurement Heart [id number] Sinus tachycardia Incomplete right bundle branch block Borderline ECG
--- NOTE | 2018-09-21 11:08 | Discharge Summary ---
Discharge Summary Discharge Summary _ DATE OF ADMISSION: 09/16/2018 DATE OF DISCHARGE: 09/19/2018 Patient left AGAINST MEDICAL ADVICE REASON FOR ADMISSION: 73 years old female with past medical history of hyperlipidemia, dysphagia, history of stomach cancer, breast cancer, status post mastectomy, presented to emergency department for syncopal episode. Patient reported to get dizzy and fell at home. Upon presentation patient was febrile with temperature 101.1 , tachycardic with heart rate 124, and tachypneic with respiratory rate of 23. Blood pressure was 101/89. Laboratory workup revealed leukocytosis WBC 21.7, hemoglobin 9, hematocrit 28.3. Lactic acid 3.4. Stable renal parameters and electrolytes. Troponin with mild elevation 0.12, pro BNP 888. EKG revealed sinus tachycardia , no acute ischemic changes. Albumin 2.6. Urinalysis with evidence of UTI. CT of the head revealed no acute intracranial pathology. CT of the pelvis revealed no acute fracture. Chest x-ray revealed left lung base atelectasis versus consolidation. On prior admission in July 2018CT chest revealed masslike opacity in left upper lobe and right lower lobe. At that time it was recommended to follow up with repeat CT chest . Patient was admitted for further management CONSULTANTS: records technician Dr. Wall pulmonary Dr. Cutler ID specialist Dr. Patel psychiatrist [facility] COURSE: Patient admitted to telemetry floor. It Service Technician and video manager closely followed. Next two troponin were negative. EKG revealed no acute ischemic changes. No evidence of arrhythmia on telemetry. Patient did not complain of any chest pain. Apparently cardiac workup was done recently and was negative , as per patient. Echocardiogram revealed ejection fraction of 55-60% and evidence of mild pulmonary hypertension. Orthostatic vital signs were checked , no evidence of orthostatic changes. Patient with evidence of hypotension during this admission , and all antihypertensive medications were on hold. Patient denied dizziness. Supplemental oxygen provided as needed to keep pulse oximetry above 92% . Pulmonary toilet provided as needed. Patient started on empiric antibiotic as per ID specialist recommendation. Urine culture revealed E. coli. Influenza screen test negative. Blood cultures preliminary negative. Sputum culture negative. Urine Legionella pending. Follow-up chest x-ray revealed left midlung straight streaky opacities. Left lower lobe atelectasis. Tiny left pleural effusion. Leukocytosis was trending down, no further fevers. DVT prophylaxis provided. Venous duplex bilateral lower extremity revealed no evidence of acute DVT. Repeated CT of the chest revealed small nodular density associated with dense calcification in the left upper lobe, unchanged from the last examination. This is most likely a calcified granuloma. 2.3 x 1 cm well-circumscribed ovoid density in the right lower lobe unchanged from the prior examination. The nature of this lesion is unknown. Follow-up 6-12 months. Patient was on gentle IV fluids. Tachycardia resolved. Sinus tachycardia was likely due to dehydration and resolved with IV fluids. Renal parameters and electrolytes were closely monitored, electrolytes corrected as needed and nephrotoxins were avoided. Hemoglobin and hematocrit were closely monitored with goal to keep hemoglobin above 7. Anemia workup was consistent with anemia of chronic disease. Stool for occult blood was negative. CEA within normal limits. Venofer x1 was given. Prior to signing AMA, hemoglobin 9 hematocrit 28.3. Dietary recommendation implemented in plan of care of care regarding protein calorie malnutrition. Bedside swallow evaluation was completed. Patient had aspiration risk given questionable degree of esophageal dysphagia due to history of stomach cancer. Speech therapist recommended continue regular with thin liquids diet. Strict aspiration/ reflux precautions were maintained with close supervision during meals. Psychiatrist closely follow.Zyprexa was added to medication regimen. Reality orientation and supportive therapy provided. Patient decided to leave AGAINST MEDICAL ADVICE. Family member was at the bedside. Patient was able to ambulate with The risks and consequences of signing AGAINST MEDICAL ADVICE were discussed with patient in detail. Patient verbalized understanding, nevertheless signed AMA form and left. FINAL DIAGNOSES: Sepsis UTI with E coli Possible pneumonia Lung mass ( left upper lobe and right lower lobe) - unchanged from prior scan Syncopal episode, possibly due to sepsis Anemia iron deficiency History of cancer ( stomach, left breast, status post mastectomy) Severe protein calorie malnutrition Sinus tachycardia-resolved Possible dehydration Anxiety disorder Nadine Merrill NP Sep 21, 2018 11:08
== END 2018-09-19 14:15 | disposition left against medical advice (07) | DRG 871 ==
LOC: EMR 17:57 → 2E 17:59 → EDBEDREQ 18:48 → 2E 22:33
DX: A41.9 Sepsis, unspecified organism (principal); J18.9 Pneumonia, unspecified organism; E43 Unspecified severe protein-calorie malnutrition; N39.0 Urinary tract infection, site not specified; Z68.23 Body mass index [BMI] 23.0-23.9, adult; Z53.21 Procedure and treatment not carried out due to patient leaving prior to being seen by health care provider; R91.8 Other nonspecific abnormal finding of lung field; F41.9 Anxiety disorder, unspecified; B96.20 Unspecified Escherichia coli [E. coli] as the cause of diseases classified elsewhere; E86.0 Dehydration; D50.9 Iron deficiency anemia, unspecified; R00.0 Tachycardia, unspecified; R13.10 Dysphagia, unspecified; E78.5 Hyperlipidemia, unspecified; R62.7 Adult failure to thrive; F32.89 Other specified depressive episodes; Z85.028 Personal history of other malignant neoplasm of stomach; Z90.11 Acquired absence of right breast and nipple; Z85.3 Personal history of malignant neoplasm of breast
CPT/HCPCS: 36415; 70450; 71045; 71270; 72192; 80048; 80053; 81003; 82164; 82270; 82378; 82533; 82550; 82553; 82607; 82728; 82747; 83540; 83550; 83605; 83880; 84484; 85007; 85025; 86710; 87040; 87070; 87081; 87086; 87181; 87205; 93005; 93306; 93970; 94664; 94760; 96361; 96365; 97802; 99285

== ENCOUNTER 2018-10-09 03:53 | Inpatient (IN) | payer MEDICARE, MEDICAID ==
[~2018-10-09] VITALS: Ht 162.6 cm; Wt 61.2 kg
[2018-10-09] VITALS (8 sets, daily range): BP systolic 116–139; BP diastolic 52–71
[~2018-10-09 03:53] MED LIST changes: +UNOBMED
--- NOTE | 2018-10-09 03:57 | NUR ---
ED Nurse Note: Patient presents with abdominal pain 8/10, s 2 days, and inability/unwillingness to eat.
--- NOTE | 2018-10-09 04:11 | Emergency Room Report ---
History of Present Illness General Chief Complaint: Abdominal Pain Source: Patient, Medical Record, EMS Present Illness HPI Is a 73-year-old Kiswahili female with history of breast cancer and gastric cancer. She is status post discectomy exploratory laparotomy. She presents with chief complaint of weakness and vomiting. Onset for last couple days. Has nausea and vomiting. No diarrhea. No appetite in the last couple days. Denies any fever or chills. Recently admitted here beginning of the month. Allergies: Coded Allergies: NO KNOWN ALLERGIES (Verified Allergy, Unknown, 07/31/18) Patient History Past Medical History: see triage record, old chart reviewed Past Surgical History: other Pertinent Family History: none Social History: Denies: smoking Now: No Immunizations: other Reviewed Nursing Documentation: PMH: Agreed; PSxH: Agreed Nursing Documentation-PMH Past Medical History: Deferred Hx Cardiac Problems: Yes - hyperlipeidemia Hx Cancer: Yes - stomach cancer, RIGHT breast ca and mastectomy done Hx Gastrointestinal Problems: No Hx Neurological Problems: Yes - DYSPHAGIA Review of Systems Eye: Denies: eye pain, blurred vision ENT: Denies: ear pain, nose congestion, throat swelling Respiratory: Denies: cough, shortness of breath Cardiovascular: Denies: chest pain, palpitations Gastrointestinal: Reports: abdominal pain, nausea, vomiting; Denies: diarrhea Musculoskeletal: Denies: back pain, joint pain Skin: Denies: rash Neurological: Denies: headache, numbness Endocrine: Denies: increased thirst, increased urine Hematologic/Lymphatic: Denies: easy bruising All Other Systems: negative except mentioned in HPI Physical Exam Vital Signs Date Time Temp Pulse Resp B/P (MAP) Pulse Ox O2 Delivery O2 Flow Rate FiO2 10/09/18 03:43 98.8 90 16 116/61 98 Room Air vitals normal Sp02 EP Interpretation: reviewed, normal General Appearance: no apparent distress, alert, cachetic, Chronically Ill Head: normocephalic, atraumatic Eyes: bilateral eye PERRL, bilateral eye EOMI ENT: hearing grossly normal, normal pharynx Neck: full range of motion, supple, no meningismus Respiratory: chest non-tender, lungs clear, normal breath sounds Cardiovascular #1: regular rate, rhythm, no murmur Gastrointestinal: normal bowel sounds, no mass, no organomegaly, no bruit, non- distended, tenderness - Diffuse, decreased bowel sounds Musculoskeletal: back normal, gait/station normal, normal range of motion Psychiatric: mood/affect normal Skin: warm/dry Medical Decision Making Diagnostic Impression: Primary Impression: Failure to thrive Qualified Codes: R62.7 - Adult failure to thrive Additional Impression: Dehydration ER Course This is a 73-year-old female who presents with chief complaint of vomiting and weakness. Probably secondary to her cancer. She has ketones. Labs unremarkable. CT scan no evidence of any obstruction or acute abdomen. Patient hydrated here. Will admit for further workup. She may benefit from hospice care. I contacted Dr. Renee for admission. Lab Results Impression labs unremarkable EKG Diagnostic Results Rate: normal Rhythm: NSR ST Segments: no acute changes Rhythm Strip Diag. Results EP Interpretation: yes Rate: 89 Rhythm: NSR, no PVC's, no ectopy CT/MRI/US Diagnostic Results CT/MRI/US Diagnostic Results : Imaging Test Ordered: CT abdomen and pelvis Impression read by radiologist. No acute process. Constipation Last Vital Signs Date Time Temp Pulse Resp B/P (MAP) Pulse Ox O2 Delivery O2 Flow Rate FiO2 10/09/18 03:43 98.8 90 16 116/61 98 Room Air Status: improved Disposition: ADMITTED INPATIENT Condition: Serious Tylor Claudio MD Oct 09, 2018 04:11
[2018-10-09] MEDS ORDERED: Morphine Sulfate 4mg/ml Inj (IV USE ONLY) IVP ONE (04:15)
[2018-10-09 04:18] LABS: EOSINOPHILS % (AUTO) 0.3 % (0.0-3.0); HEMATOCRIT 35.9 % (37.0-47.0); HEMOGLOBIN 11.4 G/DL (12.0-16.0); LYMPHOCYTES % (AUTO) 37.5 % (20.0-45.0); MEAN CORPUSCULAR VOLUME 92 FL (80-99); NEUTROPHILS % (AUTO) 55.2 % (45.0-75.0); PLATELET COUNT 361 K/UL (150-450); RED BLOOD COUNT 3.91 M/UL (4.20-5.40); RED CELL DISTRIBUTION WIDTH 18.9 % (11.6-14.8); WHITE BLOOD COUNT 4.7 K/UL (4.8-10.8)
[2018-10-09 04:29] LABS: ANION GAP 10 mmol/L (5-15); BLOOD UREA NITROGEN 16 mg/dL (7-18); CALCIUM 8.9 MG/DL (8.5-10.1); CARBON DIOXIDE 25 MMOL/L (21-32); CHLORIDE 106 MMOL/L (98-107); CREATININE 0.9 MG/DL (0.55-1.30); POTASSIUM 3.7 MMOL/L (3.5-5.1); SODIUM 141 MMOL/L (136-145)
[2018-10-09 04:33] LABS: ALANINE AMINOTRANSFERASE 47 U/L (12-78); ALBUMIN 3.4 G/DL (3.4-5.0); ALKALINE PHOSPHATASE 109 U/L (46-116); ASPARTATE AMINO TRANSFERASE 37 U/L (15-37); BILIRUBIN,TOTAL 0.8 MG/DL (0.2-1.0)
--- NOTE | 2018-10-09 04:41 | NUR ---
ED Nurse Note: Patient going down for CT of abdomen.
--- NOTE | 2018-10-09 05:45 | NUR ---
ED Nurse Note: Patient resting quietly, vital signs stable.
[2018-10-09 05:48] LABS: APPEARANCE,URINE CLEAR; BILIRUBIN, URINE NEGATIVE (NEGATIVE); COLOR,URINE PALE YELLOW; GLUCOSE, URINE (UA) NEGATIVE (NEGATIVE); KETONES,URINE 4+ (NEGATIVE); LEUKOCYTE ESTERASE ,URINE NEGATIVE (NEGATIVE); NITRITE,URINE NEGATIVE (NEGATIVE); PH,URINE 6 (4.5-8.0); PROTEIN,URINE 1+ (NEGATIVE); UROBILINOGEN,URINE NORMAL MG/DL (0.0-1.0)
--- NOTE | 2018-10-09 06:09 | Diagnostic Imaging Report ---
EXAM: CT Abdomen and Pelvis Without Intravenous Contrast CLINICAL HISTORY: ABD PAIN TECHNIQUE: Axial computed tomography images of the abdomen and pelvis without intravenous contrast. CTDI is 9.65 mGy and DLP is 463 mGy-cm. One or more of the following dose reduction techniques were used: automated exposure control, adjustment of the mA and/or kV according to patient size, use of iterative reconstruction technique. COMPARISON: CT of the pelvis performed on 09/16/18 FINDINGS: Lung bases: Unremarkable. No mass. No consolidation. Mediastinum: Small hiatal hernia. ABDOMEN: Liver: Unremarkable. Gallbladder and bile ducts: Mild to moderate dilatation of intra- hepatic ducts. Dilated common bile duct measuring up to 11 mm. This may partly reflect age and prior cholecystectomy. Recommend clinical correlation and follow-up ERCP/MRCP as indicated. Pancreas: Unremarkable. No ductal dilation. Spleen: Unremarkable. No splenomegaly. Adrenals: Unremarkable. No mass. Kidneys and ureters: No ureteral calcification. Calcification in the upper right kidney which may reflect parenchymal calcification rather than renal calculus in the collecting system. Lobular renal contour likely normal variant. Probable left renal cyst. This measures approximately 1.2 cm. No hydronephrosis. Stomach and bowel: Prior bowel surgery in the upper abdomen No evidence for bowel obstruction. No mucosal thickening. PELVIS: Appendix: No appendicitis. Bladder: Unremarkable. No stones. Reproductive: Unremarkable as visualized. ABDOMEN and PELVIS: Intraperitoneal space: No free fluid. No free air. Bones/joints: Streak artifact due to left hip prosthesis partly obscured the left pelvis. T12 and T9 compression fracture, probably chronic. Soft tissue calcifications over the hips likely injection granulomas No dislocation. Small sclerotic lesion in the right medial iliac crest, unchanged and likely benign when compared to study from 09/16/18. Soft tissues: Coarse calcification associated with soft tissue density in the subcutaneous fat of the right anterior abdominal wall above the level of the umbilicus likely chronic change. Recommend correlation with exam for underlying mass. Vasculature: Unremarkable. No abdominal aortic aneurysm. Lymph nodes: Unremarkable. No enlarged lymph nodes. IMPRESSION: Nonspecific bowel gas pattern with mild retained stool. No evidence for appendicitis. Intra-and extrahepatic ductal dilatation which may partly reflect age and prior cholecystectomy. Recommend clinical correlation and follow-up ERCP/MRCP as indicated. No renal or ureteral calculus. T9 and T 12 compression fractures, likely chronic. Additional findings as noted above
--- NOTE | 2018-10-09 06:54 | NUR ---
ED Nurse Note: Patient is cleared for transport to medical surgiccal floor. Patient is A&Ox4 but a bit weak. Patient belongings sheet complete, Patient transported to floor by RN. Report given to Joshua RN prior to transport.
--- NOTE | 2018-10-09 07:00 | NUR ---
HAND-OFF: Report given to Eligio Sultana RN. Eligio is to complete admission process.
[2018-10-09] MEDS ORDERED: Miralax 17gm pkt ORAL PRN (07:45)
[2018-10-09] MEDS ORDERED: traMADol 50mg tab ORAL PRN (07:45)
--- NOTE | 2018-10-09 07:55 | NUR ---
NURSE NOTES: RN RECEIVED PT FROM ER. PT IN NO APPARENT DISTRESS AT THIS TIME. PT DENIES PAIN BUT IS RUBBING HER ABDOMEN. BELONGINGS CHECKED AT BEDSIDE. PT HAS $61 MCCAIN AND A GOLD RING ON FINGER. 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 PT UNABLE TO SIGN RELEASE OF LIABILITY DUE TO WEAKNESS. MCCAIN PLACED INSIDE PT'S COAT POCKET. RN RECEIVED ADMISSION ORDERS FROM DR. LUJAN. DR LUJAN MADE AWARE OF RESULTS FROM CT A/P AND LABS. REVIEWED MEDS AND RN RECEIVED NEW ORDERS. VSS. WILL CONTINUE TO MONITOR.
[2018-10-09] MEDS ORDERED: Fleet's Mineral Oil Enema RECTAL SCH (08:30)
--- NOTE | 2018-10-09 09:01 | Consultation ---
History of Present Illness General Date patient seen: Oct 09, 2018 Time patient seen: 08:15 Chief Complaint: Abdominal Pain Referring physician: dr Renee Reason for Consultation: failure to thrive , pulm nodule Present Illness HPI 73 years old female with PMH of right breast cancer , status post mastectomy, stomach cancer,uterine cancer, with status post hysterectomy, dysphagia, solitary pulmonary nodule, hyperlipidemia, status post exploratory laparotomy, presented with weakness and nonbloody nonbilious vomiting for the last few days. [email or web address] reporetd feeling dizzy the orning prior to presentation to ED, and she fell. She reported passing out. Patient denied diarrhea. No appetite in the last few days. No fever, no chills. Upon evaluation vital signs were stable. Laboratory workup revealed WBC 4.7, hemoglobin 11.4, hematocrit 35.9. Chemistry was unremarkable. Stable renal parameters and electrolytes. Albumin 3.4. Troponin -0.007.EKG revealed normal sinus rhythm no acute ischemic changes. Urinalysis revealed +4, ketones , +1 protein, no evidence of UTI. CT of the abdomen and pelvis revealed nonspecific bowel gas pattern with mild retained stool. No evidence for appendicitis. Intra-and extrahepatic ductal dilatation which may partly reflect age and prior cholecystectomy. No renal or ureteral calculus. T9 and T 12 compression fractures, likely chronic. Patient was admitted for further management with diagnoses of dehydration and failure to thrive Allergies: Coded Allergies: NO KNOWN ALLERGIES (Verified Allergy, Unknown, 07/31/18) Medication History Scheduled Ascorbic Acid* (Vitamin C*), 500 MG ORAL DAILY, (Reported) Aspirin* (Aspirin*), 81 MG ORAL DAILY, (Reported) Atorvastatin Calcium* (Lipitor*), 20 MG ORAL BEDTIME, (Reported) Escitalopram Oxalate* (Lexapro*), 10 MG ORAL DAILY, (Reported) Fluconazole (Fluconazole), 200 MG ORAL DAILY, (Reported) Multivitamin With Minerals (Multivitamins With Minerals*), 1 TAB ORAL DAILY, ( Reported) Nut Tx, Lact-Reduced, Iron (Boost Vhc), 120 ML PO TID, (Reported) Risperidone* (Risperdal*), 2 MG ORAL QHS, (Reported) Zinc Sulfate (Zinc Sulfate*), 220 MG ORAL DAILY, (Reported) Scheduled PRN Acetaminophen* (Acetaminophen 325MG Tablet*), 650 MG ORAL Q4H PRN for Fever/ Headache/Mild Pain, (Reported) Bisacodyl (Dulcolax), 10 MG RC DAILY PRN for IF MOM INEFFECTIVE, (Reported) Magnesium Hydroxide* (Milk Of Magnesia*), 30 ML ORAL DAILY PRN for Constipation, (Reported) Melatonin (Melatonin 5 Mg Tablet), 1 TAB ORAL BEDTIME PRN for Insomnia, ( Reported) Na Phos,M-B/Na Phos,Di-Ba* (Fleet Enema*), 133 ML RECTAL EVERY 96 HOURS PRN for IF DULCOLAX INEFFECTIVE, (Reported) Tramadol Hcl* (Ultram*), 50 MG ORAL Q8H PRN for MILD TO MODERATE PAIN, (Reported ) Tramadol Hcl* (Ultram*), 50 MG ORAL Q8HR PRN for Severe Pain (Pain Scale 7-10), (Reported) Miscellaneous Medications Unable to Obtain Medications (Unable To Obtain Meds), (Reported) Patient History Limited by: language barrier History Provided By: Medical Record Healthcare decision maker N Resuscitation status Advanced Directive on File Past Medical/Surgical History Past Medical/Surgical History: (1) Pulmonary nodule (2) Hypercholesteremia (3) Anxiety disorder Review of Systems ROS Narrative unavailable, patient unable to provide much info Physical Exam General Appearance: no apparent distress - awake, responsive, female Lines, tubes and drains: peripheral HEENT: normocephalic, atraumatic, anicteric, mucous membranes moist Neck: non-tender, supple Respiratory/Chest: lungs clear - with moderate air exchange Cardiovascular/Chest: normal rate, no JVD, other - R mastectomy Abdomen: normal bowel sounds, non tender, soft Extremities: non-tender, no calf tenderness Skin Exam: warm/dry Neurologic: abnormal gait, alert, responsive Musculoskeletal: atrophy - BLE Last 24 Hour Vital Signs Date Time Temp Pulse Resp B/P (MAP) Pulse Ox O2 Delivery O2 Flow Rate FiO2 10/09/18 06:54 98.2 88 16 127/52 98 Room Air 10/09/18 05:45 98.8 86 16 127/53 99 Room Air 10/09/18 05:13 98.8 90 16 126/52 98 Room Air 10/09/18 04:47 98.8 10/09/18 04:10 98.8 88 17 134/52 98 Room Air 10/09/18 03:57 98.8 91 16 116/61 98 Room Air 10/09/18 03:57 90 16 Room Air 10/09/18 03:43 98.8 90 16 61 98 Room Air Intake and Output 10/08/18 10/09/18 19:00 07:00 Intake Total 0 ml Balance 0 ml Intake Oral 0 ml Laboratory Tests Test 10/09/18 04:00 10/09/18 05:38 White Blood Count 4.7 K/UL (4.8-10.8) L Red Blood Count 3.91 M/UL (4.20-5.40) L Hemoglobin 11.4 G/DL (12.0-16.0) L Hematocrit 35.9 % (37.0-47.0) L Mean Corpuscular Volume 92 FL (80-99) Mean Corpuscular Hemoglobin 29.3 PG (27.0-31.0) Mean Corpuscular Hemoglobin Concent 31.9 G/DL (32.0-36.0) L Red Cell Distribution Width 18.9 % (11.6-14.8) H Platelet Count 361 K/UL (150-450) Mean Platelet Volume 6.1 FL (6.5-10.1) L Neutrophils (%) (Auto) 55.2 % (45.0-75.0) Lymphocytes (%) (Auto) 37.5 % (20.0-45.0) Monocytes (%) (Auto) 6.0 % (1.0-10.0) Eosinophils (%) (Auto) 0.3 % (0.0-3.0) Basophils (%) (Auto) 1.0 % (0.0-2.0) Sodium Level 141 MMOL/L (136-145) Potassium Level 3.7 MMOL/L (3.5-5.1) Chloride Level 106 MMOL/L (98-107) Carbon Dioxide Level 25 MMOL/L (21-32) Anion Gap 10 mmol/L (5-15) Blood Urea Nitrogen 16 mg/dL (7-18) Creatinine 0.9 MG/DL (0.55-1.30) Estimat Glomerular Filtration Rate mL/min (>60) Glucose Level 105 MG/DL (74-106) Calcium Level 8.9 MG/DL (8.5-10.1) Total Bilirubin 0.8 MG/DL (0.2-1.0) Aspartate Amino Transf (AST/SGOT) 37 U/L (15-37) Alanine Aminotransferase (ALT/SGPT) 47 U/L (12-78) Alkaline Phosphatase 109 U/L (46-116) Troponin I 0.007 ng/mL (0.000-0.056) Total Protein 6.7 G/DL (6.4-8.2) Albumin 3.4 G/DL (3.4-5.0) Globulin 3.3 g/dL Albumin/Globulin Ratio 1.0 (1.0-2.7) Lipase 126 U/L (73-393) Urine Color Pale yellow Urine Appearance Clear Urine pH 6 (4.5-8.0) Urine Specific Grandy 1.020 (1.005-1.035) Urine Protein 1+ (NEGATIVE) H Urine Glucose (UA) Negative (NEGATIVE) Urine Ketones 4+ (NEGATIVE) H Urine Blood 1+ (NEGATIVE) H Urine Nitrite Negative (NEGATIVE) Urine Bilirubin Negative (NEGATIVE) Urine Urobilinogen Normal MG/DL (0.0-1.0) Urine Leukocyte Esterase Negative (NEGATIVE) Urine RBC 2-4 /HPF (0 - 2) H Urine WBC 0-2 /HPF (0 - 2) Urine Squamous Epithelial Cells Few /LPF (NONE/OCC) Urine Bacteria Occasional /HPF (NONE) Urine Mucus Moderate /LPF (NONE/OCC) H Height (Feet): 5 Height (Inches): 4.00 Weight (Pounds): 135 Medications Current Medications Medications (Trade) Dose Ordered Sig/Naomi Route PRN Reason Start Time Stop Time Status Last Admin Dose Admin Acetaminophen (Tylenol) 650 mg Q4H PRN ORAL Mild Pain/Temp > 100.5 10/09/18 07:45 11/08/18 07:44 Ascorbic Acid (Vitamin C) 500 mg DAILY ORAL 10/09/18 09:00 11/08/18 08:59 Aspirin (ASA) 81 mg DAILY ORAL 10/09/18 09:00 11/08/18 08:59 Atorvastatin Calcium (Lipitor) 20 mg BEDTIME ORAL 10/09/18 21:00 11/08/18 20:59 Dextrose/ Electrolytes 1,000 ml @ 75 mls/hr [id number] IV 10/09/18 09:00 11/08/18 08:59 Escitalopram Oxalate (Lexapro) 10 mg DAILY ORAL 10/09/18 09:00 11/08/18 08:59 Heparin Sodium (Porcine) (Heparin 5000 units/ml) 5,000 units EVERY 12 HOURS SUBQ 10/09/18 09:00 11/08/18 08:59 Mineral Oil (Fleet's Mineral Oil Enema) 133 ml ONCE RECTAL 10/09/18 08:30 10/09/18 12:00 Multivitamins (Multivitamins W/ Minerals 15ml Liquid) 15 ml DAILY ORAL 10/09/18 09:00 11/08/18 08:59 Ondansetron HCl (Zofran) 4 mg Q4HR PRN IVP Nausea & Vomiting 10/09/18 07:45 11/08/18 07:44 Polyethylene Glycol (Miralax) 17 gm DAILY PRN ORAL Constipation 10/09/18 07:45 11/08/18 07:44 Risperidone (RisperDAL) 2 mg QHS PRN ORAL Agitation 10/09/18 07:45 11/08/18 07:44 Tramadol HCl (Ultram) 50 mg Q8HR PRN ORAL PAIN 4-10 10/09/18 07:45 10/16/18 07:44 Assessment/Plan Assessment/Plan ASSESSMENT dehydration ( due multiple episodes of vomiting) syncopal episode ( likely due to dehydration and hypovolemia ) severe protein calorie malnutritions intra-and extrahepatic ductal dilatation pulmonary nodule constipation hx of R breast Ca, s/p mastectomy hx of gastric Ca hx of uterine Ca, s/p hysterectomy dysphagia compression fx, likely old PLAN OF CARE MS floor O2 HHN prn IVF, monitor renal parameters, e/lytes, correct lytes prn, avoid nephrotoxics closely monitor hemodynamic status, tele stable nutritional consult bowel regimen pain management diet as tolerated a/emetic prn DVT prophylaxis consider GI eval due to dilated intra-and extrahepatic ductal dilatation, LFT stable for recs re MRCP CT chest done on previous admission, recently, earlier this month , and revealed small nodular density associated with dense calcification in the left upper lobe unchanged from the last examination. This was most likely a calcified granuloma. 2.3 x 1 cm well-circumscribed ovoid density in the right lower lobe unchanged from the prior examination. The nature of this lesion was unknown. Suggest continued follow-up 6-12 months. patient to follow up with CT chest in 6 months ( March 2019) fall precautions PT eval and rx continue ASA, statin supportive care case discussed and evaluated by supervising physician Nadine Merrill NP Oct 09, 2018 09:01
[2018-10-09] MEDS: Ascorbic Acid 500mg tab ORAL SCH (09:13)
[2018-10-09] MEDS: Aspirin Baby 81mg ORAL SCH (09:13)
[2018-10-09] MEDS: Multivitamins W/Minerals 15 ML UDC ORAL SCH (09:16)
[2018-10-09] MEDS: D5 1/2NS w/KCl 20mEq 1,000 ML IV SCH ×2 (09:16→22:12)
[2018-10-09] MEDS: Heparin 5000 units/ml inj SUBQ SCH ×2 (09:33→21:06)
--- NOTE | 2018-10-09 11:51 | NUR ---
NURSE NOTES: RN LEFT MESSAGE FOR FIELDWORK COORDINATOR ILEANA REGARDING FIRE BEHAVIOR ANALYST CONSULT ORDER.
--- NOTE | 2018-10-09 16:19 | NUR ---
CASE MANAGEMENT: REVIEW 73/F PRESENTED TO ED FROM HOME CC: ABD PAIN . FLU LIKE SYMPTOMS SI: DEHYDRATION . FAILURE TO THRIVE T 98.8 HR 90 RR 16 BP 134/52 SAT 98% ROOM AIR WBC 4.7 H/H 11.4/35.9 TROPONIN I 0.007 IS: ZOFRAN IV X1 NS IVF BOLUS X1 MORPHINE IV X1 PATIENT ADMITTED TO MED/SURG UNIT 10/09/2018 DCP: PATIENT IS FROM HOME
[2018-10-09] MEDS ORDERED: Tubing IV Secondary IV ONE (17:25)
--- NOTE | 2018-10-09 18:08 | History & Physical ---
History and Physical History & Physicial Dictated for Int Med-Dr Renee no. [id number]. Johnny Acosta MD Oct 09, 2018 18:08
--- NOTE | 2018-10-09 19:15 | History and Physical Report ---
DATE OF ADMISSION: 10/09/2018 CHIEF COMPLAINT: The patient is a 73-year-old female, presents with chief complaint of syncopal episode. HISTORY OF PRESENT ILLNESS: The patient was admitted to [facility] from 09/16/2018 to 09/19/2018. Please see History and Physical and discharge summary dictated at that time. The patient states that she got dizzy this morning. The patient states she fell. The patient states that she passed out. The patient was transferred to [facility] emergency room. The patient was found to have temperature of 101.1. The patient is admitted for syncopal episode to rule out sepsis. REVIEW OF SYSTEMS: CONSTITUTIONAL: The patient denies weight loss or gain. The patient denies fevers or chills. HEENT: The patient denies ear or throat pain. The patient denies headache. CARDIOVASCULAR: The patient denies palpitations or chest pain. CHEST: The patient denies wheeze or shortness of breath. ABDOMINAL: The patient denies nausea, vomiting, diarrhea, or constipation. GENITOURINARY: The patient denies dysuria or increased frequency in urination. NEUROMUSCULAR: The patient denies seizures or generalized weakness. PAST MEDICAL HISTORY: Significant for: 1. Gastric cancer. 2. Right breast cancer. 3. Solitary right pulmonary nodule. 4. Hypercholesterolemia. PAST SURGICAL HISTORY: Significant for: 1. Open reduction and internal fixation right humerus fracture in 2018. 2. Right breast mastectomy. 3. Diskectomy. 4. Exploratory laparotomy. CURRENT MEDICATIONS: 1. Tylenol 650 mg p.o. q.4 hours p.r.n. 2. Aspirin 81 mg p.o. daily. 3. Lipitor 20 mg p.o. at bedtime. 4. Lexapro 10 mg p.o. daily. 5. Multivitamin 1 tablet p.o. daily. 6. Risperdal 2 mg p.o. at bedtime. 7. Tramadol 50 mg p.o. q.8 hours p.r.n. pain. 8. Zinc sulfate 220 mg p.o. daily. ALLERGIES: No known drug allergies. SOCIAL HISTORY: The patient is single and lives with her significant other. The patient denies tobacco or alcohol use. PHYSICAL EXAMINATION: VITAL SIGNS: Temperature 98.8, respirations 16, pulse 86, blood pressure 127/53. GENERAL: The patient is well-developed and well-nourished female, in no apparent distress. HEENT: Eyes, pupils equal and responsive to light and accommodation. Extraocular movements are intact. NECK: Supple without lymphadenopathy. CHEST: Lungs are clear to auscultation bilaterally without wheezes or rales. CARDIOVASCULAR: Regular rhythm and rate. S1 and S2 are normal without murmurs, rubs, or gallops. ABDOMEN: Soft, nontender, nondistended. Positive bowel sounds. No evidence of hepatosplenomegaly. Currently, no rebound or guarding noted. EXTREMITIES: Negative for clubbing, cyanosis, or edema. RECTAL: Refused. GENITAL: Refused. NEUROLOGIC: Cranial nerves II through XII are grossly intact without focal deficits. Motor strength is 5/5 bilaterally. Deep tendon reflexes are 2+ plantar. LABORATORY STUDIES: WBC 4.7, hemoglobin 11.4, hematocrit 35.9, platelets 361,000. Sodium 141, potassium 3.7, chloride 106, CO2 25, BUN 16, creatinine 0.9, glucose 105. Troponin 0.07. Urinalysis showed 1+ protein, 4+ ketones, 1+ blood, 2 to 4 rbc's, 0 to 2 wbc's. ASSESSMENT: This is a 73-year-old female. 1. Syncopal episode. 2. Fever. 3. Hypercholesterolemia. 4. History of breast cancer. 5. Solitary pulmonary nodule. TREATMENT: 1. Syncopal episode. A Cardiology consultation is pending with Dr. Wall. The patient may be sepsis sick with a fever of 101. Blood and urine cultures are pending. The patient has been started empirically on ceftriaxone. 2. Hypercholesteremia. Continue Lipitor as above. 3. History of breast cancer, status post mastectomy. Johnny Acosta M.D. DR: ALBERTO JOB#: [id number] CC:
--- NOTE | 2018-10-09 19:22 | NUR ---
HAND-OFF: Report given to Anish GARCIA RN.
--- NOTE | 2018-10-09 19:45 | NUR ---
NURSE NOTES: Received patient in bed. On RA, no SOB, no acute distress, no c/o pain. IV intact patent on NICK running fluid with K. No complication noted. Bed in lowest position, locked, alarms on. Call light in reach. Reminded patient to use call light for any assistance.
[2018-10-09] MEDS: cefTRIAXone 1 GM in D5W 55 ML IVPB SCH (20:50)
[2018-10-09] MEDS ORDERED: Atorvastatin 20mg tab ORAL SCH (21:00)
[2018-10-10] VITALS: BP 128/63
[2018-10-10 04:00] VITALS: BP 117/61
--- NOTE | 2018-10-10 07:45 | NUR ---
HAND-OFF: Report given to Lisa Cano RN.
[2018-10-10 07:57] LABS: BASOPHILS % (AUTO) 0.8 % (0.0-2.0); EOSINOPHILS % (AUTO) 0.2 % (0.0-3.0); HEMATOCRIT 34.1 % (37.0-47.0); HEMOGLOBIN 10.4 G/DL (12.0-16.0); LYMPHOCYTES % (AUTO) 18.9 % (20.0-45.0); MEAN CORPUSCULAR VOLUME 95 FL (80-99); MONOCYTES % (AUTO) 6.4 % (1.0-10.0); NEUTROPHILS % (AUTO) 73.7 % (45.0-75.0); PLATELET COUNT 292 K/UL (150-450); RED BLOOD COUNT 3.58 M/UL (4.20-5.40); RED CELL DISTRIBUTION WIDTH 18.4 % (11.6-14.8); WHITE BLOOD COUNT 5.9 K/UL (4.8-10.8)
[2018-10-10 08:00] VITALS: BP 121/69
[2018-10-10] MEDS: Multivitamins W/Minerals 15 ML UDC ORAL SCH (08:19)
[2018-10-10] MEDS: Aspirin Baby 81mg ORAL SCH (08:19)
[2018-10-10] MEDS: Ascorbic Acid 500mg tab ORAL SCH (08:19)
[2018-10-10] MEDS: cefTRIAXone 1 GM in D5W 55 ML IVPB SCH (08:19)
[2018-10-10 08:20] LABS: ANION GAP 10 mmol/L (5-15); BLOOD UREA NITROGEN 4 mg/dL (7-18); CALCIUM 8.4 MG/DL (8.5-10.1); CARBON DIOXIDE 25 MMOL/L (21-32); CHLORIDE 106 MMOL/L (98-107); CREATININE 0.7 MG/DL (0.55-1.30); POTASSIUM 3.7 MMOL/L (3.5-5.1); SODIUM 141 MMOL/L (136-145)
[2018-10-10] MEDS: Heparin 5000 units/ml inj SUBQ SCH (08:20)
--- NOTE | 2018-10-10 09:40 | NUR ---
NURSE NOTES: pt in bed with no sob nor in any form of distress noted. all due meds given as ordered. assisted pt to use bedside commode. bed in lowest position. call light within reach at all time .will continue to monitor
--- NOTE | 2018-10-10 10:11 | NUR ---
REHAB MED PT NOTE CONSULT JARON VITALE COMPLETED, PATIENT WILL BENEFIT FROM SKILLED PT DURING STAY FOR RETURN TO [facility]. RECOMMEND [facility] FOR REHAB VS HOME WITH SUPERVISION. PLAN OF CARE INITIATED. BECCA CARMICHAEL PT DPT Addendum: 10/10/18 at 1011 by BECCA CARMICHAEL PT Amended: Links added.
--- NOTE | 2018-10-10 10:30 | NUR ---
RADIOLOGY DEPT CHEST X-RAY DONE.-P.DYE
--- NOTE | 2018-10-10 11:34 | NUR ---
RD ASSESSMENT & RECOMMENDATIONS SEE CARE ACTIVITY FOR COMPLETE ASSESSMENT DAILY ESTIMATED NEEDS: Needs based on Wound, 44.5kg kg 30-35 kcals/kg [id number] total kcals 1.25-1.5 g protein/kg 56-67 g total protein 25-30 mL/kg 1661-4896 total fluid mLs NUTRITION DIAGNOSIS: Increased kcal and protein needs r/t wound healing as evidenced by pt w/ sacral DTI. CURRENT DIET: REGULAR PO DIET RECOMMENDATIONS: * Liberalized REGULAR/ texture per CONTENT STRATEGY LEAD * ADDITIONAL RECOMMENDATIONS: RE-calibrate bed scale w/ added SPR mattress + pump * Monitor BG, h/o elev BG * Add Ensure TID w/ meals * 1:1 feeds w/ all meals * CONTENT STRATEGY LEAD eval for appropriate texture * WOUND CARE: add LAUREN BID .
[2018-10-10 12:00] VITALS: BP 122/70
--- NOTE | 2018-10-10 12:39 | Diagnostic Imaging Report ---
Indication: Cough Comparison: 09/18/2018 A single view chest radiograph was obtained. Findings: Ovoid nodule again demonstrated at the right lung base, for which six-month follow-up was recommended on a CT chest performed on 09/18/2018. There is scarring in the left midlung seen as a linear density projecting from the hilum to the periphery of the lung. Surgical clips in the right axilla noted. Bones are osteopenic. Heart size is within normal limits on the current examination. IMPRESSION: No acute disease. Other incidental findings as above
[2018-10-10] MEDS: D5 1/2NS w/KCl 20mEq 1,000 ML IV SCH (12:47)
--- NOTE | 2018-10-10 14:00 | NUR ---
NURSE NOTES: pt discharged to home with stable condition picked up by her . Iv heplock removed. all discharge instruction given to pt and verbalized understanding. all belongings given to pt.
--- NOTE | 2018-10-10 14:22 | Pulmonology Progress Note ---
Subjective Allergies: Coded Allergies: NO KNOWN ALLERGIES (Verified Allergy, Unknown, 07/31/18) Objective Last 24 Hour Vital Signs Date Time Temp Pulse Resp B/P (MAP) Pulse Ox O2 Delivery O2 Flow Rate FiO2 10/10/18 12:00 98.2 83 17 122/70 (87) 97 10/10/18 09:11 Room Air 10/10/18 08:00 98.8 71 17 121/69 (86) 99 10/10/18 04:00 98.8 81 18 117/61 (79) 97 10/10/18 00:00 98.8 82 16 128/63 (84) 98 10/09/18 21:00 Room Air 10/09/18 20:00 98.8 83 16 124/71 (88) 98 10/09/18 16:00 98.9 85 19 133/64 (87) 100 Intake and Output 10/09/18 10/10/18 18:59 06:59 Intake Total 675 ml 1018 ml Balance 675 ml 1018 ml Intake Oral 180 ml IV Total 675 ml 838 ml # Voids 10 Laboratory Tests 10/10/18 05:28: White Blood Count 5.9, Red Blood Count 3.58L, Hemoglobin 10.4L, Hematocrit 34.1L , Mean Corpuscular Volume 95, Mean Corpuscular Hemoglobin 28.9, Mean Corpuscular Hemoglobin Concent 30.5L, Red Cell Distribution Width 18.4H, Platelet Count 292, Mean Platelet Volume 5.1L, Neutrophils (%) (Auto) 73.7, Lymphocytes (%) (Auto) 18.9L, Monocytes (%) (Auto) 6.4, Eosinophils (%) (Auto) 0.2, Basophils (%) (Auto) 0.8, Sodium Level 141, Potassium Level 3.7, Chloride Level 106, Carbon Dioxide Level 25, Anion Gap 10, Blood Urea Nitrogen 4L, Creatinine 0.7, Estimat Glomerular Filtration Rate , Glucose Level 111H, Calcium Level 8.4L, Troponin I 0.011 Annie Cutler MD Oct 10, 2018 14:21
--- NOTE | 2018-10-10 16:23 | NUR ---
Social Service Note Patient's picked up patient and transported home prior to SW assessment. SW spoke with primary nurse who states 's [place] is very limited. Patient private caregiver visited and provided German food which patient ate 100% and verbalized getting appetite back. felt comfortable having patient return home. SW left message for regarding home health follow up. Primary nurse called and confirmed that he had already called home health to resume services. Home support is in place with private caregiver and home health. No indicated concerns at this time.
--- NOTE | 2018-10-10 16:53 | Cardiology Report ---
APPROVED REPORT EKG Measurement Heart [id number] Normal sinus rhythm Possible Left atrial enlargement Incomplete right bundle branch block Borderline ECG
--- NOTE | 2018-10-12 09:06 | Discharge Summary ---
Discharge Summary Discharge Summary _ DATE OF ADMISSION: 10/09/2018 DATE OF DISCHARGE: 10/10/2018 DISCHARGED BY: Dr. Renee REASON FOR ADMISSION: 73 years old female with past medical history of right breast cancer, status post mastectomy, stomach cancer, uterine cancer status post hysterectomy, dysphagia, solitary pulmonary nodule, hyperlipidemia, status post expiratory laparotomy, presented with weakness and nonbloody nonbilious vomiting for few days. Patient reported that she got dizzy the morning prior to presentation to ED and fell. Patient stated that she passed out. Patient denied diarrhea. No fever, no chills. Patient reported poor appetite for the last few days. Upon evaluation vital signs were stable. Laboratory workup revealed WBC 4.7, hemoglobin 11.4, hematocrit 35.9. Chemistry was unremarkable. Stable renal parameters and electrolytes. Albumin 3.4. Troponin - 0.007. ECG revealed normal sinus rhythm, no acute ischemic changes. Urinalysis revealed +4 ketones, +1 protein , but no evidence of UTI. CT of the abdomen pelvis revealed nonspecific bowel gas pattern with mild retained stool. No evidence of appendicitis. Intra-and extrahepatic ductal dilatation , which may partially reflect age and prior cholecystectomy. No renal or ureteral calculi. T9 and T12 compression fracture , likely chronic. Patient was admitted for further management. CONSULTANTS: pulmonary Dr. Cutler HOSPITAL COURSE: Patient admitted to medical surgical floor. Patient started on IV hydration. Renal parameters and electrolytes were closely monitored, electrolytes corrected as needed, and nephrotoxins were avoided. Supplemental oxygen provided need to keep pulse oximetry above 92%. Pulmonary toilet provided as needed. Diet started as tolerated. Symptomatic management with antiemetic provided as needed. Palaeontologist recommendations regarding protein supplements implemented in plan of care. Bowel regimen instituted. Pain management was addressed. DVT prophylaxis provided. CT of the chest was done on previous admission , earlier this month and revealed small nodular density associated with dense calcification in the left upper lobe , unchanged from the last examination , most likely representing a calcified granuloma. 2.3 x 1.7 cm well-circumscribed ovoid density in the right lower lobe unchanged from the prior exam. The nature of this lesion was unknown , recommended to repeat CT chest in 6 months / March 2019. Fall precaution were maintained. Patient was working woth physical therapy. Supportive care provided. Antiplatelet therapy with aspirin and statin were continued. Patient clinically stabilized. Patient was able to tolerate diet, no further nausea and vomiting. Patient remained hemodynamically stable. Dizziness resolved. Patient was ready for discharge home. Due to rapid and unexpected improvement in patient condition, patient was discharged in 1 day FINAL DIAGNOSES: Dehydration (due to multiple episodes of vomiting) Syncopal episode ( likely due to dehydration and hypovolemia) Severe protein calorie malnutrition Constipation Pulmonary nodule History of right breast cancer status post mastectomy History of gastric CA History of uterine CA status post hysterectomy Dysphagia Intra-and extrahepatic ductal dilatation Compression fracture likely old DISCHARGE MEDICATIONS: See Medication Reconciliation list. DISCHARGE INSTRUCTIONS: Patient was discharged home with home health services. Follow up with primary care provider in one week. Nadine Merrill NP Oct 12, 2018 09:06
== END 2018-10-10 14:00 | disposition home or self-care (01) | DRG 640 ==
LOC: EDBD 03:53 → EMR 04:23 → EDBEDREQ 05:28 → 4E 06:45
DX: E86.0 Dehydration (principal); E43 Unspecified severe protein-calorie malnutrition; S22.070A Wedge compression fracture of T9-T10 vertebra, initial encounter for closed fracture; R55 Syncope and collapse; E78.00 Pure hypercholesterolemia, unspecified; Z85.3 Personal history of malignant neoplasm of breast; Z85.028 Personal history of other malignant neoplasm of stomach; Z90.11 Acquired absence of right breast and nipple; Z85.42 Personal history of malignant neoplasm of other parts of uterus; Z90.710 Acquired absence of both cervix and uterus; E86.1 Hypovolemia; R11.2 Nausea with vomiting, unspecified; K59.00 Constipation, unspecified; R91.1 Solitary pulmonary nodule; R13.10 Dysphagia, unspecified; S22.080D Wedge compression fracture of T11-T12 vertebra, subsequent encounter for fracture with routine healing; X58.XXXA Exposure to other specified factors, initial encounter
CPT/HCPCS: 36415; 71045; 74176; 80048; 80053; 81003; 83690; 84484; 85025; 87081; 93005; 96361; 96374; 96375; 99285; J2405

== ENCOUNTER 2019-10-10 12:02 | Inpatient (IN) | payer MEDICARE, MEDICAID ==
[~2019-10-10] VITALS: Ht 160 cm; Wt 45.0 kg
[2019-10-10 12:23] VITALS: BP 124/72
--- NOTE | 2019-10-10 12:24 | NUR ---
venous blood send to lab patient is awake alert oriented very little frisian speaks armenian
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
--- NOTE | 2019-10-10 12:36 | NUR ---
ED Nurse Note: Pt in radiology
--- NOTE | 2019-10-10 12:42 | Diagnostic Imaging Report ---
Indication: Dyspnea Comparison: 10/10/2018 A single view chest radiograph was obtained. Findings: Lungs are clear. There are surgical clips in the right lung base. Heart size remains normal. Aorta is mildly ectatic and calcified. Bones are osteopenic. There is right humeral hardware. IMPRESSION: No acute cardiopulmonary disease.
[2019-10-10 13:03] LABS: ANION GAP 13 mmol/L (5-15); BLOOD UREA NITROGEN 27 mg/dL (7-18); CALCIUM 8.5 MG/DL (8.5-10.1); CARBON DIOXIDE 25 MMOL/L (21-32); CHLORIDE 109 MMOL/L (98-107); CREATININE 0.9 MG/DL (0.55-1.30); POTASSIUM 3.8 MMOL/L (3.5-5.1); SODIUM 147 MMOL/L (136-145)
[2019-10-10 13:07] LABS: ALANINE AMINOTRANSFERASE 27 U/L (12-78); ALBUMIN 3.5 G/DL (3.4-5.0); ALBUMIN/GLOBULIN RATIO 1.1 (1.0-2.7); ALKALINE PHOSPHATASE 72 U/L (46-116); ASPARTATE AMINO TRANSFERASE 29 U/L (15-37); BILIRUBIN,TOTAL 0.4 MG/DL (0.2-1.0)
[2019-10-10 13:15] LABS: BASOPHILS % (AUTO) 1.2 % (0.0-2.0); EOSINOPHILS % (AUTO) 1.1 % (0.0-3.0); HEMATOCRIT 31.3 % (37.0-47.0); HEMOGLOBIN 9.5 G/DL (12.0-16.0); LYMPHOCYTES % (AUTO) 19.9 % (20.0-45.0); MEAN CORPUSCULAR VOLUME 85 FL (80-99); MONOCYTES % (AUTO) 7.1 % (1.0-10.0); NEUTROPHILS % (AUTO) 70.7 % (45.0-75.0); PLATELET COUNT 292 K/UL (150-450); RED BLOOD COUNT 3.67 M/UL (4.20-5.40); WHITE BLOOD COUNT 7.3 K/UL (4.8-10.8)
--- NOTE | 2019-10-10 13:23 | Diagnostic Imaging Report ---
Indication: Headache Technique: Contiguous 5 mm thick transaxial imaging of the head obtained in a Siemens Sensation [address] scanner. Soft tissue and bone windows generated. Automatic Exposure Control was utilized. Total Dose length Product (DLP): 992.1mGycm CT Dose Index Volume (CTDIvol): 53.4 mGy Comparison: none Findings: There is mild prominence of the ventricles, basal cisterns, and cerebral sulci consistent with atrophy. Mild, nonspecific, white matter hypoattenuation is noted throughout the brain consistent with chronic small vessel disease. There is no midline shift, edema, acute hemorrhage, mass effect, or abnormal extra-axial fluid collections. Bones are unremarkable. Impression: No acute intracranial bleed, mass effect or edema. Mild atrophy of the brain. Nonspecific white matter hypoattenuation probably due to chronic small vessel disease. The CT scanner at [facility] is accredited by the [employer] and the scans are performed using dose optimization techniques as appropriate to a performed exam including Automatic Exposure control.
[2019-10-10] MEDS ORDERED: Mylanta II UD 30ml ORAL PRN (15:15)
[2019-10-10] MEDS ORDERED: Albuterol/Ipratropium 3ml neb HHN PRN (15:15)
[2019-10-10] MEDS ORDERED: Miralax 17gm pkt ORAL PRN (15:15)
[2019-10-10] MEDS ORDERED: Nitroglycerin Subl 0.4mg tab SL PRN (15:15)
--- NOTE | 2019-10-10 16:00 | NUR ---
ED Nurse Note: Report given to MILIND Rodriguez on 2E
--- NOTE | 2019-10-10 16:20 | NUR ---
ED Nurse Note: Pt transferred safely to 2E on the monitor. Belongings verified with MILIND Rodriguez @ bedside
[2019-10-10 16:30] VITALS: BP 146/74
--- NOTE | 2019-10-10 16:53 | NUR ---
NURSE NOTES: Received pt from KINDERGARTEN PARAPROFESSIONALMILIND GOTTI at 1630,All admission assessments and instructions done and pt verbally confirmed to understand all. Pt is alert and orient, pt is in RA, no SOB or acute respiratory distress noted. pt has intact iv access LFA 22G SL. All belongings are with pt, pt has 78$ and refused to keep in safe and pt wanted to have purse and money with her. skin is intact and pt has bruises on L hanson. no complain of pain at this moment. pt is on continues heart monitoring. all needs attended, bed is locked and is in the lowest position, call light within easy reach. will continue to monitor.
--- NOTE | 2019-10-10 19:10 | NUR ---
NURSE NOTES: Received pt and report from MILIND Rodriguez. Observed pt resting in bed with family member at beside. Pt is A/Ox3. surveillance system monitor is in placed; pt is NSR. IV site intact, asymptomatic, and patent. Bed is in the lowest position and locked. Call light and beside table is within reach. No signs/symptoms of acute distress noted at this time. Will continue plan of care.
--- NOTE | 2019-10-10 19:16 | History & Physical ---
History and Physical History & Physicial Dictated for Int Med-Dr Renee no. [id number] Johnny Acosta MD Oct 10, 2019 19:16
--- NOTE | 2019-10-10 19:20 | NUR ---
HAND-OFF: Report given to JASON RN. Pt is awake and stable.
--- NOTE | 2019-10-10 19:45 | History and Physical Report ---
DATE OF ADMISSION: 10/10/2019 CHIEF COMPLAINT: The patient is a 74-year-old Polish female, who presents with chief complaint of syncopal episode. HISTORY OF PRESENT ILLNESS: The patient was admitted to [facility] in September 2018 for similar situation. The patient states history of present illness began on Wednesday October 09, 2019. The patient was . The patient has suffered a contusion to the chin. The patient also has a contusion of the right hand. The patient states that she was taking a shower today. The patient began to feel lightheaded. The patient then passed out. It is unknown how long the patient was unconscious. EMS was called. The patient presents to [facility] with chief complaint of syncopal episode. PAST MEDICAL HISTORY: Significant for: 1. Gastric cancer. 2. Right breast cancer. 3. History of solitary right pulmonary nodule. 4. Hypercholesterolemia. 5. Medical record states history of uterine cancer, however patient denies this. PAST SURGICAL HISTORY: Significant for: 1. Open reduction internal fixation, right humerus fracture in 2018. 2. Right breast mastectomy. 3. Gastric resection secondary to gastric cancer as above. 4. Diskectomy. CURRENT MEDICATIONS: 1. Aspirin 81 mg one tablet p.o. daily. 2. Vitamin C 500 mg p.o. daily. 3. Atorvastatin 20 mg p.o. daily. 4. Lexapro 10 mg p.o. daily. 5. Fluconazole. 6. Melatonin 1 mg p.o. at bedtime. 7. Multivitamin p.o. daily. 8. Risperdal 2 mg p.o. at bedtime. 9. Tramadol 50 mg p.o. q.8 hours p.r.n. 10. Zinc sulfate 220 mg p.o. daily. ALLERGIES: No known drug allergies. SOCIAL HISTORY: The patient is single and lives alone. The patient denies tobacco or alcohol use. PHYSICAL EXAMINATION: VITAL SIGNS: Temperature 98.1, respirations 20, pulse 75, blood pressure 124/72, pulse ox 99% on room air. GENERAL: The patient is well-developed and well-nourished female, in no apparent distress. HEENT: Eyes, pupils are equal and responsive to light and accommodation. Extraocular movements are intact. NECK: Supple without lymphadenopathy. CHEST: Lungs are clear to auscultation bilaterally without wheezes or rales. CARDIOVASCULAR: Regular rhythm and rate. S1, S2 normal without murmurs, rubs, or gallops. ABDOMEN: Soft, nontender, and nondistended. Positive bowel sounds. No evidence of hepatosplenomegaly. Currently, no rebound or guarding noted. EXTREMITIES: Negative for clubbing, cyanosis, or edema. RECTAL: Refused. GENITAL: Refused. NEUROLOGIC: Cranial nerves II through XII are grossly intact without focal deficits. Motor strength is 5/5 bilaterally. Deep tendon reflexes are 2+ plantar. LABORATORY STUDIES: WBC 7.3, hemoglobin 9.5, hematocrit 31.3, platelets 292,000. Sodium 147, potassium 3.8, chloride 109, CO2 25, BUN 27, creatinine 0.9, glucose 100. Troponin 0.022. CT scan of the brain was reported as no intracranial bleed or mass effect. Chest x-ray was reported as no acute disease. ASSESSMENT: This is a 74-year-old female: 1. Syncopal episode. 2. Hypercholesterolemia. 3. History of gastric cancer. 4. History of breast cancer. 5. Solitary pulmonary nodule. Johnny Acosta M.D. DR: Dennys JOB#: [id number] CC:
[2019-10-10 20:00] VITALS: BP 129/60
[2019-10-10] MEDS ORDERED: Atorvastatin 20mg tab ORAL SCH (21:00)
[2019-10-10] MEDS: Heparin 5000 units/ml inj SUBQ SCH (21:36)
[2019-10-11] VITALS: BP 116/65
--- NOTE | 2019-10-11 02:30 | NUR ---
NURSE NOTES: Observed pt asleep in bed. No signs/symptoms of acute distress noted at this time. Will continue plan of care.
[2019-10-11 04:00] VITALS: BP 125/68
[2019-10-11 06:47] LABS: INR 0.9 (0.9-1.1)
[2019-10-11 07:22] LABS: ALANINE AMINOTRANSFERASE 20 U/L (12-78); ALBUMIN 3.2 G/DL (3.4-5.0); ALKALINE PHOSPHATASE 63 U/L (46-116); ANION GAP 8 mmol/L (5-15); ASPARTATE AMINO TRANSFERASE 24 U/L (15-37); BILIRUBIN,TOTAL 0.4 MG/DL (0.2-1.0); BLOOD UREA NITROGEN 22 mg/dL (7-18); CARBON DIOXIDE 28 MMOL/L (21-32); CHLORIDE 108 MMOL/L (98-107); CHOLESTEROL 166 MG/DL (< 200); CREATININE 0.8 MG/DL (0.55-1.30); HDL CHOLESTEROL 65 MG/DL (40-60); POTASSIUM 4.2 MMOL/L (3.5-5.1); SODIUM 144 MMOL/L (136-145); TRIGLYCERIDES 74 MG/DL (30-150)
--- NOTE | 2019-10-11 07:30 | NUR ---
NURSE NOTES: Received pt from DECEMBER RN, Pt is awake and alert, pt is in RA, no SOB or acute respiratory distress noted. pt has intact iv access LFA 22G SL. Pt is on continues heart monitoring. all needs attended, bed is locked and is in the lowest position, call light within easy reach. will continue to monitor.
[2019-10-11 07:31] LABS: BASOPHILS % (AUTO) 0.9 % (0.0-2.0); EOSINOPHILS % (AUTO) 3.4 % (0.0-3.0); HEMATOCRIT 27.9 % (37.0-47.0); LYMPHOCYTES % (AUTO) 48.2 % (20.0-45.0); MEAN CORPUSCULAR VOLUME 84 FL (80-99); MONOCYTES % (AUTO) 9.9 % (1.0-10.0); NEUTROPHILS % (AUTO) 37.6 % (45.0-75.0); PLATELET COUNT 258 K/UL (150-450); RED BLOOD COUNT 3.31 M/UL (4.20-5.40); RED CELL DISTRIBUTION WIDTH 15.1 % (11.6-14.8); WHITE BLOOD COUNT 4.3 K/UL (4.8-10.8)
--- NOTE | 2019-10-11 07:37 | NUR ---
HAND-OFF: Report given to MILIND Rodriguez. Plan of care endorsed.
[2019-10-11 08:00] VITALS: BP 121/52
[2019-10-11] MEDS ORDERED: Aspirin Baby 81mg ORAL SCH (09:00)
[2019-10-11] MEDS: Heparin 5000 units/ml inj SUBQ SCH (09:00)
--- NOTE | 2019-10-11 10:35 | Diagnostic Imaging Report ---
Indication: Dizziness. TECHNIQUE: Duplex extracranial carotid and vertebral artery sonography performed with color flow imaging and waveform analysis. COMPARISON: None FINDINGS: Right carotid: Grayscale and color-flow imaging demonstrating no hemodynamically significant stenosis within the common carotid artery, extracranial internal carotid artery. Peak systolic and end-diastolic velocities are within normal limits. ICA/CCA ratios are within normal limits. Mild heterogeneous plaques are demonstrated consistent with atherosclerotic disease. Left carotid: Grayscale and color-flow imaging demonstrating heterogeneous plaque in the ICA. Tthere is elevation of the left ICA velocity with peak systole one 148 cm/s predicting a stenosis between 50 and 69%. CCA velocity also elevated one 148 cm/s. ICA/CCA ratio 1.0. Mild heterogeneous plaques are demonstrated consistent with atherosclerotic disease. Vertebral arteries: Antegrade flow demonstrated within both vertebral arteries. IMPRESSION: 50-69% diameter stenosis estimated within the left proximal ICA. True stenosis is likely in the lower aspect of this range. Less than 50% diameter stenosis estimated within the right ICA based on sonographic criteria. Antegrade flow in both vertebral arteries. This report utilizes carotid stenosis grading criteria based on the meeting of Society of radiologists in ultrasound consensus conference, May 2002.
[2019-10-11 12:00] VITALS: BP 132/67
--- NOTE | 2019-10-11 12:36 | Consultation ---
History of Present Illness General Date patient seen: Oct 11, 2019 Chief Complaint: Syncope Present Illness HPI 74-year-old Maltese speaking female with a history of breast cancer status post mastectomy, gastric cancer, uterine cancer status post hysterectomy, presented from home by paramedics with CC of syncopal episode. Patient has no recollection of events or how she got to the hospital. She currently denies any headache, vision changes, neck or back pain, chest pain, palpitations, shortness of breath, abdominal pain, nausea, vomiting. She is admitted to telemetry for further management. Allergies: Coded Allergies: NO KNOWN ALLERGIES (Verified Allergy, Unknown, 07/31/18) Medication History Scheduled Ascorbic Acid* (Vitamin C*), 500 MG ORAL DAILY, (Reported) Aspirin* (Aspirin*), 81 MG ORAL DAILY, (Reported) Atorvastatin Calcium* (Lipitor*), 20 MG ORAL BEDTIME, (Reported) Escitalopram Oxalate* (Lexapro*), 10 MG ORAL DAILY, (Reported) Fluconazole (Fluconazole), 200 MG ORAL DAILY, (Reported) Multivitamin With Minerals (Multivitamins With Minerals*), 1 TAB ORAL DAILY, ( Reported) Nut Tx, Lact-Reduced, Iron (Boost Vhc), 120 ML PO TID, (Reported) Risperidone* (Risperdal*), 2 MG ORAL QHS, (Reported) Zinc Sulfate (Zinc Sulfate*), 220 MG ORAL DAILY, (Reported) Scheduled PRN Acetaminophen* (Acetaminophen 325MG Tablet*), 650 MG ORAL Q4H PRN for Fever/ Headache/Mild Pain, (Reported) Bisacodyl (Dulcolax), 10 MG RC DAILY PRN for IF MOM INEFFECTIVE, (Reported) Magnesium Hydroxide* (Milk Of Magnesia*), 30 ML ORAL DAILY PRN for Constipation, (Reported) Melatonin (Melatonin 5 Mg Tablet), 1 TAB ORAL BEDTIME PRN for Insomnia, ( Reported) Na Phos,M-B/Na Phos,Di-Ba* (Fleet Enema*), 133 ML RECTAL EVERY 96 HOURS PRN for IF DULCOLAX INEFFECTIVE, (Reported) Tramadol Hcl* (Ultram*), 50 MG ORAL Q8H PRN for MILD TO MODERATE PAIN, (Reported ) Tramadol Hcl* (Ultram*), 50 MG ORAL Q8HR PRN for Severe Pain (Pain Scale 7-10), (Reported) Miscellaneous Medications Unable to Obtain Medications (Unable To Obtain Meds), (Reported) Patient History Healthcare decision maker Resuscitation status Full Code Advanced Directive on File Past Medical/Surgical History Past Medical/Surgical History: (1) Anxiety disorder (2) Pulmonary nodule (3) Breast cancer (4) History of gastric cancer Review of Systems All Other Systems: negative except mentioned in HPI Physical Exam General Appearance: WD/WN, no apparent distress Lines, tubes and drains: peripheral HEENT: normocephalic, atraumatic, anicteric Respiratory/Chest: chest wall non-tender, lungs clear Cardiovascular/Chest: normal peripheral pulses, normal rate Abdomen: normal bowel sounds, non tender Genitourinary/Rectal: normal genital exam Extremities: normal range of motion Skin Exam: normal pigmentation 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 Last 24 Hour Vital Signs Date Time Temp Pulse Resp B/P (MAP) Pulse Ox O2 Delivery O2 Flow Rate FiO2 10/11/19 12:00 98.1 90 18 132/67 (88) 99 10/11/19 09:00 Room Air 10/11/19 08:00 97.7 100 18 121/52 (75) 98 10/11/19 07:55 115 10/11/19 07:00 79 18 99 Room Air 21 10/11/19 04:00 97.0 85 17 125/68 (87) 96 10/11/19 04:00 85 10/11/19 00:00 97.0 80 17 116/65 (82) 95 10/11/19 00:00 81 10/10/19 21:00 Room Air 10/10/19 20:00 88 10/10/19 20:00 96.8 83 19 129/60 (83) 95 10/10/19 17:00 Room Air 10/10/19 16:51 80 10/10/19 16:30 97.7 77 20 146/74 (98) 98 10/10/19 16:20 98.0 79 20 121/74 99 Room Air Intake and Output 10/10/19 10/11/19 19:00 07:00 Intake Total 240 ml 300 ml Balance 240 ml 300 ml Intake Oral 240 ml 300 ml # Voids 1 2 # Bowel Movements 1 Laboratory Tests Test 10/11/19 04:38 White Blood Count 4.3 K/UL (4.8-10.8) L Red Blood Count 3.31 M/UL (4.20-5.40) L Hemoglobin 9.0 G/DL (12.0-16.0) L Hematocrit 27.9 % (37.0-47.0) L Mean Corpuscular Volume 84 FL (80-99) Mean Corpuscular Hemoglobin 27.0 PG (27.0-31.0) Mean Corpuscular Hemoglobin Concent 32.1 G/DL (32.0-36.0) Red Cell Distribution Width 15.1 % (11.6-14.8) H Platelet Count 258 K/UL (150-450) Mean Platelet Volume 6.0 FL (6.5-10.1) L Neutrophils (%) (Auto) 37.6 % (45.0-75.0) L Lymphocytes (%) (Auto) 48.2 % (20.0-45.0) H Monocytes (%) (Auto) 9.9 % (1.0-10.0) Eosinophils (%) (Auto) 3.4 % (0.0-3.0) H Basophils (%) (Auto) 0.9 % (0.0-2.0) Prothrombin Time 10.1 SEC (9.30-11.50) Prothromb Time International Ratio 0.9 (0.9-1.1) Activated Partial Thromboplast Time 25 SEC (23-33) Sodium Level 144 MMOL/L (136-145) Potassium Level 4.2 MMOL/L (3.5-5.1) Chloride Level 108 MMOL/L (98-107) H Carbon Dioxide Level 28 MMOL/L (21-32) Anion Gap 8 mmol/L (5-15) Blood Urea Nitrogen 22 mg/dL (7-18) H Creatinine 0.8 MG/DL (0.55-1.30) Estimat Glomerular Filtration Rate > 60 mL/min (>60) Glucose Level 101 MG/DL (74-106) Calcium Level 9.0 MG/DL (8.5-10.1) Total Bilirubin 0.4 MG/DL (0.2-1.0) Aspartate Amino Transf (AST/SGOT) 24 U/L (15-37) Alanine Aminotransferase (ALT/SGPT) 20 U/L (12-78) Alkaline Phosphatase 63 U/L (46-116) Total Protein 6.5 G/DL (6.4-8.2) Albumin 3.2 G/DL (3.4-5.0) L Globulin 3.3 g/dL Albumin/Globulin Ratio 1.0 (1.0-2.7) Triglycerides Level 74 MG/DL (30-150) Cholesterol Level 166 MG/DL (< 200) LDL Cholesterol 93 mg/dL (<100) HDL Cholesterol 65 MG/DL (40-60) H Cholesterol/HDL Ratio 2.6 (3.3-4.4) L Thyroid Stimulating Hormone (TSH) 4.736 uiU/mL (0.358-3.740) Height (Feet): 5 Height (Inches): 3.00 Weight (Pounds): 99 Medications Current Medications Medications (Trade) Dose Ordered Sig/Naomi Route PRN Reason Start Time Stop Time Status Last Admin Dose Admin Acetaminophen (Tylenol) 650 mg Q4H PRN ORAL fever 10/10/19 15:15 11/09/19 15:14 Al Hydroxide/Mg Hydroxide (Mylanta II) 30 ml Q6H PRN ORAL dyspepsia 10/10/19 15:15 11/09/19 15:14 Albuterol/ Ipratropium (Albuterol/ Ipratropium) 3 ml Q4H PRN HHN Shortness of Breath 10/10/19 15:15 10/15/19 15:14 Aspirin (ASA) 81 mg DAILY ORAL 10/11/19 09:00 11/10/19 08:59 10/11/19 08:56 Atorvastatin Calcium (Lipitor) 20 mg BEDTIME ORAL 10/10/19 21:00 11/09/19 20:59 10/10/19 21:36 Clonidine HCl (Catapres Tab) 0.1 mg Q4H PRN ORAL For High Blood Pressure 10/10/19 15:15 11/09/19 15:14 Dextrose (Dextrose 50%) 25 ml Q30M PRN IV Hypoglycemia 10/10/19 15:15 11/09/19 15:14 Dextrose (Dextrose 50%) 50 ml Q30M PRN IV Hypoglycemia 10/10/19 15:15 11/09/19 15:14 Escitalopram Oxalate (Lexapro) 10 mg DAILY ORAL 10/11/19 09:00 11/10/19 08:59 10/11/19 08:56 Heparin Sodium (Porcine) (Heparin 5000 units/ml) 5,000 units EVERY 12 HOURS SUBQ 10/10/19 21:00 11/09/19 20:59 10/11/19 09:00 Nitroglycerin (Ntg) 0.4 mg Q5M X 3 DOSES PRN SL Prn Chest Pain 10/10/19 15:15 11/09/19 15:14 Ondansetron HCl (Zofran) 4 mg Q6H PRN IVP Nausea & Vomiting 10/10/19 15:15 11/09/19 15:14 Polyethylene Glycol (Miralax) 17 gm HSPRN PRN ORAL Constipation 10/10/19 15:15 11/09/19 15:14 Risperidone (RisperDAL) 2 mg QHS ORAL 10/10/19 21:00 11/09/19 20:59 10/10/19 21:36 Temazepam (Restoril) 15 mg HSPRN PRN ORAL Insomnia 10/10/19 15:15 10/17/19 15:14 Assessment/Plan Problem List: (1) Syncope ICD Codes: R55 - Syncope and collapse SNOMED: 525064700 (2) Severe anemia ICD Codes: D64.9 - Anemia, unspecified SNOMED: 118687334 (3) Anxiety disorder ICD Codes: F41.9 - Anxiety disorder, unspecified SNOMED: 951742472 (4) Hypercholesteremia ICD Codes: E78.00 - Pure hypercholesterolemia, unspecified SNOMED: 99594759 (5) Breast cancer ICD Codes: C50.919 - Malignant neoplasm of unspecified site of unspecified female breast SNOMED: 397305687 (6) History of gastric cancer ICD Codes: Z85.028 - Personal history of other malignant neoplasm of stomach SNOMED: 508338654, 295890543 Assessment/Plan: 2D echo doppler of carotid artery anemia w/u, including iron studies and stool OB telemetry monitoring f/u tumor markers. Annie Cutler MD Oct 11, 2019 12:36
--- NOTE | 2019-10-11 13:47 | NUR ---
P.T Note: P.T evaluation completed. Pt is alert, O x 4, pleasant and cooperative. Pt had no c/o pain nor dizziness. Pt is functioning baseline w/o signs of deficits. Pt is independent in all areas of ADL/functional mobilities and gait/locomotion. Current functional statu does not warrant skilled P.T services as time. Encouraged pt OOB activities during stay VS bedrest stay to deconditioning. Pt verbalized understanding. D/C P.T services.
--- NOTE | 2019-10-11 13:49 | NUR ---
RD ASSESSMENT & RECOMMENDATIONS SEE CARE ACTIVITY FOR COMPLETE ASSESSMENT DAILY ESTIMATED NEEDS: Needs based on Cardiac, h/o cancer, 45kg kg 27-32 kcals/kg 1313-7236 total kcals 1-1.5 g protein/kg 45-68 g total protein 25-30 mL/kg 2275-5714 total fluid mLs NUTRITION DIAGNOSIS: Increased kcal and pro needs r/t cancer as evidenced by h/o gastric and breast cancer, s/p mastectomy. CURRENT DIET: Regular PO DIET RECOMMENDATIONS: Maintain Regular diet, texture as tolerated. ADDITIONAL RECOMMENDATIONS: * Weekly standing weight * Add Ensure qdaily * Add snacks in b/w meals w/ variable po intake Pt on multiple psych meds, possible variable appetite . . .
[2019-10-11 14:07] LABS: INR 0.9 (0.9-1.1)
[2019-10-11 14:11] LABS: LACTATE DEHYDROGENASE 182 U/L (81-234)
[2019-10-11 15:11] LABS: % IRON SATURATION 6 % (15-50); IRON 22 ug/dL (50-175); TOTAL IRON BINDING CAPACITY 373 ug/dL (250-450)
--- NOTE | 2019-10-11 15:39 | NUR ---
NURSE NOTES: pt refused heart monitoring and V/S, and asked to speak with Dr CASTELLANOS, Dr CASTELLANOS notified and he will come at 1900 to visit pt, pt is aware.
--- NOTE | 2019-10-11 19:24 | NUR ---
HAND-OFF: Report given to SHALA GANN. Pt is awake and stable. Still waiting for Dr CASTELLANOS, RN called Dr CASTELLANOS again and let him know pt is waiting for him, Dr stated he will come a little bit late, BRIDAL GOWN FITTER and Pt notified.
--- NOTE | 2019-10-11 20:30 | NUR ---
NURSE NOTES: PATIENT LEFT HOSPITAL AGAINST MEDICAL ADVISE, ACCOMPANIED BY , MR. POLLOCK; REFUSED TO SIGN AMA FORM, SIGNED BY PRIMARY AND CHARGE NURSE. DR. CASTELLANOS NOT ON THE UNIT, INFORMED VIA TELEPHONE
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
--- NOTE | 2019-10-12 10:34 | Diagnostic Imaging Report ---
Indication: Syncope, altered mental status, confusion Technique: sagittal T1 fast spin echo, axial T1 FLAIR, axial T2 FLAIR, axial T2 FS PROPELLER, axial T2* GRE, axial diffusion weighted images. ADC and exponential ADC maps generated Comparison: No comparison MRI images. Reference made to head CT 10/11/2019 Findings: No abnormal areas of restricted diffusion to suggest acute infarction. No acute hemorrhage or edema. No mass effect nor midline shift. Mild age-related enlargement of the ventricles and extra axial CSF spaces. There is evidence of prior cataract surgery on the left. The sinuses are clear. There is some mastoid and middle ear opacification on the right. The vascular flow voids are preserved. Impression: Age-related volume loss Negative for acute intracranial bleed, mass effect or infarct
--- NOTE | 2019-10-12 16:28 | NUR ---
CASE MANAGEMENT: INITIAL REVIEW 74YR OLD FEMALE BIB [facility] FROM HOME CC: SYNCOPE SI: SYNCOPE 98.1 75 20 124/72 99% ON RA H/H 9.5/31.3 NA+ 147 CL-109 BUN 27 IS:HEPARIN SQ BID RISPERDAL PO QHS LIPITOR PO QHS CHEST X-RAY- CT HEAD- DUPLEX EXT ARTERY- \: 2E TELE UNIT PLAN: MRI BRAIN
--- NOTE | 2019-10-16 17:21 | Coder Physician Query ---
Clarification is required for compliance, coding accuracy, and to reflect severity of illness for this patient Dear Dr. LUJAN Date: 10/16/2019 Lamp Replacer/CDS Name: KACEY VENCES "Syncope" documented in The patient is a 74-year-old Armenian female, who presents with chief complaint of syncopal episode. carotid Duplex revealed 50-69% diameter stenosis estimated within the left proximal ICA. True stenosis was likely in the lower aspect of this range. Less than 50% diameter stenosis estimated within the right ICA based on sonographic criteria. MRI of the brain revealed age-related volume loss , but was negative for acute intracranial bleeding, mass-effect or infarct. Echocardiogram demonstrated preserved ejection fraction 65%. No evidence of wall motion abnormality. Hemoglobin and hematocrit were closely monitored with goal to keep hemoglobin above 7. Stool for occult blood was negative. Anemia work-up revealed evidence of anemia of chronic disease. Please specify the cause of SYNCOPE IF KNOWN: [x] Dehydration [] Orthostatic Hypotension [] Shock [] Dialysis Disequilibrium Syndrome [] Heat [] Other: [] Unable to determine CATHERINE LUJAN M.D. Date Please also document in your Progress Notes and/or Discharge Summary and indicate if the condition was present on admission. BAKARI
== END 2019-10-11 20:10 | disposition left against medical advice (07) | DRG 641 ==
LOC: EDBD 12:02 → EMR 12:34 → 2E 13:45 → EDBEDREQ 15:34
DX: E86.0 Dehydration (principal); R55 Syncope and collapse; Z85.028 Personal history of other malignant neoplasm of stomach; Z85.3 Personal history of malignant neoplasm of breast; E78.00 Pure hypercholesterolemia, unspecified; Z90.11 Acquired absence of right breast and nipple; Z90.3 Acquired absence of stomach [part of]; Z79.82 Long term (current) use of aspirin; D63.8 Anemia in other chronic diseases classified elsewhere; Z85.42 Personal history of malignant neoplasm of other parts of uterus; R91.1 Solitary pulmonary nodule; F41.9 Anxiety disorder, unspecified; I65.21 Occlusion and stenosis of right carotid artery
CPT/HCPCS: 36415; 70450; 70551; 71045; 80053; 80061; 82270; 82378; 82607; 82746; 83540; 83550; 83615; 84443; 84484; 85007; 85025; 85044; 85060; 85610; 85651; 85730; 93005; 93306; 93880; 94664; 99285